=== PATIENT | female | born 1950 | race Caucasian/White ===

== ENCOUNTER 2019-10-31 12:18 | Emergency (ER) | payer MEDICARE ==
[~2019-10-31] VITALS: Ht 172.7 cm; Wt 82.1 kg
--- OUTSIDE RECORDS SUMMARY | ~2019-10-31 | XMS | Encounter Summary ---
Demographics + + + | Address | [address] | | | [place] [address] | + + + | Home Phone | | + + + | Preferred Language | Unknown | + + + | Marital Status | | + + + | Episcopalian Affiliation | 1001 | + + + | Race | Unknown | + + + | Ethnic Group | Unknown | + + + Author + + + | Author | [facility] | | | and [place] | + + + | Organization | [facility] | | | and [place] | + + + | Address | Unknown | + + + | Phone | Unavailable | + + + Support + + +---------+ + | Name | Relationship | Address | Phone | + + +---------+ + | Paris Schimke | ECON | Unknown | | + + +---------+ + Care Team Providers + +------+ + | Care Physician Vice President Name | Role | Phone | + +------+ + | Oscar Apodaca MD | PCP | | + +------+ + Reason for Visit + + + | Reason | Comments | + + + | Other | Appointment | + + + | Medication Refill | | + + + Encounter Details +--------+ + + + + | Date | Type | Department | Care Team | Description | +--------+ + + + + | 07/09/ | Telephone | [place] [facility] | Naga Enriquez MD | Other (Appointment | | 2020 | | [facility] [address] | [address] | ); Medication Refill | | | | [address] [place] | [place], [place] | | | | | [place], [place] | [address] | | | | | [address] | [phone] | | | | | [phone] | | | +--------+ + + + + Social History + +-------+ +--------+------+ | Tobacco Use | Types | Packs/Day | Years | Date | | | | | Used | | + +-------+ +--------+------+ | Never Smoker | | | | | + +-------+ +--------+------+ + +---+---+---+ | Smokeless Tobacco: | | | | | Never Used | | | | + +---+---+---+ + + + | Sex Assigned at | Date Recorded | | | | + + + | Not on file | | + + + + + + + | Job Start Date | Occupation | Industry | + + + + | Not on file | Not on file | Not on file | + + + + + + + + | Travel History | Travel Start | Travel End | + + + + + + | No recent travel history available. | + + documented as of this encounter Plan of Treatment Not on filedocumented as of this encounter Visit Diagnoses Not on filedocumented in this encounter"
--- OUTSIDE RECORDS SUMMARY | ~2019-10-31 | XMS | Encounter Summary ---
Demographics + + + | Address | [address] [place] [address] RD | | | [place] [address] | + + + | Home Phone | | + + + | Preferred Language | Unknown | + + + | Marital Status | | + + + | Holiness Affiliation | Unknown | + + + | Race | White | + + + | Ethnic Group | Not or | + + + Author + + + | Organization | Unknown | + + + | Address | Unknown | + + + | Phone | Unavailable | + + + Support + + +---------+ + | Name | Relationship | Address | Phone | + + +---------+ + | Paris Lee | ECON | Unknown | | + + +---------+ + Care Team Providers + +------+ + | Care Communications Marketing Intern Name | Role | Phone | + +------+ + PCP | Unavailable | + +------+ + Encounter Details +--------+ + + + + | Date | Type | Department | Care Team | Description | +--------+ + + + + | 06/27/ | Office | | Note, Outpatient | Progress Note | | 2001 | Visit-Trans | | Clinic | | | | cribed | | | | +--------+ + + + + Social History + +-------+ +--------+------+ | Tobacco Use | Types | Packs/Day | Years | Date | | | | | Used | | + +-------+ +--------+------+ | Never Assessed | | | | | + +-------+ +--------+------+ + + + | Sex Assigned at [...] + + documented as of this encounter Progress Notes Interface, Maintenance Director In - 01/30/2006 1:07 AM PDTCLINIC DATE: 06/27/2002 NEUROSURGERY CLINIC SUBJECTIVE: Jessica Lee is a patient who is referred to me from Dr. Karthik Arevalo. She is a 51-year-old female who presented with a fullness in her ear and some dizziness and loss of hearing. She ultimately had a biopsy taken through her ear and was proved to be that of a meningioma. At the first, it was thought it might be a paraganglioma. She presents today for evaluation regarding treatment. She indicates she has otherwise been a very healthy individual. She has no significant other medical problems and takes no specific medications at this time. PHYSICAL EXAMINATION NEUROLOGIC: Her examination is also unremarkable. She is alert and oriented x 3. Her speech is fluent. Extraocular movements are intact. The pupils are round and reactive to light. Facies are symmetrical. Tongue protrudes in the midline, and palate elevates in the midline. She has normal sensation to light touch in her face. Hearing is remarkably decreased in the left ear. 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 She has 5/5 strength in her iliopsoas, quadriceps, gastrocnemius, tibialis anterior, and EHL muscles bilaterally. She has no sensory deficits to light touch in her upper or lower extremities. Cerebellar exam on [id number]-ipaf shows no evidence of dysmetria, and she is also able to perform rapid alternating movements. I reviewed her films and she definitely has a petrous apex mass which is that of a meningioma. It appears to be involved in a number of cranial nerves including 5, 7, 8, 9, 10, and 11. I discussed with her that I think radiation alone is probably not in her best interest. She is a young lady and I think a significant debulking would be a better approach all by radiosurgery. She would like to hear from [facility] regarding proton beam, is going to discuss her situation with them. However, I have recommended that we at least repeat her MRI since the MRI was not of the highest quality that I would like. I would also recommend that if she proceeds with surgery that we perform an angiogram with embolization prior to surgery. She is going to wait and hear from [facility] and not have radiation. She is also going to plan to come back and see me on July 11, 2002, at which time we will have a repeat MRI. At that time, we hopefully can make a decision on whether to proceed with surgery or not. Clinic time was 20 minutes in length and dealt a great deal of time with counseling regarding her problem. Leonides Don M.D. VARGHESE / CLEMENT [id number] / [id number] / [id number] / Tdocumented in this encounter Plan of Treatment Not on filedocumented as of this encounter Visit Diagnoses Not on filedocumented in this encounter"
--- OUTSIDE RECORDS SUMMARY | ~2019-10-31 | XMS | Encounter Summary ---
Demographics + + + | Address | [address] | | | [place] [address] | + + + | Home Phone | | + + + | Preferred Language | Unknown | + + + | Marital Status | | + + + | Spiritism Affiliation | 1001 | + + + | Race | Unknown | + + + | Ethnic Group | Unknown | + + + Author + + + | Author | [facility] | | | and [place] | + + + | Organization | [facility] | | | and [...] Team Providers + +------+ + | Care Brewing Director Name | Role | Phone | + +------+ + | Oscar Apodaca MD | PCP | | + +------+ + Encounter Details +--------+ + + + + | Date | Type | Department | Care Team | Description | +--------+ + + + + | 07/20/ | Orders Only | [facility] | Naga Enriquez MD | Hx of partial | | 2018 | | [facility] [address] | [address] [place] | thyroidectomy | | | | [address] [place] [place] | [place], [place] | (Primary Dx) | | | | [place], [place] | [address] | | | | | [address] | [phone] | | | | | [phone] | | | +--------+ + + + [...] as of this encounter Plan of Treatment +------+------+--------+ + + | Name | Type | Priori | Associated Diagnoses | Order Schedule | | | | ty | | | +------+------+--------+ + + | TSH | Lab | Routin | Hx of partial | Expected: | | | | e | thyroidectomy | 09/17/2017, Expires: | | | | | | 07/20/2018 | +------+------+--------+ + + documented as of this encounter Visit Diagnoses + + | Diagnosis | + + | Hx of partial thyroidectomy - Primary Other postprocedural status | + + documented in this encounter"
--- OUTSIDE RECORDS SUMMARY | ~2019-10-31 | XMS | Encounter Summary ---
Demographics + + + | Address | [address] | | | [place] [address] | + + + | Home Phone | | + + + | Preferred Language | Unknown | + + + | Marital Status | | + + + | Baptist Affiliation | 1001 | + + + | Race | Unknown | + + + | Ethnic Group | Unknown | + + + Author + + + | Author | [facility] | | | and [place] | + + + | Organization | [facility] | | [...] Team Providers + +------+ + | Care Demolition Worker Name | Role | Phone | + +------+ + | Oscar Apodaca MD | PCP | | + +------+ + Reason for Visit +---------+ + | Reason | Comments | +---------+ + | Results | | +---------+ + Encounter Details +--------+ + + + + | Date | Type | Department | Care Team | Description | +--------+ + + + + | 07/20/ | Telephone | [place] [facility] | Naga Enriquez MD | Results | | 2018 | | [facility] [address] | [address] [place] | | | | | [address] [place] | [place], [place] | | | | | [place], [place] | [address] | | | | | [address] | [phone] | | | | | [phone] | | | +--------+ + + + [...]
--- OUTSIDE RECORDS SUMMARY | ~2019-10-31 | XMS | Encounter Summary ---
Demographics + + + | Address | [address] | | | [place] [address] | + + + | Home Phone | | + + + | Preferred Language | Unknown | + + + | Marital Status | | + + + | Scientologist Affiliation | 1001 | + + + | Race | Unknown | + + + | Ethnic Group | Unknown | + + + Author + + + | Author | [facility] | | | and [place] | + + + | Organization | [facility] | | | and [...] Team Providers + +------+ + | Care Functional Mental Disability Teacher Name | Role | Phone | + +------+ + | Oscar Apodaca MD | PCP | | + +------+ + Reason for Visit +--------+ + | Reason | Comments | +--------+ + | Other | TSH Lab Orders | +--------+ + Encounter Details +--------+ + + + + | Date | Type | Department | Care Team | Description | +--------+ + + + + | 09/18/ | Telephone | [facility] | Naga Enriquez MD | Other (TSH Lab | | 2018 | | [facility] [address] | [address] [place] | Orders ) | | | | [address] [place] | [place], [place] | | | | | [place], [place] | [address] | | | | | [address] | [phone] | | | | | [phone] | | | +--------+ + + + [...] Not on filedocumented as of this encounter Procedures + +--------+ + + + | Procedure Name | Priori | Date/Time | Associated Diagnosis | Comments | | | ty | | | | + +--------+ + + + | THYROID STIMULATING | Routin | 09/18/2017 | | Results for this | | HORMONE 3RD GEN | e | 10:56 AM | | procedure are in the | | | | PDT | | results section. | + +--------+ + + + documented in this encounter Results Thyroid Stimulating Hormone 3rd Gen (09/18/2017 10:56 AM PDT) + + + + + + | Component | Value | Ref Range | Performed | Pathologist | | | | | At | Signature | + + + + + + | TSH | 0.109 (L)Comment: | 0.270 - 4.20 | REFERENCE | | | | Biotin in specimens | | LAB | | | | taken from patients on | | [facility] | | | | high-dose biotin therapy | | | | | | or supplements may | | | | | | intefere with this test | | | | | | and cause inaccurate | | | | | | test results. It is | | | | | | recommended that for | | | | | | patients receiving | | | | | | therapy with high biotin | | | | | | doses (> 5 mg/day), no | | | | | | laboratory test specimen | | | | | | should be collected | | | | | | until at least 8 hours | | | | | | after the last biotin | | | | | | administration. | | | | + + + + + + + + | Specimen | + + | | + + + + + | Narrative | Performed At | + + + | Testing Performed at: [facility] CLIA: [id number] - [id number] | REFERENCE LAB | | [place] [address] | [facility] | + + + + + + + + | Performing | Address | City/State/Zipcode | Phone Number | | Organization | | | | + + + + + | REFERENCE LAB | [address] | [place] | [phone] | | [place] [facility] [place] | | [address] | | + + + + + | REFERENCE LAB | [address] | [place] | [phone] | | [facility] | | [address] | | + + + + + documented in this encounter Visit Diagnoses Not on filedocumented in this encounter"
--- OUTSIDE RECORDS SUMMARY | ~2019-10-31 | XMS | Encounter Summary ---
Demographics + + + | Address | [address] | | | [place] [address] | + + + | Home Phone | | + + + | Preferred Language | Unknown | + + + | Marital Status | | + + + | Cheondoism Affiliation | 1001 | + + + | Race | Unknown | + + + | Ethnic Group | Unknown | + + + Author + + + | Author | [facility] | | | and [place] | + + + | Organization | [facility] | | [...] Team Providers + +------+ + | Care Resolution Manager Name | Role | Phone | + +------+ + | Oscar Apodaca MD | PCP | | + +------+ + Encounter Details +--------+ + + + + | Date | Type | Department | Care Team | Description | +--------+ + + + + | 04/03/ | [facility] | [facility] | Conversion | Diplopia; Problems | | 2018 | Encounter | [facility] MRI | Transaction, | with swallowing and | | | | [address] | Provider Unknown | mastication | | | | [place], [place] | [phone] | | | | | [address] | | | | | | [phone] | Indra Maloney | | | | | | MD [address] | | | | | | [address] | | | | | | [place] [address] | | | | | | [phone] | | | | | | | | +--------+ + + [...] + + documented as of this encounter Last Filed Vital Signs + + + + + | Vital Sign | Reading | Time Taken | Comments | + + + + + | Blood Pressure | - | - | | + + + + + | Pulse | - | - | | + + + + + | Temperature | - | - | | + + + + + | Respiratory Rate | - | - | | + + + + + | Oxygen Saturation | - | - | | + + + + + | Inhaled Oxygen | - | - | | | Concentration | | | | + + + + + | Weight | 86.2 kg (190 lb) | 04/03/2018 4:00 PM | | | | | PDT | | + + + + + | Height | - | - | | + + + + + | Body Mass Index | 29.13 | 06/18/2017 9:22 AM | | | | | PST | | + + + + + documented in this encounter Medications at Time of Discharge + + + +---------+ + + | Medication | Sig | Dispensed | Refills | Start | End Date | | | | | | Date | | + + + +---------+ + + | alendronate | Take by mouth. | | 0 | 07/24/19 | | | (FOSAMAX) 70 mg | | | | 17 | | | tablet | | | | | | + + + +---------+ + + | aspirin 325 mg | Take by mouth. | | 0 | 07/24/19 | | | tablet | | | | 17 | | + + + +---------+ + + | atorvaSTATin | Take by mouth. | | 0 | 07/24/19 | | | (LIPITOR) 40 mg | | | | 17 | | | tablet | | | | | | + + + +---------+ + + | Calcium | daily | | 0 | 07/24/19 | | | Carb-Cholecalciferol | | | | 17 | | | (CALCIUM + D3 PO) | | | | | | + + + +---------+ + + | Cholecalciferol | Take by mouth | | 0 | | | | (VITAMIN D-3) 2000 | Daily. | | | | | | units CAPS | | | | | | + + + +---------+ + + | Coenzyme Q10 | Take 300 mg by | | 0 | 07/24/19 | | | (COQ10 PO) | mouth. | | | 17 | | + + + +---------+ + + | levothyroxine | Take 1 tablet by | 30 | 5 | 01/01/20 | | | (SYNTHROID) 100 mcg | mouth every morning | tablet | | 18 | | | tablet | (before breakfast). | | | | | + + + +---------+ + + | metoprolol | Take by mouth. | | 0 | 07/24/19 | | | succinate | | | | 17 | | | (TOPROL-XL) 25 mg 24 | | | | | | | hr tablet | | | | | | + + + +---------+ + + | Multiple | Take by mouth | | 0 | | | | Vitamins-Minerals | Daily. | | | | | | (MULTIVITAMIN PO) | | | | | | + + + +---------+ + + documented as of this encounter Plan of Treatment Not on filedocumented as of this encounter Procedures + +--------+ + + + | Procedure Name | Priori | Date/Time | Associated Diagnosis | Comments | | | ty | | | | + +--------+ + + + | MRI BRAIN W WO | Routin | 04/03/2018 | | Results for this | | CONTRAST | e | 4:01 PM | | procedure are in the | | | | PDT | | results section. | + +--------+ + + + documented in this encounter Results MRI Brain w wo Contrast (04/03/2018 4:01 PM PDT) + + | Specimen | + + | | + + + + + | Impressions | Performed At | + + + | 1. Stable small right temporal meningioma. 2. 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 | | | 3. Probable mild chronic white matter microvascular ischemic | | | gliosis. | | | 4:25 PM | | + + + + + + | Narrative | Performed At | + + + | [facility] C[facility] MRI BRAIN W WO CONTRAST 04/03/2018 4:01 PM | | | HISTORY: 67 years. Female. Diplopia and problems with swallowing | | | and mastication. TECHNIQUE: Imaging was performed on a 1.5 [facility] | | | MRI system. Multiplanar sequences according to a standard department | | | protocol were acquired with and without contrast. Contrast: | | | Gadavist. Dose: 8 mL. COMPARISON: 02/28/2017 FINDINGS: | | | Craniocervical junction, pineal, pituitary, corpus callosum are | | | unremarkable. Mild scattered focal areas of increased T2 and FLAIR | | | signal seen within the supratentorial white matter and centrally | | | within the alexandra that appears similar to the previous examination. | | | Mild diffuse cerebral atrophy. Cystic encephalomalacia and gliosis | | | within the anterior left temporal lobe, stable. Stable enhancement | | | centered at the left petrous apex involving the clivus and cavernous | | | sinus measuring 5.6 x 2.8 cm, stable. Normal flow voids within the | | | anterior and posterior circulation. Orbits and their contents are | | | normal. No restricted diffusion. A 9 x 8 mm area of enhancement on | | | the posterior right temporal lobe with dural attachment that is | | | stable to the previous examination. | | + + + + + | Procedure Note | + + | Rober, Rad Conversion - 02/12/2019 5:19 AM PDT [facility] BRAIN W WO | | [id number]/3/2018 4:01 PM HISTORY:67 years. Female. Diplopia and problems with | | swallowing and mastication. TECHNIQUE:Imaging was performed on a 1.5 [facility] MRI system. | | Multiplanar sequences according to a standard department protocol were acquired with and | | without contrast.Contrast: Gadavist. Dose: 8 mL. COMPARISON:02/28/2017 FINDINGS: | | Craniocervical junction, pineal, pituitary, corpus callosum are unremarkable. Mild | | scattered focal areas of increased T2 and FLAIR signal seen within the supratentorial | | white matter and centrally within the alexandra that appears similar to the previous | | examination. Mild diffuse cerebral atrophy. Cystic encephalomalacia and gliosis within | | the anterior left temporal lobe, stable. Stable enhancement centered at the left petrous | | apex involving the clivus and cavernous sinus measuring 5.6 x 2.8 cm, stable. Normal | | flow voids within the anterior and posterior circulation. Orbits and their contents are | | normal. No restricted diffusion. A 9 x 8 mm area of enhancement on the posterior right | | temporal lobe with dural attachment that is stable to the previous examination. | | IMPRESSION: 1. Stable small right temporal meningioma.2. Stable enhancement centered | | in the left petrous apex involving the clivus and cavernous sinus to likely represent | | residual transosseous meningioma.3. Probable mild chronic white matter microvascular | | ischemic gliosis. | | | |Cystic encephalomalacia and gliosis within the anterior left temporal lobe, stable. Stable enhancement centered at the left petrous apex involving the clivus and cavernous sinus measu ring 5.6 x 2.8 cm, stable. | | | |Normal flow voids within the anterior and posterior circulation. Orbits and their contents are normal. No restricted diffusion. | | | |A 9 x 8 mm area of enhancement on the posterior right temporal lobe with dural attachment t hat is stable to the previous examination. | | | |IMPRESSION: | |1. Stable small right temporal meningioma. | |2. 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 | |3. Probable mild chronic white matter microvascular ischemic gliosis. | | | | | + + documented in this encounter Visit Diagnoses + + | Diagnosis | + + | Diplopia | + + | Problems with swallowing and mastication | + + documented in this encounter"
--- OUTSIDE RECORDS SUMMARY | ~2019-10-31 | XMS | Encounter Summary ---
Demographics + + + | Address | [address] | | | [place] [address] | + + + | Home Phone | | + + + | Preferred Language | Unknown | + + + | Marital Status | | + + + | Restorationist Affiliation | 1001 | + + + | Race | Unknown | + + + | Ethnic Group | Unknown | + + + Author + + + | Author | [facility] | | | and [place] | + + + | Organization | [facility] | | [...] Team Providers + +------+ + | Care Senior Restaurant Manager Name | Role | Phone | + +------+ + PCP | Unavailable | + +------+ + Encounter Details +--------+ + + + + | Date | Type | Department | Care Team | Description | +--------+ + + + + | 02/28/ | Hospital | [facility] | Conversion | Personal history of | | 2017 | Encounter | [facility] | Transaction, | colonic polyps; | | | | [address] | Provider Unknown | Conductive hearing | | | | [facility] [place] | [phone] | loss, unspecified; | | | | [address] | | Chronic external ear | | | | [phone] | Indra Maloney | infection, left | | | | | MD Lalit [address] | | | | | | [address] | | | | | | [place] [address] | | | | | | [phone] | | | | | | | [...] + + + + | Weight | 84.4 kg (186 lb) | 02/28/2017 5:12 PM | | | | | PDT | | + + + + + | Height | - | - | | + + + + + | Body Mass Index | 28.52 | 12/07/2016 9:50 AM | | | | | PDT | [...] MRI BRAIN W WO | Routin | 02/28/2017 | | Results for this | | CONTRAST | e | 5:19 PM | | procedure are in the | | | | PDT | | results section. | + +--------+ + + + documented in this encounter Results MRI Brain w wo Contrast (02/28/2017 5:19 PM PDT) + + | Specimen | + + | | + + + + + | Impressions | Performed At | + + + | 1. 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 Involvement of the petrous apex appears minimally | | | progressed since 2013. Residual fluid within the left mastoid air | | | cells, similar to the prior exam. 2. Stable appearance of the right | | | temporal meningioma. 3. Minimal nonspecific white matter findings, | | | not significantly changed. | | + + + + + + | Narrative | Performed At | + + + | JESSICA LEE 1950 MRI BRAIN W WO CONTRAST 02/28/2017 | | | 5:19 PM HISTORY: Angioblastic meningioma, personal history of | | | colonic polyps, conductive hearing loss, chronic external ear | | | infection, left COMPARISON: 04/14/2015 TECHNIQUE: Imaging was | | | performed on a 1.5 [facility] MRI system. Multiplanar sequences | | | according to a standard department protocol were acquired with and | | | without contrast. Contrast: MultiHance. Dose: 16 mL. FINDINGS: | | | FINDINGS: The ventricles are enlarged compatible with mild | | | generalized brain volume loss. Prior left frontal, temporal, and | | | parietal craniotomy noted. Underlying encephalomalacia and gliosis | | | involving the anterior left temporal lobe, similar to the prior exam. | | | There are scattered foci of high T2/FLAIR signal intensity within | | | the subcortical and deep white matter bilaterally, which are | | | nonspecific, but similar to the prior exam. There is no evidence | | | of acute intracranial hemorrhage. No abnormal restricted diffusion to | | | suggest acute infarction. Extensive fluid is again seen within the | | | left mastoid air cells. Postcontrast images again demonstrated | | | enhancement along the left petrous apex and extending to left Meckel's | | | cave, measuring 5.2 x 2.2 cm slightly increased from 2014 (previously | | | 4.8 x 2.2 cm in 2014). Signal abnormality also again seen involving | | | the left jugular foramen with transosseous extension across the left | | | occipital condyle and involving the left hypoglossal canal, similar | | | to the prior exam. There appears to be slightly greater involvement of | | | the clivus than on the prior exam (series 10, image 145). | | | Enhancing extra-axial mass within the right temporal region is again | | | demonstrated measuring up to 8.5 mm in size of (series 10, image 119) | | | not significantly changed. Nonspecific osseous enhancement seen | | | within the left frontal bone laterally (series 10, image 33) minimally | | | increased from the prior exam. Recommend attention on follow-up | | | imaging. The flow-voids of the carotid and vertebrobasilar system | | | are preserved at the skull base. | | + + + + + | Procedure Note | + + | Rober, Rad Conversion - 02/13/2019 1:02 AM PDT JESSICA LEE1950MRI BRAIN W | | WO CONTRAST02/28/2017 5:19 PM HISTORY: Angioblastic meningioma, personal history of | | colonic polyps, conductive hearing loss, chronic external ear infection, left | | COMPARISON: 04/14/2015 TECHNIQUE:Imaging was performed on a 1.5 [facility] MRI system. | | Multiplanar sequences according to a standard department protocol were acquired with and | | without contrast.Contrast: MultiHance. Dose: 16 mL. FINDINGS: FINDINGS: The | | ventricles are enlarged compatible with mild generalized brain volume loss. Prior left | | frontal, temporal, and parietal craniotomy noted. Underlying encephalomalacia and | | gliosis involving the anterior left temporal lobe, similar to the prior exam. There are | | scattered foci of high T2/FLAIR signal intensity within the subcortical and deep white | | matter bilaterally, which are nonspecific, but similar to the prior exam. There is no | | evidence of acute intracranial hemorrhage. No abnormal restricted diffusion to suggest | | acute infarction. Extensive fluid is again seen within the left mastoid air cells. | | Postcontrast images again demonstrated enhancement along the left petrous apex and | | extending to left Meckel's cave, measuring 5.2 x 2.2 cm slightly increased from 2014 | | (previously 4.8 x 2.2 cm in 2014). Signal abnormality also again seen involving the left | | jugular foramen with transosseous extension across the left occipital condyle and | | involving the left hypoglossal canal, similar to the prior exam. There appears to be | | slightly greater involvement of the clivus than on the prior exam (series 10, image | | 145). Enhancing extra-axial mass within the right temporal region is again demonstrated | | measuring up to 8.5 mm in size of (series 10, image 119) not significantly changed. | | Nonspecific osseous enhancement seen within the left frontal bone laterally (series 10, | | image 33) minimally increased from the prior exam. Recommend attention on follow-up | | imaging. The flow-voids of the carotid and vertebrobasilar system are preserved at the | | skull base. IMPRESSION: 1. 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 Involvement of the | | petrous apex appears minimally progressed since 2014. Residual fluid within the left | | mastoid air cells, similar to the prior exam.2. Stable appearance of the right temporal | | meningioma. 3. Minimal nonspecific white matter findings, not significantly changed. | | | |The flow-voids of the carotid and vertebrobasilar system are preserved at the skull base. | | | |IMPRESSION: | | | |1. Residual enhancement centered within the left petrous apex and involvement of Meckel's c ave, left cavernous sinus, and left occipital condyle consistent with residual transosseous meningioma of the skull | |base. Involvement of the petrous apex appears | |minimally progressed since 2014. Residual fluid within the left mastoid air cells, similar to the prior exam. | |2. Stable appearance of the right temporal meningioma. | | | |3. Minimal nonspecific white matter findings, not significantly changed. | | | | | + + documented in this encounter Visit Diagnoses + + | Diagnosis | + + | Personal history of colonic polyps | + + | Conductive hearing loss, unspecified | + + | Chronic external ear infection, left | + + documented in this encounter"
--- OUTSIDE RECORDS SUMMARY | ~2019-10-31 | XMS | Encounter Summary ---
Demographics + + + | Address | [address] | | | [place] [address] | + + + | Home Phone | | + + + | Preferred Language | Unknown | + + + | Marital Status | | + + + | Holiness Affiliation | 1001 | + + + | Race | Unknown | + + + | Ethnic Group | Unknown | + + + Author + + + | Author | [facility] | | | and [place] | + + + | Organization | [facility] | | | and [place] | + + + | Address | Unknown | + + + | Phone | Unavailable | + + + Support + + +---------+ + | Name | Relationship | Address | Phone | + + +---------+ + | Paris Jesus | ECON | Unknown | | + + +---------+ + Care Team Providers + +------+ + | Care Counseling Services Director Name | Role | Phone | + +------+ + PCP | Unavailable | + +------+ + Encounter Details +--------+ + + + + | Date | Type | Department | Care Team | Description | +--------+ + + + + | 08/17/ | Hospital | [facility] | | | | 2011 | Encounter | MED CTR XRAY [address] | | | | | | [address] | | | | | | [place] [address] | | | | | | [phone] | | | +--------+ + + + [...]
--- OUTSIDE RECORDS SUMMARY | ~2019-10-31 | XMS | Encounter Summary ---
Demographics + + + | Address | [address] | | | [place] [address] | + + + | Home Phone | | + + + | Preferred Language | Unknown | + + + | Marital Status | | + + + | Jehovah'S Witness Affiliation | 1001 | + + + | Race | Unknown | + + + | Ethnic Group | Unknown | + + + Author + + + | Author | [facility] | | | and [place] | + + + | Organization | [facility] | | | and [...] Team Providers + +------+ + | Care Environmental Aid Name | Role | Phone | + +------+ + PCP | Unavailable | + +------+ + Encounter Details +--------+ + + + + | Date | Type | Department | Care Team | Description | +--------+ + + + + | 05/02/ | Hospital | [facility] | Conversion | Nontoxic single | | 2016 | Encounter | [facility] | Transaction, | thyroid nodule | | | | ULTRASOUND [address] | Provider Unknown | | | | | [address] | [phone] | | | | | [place] | | | | | | [address] | | | | | | [phone] | | | +--------+ + + + [...] | + +--------+ + + + | US THYROID | Routin | 05/02/2016 | | Results for this | | | e | 3:11 PM | | procedure are in the | | | | PDT | | results section. | + +--------+ + + + documented in this encounter Results US Thyroid (05/02/2016 3:11 PM PDT) + + | Specimen | + + | | + + + + + | Impressions | Performed At | + + + | 1. Solitary thyroid nodule in the thyroid isthmus, as above. | | | Recommend fine-needle aspiration under ultrasound guidance to exclude | | | malignancy. 2. Heterogeneous appearance of the thyroid gland, | | | without hyperemia, which could reflect previous thyroiditis. | | | | | + + + + + + | Narrative | Performed At | + + + | JESSICA LEE US THYROID 05/02/2016 3:11 PM HISTORY: | | | Thyroid nodule. Nontoxic single thyroid nodule. TECHNIQUE: | | | Sonographic evaluation of the thyroid gland. COMPARISON: None. | | | FINDINGS: The overall thyroid gland demonstrates a heterogeneous | | | echotexture. The right lobe measures 45 x 14 x 15 mm, without focal | | | nodule. The left lobe measures 39 x 14 x 14 mm, measuring no focal | | | nodule. The thyroid isthmus measures 5 mm greatest AP dimension. | | | Within the thyroid isthmus, a well-circumscribed hypoechoic thyroid | | | nodule is seen, demonstrating punctate microcalcifications, and | | | intermediate to low color Doppler flow. It measures 21 x 7 x 20 mm. | | + + + + + | Procedure Note | + + | Mook Richter - 02/13/2019 12:42 PM PDT JESSICA LEE TLWTTQU20/1/2016 | | 3:11 PM HISTORY:Thyroid nodule. Nontoxic single thyroid nodule. TECHNIQUE:Sonographic | | evaluation of the thyroid gland. COMPARISON:None. FINDINGS:The overall thyroid gland | | demonstrates a heterogeneous echotexture. The right lobe measures 45 x 14 x 15 mm, | | without focal nodule. The left lobe measures 39 x 14 x 14 mm, measuring no focal nodule. | | The thyroid isthmus measures 5 mm greatest AP dimension. Within the thyroid isthmus, a | | well-circumscribed hypoechoic thyroid nodule is seen, demonstrating punctate | | microcalcifications, and intermediate to low color Doppler flow. It measures 21 x 7 x 20 | | mm. IMPRESSION: 1. Solitary thyroid nodule in the thyroid isthmus, as above. Recommend | | fine-needle aspiration under ultrasound guidance to exclude malignancy. 2. | | Heterogeneous appearance of the thyroid gland, without hyperemia, which could reflect | | previous thyroiditis. | | | |FINDINGS: | |The overall thyroid gland demonstrates a heterogeneous echotexture. The right lobe measures 45 x 14 x 15 mm, without focal nodule. The left lobe measures 39 x 14 x 14 mm, measuring no focal nodule. The thyroid isthmus | |measures 5 mm greatest AP dimension. | | Within the thyroid isthmus, a well-circumscribed hypoechoic thyroid nodule is seen, demons trating punctate microcalcifications, and intermediate to low color Doppler flow. It measure s 21 x 7 x 20 mm. | | | |IMPRESSION: | |1. Solitary thyroid nodule in the thyroid isthmus, as above. Recommend fine-needle aspirat ion under ultrasound guidance to exclude malignancy. | | | |2. Heterogeneous appearance of the thyroid gland, without hyperemia, which could reflect p revious thyroiditis. | | | | | + + documented in this encounter Visit Diagnoses + + | Diagnosis | + + | Nontoxic single thyroid nodule Nontoxic uninodular goiter | + + documented in this encounter"
--- OUTSIDE RECORDS SUMMARY | ~2019-10-31 | XMS | Encounter Summary ---
Demographics + + + | Address | [address] | | | [place] [address] | + + + | Home Phone | | + + + | Preferred Language | Unknown | + + + | Marital Status | | + + + | Adventism Affiliation | 1001 | + + + | Race | Unknown | + + + | Ethnic Group | Unknown | + + + Author + + + | Author | [facility] | | | and [place] | + + + | Organization | [facility] | | [...] Team Providers + +------+ + | Care Welding Machine Operator Thermit Name | Role | Phone | + [...] | | | [place], [place] | [address] | | | | | [address] | [phone] | | | | | [phone] | | | +--------+ + + + [...]
--- OUTSIDE RECORDS SUMMARY | ~2019-10-31 | XMS | Encounter Summary ---
Demographics + + + | Address | [address] | | | [place] [address] | + + + | Home Phone | | + + + | Preferred Language | Unknown | + + + | Marital Status | | + + + | Confucianism Affiliation | 1001 | + + + | Race | Unknown | + + + | Ethnic Group | Unknown | + + + Author + + + | Author | [facility] | | | and [place] | + + + | Organization | [facility] | | | and [place] | + + + | Address | Unknown | + + + | Phone | Unavailable | + + + Support + + +---------+ + | Name | Relationship | Address | Phone | + + +---------+ + | Paris Schimdinorah | ECON | Unknown | | + + +---------+ + Care Team Providers + +------+ + | Care Bench Jeweler Name | Role | Phone | + +------+ + PCP | Unavailable | + +------+ + Encounter Details +--------+ + + + + | Date | Type | Department | Care Team | Description | +--------+ + + + + | 07/25/ | Hospital | [facility] | Conversion | Other screening | | 2011 | Encounter | IMAGING SERVICES | Transaction, | mammogram | | | | [address] | Provider Unknown | | | | | [address] [place], [place] | [phone] | | | | | [address] | | | | | | [phone] | | | +--------+ + + + [...] | + +--------+ + + + | JOE DIGITAL | Routin | 07/25/2011 | | Results for this | | SCREENING BILATERAL | e | 2:33 PM | | procedure are in the | | | | PST | | results section. | + +--------+ + + + documented in this encounter Results [facility] Digital Screening Bilateral (07/25/2011 2:33 PM PST) + + | Specimen | + + | | + + + + + | Narrative | Performed At | + + + | JESSICA A SCHIMKE MAMMO SCREENING BILATERAL 07/25/2011 2:18 PM | | | History: 60 years. Female. Asymptomatic for breast disease. | | | Technique: Digital Craniocaudad and medial lateral oblique views of | | | each breast were performed. Computerized aided detection software | | | was utilized to prescreen this exam. Comparison: 05/06/2010 and | | | previous dating back to 05/29/2006. Findings: The breast | | | parenchyma consists of scattered fibroglandular densities. No | | | nodule or mass visualized. No suspicious microcalcifications. No | | | architectural distortion visualized. No new findings as compared | | | with the prior exam. Impression: 1. Negative screening | | | mammography. 2. Recommend annual screening mammography. | | | BI-RADS: 1, negative. General breast imaging addendum: 10-15% | | | of palpable breast abnormalities may not be visualized on | | | mammography. Negative imaging of the breasts should not postpone | | | further evaluation of a clinically significant palpable abnormality. | | | | | + + + + + | Procedure Note | + + | Rober, Rad Conversion - 02/22/2019 6:24 AM PDT JESSICA LEE | | MAMMO SCREENING BILATERAL | | 07/25/2011 2:18 PM | | | | History: 60 years. Female. Asymptomatic for breast disease. | | | | Technique: Digital Craniocaudad and medial lateral oblique views of each | | breast were performed. Computerized aided detection software was utilized | | to prescreen this exam. | | | | Comparison: 05/06/2010 and previous dating back to 05/29/2006. | | | | Findings: The breast parenchyma consists of scattered fibroglandular | | densities. | | | | No nodule or mass visualized. No suspicious microcalcifications. No | | architectural distortion visualized. No new findings as compared with the | | prior exam. | | | | Impression: | | 1. Negative screening mammography. | | 2. Recommend annual screening mammography. | | | | BI-RADS: 1, negative. | | | | | | General breast imaging addendum: 10-15% of palpable breast abnormalities | | may not be visualized on mammography. Negative imaging of the breasts | | should not postpone further evaluation of a clinically significant palpable | | abnormality. | | | | | + + documented in this encounter Visit Diagnoses + + | Diagnosis | + + | Other screening mammogram | + + documented in this encounter"
--- OUTSIDE RECORDS SUMMARY | ~2019-10-31 | XMS | Encounter Summary ---
Demographics + + + | Address | [address] | | | [place] [address] | + + + | Home Phone | | + + + | Preferred Language | Unknown | + + + | Marital Status | | + + + | Rastafarian Affiliation | 1001 | + + + | Race | Unknown | + + + | Ethnic Group | Unknown | + + + Author + + + | Author | [facility] | | | and [place] | + + + | Organization | [facility] | | | [...] Team Providers + +------+ + | Care Electronic Lab Technician Name | Role | Phone | + +------+ + PCP | Unavailable | + +------+ + Encounter Details +--------+ + + + + | Date | Type | Department | Care Team | Description | +--------+ + + + + | 05/13/ | Hospital | [facility] | Indra Maloney | Headache | | 2006 | Encounter | CONVERSION [address] | [address] | | | | | [place] | [address] | | | | | [place] | [place] [address] | | | | | [address] | [phone] | | | | | [phone] | | | +--------+ + + + [...] filedocumented as of this encounter Visit Diagnoses + + | Diagnosis | + + | Headache(784.0) Headache | + + documented in this encounter"
--- OUTSIDE RECORDS SUMMARY | ~2019-10-31 | XMS | Encounter Summary ---
Demographics + + + | Address | [address] | | | [place] [address] | + + + | Home Phone | | + + + | Preferred Language | Unknown | + + + | Marital Status | | + + + | Anabaptism Affiliation | 1001 | + + + | Race | Unknown | + + + | Ethnic Group | Unknown | + + + Author + + + | Author | [facility] | | | and [place] | + + + | Organization | [facility] | | | [...] Team Providers + +------+ + | Care Content Engineer Name | Role | Phone | + +------+ + PCP | Unavailable | + +------+ + Encounter Details +--------+ + + + + | Date | Type | Department | Care Team | Description | +--------+ + + + + | 04/14/ | [facility] | [facility] | Conversion | Visit for screening | | 2014 | Encounter | IMAGING SERVICES | Transaction, | mammogram | | | | [address] | Provider Unknown | | | | | [address] [place], [place] | [phone] | | | | | [address] | | | | | | [phone] | | | +--------+ + + + [...] + +--------+ + + + | JOE TOMOSYN | Routin | 04/14/2015 | | Results for this | | SCREENING BILATERAL | e | 2:32 PM | | procedure are in the | | | | PDT | | results section. | + +--------+ + + + documented in this encounter Results JOE Tomosynthesis Screening Bilateral (04/14/2015 2:32 PM PDT) + + | Specimen | + + | | + + + + + | Impressions | Performed At | + + + | Negative. No evidence of malignancy. Normal interval followup | | | is recommended in 12 months. ASSESSMENT: BI-RADS Category 1 - | | | Negative. A letter of notification will be sent to the patient. | | | | | + + + + + + | Narrative | Performed At | + + + | [facility]ESSICA Cedeno [facility] MAMMO SCREEN COMBO HD BILATERAL 04/14/2015 2:32 | | | PM HISTORY: 64 years. Female. Asymptomatic for breast | | | disease. Family/Surgical History: Benign LEFT breast excisional | | | biopsy TECHNIQUE: Digital mammographic craniocaudad and medial | | | lateral oblique (2D) views of each breast were performed, with | | | additional digital tomosynthesis (3D) imaging of each breast in 2 | | | projections. Computerized aided detection software was utilized. | | | COMPARISON: 01/20/14 FINDINGS: Breast Tissue: There are | | | scattered areas of fibroglandular density. No significant masses, | | | calcifications, or areas of architectural distortion are seen. | | + + + + -+ | Procedure Note | + -+ | Rober, Rad Conversion - 02/14/2019 5:46 AM PDT Indie Vinos A [email or web address] SCREEN US BiologicO HD | | [id number]/14/2015 2:32 PM HISTORY: 64 years. Female. Asymptomatic for breast | | disease.Family/Surgical History: Benign LEFT breast excisional biopsy TECHNIQUE: | | Digital mammographic craniocaudad and medial lateral oblique (2D) views of each breast | | were performed, with additional digital tomosynthesis (3D) imaging of each breast in 2 | | projections. Computerized aided detection software was utilized. COMPARISON: 01/20/14 | | FINDINGS: Breast Tissue: There are scattered areas of fibroglandular density. No | | significant masses, calcifications, or areas of architectural distortion are seen. | | IMPRESSION: Negative. No evidence of malignancy. Normal interval followup is | | recommended in 12 months. ASSESSMENT: BI-RADS Category 1 - Negative. A letter of | | notification will be sent to the patient. | | | |Breast Tissue: There are scattered areas of fibroglandular density. | | | |No significant masses, calcifications, or areas of architectural distortion are seen. | | | |IMPRESSION: | | | |Negative. No evidence of malignancy. Normal interval followup is recommended in 12 months. | | | |ASSESSMENT: BI-RADS Category 1 - Negative. | | | |A letter of notification will be sent to the patient. | | | | | + -+ documented in this encounter Visit Diagnoses + + | Diagnosis | + + | Visit for screening mammogram Other screening mammogram | + + documented in this encounter"
--- OUTSIDE RECORDS SUMMARY | ~2019-10-31 | XMS | Encounter Summary ---
Demographics + + + | Address | [address] | | | [place] [address] | + + + | Home Phone | | + + + | Preferred Language | Unknown | + + + | Marital Status | | + + + | Jew Affiliation | 1001 | + + + | Race | Unknown | + + + | Ethnic Group | Unknown | + + + Author + + + | Author | [facility] | | | and [place] | + + + | Organization | [facility] | [...] Team Providers + +------+ + | Care Lead Performance Support Analyst Name | Role | Phone | + +------+ + PCP | Unavailable | + +------+ + Reason for Visit +---------+ + | Reason | Comments | +---------+ + | Results | | +---------+ + Encounter Details +--------+ + + + + | Date | Type | Department | Care Team | Description | +--------+ + + + + | 05/16/ | Telephone | [facility] | Naga Enriquez MD | Results | | 2017 | | [facility] | [address] [place] | | | | | [address] [place] | [place], [place] | | | | | [place], [place] | [address] | | | | | [address] | [phone] | | | | | [phone] | | | +--------+ + + + [...] Diagnosis | + + | Hx of papillary adenocarcinoma of thyroid Personal history of malignant neoplasm of | | thyroid | + + | Hx of thyroidectomy Other postprocedural status | + + documented in this encounter"
--- OUTSIDE RECORDS SUMMARY | ~2019-10-31 | XMS | Encounter Summary ---
Demographics + + + | Address | [address] | | | [place] [address] | + + + | Home Phone | | + + + | Preferred Language | Unknown | + + + | Marital Status | | + + + | Mormon Affiliation | 1001 | + + + | Race | Unknown | + + + | Ethnic Group | Unknown | + + + Author + + + | Author | [facility] | | | and [place] | + + + | Organization | [facility] | | | and [...] Team Providers + +------+ + | Care Substitute Nurse Name | Role | Phone | + +------+ + PCP | Unavailable | + +------+ + Encounter Details +--------+ + + + + | Date | Type | Department | Care Team | Description | +--------+ + + + + | 06/06/ | Hospital | [facility] | Conversion | Hx of thyroid cancer | | 2017 | Encounter | [facility] | Transaction, | | | | | [address] | Provider Unknown | | | | | [address] | [phone] | | | | | [place] | | | | | | [address] | | | | | | [phone] | | | +--------+ + + + [...] + + documented as of this encounter Medications at Time of Discharge [...] Take 1 tablet by | 30 | 3 | 05/16/20 | | | (SYNTHROID) 125 mcg | mouth every morning | tablet | | 17 | 8 | | tablet | (before breakfast). | [...] + +--------+ + + + | US HEAD NECK SOFT | Routin | 06/06/2017 | | Results for this | | TISSUE | e | 3:03 PM | | procedure are in the | | | | PST | | results section. | + +--------+ + + + documented in this encounter Results US Head Neck Soft Tissue (06/06/2017 3:03 PM PST) + + | Specimen | + + | | + + + + + | Impressions | Performed At | + + + | 1. Baseline examination post thyroidectomy Small and likely | | | benign lymph nodes only | | + + + + + + | Narrative | Performed At | + + + | HISTORY: 66-year-old female, history of thyroid malignancy, | | | surveillance post thyroidectomy TECHNIQUE: 1. Sonographic | | | evaluation of the neck and thyroid bed Prior study for review : | | | 02 May 2016 FINDINGS: No evidence of residual thyroid | | | tissue with normal-appearing thyroid bed both the left and right of | | | midline Lymph node in the left neck on image 22 is of normal | | | appearance and configuration. About 8 mm in major axis. A 3 mm lymph | | | node is seen just lateral to the left jugular carotid system on image | | | 20. No pathologic-appearing lymphadenopathy on the imaging offered | | | | | + + + + + | Procedure Note | + + | Rober, Rad Conversion - 02/13/2019 1:02 AM PDT HISTORY: 66-year-old female, history of | | thyroid malignancy, surveillance post thyroidectomy TECHNIQUE: 1. Sonographic | | evaluation of the neck and thyroid bed Prior study for review : 02 May 2016 | | FINDINGS: No evidence of residual thyroid tissue with normal-appearing thyroid bed both | | the left and right of midline Lymph node in the left neck on image 22 is of normal | | appearance and configuration. About 8 mm in major axis. A 3 mm lymph node is seen just | | lateral to the left jugular carotid system on image 20. No pathologic-appearing | | lymphadenopathy on the imaging offered IMPRESSION: 1. Baseline examination post | | thyroidectomy Small and likely benign lymph nodes only | | | |No evidence of residual thyroid tissue with normal-appearing thyroid bed both the left and right of midline | | | |Lymph node in the left neck on image 22 is of normal appearance and configuration. About 8 mm in major axis. A 3 mm lymph node is seen just lateral to the left jugular carotid system on image 20. | | | |No pathologic-appearing lymphadenopathy on the imaging offered | | | | | | | |IMPRESSION: | | | |1. Baseline examination post thyroidectomy | | | |Small and likely benign lymph nodes only | | | | | + + documented in this encounter Visit Diagnoses + + | Diagnosis | + + | Hx of thyroid cancer Personal history of malignant neoplasm of thyroid | + + documented in this encounter"
--- OUTSIDE RECORDS SUMMARY | ~2019-10-31 | XMS | Encounter Summary ---
Demographics + + + | Address | [address] | | | [place] [address] | + + + | Home Phone | | + + + | Preferred Language | Unknown | + + + | Marital Status | | + + + | Anabaptism Affiliation | 1001 | + + + | Race | Unknown | + + + | Ethnic Group | Unknown | + + + Author + + + | Author | [facility] | | | and [place] | + + + | Organization | [facility] | | | [...] Team Providers + +------+ + | Care Service Car Driver Name | Role | Phone | + +------+ + PCP | Unavailable | + +------+ + Encounter Details +--------+ + + + + | Date | Type | Department | Care Team | Description | +--------+ + + + + | 05/08/ | Hospital | [facility] | [place], | Other Follow-Up | | 2007 | Encounter | CONVERSION DEP [address] | Radhames Trevino MD | Examination | | | | [place] | [address] | | | | | [place] | [address] [place], [place] | | | | | [address] | [address] | | | | | [phone] | [phone] | | | | | | | [...] | Diagnosis | + + | Other follow-up examination(V67.59) Other follow-up examination | + + documented in this encounter"
--- OUTSIDE RECORDS SUMMARY | ~2019-10-31 | XMS | Encounter Summary ---
Demographics + + + | Address | [address] | | | [place] [address] | + + + | Home Phone | | + + + | Preferred Language | Unknown | + + + | Marital Status | | + + + | Spiritism Affiliation | 1001 | + + + | Race | Unknown | + + + | Ethnic Group | Unknown | + + + Author + + + | Author | [facility] | | | and [place] | + + + | Organization | [facility] | | | and [...] Team Providers + +------+ + | Care Casino Surveillance Officer Name | Role | Phone | + +------+ + PCP | Unavailable | + +------+ + Encounter Details +--------+ + + + + | Date | Type | Department | Care Team | Description | +--------+ + + + + | 05/06/ | Hospital | [facility] GENER[facility] OP | | Other Screening | | 2009 | Encounter | CONVERSION DEP [address] | | Mammogram | | | | [address] | | | | | | [place] | | | | | | [address] | | | | | | [phone] | | | +--------+ + + + [...] + | JOE DIGITAL | Routin | 05/06/2010 | | Results for this | | SCREENING BILATERAL | e | 11:28 AM | | procedure are in the | | | | PDT | | results section. | + +--------+ + + + documented in this encounter Results JOE Digital Screening Bilateral (05/06/2010 11:28 AM PDT) + + | Specimen | + + | | + + + + + | Narrative | Performed At | + + + | [facility] [id number] Ph: | | | Patient Name: JESSICA LEE Date of : | | | 1950 Medical Record: [id number] Account: [id number] | | | Exam Date/Time: 05/06/2010 11:30 Ordering | | | Physician: ELLIOTT GAMBINO Order Detail: [id number] Exam Description: | | | JOE DIGITAL BILAT SCREENING/CAD | | | | | | JESSICA LEE JOE DIGITAL BILAT SCREENING/CAD 05/06/2010 11:30 | | | AM History: 59 years. Female. Asymptomatic for breast | | | disease. Added Risk Factors: None. Technique: Craniocaudad, | | | and medial lateral oblique views of each breast were performed for | | | a total 4 views. Computerized aided detection software was utilized | | | to prescreen this exam. Comparison: January 2009 and back to | | | May 2006 Breast Procedures: Benign excisional biopsy left | | | breast Findings: The breast parenchymal pattern is moderately | | | dense with interspersed fatty tissue causing a bilateral multinodular | | | appearance to the breast, a small mass or significant finding could | | | be obscured. No new or spiculated mass evident. No one area more | | | worrisome than any other to suggest the need for biopsy at this point | | | in time. No worrisome calcification in either breast. No | | | architectural distortion visualized. No significant interval change | | | as compared with the prior exam. Impression: 1. No mammographic | | | evidence of malignancy. 2. Dense glandular tissue bilaterally, | | | correlate with physical examination. 3. Recommend annual screening | | | mammography. BI-RADS: 1, negative. General breast imaging | | | addendum: 10-15% of palpable breast abnormalities may not be | | | visualized on mammography. Negative imaging evaluation of the | | | breasts should not postpone further evaluation of a clinically | | | suspicious finding. | | + + + + + | Procedure Note | + + | Rober, Mook Conversion - 02/23/2019 6:11 PM PDT | | [facility] | | [facility] [address] | | | | | | Patient Name: JESSICA LEE | | Date of : 1950 | | Medical Record: [id number] | | Account: [id number] | | | | | | Exam Date/Time: 05/06/2010 11:30 | | Ordering Physician: ELLIOTT GAMBINO | | Order Detail: [id number] | | Exam Description: [facility] DIGITAL BILAT SCREENING/CAD | | | | JESSICA LEE | | [facility] DIGITAL BILAT SCREENING/CAD | | 05/06/2010 11:30 AM | | | | History: 59 years. Female. Asymptomatic for breast disease. | | | | Added Risk Factors: None. | | | | Technique: Craniocaudad, and medial lateral oblique views of each breast | | were performed for a total 4 views. Computerized aided detection software | | was utilized to prescreen this exam. | | | | Comparison: January 2009 and back to May 2006 | | | | Breast Procedures: Benign excisional biopsy left breast | | | | Findings: The breast parenchymal pattern is moderately dense with | | interspersed fatty tissue causing a bilateral multinodular appearance to | | the breast, a small mass or significant finding could be obscured. | | No new or spiculated mass evident. | | No one area more worrisome than any other to suggest the need for biopsy at | | this point in time. | | No worrisome calcification in either breast. | | No architectural distortion visualized. | | No significant interval change as compared with the prior exam. | | | | Impression: | | 1. No mammographic evidence of malignancy. | | 2. Dense glandular tissue bilaterally, correlate with physical | | examination. | | 3. Recommend annual screening mammography. | | | | BI-RADS: 1, negative. | | | | | | General breast imaging addendum: 10-15% of palpable breast abnormalities | | may not be visualized on mammography. Negative imaging evaluation of the | | breasts should not postpone further evaluation of a clinically suspicious | | finding. | | | | | + + documented in this encounter Visit Diagnoses + + | Diagnosis | + + | Other screening mammogram | + + documented in this encounter"
--- OUTSIDE RECORDS SUMMARY | ~2019-10-31 | XMS | Encounter Summary ---
Demographics + + + | Address | [address] | | | [place] [address] | + + + | Home Phone | | + + + | Preferred Language | Unknown | + + + | Marital Status | | + + + | Spiritism Affiliation | 1001 | + + + | Race | Unknown | + + + | Ethnic Group | Unknown | + + + Author + + + | Author | [facility] | | | and [place] | + + + | Organization | [facility] | | [...] Team Providers + +------+ + | Care Construction Or Leak Gang Laborer Name | Role | Phone | + +------+ + PCP | Unavailable | + +------+ + Encounter Details +--------+ + + + + | Date | Type | Department | Care Team | Description | +--------+ + + + + | 06/06/ | [facility] | [facility] | Conversion | Encounter for | | 2017 | Encounter | IMAGING SERVICES | Transaction, | screening mammogram | | | | [address] | Provider Unknown | for malignant | | | | [address] [place], [place] | [phone] | neoplasm of breast | | | | [address] | | | | | | [phone] | Oscar Apodaca | | | | | | MD [address] | | | | | | [address] | | | | | | [place] [address] | | | | | | [phone] | | | | | | | [...] + | JOE TOMOSYN | Routin | 06/06/2017 | | Results for this | | SCREENING BILATERAL | e | 2:18 PM | | procedure are in the | | | | PST | | results section. | + +--------+ + + + documented in this encounter Results JOE Tomosynthesis Screening Bilateral (06/06/2017 2:18 PM PST) + + | Specimen | + + | | + + + + + | Impressions | Performed At | + + + | Benign findings. No mammographic evidence of malignancy. As long | | | as the patient's physical examination remains normal, routine | | | screening mammogram is recommended annually. ASSESSMENT: BI-RADS | | | Category: 2 - Benign findings. Per National MQSA guidelines, a | | | letter of notification will be sent to the patient. Electronically | | | signed by Jacki Toledo MD on 06/07/2017 7:20 AM | | + + + + + + | Narrative | Performed At | + + + | [facility] MAMMO SCREEN COMBO HD BILATERAL 06/06/2017 2:18 | | | PM HISTORY: 66 years. Female. No current breast-related | | | complaints. Personal history of benign left breast excisional biopsy. | | | TECHNIQUE: Digital mammographic craniocaudad and medial lateral | | | oblique (2D) views of each breast were performed, with additional | | | digital tomosynthesis (3D) imaging of each breast in 2 projections. | | | Computerized aided detection software was utilized. COMPARISON: | | | 05/23/2016 and priors FINDINGS: The breast parenchyma is | | | heterogeneously dense, which may obscure the detection of small masses | | | (Bi-Rads Density Category C), unchanged in pattern and distribution.. | | | There is a stable benign asymmetry in the medial left breast, mid | | | depth. There are scattered benign morphology calcifications. No | | | suspicious masses, calcifications, or unexplained areas of | | | architectural distortion are seen. | | + + + + + | Procedure Note | + + | Rober, Rad Conversion - 02/13/2019 1:02 AM PDT JESSICA A TM SCREEN COMBO HD | | [id number]/6/2017 2:18 PM HISTORY: 66 years. Female. No current breast-related | | complaints. Personal history of benign left breast excisional biopsy. TECHNIQUE: Digital | | mammographic craniocaudad and medial lateral oblique (2D) views of each breast were | | performed, with additional digital tomosynthesis (3D) imaging of each breast in 2 | | projections. Computerized aided detection software was utilized. COMPARISON: 05/23/2016 | | and priors FINDINGS: The breast parenchyma is heterogeneously dense, which may obscure | | the detection of small masses (Bi-Rads Density Category C), unchanged in pattern and | | distribution.. There is a stable benign asymmetry in the medial left breast, mid depth. | | There are scattered benign morphology calcifications. No suspicious masses, | | calcifications, or unexplained areas of architectural distortion are seen. IMPRESSION: | | Benign findings. No mammographic evidence of malignancy. As long as the patient's | | physical examination remains normal, routine screening mammogram is recommended | | annually. ASSESSMENT: BI-RADS Category: 2 - Benign findings. Per National MQSA | | guidelines, a letter of notification will be sent to the patient. | |No suspicious masses, calcifications, or unexplained areas of architectural distortion are seen. | | | |IMPRESSION: | | | |Benign findings. No mammographic evidence of malignancy. As long as the patient's physical examination remains normal, routine screening mammogram is recommended annually. | | | |ASSESSMENT: BI-RADS Category: 2 - Benign findings. | | | |Per National [place] guidelines, a letter of notification will be sent to the patient. | | | | | + + documented in this encounter Visit Diagnoses + + | Diagnosis | + + | Encounter for screening mammogram for malignant neoplasm of breast Other screening | | mammogram | + + documented in this encounter"
--- OUTSIDE RECORDS SUMMARY | ~2019-10-31 | XMS | Encounter Summary ---
Demographics + + + | Address | [address] | | | [place] [address] | + + + | Home Phone | | + + + | Preferred Language | Unknown | + + + | Marital Status | | + + + | Hindu Affiliation | 1001 | + + + | Race | Unknown | + + + | Ethnic Group | Unknown | + + + Author + + + | Author | [facility] | | | and [place] | + + + | Organization | [facility] | | | and [...] Team Providers + +------+ + | Care Water Filterer Helper Name | Role | Phone | + +------+ + PCP | Unavailable | + +------+ + Encounter Details +--------+ + + + + | Date | Type | Department | Care Team | Description | +--------+ + + + + | 02/20/ | Hospital | [facility] | Conversion | Osteoporosis; | | 2013 | Encounter | [facility] | Transaction, | Lumbago | | | | [address] | Provider Unknown | | | | | [address] [place], [place] | [phone] | | | | | [address] | | | | | | [phone] | | | +--------+ + + + [...] | + +--------+ + + + | DEXA BONE DENSITY | Routin | 02/20/2014 | | Results for this | | STUDY MARTÍN FLORES | e | 3:29 PM | | procedure are in the | | ASSESSMENT | | PDT | | results section. | + +--------+ + + + documented in this encounter Results DEXA Bone Density martín Flores Assmt (02/20/2014 3:29 PM PDT) + + | Specimen | + + | | + + + + + | Impressions | Performed At | + + + | 1. Bone density measurements of the lumbar spine consistent with | | | osteoporosis. 2. Bone density measurements of the left hip | | | consistent with osteopenia. Osteoporosis indicates that there | | | is high risk of pathologic fracture. Weightbearing exercise and | | | adequate dietary calcium intake are recommended. Further medical | | | management to treat osteoporosis should also be considered. Followup | | | assessment in 24 months is recommended. NOTE: Assessment | | | involves low resolution imaging designed to assess for vertebral | | | compression fractures only. * * * World Health Organization | | | Diagnostic Clarification of Osteoporosis Normal Diagnosis: t-score | | | 0.0 to -1.0 Osteopenia Diagnosis: t-score -1.0 to -2.5 | | | Osteoporosis Diagnosis: t-score -2.5 to -5.0 Severe Osteoporosis | | | Diagnosis: -2.5 to -5.0 plus clinical fracture * The T score | | | represents how many standard deviations by which the patient's bone | | | mass differs from the young normal (age 30) sex-matched reference | | | standard. The Z score is the standard deviation difference as compared | | | with an age and sex-matched reference standard (average for age). | | | The Z score is not used in the diagnostic classification. Read by | | | Jad Siddiqi MD on 02/24/2014 2:17 PM | | + + + + + + | Narrative | Performed At | + + + | BONE DENSITOMETRY 02/20/2014 3:29 PM HISTORY The patient is a | | | 63 year old postmenopausal female with a history of osteoporosis. The | | | patient reports to have taken Calcium and Vitamin D. The patient does | | | not perform weightbearing exercise and does not consume dairy products | | | regularly. COMPARISON Comparison was made to the most recent and | | | earliest exams. TECHNIQUE A bone mineral analysis was performed | | | on the lumbar spine. The patient was scanned in the anterior | | | projection and wooolo-wc-jcjbimbe values were drawn about the | | | vertebral segments of L1 through L4 at the levels where accurate | | | assessment was possible. A bone mineral analysis was also performed | | | on the left hip with wdwsxl-kb-ljpvimnh areas including the femoral | | | neck measured. From this data, a T score and a Z score were | | | calculated. FINDINGS The AP lumbar and left hip scans are | | | technically adequate. L1-L4 Vertebral Bodies 02/20/2014 3:29 PM | | | BMD 0.739, t-score -2.8, z-score -1.3 07/25/2011 BMD 0.774, | | | t-score -2.5, BMD change vs previous -4.6% PROXIMAL LEFT FEMUR | | | 02/20/2014 3:29 PM BMD 0.725, t-score -1.8, z-score -0.8 | | | 07/25/2011 BMD 0.742, t-score -1.6, BMD change vs previous -2.4% | | | | | + + + + + | Procedure Note | + + | Mook Richter Conversion - 02/14/2019 11:14 PM PDT BONE DENSITOMETRY 02/20/2014 3:29 PM | | HISTORYThe patient is a 63 year old postmenopausal female with a history of | | osteoporosis. The patient reports to have taken Calcium and Vitamin D. The patient does | | not perform weightbearing exercise and does not consume dairy products regularly. | | COMPARISONComparison was made to the most recent and earliest exams. TECHNIQUEA bone | | mineral analysis was performed on the lumbar spine. The patient was scanned in the | | anterior projection and pehova-hk-zlbrgdlc values were drawn about the vertebral | | segments of L1 through L4 at the levels where accurate assessment was possible. A bone | | mineral analysis was also performed on the left hip with rdevgs-gh-jbyljvkr areas | | including the femoral neck measured. From this data, a T score and a Z score were | | calculated. FINDINGSThe AP lumbar and left hip scans are technically adequate. L1-L4 | | Vertebral Bodies02/20/2014 3:29 PM BMD 0.739, t-score -2.8, z-score -1.3 07/25/2011 BMD | | 0.774, t-score -2.5, BMD change vs previous -4.6% PROXIMAL LEFT FEMUR02/20/2014 3:29 PM | | BMD 0.725, t-score -1.8, z-score -0.8 07/25/2011 BMD 0.742, t-score -1.6, BMD change | | vs previous -2.4% IMPRESSION: 1. Bone density measurements of the lumbar spine | | consistent with osteoporosis.2. Bone density measurements of the left hip consistent | | with osteopenia. Osteoporosis indicates that there is high risk of pathologic fracture. | | Weightbearing exercise and adequate dietary calcium intake are recommended. Further | | medical management to treat osteoporosis should also be considered. Followup assessment | | in 24 months is recommended. NOTE: Assessment involves low resolution imaging designed | | to assess for vertebral compression fractures only. * * * World Health Organization | | Diagnostic Clarification of OsteoporosisNormal Diagnosis: t-score 0.0 to -1.0Osteopenia | | Diagnosis: t-score -1.0 to -2.5Osteoporosis Diagnosis: t-score -2.5 to -5.0Severe | | Osteoporosis Diagnosis: -2.5 to -5.0 plus clinical fracture * The T score represents | | how many standard deviations by which the patient's bone mass differs from the young | | normal (age 30) sex-matched reference standard. The Z score is the standard deviation | | difference as compared with an age and sex-matched reference standard (average for age). | | The Z score is not used in the diagnostic classification. Read by Jad Siddiqi MD | | on 02/24/2014 2:17 PM | | PM | |1. Bone density measurements of the lumbar spine consistent with osteoporosis. | |2. Bone density measurements of the left hip consistent with osteopenia. | | | | | |Osteoporosis indicates that there is high risk of pathologic fracture. Weightbearing exerci se and adequate dietary calcium intake are recommended. Further medical management to treat osteoporosis should also be considered. Followup assessment in 24 | |months is recommended. | | | | | |NOTE: Assessment involves low resolution imaging designed to assess for vertebral compress ion fractures only. | | | |* * * World Health Organization Diagnostic Clarification of Osteoporosis | |Normal Diagnosis: t-score 0.0 to -1.0 | |Osteopenia Diagnosis: t-score -1.0 to -2.5 | |Osteoporosis Diagnosis: t-score -2.5 to -5.0 | |Severe Osteoporosis Diagnosis: -2.5 to -5.0 plus clinical fracture | | | |* The T score represents how many standard deviations by which the patient's bone mass diff ers from the young normal (age 30) sex-matched reference standard. The Z score is the standa rd deviation difference as compared with an age and sex-matched | |reference standard (average for age). The Z score is not used in the diagnostic classificat ion. | | | |Read by Jad Siddiqi MD on 02/24/2014 2:17 PM | | | | | + + documented in this encounter Visit Diagnoses + + | Diagnosis | + + | Osteoporosis Osteoporosis, unspecified | + + | Lumbago | + + documented in this encounter"
--- OUTSIDE RECORDS SUMMARY | ~2019-10-31 | XMS | Encounter Summary ---
Demographics + + + | Address | [address] | | | [place] [address] | + + + | Home Phone | | + + + | Preferred Language | Unknown | + + + | Marital Status | | + + + | Jewish Affiliation | 1001 | + + + | Race | Unknown | + + + | Ethnic Group | Unknown | + + + Author + + + | Author | [facility] | | | and [place] | + + + | Organization | [facility] | | | and [...] Team Providers + +------+ + | Care Complex Care Nurse Name | Role | Phone | + +------+ + PCP | Unavailable | + +------+ + Encounter Details +--------+ + + + + | Date | Type | Department | Care Team | Description | +--------+ + + + + | 06/12/ | Abstract | [facility] | Kimmie, | | | 2016 | | [facility] [address] | Lissette Mendes RN | | | | | [address] | | | | | | [place] | | | | | | [address] | | | | | | [phone] | | | +--------+ + + + [...]
--- OUTSIDE RECORDS SUMMARY | ~2019-10-31 | XMS | Encounter Summary ---
Demographics + + + | Address | [address] | | | [place] [address] | + + + | Home Phone | | + + + | Preferred Language | Unknown | + + + | Marital Status | | + + + | Mosque Affiliation | 1001 | + + + | Race | Unknown | + + + | Ethnic Group | Unknown | + + + Author + + + | Author | [facility] | | | and [place] | + + + | Organization | [facility] | | | [...] Team Providers + +------+ + | Care Commercial Roofer Name | Role | Phone | + +------+ + PCP | Unavailable | + +------+ + Encounter Details +--------+ + + + + | Date | Type | Department | Care Team | Description | +--------+ + + + + | 08/17/ | Hospital | [facility] | | | | 2011 | Encounter | MED CTR XRAY [address] | | | | | | [address] | | | | | | [place] [address] | | | | | | [phone] | | | +--------+ + + + [...]
--- OUTSIDE RECORDS SUMMARY | ~2019-10-31 | XMS | Encounter Summary ---
Demographics + + + | Address | [address] [place] [address] RD | | | [place] [address] | + + + | Home Phone | | + + + | Preferred Language | Unknown | + + + | Marital Status | | + + + | Yazidi Affiliation | Unknown | + + + [...] Team Providers + +------+ + | Care Store Standards Associate Name | Role | Phone | + +------+ + PCP | Unavailable | + +------+ + Encounter Details +--------+ + + + + | Date | Type | Department | Care Team | Description | +--------+ + + + + | 05/20/ | Procedure - | | Record, Operation | Operative Report | | 2001 | | | | | | | Transcribed | | | | +--------+ + + [...] | + +--------+ + + + | OPERATION RECORD | | 05/20/2002 | | Results for this | | | | | | procedure are in the | | | | | | results section. | + +--------+ + + + documented in this encounter Results OPERATION RECORD (05/20/2002) + + | Transcriptions | + + | Interface, Standard Machine Stitcher In - 02/03/2006 3:06 AM PDT | | [place] [address] | | [place], [place] [address] | | [facility] RECORDMed Rec No.: | | [id number] Date: 05/20/2002Name: Jessica Lee SURGEON: | | Karthik Arevalo M.D.PSYCH RN: Neftali Trimble, | | JeffreyPREOPERATIVE DIAGNOSES:1) Left nasopharyngeal and Eustachian tube mass.2) Left | | eustachian tube dysfunction.POSTOPERATIVE DIAGNOSES:1) Left nasopharyngeal and | | eustachian tube mass.2) Left eustachian tube dysfunction.OPERATIONS PERFORMED:1) Left | | middle ear exploration.2) Biopsy of left eustachian tube mass.3) | | Microdissection.ANESTHESIA:General anesthesia.SPECIMENS REMOVED:See procedure | | below.COMPLICATIONS:There were no apparent complications.INDICATIONS:The patient is a | | 51-year-old woman referred to Karthik Arevalo M.D. for evaluation of left | | eustachian tube dysfunction and hearing loss.She was noted on imaging to have an | | erosive lesion involving the leftnasopharynx and eustachian tube. The decision was | | made to perform a biopsyof this lesion. It was felt that this could best be | | achieved through aleft middle ear exploration. The procedure was discussed in detail | | withthe patient and informed consent was obtained.OPERATIVE FINDINGS:1) Titanium | | tympanostomy tube removed.2) Lobulated firm mass encountered in hypotympanum and | | eustachian tubeorifice.3) Multiple biopsies obtained and sent for permanent pathology | | informalin and saline. Additional specimens sent for culture.PROCEDURE:After properly | | identifying the patient, she was brought to the operatingroom and placed supine on | | the operating table. General anesthesia wasinduced without difficulty and the table | | was rotated 90 degrees. Mastisoland thousand drapes were placed around the ear. | | Then using the highpowered binocular operating microscope, the left ear was | | visualized. Fourquadrant canal injections were performed using 1% lidocaine | | withepinephrine. Additional anesthetic was injected in the postauricularregion. | | The patient was then prepped and draped in the usual fashion.Attention was first | | turned to inspecting the ear. Again using theoperating microscope, the left ear | | was visualized. A titanium tympanostomytube was in place. This was removed and | | the middle ear space wasvisualized through the perforation. It was not possible | | to visualize theeustachian tube orifice through the perforation so the decision was made | | toraise a tympanomeatal flap.The sickle knife and round knife were used to make | | canal incisions. Kate raised a tympanomeatal flap and entered the middle ear space. | | Afterentering the middle ear, the non-disposable sickle knife was used to | | sweepinferiorly and superiorly to elevate the annulus.As we rotated the tympanomeatal | | flap, we first noted scattered adhesionsbetween the medial wall of the middle ear and | | the drum. These were dividedusing the microscissors. As we proceeded more anteriorly, | | we encountered afirm lobulated mass in the hypotympanum and eustachian tube orifice | | area.The lesion appeared to be relatively avascular. There was not | | asignificant degree of ulceration present. Using the cupped forceps,multiple | | biopsies were obtained. Biopsies were sent for frozen section aswell as permanent | | section in saline and formalin. There was no significantbleeding with the biopsies and | | the specimens actually came out fairlyeasily. There was an area anteriorly where | | the mass was adherent to thetympanic membrane. As we took biopsies in this area, | | we did create anadditional tympanic membrane perforation.After taking an adequate | | number of biopsies, we proceeded with closure. Weplaced Gelfoam in the middle ear | | space. We then laid a piece of Gelfilmover the lateral aspect of the drum, thus | | covering the perforations. Kate ensured that our tympanomeatal flap was back | | into position on theposterior canal wall. We laid Gelfoam over the canal | | incisions andinstilled bacitracin ointment in the ear canal. This completed | | theprocedure and the patient was recovered from anesthesia. She | | wastransferred to the Post Anesthesia Care Unit in stable condition. Thepatient | | tolerated the procedure well and there were no | | apparentcomplications.ATTENDING SURGEON'S ATTESTATION:Pursuant to Federal Medicare | | requirements, I certify that Karthik Gomes M.D. was present for the | | duration of the operating room.Jeffrey Webb | | Andres Arevalo.SS:[id number]: 05/20/2002T: 05/21/2002 [id number] | |induced without difficulty and the table was rotated 90 degrees. Mastisol | |and thousand drapes were placed around the ear. Then using the high | |powered binocular operating microscope, the left ear was visualized. Four | |quadrant canal injections were performed using 1% lidocaine with | |epinephrine. Additional anesthetic was injected in the postauricular | |region. The patient was then prepped and draped in the usual fashion. | | | |Attention was first turned to inspecting the ear. Again using the | |operating microscope, the left ear was visualized. A titanium tympanostomy | |tube was in place. This was removed and the middle ear space was | |visualized through the perforation. It was not possible to visualize the | |eustachian tube orifice through the perforation so the decision was made to | |raise a tympanomeatal flap. | | | |The sickle knife and round knife were used to make canal incisions. We | |then raised a tympanomeatal flap and entered the middle ear space. After | |entering the middle ear, the non-disposable sickle knife was used to sweep | |inferiorly and superiorly to elevate the annulus. | | | |As we rotated the tympanomeatal flap, we first noted scattered adhesions | |between the medial wall of the middle ear and the drum. These were divided | |using the microscissors. As we proceeded more anteriorly, we encountered a | |firm lobulated mass in the hypotympanum and eustachian tube orifice area. | | | |The lesion appeared to be relatively avascular. There was not a | |significant degree of ulceration present. Using the cupped forceps, | |multiple biopsies were obtained. Biopsies were sent for frozen section as | |well as permanent section in saline and formalin. There was no significant | |bleeding with the biopsies and the specimens actually came out fairly | |easily. There was an area anteriorly where the mass was adherent to the | |tympanic membrane. As we took biopsies in this area, we did create an | |additional tympanic membrane perforation. | | | |After taking an adequate number of biopsies, we proceeded with closure. We | |placed Gelfoam in the middle ear space. We then laid a piece of Gelfilm | |over the lateral aspect of the drum, thus covering the perforations. We | |then ensured that our tympanomeatal flap was back into position on the | |posterior canal wall. We laid Gelfoam over the canal incisions and | |instilled bacitracin ointment in the ear canal. This completed the | |procedure and the patient was recovered from anesthesia. She was | |transferred to the Post Anesthesia Care Unit in stable condition. The | |patient tolerated the procedure well and there were no apparent | |complications. | | | |ATTENDING SURGEON'S ATTESTATION: | |Pursuant to Federal Medicare requirements, I certify that Karthik Babcock | |Jeffrey Arevalo was present for the duration of the operating room. | | | | | | | |Neftali Trimble M.D. Karthik Arevalo M.D. | | | |[id number] | | | | | | [phone] | + + documented in this encounter Visit Diagnoses Not on filedocumented in this encounter"
--- OUTSIDE RECORDS SUMMARY | ~2019-10-31 | XMS | Encounter Summary ---
Demographics + + + | Address | [address] | | | [place] [address] | + + + | Home Phone | | + + + | Preferred Language | Unknown | + + + | Marital Status | | + + + | Quaker Affiliation | 1001 | + + + | Race | Unknown | + + + | Ethnic Group | Unknown | + + + Author + + + | Author | [facility] | | | and [place] | + + + | Organization | [facility] | | | [...] Team Providers + +------+ + | Care Voip Network Technician Name | Role | Phone | + +------+ + PCP | Unavailable | + +------+ + Encounter Details +--------+ + + + + | Date | Type | Department | Care Team | Description | +--------+ + + + + | 07/24/ | Hospital | [facility] | Naga nEriquez MD | | | 2017 | Encounter | [facility] [address] | [address] [place] | | | | | [address] [place] | [place] | | | | | [place] | [address] | | | | | [address] | [phone] | | | | | [phone] | | | +--------+ + + + [...]
--- OUTSIDE RECORDS SUMMARY | ~2019-10-31 | XMS | Encounter Summary ---
Demographics + + + | Address | [address] | | | [place] [address] | + + + | Home Phone | | + + + | Preferred Language | Unknown | + + + | Marital Status | | + + + | Sabianism Affiliation | 1001 | + + + | Race | Unknown | + + + | Ethnic Group | Unknown | + + + Author + + + | Author | [facility] | | | and [place] | + + + | Organization | [facility] | | | [...] Team Providers + +------+ + | Care Weight Loss Sales Consultant Name | Role | Phone | + +------+ + | Oscar Apodaca MD | PCP | | + +------+ + Reason for Visit +--------+ + | Reason | Comments | +--------+ + | Other | Rx refill | +--------+ + Encounter Details +--------+ + + + + | Date | Type | Department | Care Team | Description | +--------+ + + + + | 11/23/ | Telephone | [facility] | Naga Enriquez MD | Other (Rx refill) | | 2017 | | [facility] [address] | [address] [place] | | | | | [address] [place] | [place] | | | | | [place], [place] | [address] | | | | | [address] | [phone] | | | | | [phone] | | | +--------+ + + + [...]
--- OUTSIDE RECORDS SUMMARY | ~2019-10-31 | XMS | Encounter Summary ---
Demographics + + + | Address | [address] | | | [place] [address] | + + + | Home Phone | | + + + | Preferred Language | Unknown | + + + | Marital Status | | + + + | Jain Affiliation | 1001 | + + + | Race | Unknown | + + + | Ethnic Group | Unknown | + + + Author + + + | Author | [facility] | | | and [place] | + + + | Organization | [facility] | | | [...] Team Providers + +------+ + | Care Last Putter Away Name | Role | Phone | + +------+ + PCP | Unavailable | + +------+ + Encounter Details +--------+ + + + + | Date | Type | Department | Care Team | Description | +--------+ + + + + | 05/23/ | Hospital | [facility] | Conversion | Osteoporosis, | | 2016 | Encounter | [facility] | Transaction, | unspecified | | | | [address] | Provider Unknown | | | | | [address] [place], [place] | [phone] | | | | | [address] | | | | | | [phone] | | | +--------+ + + + [...] | DEXA BONE DENSITY | Routin | 05/23/2016 | | Results for this | | STUDY MARTÍN FLORES | e | 11:35 AM | | procedure are in the | | ASSESSMENT | | PST | | results section. | + +--------+ + + + documented in this encounter Results DEXA Bone Density martín Flores Assmt (05/23/2016 11:35 AM PST) + + | Specimen | + [...] diagnostic classification. Read by | | | Garfield Quiroga DO on 05/23/2016 4:29 PM | | + + + + + + | Narrative | Performed At | + + + | BONE DENSITOMETRY 05/23/2016 11:35 AM HISTORY The patient is | | | a 65 year old postmenopausal female. The patient reports to have taken | | | Vitamin D and Calcium. The patient does perform weightbearing | | | exercise and does consume dairy products regularly. COMPARISON | | | Comparison was made to the most recent and earliest exams. | | | TECHNIQUE A bone mineral analysis was performed on the lumbar spine. | | | The patient was scanned in the anterior projection and | | | kmryoy-aj-wvjcyfbx values were drawn about the vertebral segments of | | | L1 through L4 at the levels where accurate assessment was possible. A | | | bone mineral analysis was also performed on the left hip with | | | ghzcmb-tk-nxksmvjg areas including the femoral neck measured. From | | | this data, a T score and a Z score were calculated. FINDINGS The | | | AP lumbar and left hip scans are technically adequate. L1-L4 | | | Vertebral Bodies 05/23/2016 11:35 AM BMD 0.745, t-score -2.7, | | | z-score -1.1 02/20/2014 BMD 0.739, t-score -2.8, BMD change vs | | | previous 0.8% 07/25/2011 BMD 0.774, t-score -2.5, BMD change vs | | | previous -4.6% PROXIMAL LEFT FEMUR 05/23/2016 11:35 AM BMD | | | 0.796, t-score -1.2, z-score -0.1 02/20/2014 BMD 0.725, t-score | | | -1.8, BMD change vs previous 9.9% 07/25/2011 BMD 0.742, t-score | | | -1.6, BMD change vs previous -2.4% | | + + + + + | Procedure Note | + + | Rober, Rad Conversion - 02/13/2019 12:42 PM PDT BONE DENSITOMETRY 05/23/2016 11:35 AM | | HISTORYThe patient is a 65 year old postmenopausal female. The patient reports to have | | taken Vitamin D and Calcium. The patient does perform weightbearing exercise and does | | consume dairy products regularly. COMPARISONComparison was made to the most recent and | | earliest exams. TECHNIQUEA bone mineral analysis was performed on the lumbar spine. The | | patient was scanned in the anterior projection and bnexdw-fw-dpeulrij values were drawn | | about the vertebral segments of L1 through L4 at the levels where accurate assessment | | was possible. A bone mineral analysis was also performed on the left hip with | | owpiuc-qm-hmcbxkkd areas including the femoral neck measured. From this data, a T score | | and a Z score were calculated. FINDINGSThe AP lumbar and left hip scans are technically | | adequate. L1-L4 Vertebral Fsxmik9505/23/2016 11:35 AM BMD 0.745, t-score -2.7, z-score | | -1.1 02/20/2014 BMD 0.739, t-score -2.8, BMD change vs previous 0.8% 07/25/2011 BMD | | 0.774, t-score -2.5, BMD change vs previous -4.6% PROXIMAL LEFT FEMUR05/23/2016 11:35 | | AM BMD 0.796, t-score -1.2, z-score -0.1 02/20/2014 BMD 0.725, t-score -1.8, BMD change | | vs previous 9.9% 07/25/2011 BMD 0.742, t-score -1.6, BMD change vs previous -2.4% | | IMPRESSION: 1. Bone density measurements of the lumbar spine consistent with | | osteoporosis.2. Bone density measurements of the left hip consistent with osteopenia. | | Osteoporosis indicates that there is high risk of pathologic fracture. Weightbearing | | exercise and adequate dietary calcium intake are recommended. Further medical management | | to treat osteoporosis should also be considered. Followup assessment in 24 months is | | recommended. NOTE: Assessment involves low resolution imaging designed to assess for | | vertebral compression fractures only. * * * World Health Organization Diagnostic | | Clarification of OsteoporosisNormal Diagnosis: t-score 0.0 to -1.0Osteopenia Diagnosis: | | t-score -1.0 to -2.5Osteoporosis Diagnosis: t-score -2.5 to -5.0Severe Osteoporosis | | Diagnosis: -2.5 to -5.0 plus clinical fracture * The T score represents how many | | standard deviations by which the patient's bone mass differs from the young normal (age | | 30) sex-matched reference standard. The Z score is the standard deviation difference as | | compared with an age and sex-matched reference standard (average for age). The Z score | | is not used in the diagnostic classification. Read by Garfield Quiroga DO on 05/23/2016 | | 4:29 PM | | | | | |IMPRESSION: | |1. Bone density measurements of the [...] classificat ion. | | | |Read by Garfield Quiroga DO on 05/23/2016 4:29 PM | | | | | + + documented in this encounter Visit Diagnoses + + | Diagnosis | + + | Osteoporosis, unspecified | + + documented in this encounter"
--- OUTSIDE RECORDS SUMMARY | ~2019-10-31 | XMS | Encounter Summary ---
Demographics + + + | Address | [address] | | | [place] [address] | + + + | Home Phone | | + + + | Preferred Language | Unknown | + + + | Marital Status | | + + + | Hoahaoism Affiliation | 1001 | + + + | Race | Unknown | + + + | Ethnic Group | Unknown | + + + Author + + + | Author | [facility] | | | and [place] | + + + | Organization | [facility] | | | and [...] Team Providers + +------+ + | Care Cider Press Operator Name | Role | Phone | + [...] [place] | | | | | | [address] | | | | | | [phone] | | | +--------+ + + + [...]
--- OUTSIDE RECORDS SUMMARY | ~2019-10-31 | XMS | Encounter Summary ---
Demographics + + + | Address | [address] | | | [place] [address] | + + + | Home Phone | | + + + | Preferred Language | Unknown | + + + | Marital Status | | + + + | Anabaptist Affiliation | 1001 | + + + | Race | Unknown | + + + | Ethnic Group | Unknown | + + + Author + + + | Author | [facility] | | | and [place] | + + + | Organization | [facility] | | | [...] Team Providers + +------+ + | Care Pipe Crew Foreman Name | Role | Phone | + +------+ + PCP | Unavailable | + +------+ + Encounter Details +--------+ + + + + | Date | Type | Department | Care Team | Description | +--------+ + + + + | 05/23/ | Hospital | [facility] | Conversion | Osteoporosis, | | 2016 | Encounter | [facility] | Transaction, | unspecified | | | | [address] | Provider Unknown | | | | | [address] [place], [place] | [phone] | | | | | [address] | | | | | | [phone] | | | +--------+ + + + [...] the anterior projection and | | | fdcvvf-pm-msemuiqm values were drawn about the vertebral segments of | | | L1 through L4 at the levels where accurate assessment was possible. A | | | bone mineral analysis was also performed on the left hip with | | | qnozfx-gm-shwmjils areas including the femoral neck measured. From [...] was scanned in the anterior projection and vguoek-tp-adnbohds values were drawn | | about the vertebral segments of L1 through L4 at the levels where accurate assessment | | was possible. A bone mineral analysis was also performed on the left hip with | | bcqtvs-ov-ndgypvuc areas including the femoral neck measured. From this data, a T score | | and a Z score were calculated. FINDINGSThe AP lumbar and left hip scans are technically | | adequate. L1-L4 Vertebral Qvsyib3305/23/2016 11:35 AM BMD 0.745, t-score -2.7, z-score [...]
--- OUTSIDE RECORDS SUMMARY | ~2019-10-31 | XMS | Encounter Summary ---
Demographics + + + | Address | [address] | | | [place] [address] | + + + | Home Phone | | + + + | Preferred Language | Unknown | + + + | Marital Status | | + + + | Orthodox Affiliation | 1001 | + + + | Race | Unknown | + + + | Ethnic Group | Unknown | + + + Author + + + | Author | [facility] | | | and [place] | + + + | Organization | [facility] | | [...] Team Providers + +------+ + | Care Obstetrics Scrub Nurse Name | Role | Phone | + +------+ + PCP | Unavailable | + +------+ + Encounter Details +--------+ + + + + | Date | Type | Department | Care Team | Description | +--------+ + + + + | 01/20/ | Hospital | [facility] | Conversion | Other screening | | 2013 | Encounter | IMAGING SERVICES | Transaction, | mammogram | | | | [address] | Provider Unknown | | | | | [address] [place], [place] | [phone] | | | | | [address] | | | | | | [phone] | | | +--------+ + + + [...] + | JOE TOMOSYN | Routin | 01/20/2014 | | Results for this | | SCREENING BILATERAL | e | 3:41 PM | | procedure are in the | | | | PDT | | results section. | + +--------+ + + + documented in this encounter Results JOE Tomosynthesis Screening Bilateral (01/20/2014 3:41 PM PDT) + + | Specimen | + + | | + + + + + | Impressions | Performed At | + + + | 1. Negative screening mammography. 2. Recommend annual | | | screening mammography. BI-RADS Assessment: 1, negative. | | | General breast imaging addendum: 10-15% of palpable breast | | | abnormalities may not be visualized on mammography. Negative imaging | | | of the breasts should not postpone further evaluation of a clinically | | | significant palpable abnormality. | | + + + + + + | Narrative | Performed At | + + + | [email or web address] MAMMO SCREEN COMBO HD BILATERAL 01/20/2014 3:41 | | | PM History: 63 years. Female. Asymptomatic for breast | | | disease. Technique: Digital mammographic craniocaudad and medial | | | lateral oblique (2D) views of each breast were performed, with | | | additional digital tomosynthesis (3D) imaging of each breast in 2 | | | projections. Computerized aided detection software was utilized to | | | prescreen this exam. Comparison: 08/27/12 Added Risk Factors: | | | None. Prior Breast Procedures: Benign left breast excisional | | | biopsy Breast Tissue: Type 2, Normal. There is a mild to | | | moderate amount of glandular tissue throughout the breasts(25-50% of | | | breast volume), indicating a normal glandular pattern, and a normal | | | mammographic sensitivity for breast lesions. FINDINGS: No nodule | | | or mass visualized. No suspicious calcifications in either breast. | | | No architectural distortion visualized. No new findings as | | | compared with the prior exam. | | + + + + + | Procedure Note | + + | Rober, Rad Conversion - 02/14/2019 11:14 PM PDT [facility] SCREEN COMBO HD | | BILATERAL01/20/2014 3:41 PM History: 63 years. Female. Asymptomatic for breast | | disease. Technique: Digital mammographic craniocaudad and medial lateral oblique (2D) | | views of each breast were performed, with additional digital tomosynthesis (3D) imaging | | of each breast in 2 projections. Computerized aided detection software was utilized to | | prescreen this exam. Comparison: 08/27/12 Added Risk Factors: None. Prior Breast | | Procedures: Benign left breast excisional biopsy Breast Tissue: Type 2, Normal.There is | | a mild to moderate amount of glandular tissue throughout the breasts(25-50% of breast | | volume), indicating a normal glandular pattern, and a normal mammographic sensitivity | | for breast lesions. FINDINGS: No nodule or mass visualized. No suspicious | | calcifications in either breast. No architectural distortion visualized. No new | | findings as compared with the prior exam. IMPRESSION: 1. Negative screening | | mammography.2. Recommend annual screening mammography. BI-RADS Assessment: 1, negative. | | General breast imaging addendum: 10-15% of palpable breast abnormalities may not be | | visualized on mammography. Negative imaging of the breasts should not postpone further | | evaluation of a clinically significant palpable abnormality. | |There is a mild to moderate amount of glandular tissue throughout the breasts(25-50% of kassandra ast volume), indicating a normal glandular pattern, and a normal mammographic sensitivity fo r breast lesions. | | | |FINDINGS: No nodule or mass visualized. No suspicious calcifications in either breast. No architectural distortion visualized. No new findings as compared with the prior exam. | | | | | |IMPRESSION: | |1. Negative screening mammography. | |2. Recommend annual screening mammography. | | | |BI-RADS Assessment: 1, negative. | | | | | |General breast imaging addendum: 10-15% of palpable breast abnormalities may not be visuali zed on mammography. Negative imaging of the breasts should not postpone further evaluation of a clinically significant palpable abnormality. | | | | | + + documented in this encounter Visit Diagnoses + + | Diagnosis | + + | Other screening mammogram | + + documented in this encounter"
--- OUTSIDE RECORDS SUMMARY | ~2019-10-31 | XMS | Encounter Summary ---
Demographics + + + | Address | [address] | | | [place] [address] | + + + | Home Phone | | + + + | Preferred Language | Unknown | + + + | Marital Status | | + + + | Anabaptist Affiliation | Unknown | + + + | Race | White | + + + | Ethnic Group | Not or | + + + Author + + + | Author | [facility] | + + + | Organization | [facility] | + + + | Address | Unknown | + + + | Phone | Unavailable | + + + Support + + +---------+ + | Name | Relationship | Address | Phone | + + +---------+ + | Paris Lee | ECON | Unknown | | + + +---------+ + Care Team Providers + +------+ + | Care Manager English Name | Role | Phone | + +------+ + PCP | Unavailable | + +------+ + Reason for Visit + + + | Reason | Comments | + + + | Erroneous Encounter | | | - Disregard | | + + + Encounter Details +--------+ + + + + | Date | Type | Department | Care Team | Description | +--------+ + + + + | 08/22/ | Telephone | Family Medicine at | Munir, | Erroneous Encounter | | 2013 | | [facility] | CLOVER Sanchez | - Disregard | | | | [address] | | | | | | Mailcode: CH9F | | | | | | [facility] | | | | | | and Healing, | | | | | | Building | | | | | | Floor [place], [place] | | | | | | [address] | | | | | | [phone] | | | +--------+ + + + [...]
--- OUTSIDE RECORDS SUMMARY | ~2019-10-31 | XMS | Encounter Summary ---
Demographics + + + | Address | [address] | | | [place] [address] | + + + | Home Phone | | + + + | Preferred Language | Unknown | + + + | Marital Status | | + + + | Mandaeism Affiliation | 1001 | + + + | Race | Unknown | + + + | Ethnic Group | Unknown | + + + Author + + + | Author | [facility] | | | and [place] | + + + | Organization | [facility] | | | [...] Team Providers + +------+ + | Care Hat Forming Machine Operator Name | Role | Phone | + +------+ + | Oscar Apodaac MD | PCP | | + +------+ + Reason for Visit + + + | Reason | Comments | + + + | Follow-up, Office | thyroid us | | Visit | | + + + Encounter Details +--------+---------+ + + + | Date | Type | Department | Care Team | Description | +--------+---------+ + + + | 06/18/ | Office | [facility] | Naga Enriquez MD | Hx of thyroidectomy | | 2017 | Visit | [facility] | [address] [place] | (Primary Dx) | | | | [address] [place] | [place] | | | | | [place] | [address] | | | | | [address] | [phone] | | | | | [phone] | | | +--------+---------+ + + + Social History + +-------+ [...] + + + | Blood Pressure | 122/64 | 06/18/2017 9:22 AM | | | | | PST | | + + + + + | Pulse | 73 | 06/18/2017 9:22 AM | | | | | PST | | + + + + + | Temperature | - | - | | + + + + + | Respiratory Rate | 16 | 06/18/2017 9:22 AM | | | | | PST | | + + + + + | Oxygen Saturation | 97% | 06/18/2017 9:22 AM | | | | | PST | | + + + + + | Inhaled Oxygen | - | - | | | Concentration | | | | + + + + + | Weight | 88.5 kg (195 lb) | 06/18/2017 9:22 AM | | | | | PST | | + + + + + | Height | 172 cm (5' 7.72") | 06/18/2017 9:22 AM | | | | | PST | | + + + + + | Body Mass Index | 29.9 | 06/18/2017 9:22 AM | | | | | PST | | + + + + + documented in this encounter Patient Instructions Patient Instructions Naga Enriquez MD - 06/18/2017 9:30 AM PSTPlease have a repeat TSH do ne the first week of July,. Follow-up ultrasound of the thyroid bed with thyroglobu praful and thyroglobulin antibody to be done in June 2018. Return to see me after that ult rasound has been performed. documented in this encounter Progress Notes Naga Enriquez MD - 06/18/2017 9:30 AM PST Otolaryngology Follow Up Clinic Note For: Jessica Cedeno Jesus 66 y.o. [id number] On 06/18/2017, Jessica Lee was seen by Naga Enriquez MD Patient was previously seen for: Patient previously underwent total thyroidectomy on September 26, 2016. Patient's Primary Provider is Oscar Apodaca MD Prior Workup Includes: Laboratory: Thyroglobulin and thyroglobulin antibody both undetectable on December 04, 2016. Mo st recent TSH done on May 16, 2017 was 0.019. Radiology: Ultrasound done on June 06, 2017 demonstrated no residual nodules or lesions in the thyroid bed and no cervical adenopathy. Pathology: Pathology from thyroidectomy and level lymph node dissection from September 26 017 demonstrated multifocal micropapillary thyroid cancer. 3 foci of papillary thyroid canc er identified 8 mm at the isthmus, 1.5 mm at the left thyroid lobe, 1 mm in the right thyroi d lobe. Margins were free. No angiolymphatic or extrathyroidal extension. 8 level lymp h nodes negative for cancer. Updated History: I spoke with the patient on May 16, 2017 regarding her TSH on a dose of 137 g per day of levothyroxine and at that time we decreased her to 125 g per day of levothyroxine. She has had no significant problems with her voice or breathing or her swallowing. She has overall been feeling very well. Past Medical Hitory: Patient Active Problem List Diagnosis Hx of papillary adenocarcinoma of thyroid Hx of thyroidectomy Meds: Current Outpatient Prescriptions on File Prior to Visit Medication Sig Dispense Refill alendronate (FOSAMAX) 70 mg tablet Take by mouth. aspirin 325 mg tablet Take by mouth. atorvaSTATin (LIPITOR) 40 mg tablet Take by mouth. Calcium Carb-Cholecalciferol (CALCIUM + D3 PO) daily Cholecalciferol (VITAMIN D-3) 2000 units CAPS Take by mouth Daily. Coenzyme Q10 (COQ10 PO) Take 300 mg by mouth. levothyroxine (SYNTHROID) 125 mcg tablet Take 1 tablet by mouth every morning (before b reakfast). 30 tablet 3 metoprolol succinate (TOPROL-XL) 25 mg 24 hr tablet Take by mouth. Multiple Vitamins-Minerals (MULTIVITAMIN PO) Take by mouth Daily. No current facility-administered medications on file prior to visit. Allergies: Allergies Allergen Reactions Penicillins Current Physical Exam: Vitals: 06/18/17 0922 BP: 122/64 Pulse: 73 Resp: 16 PainSc: 0 - No pain Examination today reveals: Examination of her oral cavity and oropharynx shows no mucosal lesions. Examination of her hypopharynx and larynx demonstrates normal vocal cord mobility. No mucosal lesions. Examination of her neck reveals no palpable nodules in the thyroid bed. No palpable cervic al adenopathy or periparotid adenopathy. ASSESSMENT: Pathologic T1a(m) N0 papillary thyroid cancer. Currently no evidence of recurr ent disease. Based on her thyroglobulin once and her ultrasound and examination today I wokatina ld place her in a very low risk category for either recurrent or persistent disease. PLAN: She is going to have a follow-up TSH done this July. We will adjust her levothyro xine after we have that result. She is going to follow-up with me in 1 year's time with a r epeat ultrasound, thyroglobulin and thyroglobulin antibodies. CLINIC PROCEDURE PERFORMED: None This note was transcribed using voice recognition software; there may be speech recognition errors which escaped detection during review. Naga Enriquez MD 06/18/2017 documented in this enco unter Plan of Treatment + +------+--------+ + + | Name | Type | Priori | Associated Diagnoses | Order Schedule | | | | ty | | | + +------+--------+ + + | TSH | Lab | Routin | Hx of | Expected: | | | | e | thyroidectomy | 07/05/2017, Expires: | | | | | | 06/18/2018 | + +------+--------+ + + | Thyroglobulin / | Lab | Routin | Hx of | Expected: | | Thyroglobulin | | e | thyroidectomy | 06/11/2018, Expires: | | Antibody | | | | 06/18/2018 | + +------+--------+ + + documented as of this encounter Procedures + +--------+ + + + | Procedure Name | Priori | Date/Time | Associated Diagnosis | Comments | | | ty | | | | + +--------+ + + + | THYROID STIMULATING | Routin | 07/17/2017 | | Results for this | | HORMONE 3RD GEN | e | 3:30 PM | | procedure are in the | | | | PST | | results section. | + +--------+ + + + | THYROGLOBULIN / | Routin | 07/17/2017 | | Results for this | | THYROGLOBULIN | e | 3:30 PM | | procedure are in the | | ANTIBODY | | PST | | results section. | + +--------+ + + + | THYROGLOBULIN AB | Routin | 07/17/2017 | | Results for this | | | e | 3:30 PM | | procedure are in the | | | | PST | | results section. | + +--------+ + + + documented in this encounter Results Thyroglobulin / Thyroglobulin Antibody (07/17/2017 3:30 PM PST) + + + + + + | Component | Value | Ref Range | Performed | Pathologist | | | | | At | Signature | + + + + + + | THYROGLOBUL | <0.9 | | REFERENCE | | | IN AB | | | LAB | | | | | | [facility] | | + + + + + + | Thyroglobul | <0.1 (L) | | REFERENCE | | | in | | | LAB | | | | | | [facility] | | + + + + + + | Thyroglobul | Not ApplicableComment: | | REFERENCE | | | in by | Reference Range for | | LAB | | | LC-MS/MS | THYROGLOBULIN AB 0.0-4.0 | | [facility] | | | | IU/mLNotes below apply | | | | | | to: THYROGLOBULIN | | | | | | ABINTERPRETIVE | | | | | | INFORMATION: | | | | | | Thyroglobulin Antibody | | | | | | | | | | | | A | | | | | | value of 4.0 IU/mL or | | | | | | less indicates a | | | | | | negative result for | | | | | | thyroglobulin | | | | | | antibodies. The | | | | | | Thyroglobulin Antibody | | | | | | assay is being performed | | | | | | using the Nancy | | | | | | Rudi Access DxI | | | | | | method.Reference Range | | | | | | for THYROGLOBULIN | | | | | | 1.3-31.8 ng/mLNotes | | | | | | below apply to: | | | | | | THYROGLOBULININTERPRETIV | | | | | | E INFORMATION: | | | | | | Thyroglobulin, Serum or | | | | | | Plasma Specimens | | | | | | negative for | | | | | | thyroglobulin antibodies | | | | | | (TgAb) are tested for | | | | | | thyroglobulin (Tg) by | | | | | | chemiluminescent | | | | | | immunoassay (RUPERT) using | | | | | | the Nancy Gwinn | | | | | | Access DxI method. | | | | | | Specimens with TgAb | | | | | | results above the upper | | | | | | reference limit are | | | | | | tested for Tg by | | | | | | high-performance liquid | | | | | | chromatography-tandem | | | | | | mass spectrometry | | | | | | (LC-MS/MS). Results | | | | | | obtained with different | | | | | | test methods or kits | | | | | | cannot be used | | | | | | interchangeably. Tg | | | | | | results, regardless of | | | | | | concentration, should | | | | | | not be interpreted as | | | | | | absolute evidence for | | | | | | the presence or absence | | | | | | of papillary or | | | | | | follicular thyroid | | | | | | cancer. Tg testing is | | | | | | not recommended for use | | | | | | as a screening procedure | | | | | | to detect the presence | | | | | | of thyroid cancer in the | | | | | | general | | | | | | population.Reference | | | | | | Range for THYROGLOBULIN | | | | | | LCMS 1.3-31.8 ng/mLNotes | | | | | | below apply to: | | | | | | THYROGLOBULIN | | | | | | LCMSINTERPRETIVE | | | | | | INFORMATION: | | | | | | Thyroglobulin by | | | | | | LC-MS/MS, Serum/Plasma | | | | | | Lower limit of detection | | | | | | for Thyroglobulin by | | | | | | LC-MS/MS is 0.5 ng/mL. | | | | | | Test developed and | | | | | | characteristics | | | | | | determined by [facility] | | | | | | Laboratories. See | | | | | | Compliance Statement B: | | | | | | [email or web address] | | | | | | by [facility],[address] | | | | | | [place] | | | | | | [address] | | | | | | [phone].[employer]. | | | | | | comHolland MD, | | | | | | Lab. Director | | | | + + + + + + + + | Specimen | + + | | + + + + + | Narrative | Performed At | + + + | Testing Performed at: [employer] [facility]: [id number] - [address] | REFERENCE LAB | | [place] [address] | [facility] | + + + + + + + + | Performing | Address | City/State/Zipcode | Phone Number | | Organization | | | | + + + + + | REFERENCE LAB | [address] | [place] | [phone] | | [facility] | | [phone] | | + + + + + | REFERENCE LAB | [address] | [place] | [phone] | | [facility] | | [address] | | + + + + + Thyroid Stimulating Hormone 3rd Gen (07/17/2017 3:30 PM PST) + + + + + + | Component | Value | Ref Range | Performed | Pathologist | | | | | At | Signature | + + + + + + | TSH | 0.026 (L) | 0.270 - 4.20 | REFERENCE | | | | | | LAB | | | | | | [facility] | | + + + + + + + + | Specimen | + + | | + + + + + | Narrative | Performed At | + + + | Testing Performed at: [facility] [place] CLIA: [id number] - [address] | REFERENCE LAB | | [place] [address] | [facility] | + + + + + + + + | Performing | Address | City/State/Zipcode | Phone Number | | Organization | | | | + + + + + | REFERENCE LAB | [address] | [place] | [phone] | | [facility] | | [phone] | | + + + + + | REFERENCE LAB | [address] | [place] | [phone] | | [facility] | | [address] | | + + + + + Thyroglobulin Ab (07/17/2017 3:30 PM PST) + + + + --+ + | Component | Value | Ref Range | Performed | Pathologist | | | | | At | Signature | + + + + --+ + | Thyroglobul | <3Comment: Please note | <4.11 | REFERENCE | | | in Ab | Reference Range updated | | LAB | | | | as of 09/05/2016. | | [facility] | | | |Please note Reference Range updated as of 09/05/2016. | | | | | | | | | | + + + + --+ + + + | Specimen | + + | | + + + + + | Narrative | Performed At | + + + | Testing Performed at: [facility] CLIA: [id number] - [address] | REFERENCE LAB | | [place] [address] | [facility] | + + + + + + + + | Performing | Address | City/State/Zipcode | Phone Number | | Organization | | | | + + + + + | REFERENCE LAB | [address] | [place] | [phone] | | [facility] | | [address] | | + + + + + | REFERENCE LAB | [address] | [place] | [phone] | | [facility] | | [address] | | + + + + + documented in this encounter Visit Diagnoses + + | Diagnosis | + + | Hx of thyroidectomy - Primary Other postprocedural status | + + documented in this encounter
--- OUTSIDE RECORDS SUMMARY | ~2019-10-31 | XMS | Encounter Summary ---
Demographics + + + | Address | [address] | | | [place] [address] | + + + | Home Phone | | + + + | Preferred Language | Unknown | + + + | Marital Status | | + + + | Gnosticism Affiliation | 1001 | + + + | Race | Unknown | + + + | Ethnic Group | Unknown | + + + Author + + + | Author | [facility] | | | and [place] | + + + | Organization | [facility] | | | [...] Team Providers + +------+ + | Care X Ray Service Engineer Name | Role | Phone | + +------+ + | Oscar Apodaca MD | PCP | | + +------+ + Encounter Details +--------+ + + + + | Date | Type | Department | Care Team | Description | +--------+ + + + + | 12/10/ | Orders Only | [facility] | Naga Enriquez MD | H/O thyroidectomy | | 2019 | | [facility] | [address] [place] | | | | | [address] [place] | [place], [place] | | | | | [place] | [address] | | | | | [address] | [phone] | | | | | [phone] | | | +--------+ + + + [...] + | US THYROID | Routin | 06/03/2018 | H/O thyroidectomy | Results for this | | | e | 3:08 PM | | procedure are in the | | | | PST | | results section. | + +--------+ + + + documented in this encounter Results US Thyroid (06/03/2018 3:08 PM PST) + + + | Narrative | Performed At | + + + | | | + + + + +---------+ + + | Performing | Address | City/State/Zipcode | Phone Number | | Organization | | | | + +---------+ + + | [facility] | | | | + +---------+ + + documented in this encounter Visit Diagnoses + + | Diagnosis | + + | H/O thyroidectomy Other postprocedural status | + + documented in this encounter"
--- OUTSIDE RECORDS SUMMARY | ~2019-10-31 | XMS | Encounter Summary ---
Demographics + + + | Address | [address] | | | [place] [address] | + + + | Home Phone | | + + + | Preferred Language | Unknown | + + + | Marital Status | | + + + | Holiness Affiliation | 1001 | + + + | Race | Unknown | + + + | Ethnic Group | Unknown | + + + Author + + + | Author | [facility] | | | and [place] | + + + | Organization | [facility] | | | [...] Team Providers + +------+ + | Care Conservation Educator Name | Role | Phone | + +------+ + PCP | Unavailable | + +------+ + Encounter Details +--------+ + + + + | Date | Type | Department | Care Team | Description | +--------+ + + + + | 05/08/ | Orders Only | [facility] | Kimmie, | Hx of thyroid cancer | | 2017 | | [facility] | Lissette Mendes RN | (Primary Dx) | | | | [place] | | | | | | [place], [place] | | | | | | [address] | | | | | | [phone] | | | +--------+ + + + [...] as of this encounter Plan of Treatment + +---------+--------+ + + | Name | Type | Priori | Associated Diagnoses | Order Schedule | | | | ty | | | + +---------+--------+ + + | US Thyroid | Imaging | Routin | Hx of thyroid | Expected: | | | | e | cancer | 06/07/2017, Expires: | | | | | | 05/08/2018 | + +---------+--------+ + + documented as of this encounter Procedures + +--------+ + + + | Procedure Name | Priori | Date/Time | Associated Diagnosis | Comments | | | ty | | | | + +--------+ + + + | THYROID STIMULATING | Routin | 05/16/2017 | | Results for this | | HORMONE 3RD GEN | e | 9:55 AM | | procedure are in the | | | | PST | | results section. | + +--------+ + + + | THYROGLOBULIN AB | Routin | 05/16/2017 | | Results for this | | | e | 9:55 AM | | procedure are in the | | | | PST | | results section. | + +--------+ + + + documented in this encounter Results Thyroglobulin Ab (05/16/2017 9:55 AM PST) + + + + --+ + [...] Testing Performed at: [facility] CLIA: [id number] - [address] | REFERENCE LAB | | [place] [address] | [facility] | + + + + + + + + | Performing | Address | City/State/Zipcode | Phone Number | | Organization | | | | + + + + + | REFERENCE LAB | [address] | [place] | [phone] | | [facility] | | [address] | | + + + + + | REFERENCE LAB | [address] | [place] | [phone] | | [facility] | | [address] | | + + + + + Thyroid Stimulating Hormone 3rd Gen (05/16/2017 9:55 AM PST) + + + + + + | Component | Value | Ref Range | Performed | Pathologist | | | | | At | Signature | + + + + + + | TSH | 0.019 (L) | 0.270 - 4.20 | REFERENCE | | | | | | LAB | | | | | | [facility] | | + + + + + + + + | Specimen | + + | | + + + + + | Narrative | Performed At | + + + | Testing Performed at: [facility] CLIA: [id number] - [address] | REFERENCE LAB | | [place] [address] | [facility] | + + + + + + + + | Performing | Address | City/State/Zipcode | Phone Number | | Organization | | | | + + + + + | REFERENCE LAB | [address] | [place] | [phone] | | [facility] | | [address] | | + + + + + | REFERENCE LAB | [address] | [place] | [phone] | | [facility] | | [address] | | + + + + + documented in this encounter Visit Diagnoses + + | Diagnosis | + + | Hx of thyroid cancer - Primary Personal history of malignant neoplasm of thyroid | + + documented in this encounter"
--- OUTSIDE RECORDS SUMMARY | ~2019-10-31 | XMS | Clinical Summary ---
Demographics + + + | Address | [address] | | | [place] [address] | + + + | Home Phone | | + + + | Preferred Language | Unknown | + + + | Marital Status | | + + + | Pentecostal Affiliation | 1001 | + + + | Race | Unknown | + + + | Ethnic Group | Unknown | + + + Author + + + | Author | [facility] | | | and [place] | + + + | Organization | [facility] | | | and [place] | + [...] Team Providers + +------+ + | Care Compliance Engineer Products Name | Role | Phone | + +------+ + | Oscar Apodaca MD | PCP | | + +------+ + Allergies + + + + + + | Active Allergy | Reactions | Severity | Noted | Comments | | | | | Date | | + + + + + + | Penicillins | | | 06/12/20 | | | | | | 17 | | + + + + + + Medications + + + +---------+------+------+-------+ | Medication | Sig | Dispensed | Refills | Star | End | Statu | | | | | | t | Date | s | | | | | | Date | | | + + + +---------+------+------+-------+ | alendronate | Take by mouth. | | 0 | 01/2 | | Activ | | (FOSAMAX) 70 mg | | | | 3/20 | | e | | tablet | | | | 17 | | | + + + +---------+------+------+-------+ | aspirin 325 mg | Take by mouth. | | 0 | 01/2 | | Activ | | tablet | | | | 3/20 | | e | | | | | | 17 | | | + + + +---------+------+------+-------+ | Calcium | daily | | 0 | 01/2 | | Activ | | Carb-Cholecalciferol | | | | 3/20 | | e | | (CALCIUM + D3 PO) | | | | 17 | | | + + + +---------+------+------+-------+ | Coenzyme Q10 | Take 300 mg by | | 0 | 01/2 | | Activ | | (COQ10 PO) | mouth. | | | 3/20 | | e | | | | | | 17 | | | + + + +---------+------+------+-------+ | atorvaSTATin | Take by mouth. | | 0 | 01/2 | | Activ | | (LIPITOR) 40 mg | | | | 3/20 | | e | | tablet | | | | 17 | | | + + + +---------+------+------+-------+ | metoprolol | Take by mouth. | | 0 | 01/2 | | Activ | | succinate | | | | 3/20 | | e | | (TOPROL-XL) 25 mg 24 | | | | 17 | | | | hr tablet | | | | | | | + + + +---------+------+------+-------+ | Cholecalciferol | Take by mouth | | 0 | | | Activ | | (VITAMIN D-3) 2000 | Daily. | | | | | e | | units CAPS | | | | | | | + + + +---------+------+------+-------+ | Multiple | Take by mouth | | 0 | | | Activ | | Vitamins-Minerals | Daily. | | | | | e | | (MULTIVITAMIN PO) | | | | | | | + + + +---------+------+------+-------+ | levothyroxine | Take 1 tablet by | 30 | 5 | 07/0 | | Activ | | (SYNTHROID) 100 mcg | mouth every morning | tablet | | 2/20 | | e | | tablet | (before breakfast). | | | 18 | | | + + + +---------+------+------+-------+ Active Problems + + + | Problem | Noted Date | + + + | Hx of papillary adenocarcinoma of thyroid | 05/16/2017 | + + + | Hx of thyroidectomy | 05/16/2017 | + + + Encounters +--------+---------+ + + + | Date | Type | Specialty | Care Team | Description | +--------+---------+ + + + | 08/12/ | Office | Otolaryngology | Naga Enriquez MD | Hx of papillary | | 2020 | Visit | | | adenocarcinoma of | | | | | | thyroid (Primary | | | | | | Dx); Hx of | | | | | | thyroidectomy | +--------+---------+ + + + from Last 3 Months Family History + + +------+ + | Medical History | Relation | Name | Comments | + + +------+ + | BRCA 1/2 | Neg Hx | | | + + +------+ + | Breast cancer | Neg Hx | | | + + +------+ + | Endometrial cancer | Neg Hx | | | + + +------+ + | Ovarian cancer | Neg Hx | | | + + +------+ + | Uterine cancer | Neg Hx | | | + + +------+ + Social History + +-------+ +--------+------+ | [...] recent travel history available. | + + Last Filed Vital Signs + + + + + | Vital Sign | Reading | Time Taken | Comments | + + + + + | Blood Pressure | 120/64 | 08/12/2019 10:31 AM | | | | | PST | | + + + + + | Pulse | 67 | 08/12/2019 10:31 AM | | | | | PST | | + + + + + | Temperature | - | - | | + + + + + | Respiratory Rate | 16 | 08/12/2019 10:31 AM | | | | | PST | | + + + + + | Oxygen Saturation | 98% | 08/12/2019 10:31 AM | | | | | PST | | + + + + + | Inhaled Oxygen | - | - | | | Concentration | | | | + + + + + | Weight | 86 kg (189 lb 9.6 | 10/06/2018 2:05 PM | | | | oz) | PDT | | + + + + + | Height | 172 cm (5' 7.72") | 06/18/2017 9:22 AM | | | | | PST | | + + + + + | Body Mass Index | 29.07 | 06/18/2017 9:22 AM | | | | | PST | | + + + + + Plan of Treatment + + + + + | Health Maintenance | Due Date | Last Done | Comments | + + + + + | Hepatitis C | | | | | Screening | 3 | | | + + + + + | Vaccine: | | | | | Dtap/Tdap/Td (1 - | 4 | | | | Tdap) | | | | + + + + + | Colorectal Cancer | | | | | Screening | 3 | | | | (Colonoscopy) | | | | + + + + + | Vaccine: Zoster (2 | | 04/20/2014 | | | of 3) | 4 | | | + + + + + | Adult Annual | | | | | Wellness Visit | 5 | | | + + + + + | Vaccine: | | | | | Pneumococcal 65+ (1 | 8 | | | | of 2 - PCV13) | | | | + + + + + | Breast Cancer | | 08/23/2018, 06/06/2017, | | | Screening | 1 | 05/23/2016, Additional history | | | | | exists | | + + + + + | Vaccine: Influenza | Completed | 04/30/2019, 07/02/2016, | | | | | 05/05/2016, Additional history | | | | | exists | | + + + + + Procedures + +--------+ + + + | Procedure Name | Priori | Date/Time | Associated Diagnosis | Comments | | | ty | | | | + +--------+ + + + | HC THYROGLOBULIN | Routin | 08/12/2019 | Hx of papillary | Results for this | | ANTIBODY SCREEN | e | 10:17 AM | adenocarcinoma of | procedure are in the | | | | PST | thyroid | results section. | + +--------+ + + + | TSH | Routin | 08/12/2019 | Hx of papillary | Results for this | | | e | 10:17 AM | adenocarcinoma of | procedure are in the | | | | PST | thyroid | results section. | + +--------+ + + + from Last 3 Months Results Thyroglobulin / Thyroglobulin Antibody (08/12/2019 10:17 AM PST) + + + + + + | Component | Value | Ref Range | Performed | Pathologist | | | | | At | Signature | + + + + + + | Thyroglobul | < 1 | <2 IU/mL | REFERENCE | | | in Ab | | | [facility] | | | | | | [facility] | | | | | | - [facility] | | | | | | [facility] | | + + + + + + | Thyroglobul | < 0.1 (L)Comment: | 2.8 - 40.9 | REFERENCE | | | in | Intact Thyroid: | ng/mL | [facility] | | | | 2.8-40.9 ng/mL | | DI[facility] | | | | Athyrotic: <0.1 | | - [facility] | | | | ng/mL Note: | | [facility] | | | | Abnormal flagging is | | | | | | based upon the reference | | | | | | interval for | | | | | | patients with intact | | | | | | thyroid. This test was | | | | | | performed using the | | | | | | Nancy Rudi | | | | | | chemiluminescent method. | | | | | | Values obtained from | | | | | | different assay methods | | | | | | cannot be used | | | | | | interchangeably. | | | | | | Thyroglobulin levels, | | | | | | regardless of value, | | | | | | should not be | | | | | | interpreted as absolute | | | | | | evidence of the presence | | | | | | or absence of disease. | | | | | | If the sample contains | | | | | | anti-thyroglobulin | | | | | | antibodies of 2 IU/mL or | | | | | | greater, the presence | | | | | | of these autoantibodies | | | | | | may cause falsely low | | | | | | thyroglobulin values. | | | | | | For additional | | | | | | information, please | | | | | | refer to | | | | | | http://education.questdi | | | | | | [employer]/faq/IZO411 | | | | | | (This link is being | | | | | | provided for | | | | | | informational/educationa | | | | | | l purposes only.) @ | | | | | | Test Performed By: | | | | | | [facility] | | | | | | [facility] | | | | | | Solange Gurrola M.D., | | | | | | Ph.D., Laboratory | | | | | | Director [id number] | | | | | | [facility] | | | | | | [place] [address] | | | | | | CLIA #[id number] | | | | + + + + + + + + | Specimen | + + | Blood | + + + + + + + | Performing | Address | City/State/Zipcode | Phone Number | | Organization | | | | + + + + + | REFERENCE LAB | [address] | [place], [place] | | | [facility] - | | [address] | | | [place] [facility] | | | | + + + + + TSH (08/12/2019 10:17 AM PST) + + + + + + | Component | Value | Ref Range | Performed | Pathologist | | | | | At | Signature | + + + + + + | TSH | 0.07 (L) | 0.36 - 3.74 | [facility] | | | | | uIU/mL | [facility] | [facility] | | | | | | [facility] | | + + + + + + + + | Specimen | + + | Blood | + + + + + + + | Performing | Address | City/State/Zipcode | Phone Number | | Organization | | | | + + + + + | [facility] | [address] | [place] | [phone] | | [facility] | | [address] | | + + + + + from Last 3 Months Insurance + +--------+ +--------+ +---------+--------+ | Payer | Benefi | Subscriber | Effect | Phone | Address | Type | | | t Plan | ID | humera | | | | | | / | | Dates | | | | | | Group | | | | | | + +--------+ +--------+ +---------+--------+ | MEDICARE | MEDICA | [id number] | 12/01/19 | [phone] | | Medica | | | RE | | 18-Pre | 5 | | re | | | PART A | | sent | | | | | | AND B | | | | | | + +--------+ +--------+ +---------+--------+ | MEDICARE | MEDICA | [id number] | 12/01/19 | [phone] | | Medica | | | RE | | 18-Pre | 5 | | re | | | PART A | | sent | | | | | | AND B | | | | | | + +--------+ +--------+ +---------+--------+ | AARP | AARP | [id number] | 07/02/19 | [phone] | | Indemn | | | MDCR | | 19-Pre | 0 | | ity | | | SUPPL | | sent | | | | + +--------+ +--------+ +---------+--------+ | AARP | AARP | [id number] | 07/02/19 | [phone] | | Indemn | | | MDCR | | 20-Pre | 0 | | ity | | | SUPPL | | sent | | | | + +--------+ +--------+ +---------+--------+ + +--------+ +--------+ + + | Guarantor Name | Accoun | Relation to | Date | Phone | Billing Address | | | t Type | Patient | of | | | | | | | | | | + +--------+ +--------+ + + | Jessica Lee | Person | Self [birth year] | [address] | | | al/Fam | | 1950 | [phone] | [place] | | | [place] | | | 3 (Home) | [address] | | | | | | [phone] | | | | | | | 9 (Work) | | + +--------+ +--------+ + + | Jessica Lee | Person | Self [birth year] | [address] | | | al/Fam | | 1951 | [phone] | [place], [place] | | | [place] | | | 3 (Home) | [address] | + +--------+ +--------+ + + Advance Directives + + + + + | Type | Date Recorded | Patient | Explanation | | | | Customer Service Dispatcher | | + + + + + | Power of | | | | | Supervisor Of Way | | | | + + + + + | Advance | 08/12/2019 10:21 | | | | Directive | AM | | | + + + + +
--- OUTSIDE RECORDS SUMMARY | ~2019-10-31 | XMS | Encounter Summary ---
Demographics + + + | Address | [address] | | | [place] [address] | + + + | Home Phone | | + + + | Preferred Language | Unknown | + + + | Marital Status | | + + + | Caodaism Affiliation | 1001 | + + + | Race | Unknown | + + + | Ethnic Group | Unknown | + + + Author + + + | Author | [facility] | | | and [place] | + + + | Organization | [facility] | | [...] Team Providers + +------+ + | Care Package Line Relief Operator Name | Role | Phone | [...] [place] | | | | | | [address] | | | | | | [phone] | | | +--------+ + + + [...] Testing Performed at: [facility] CLIA: [id number] - [id number] | REFERENCE LAB | | [place] [address] | [facility] | + + + + + + + + | Performing | Address | City/State/Zipcode | Phone Number | | Organization | | | | + + + + + | REFERENCE LAB | [address] | [place] | [phone] | | [facility] | | [address] | | + + + + + | REFERENCE LAB | [address] | [place] | [phone] | | [facility] | | [address] | | + + + + + [...] Testing Performed at: [facility] CLIA: [id number] - [id number] | REFERENCE LAB | | [place] [address] | [facility] | + + + + + + + + | Performing | Address | City/State/Zipcode | Phone Number | | Organization | | | | + + + + + | REFERENCE LAB | [address] | [place] | [phone] | | [facility] | | [address] | | + + + + + | REFERENCE LAB | [address] | [place] | [phone] | | [facility] | | [address] | | + + + + + documented in this encounter Visit Diagnoses + + | Diagnosis | + + | Hx of thyroid cancer - Primary Personal history of malignant neoplasm of thyroid | + + documented in this encounter"
--- OUTSIDE RECORDS SUMMARY | ~2019-10-31 | XMS | Encounter Summary ---
Demographics + + + | Address | [address] | | | [place] [address] | + + + | Home Phone | | + + + | Preferred Language | Unknown | + + + | Marital Status | | + + + | Congregational Affiliation | Unknown | + + + | Race | White | + + + | Ethnic Group | Not or | + + + Author + + + | Author | [facility] | + + + | Organization | [facility] | + + + | Address | Unknown | + + + | Phone | Unavailable | + + + Support + + +---------+ + | Name | Relationship | Address | Phone | + + +---------+ + | [place] Lee | ECON | Unknown | | + + +---------+ + Care Team Providers + +------+ + | Care Disc Pad Knockout Worker Name | Role | Phone | + +------+ + PCP | Unavailable | + +------+ + Encounter Details +--------+ + + + + | Date | Type | Department | Care Team | Description | +--------+ + + + + | 06/18/ | Office | [facility] | Consultation, | Progress Note | | 2001 | Visit-Trans | ONCOLOGY | Radiation Oncology | | | | cribed | | [...] as of this encounter Progress Notes Interface, School Resource Officer In - 01/30/2006 1:07 AM PDTCLINIC DATE: 06/18/2002 RADIATION ONCOLOGY CONSULTATION REQUESTED BY: Dr. Leonides Don, Neurosurgery, [facility] CHIEF COMPLAINT: Diminished hearing and posterior skull discomfort. 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 HISTORY OF PRESENT ILLNESS: The patient is a 51-year-old female who noted cold symptoms and ear plugging beginning in August of 2000. She noticed diminished hearing in early December of 2000. She had a myringotomy and fluid drainage, which improved her hearing slightly. She then had a CT scan, which showed some cloudiness in the left maxillary sinus, and on 01/29/01, she had a tube placed. This initially drained some fluid. Cultures were done of this fluid, indicating fungal infection, so she was treated with multiple antibiotics and antifungal medications. She began having ringing in her left ear, and slightly worsening dizziness and equilibrium difficulties. The symptoms continued to worsen and she ultimately sought care through another provider who obtained a CT scan of the temporal bones on 05/05/02. This was read as a focus of stippled calcifications at the junction of the left posterior, temporal and anterior occipital lobes that was felt to represent a small, calcified meningioma. 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 There was thought to be a soft tissue swelling in the left Meckel's cave. She then went on to have a nasal endoscopy performed on 05/15/02. This showed no mucosal lesion in the nasopharynx. There was a swelling fullness behind the eustachian tube and torus tubarius on the left. She then underwent a CT scan of the sinuses without contrast on 05/15/02. There was a persistent left cerebral pontine angle mass with associated erosion of the left skull base. On 05/15/02, she underwent an MRI scan. This showed a left cerebral angle mass with associated extension or abnormal enhancement in the left skull base including Meckel's care internal auditory canal. This mass extended along the dura of the left posterior fossa, as well as into the prepontine and premedullary cistern, where it surrounded the basal artery. The mass extends into the left internal auditory canal and surround the left seventh and eighth nerve, however, there is no widening of the left porus acousticus, and there is enhancement in the labyrinthian and tympanic portions of the left facial nerve. There appears to be additional extension of the mass into the left hypoglossal canal, as well as the left jugular foramen. There is an abnormal enhancement of the left petrous apex occipital condyle and clivus. The abnormal enhancement surrounds the cavernous and pre-cavernous portions of the left internal carotid artery. It was a slight compression of the left alexandra and mid-cerebellar peduncle secondary to this mass. There were no brain parenchymal abnormalities. The patient then underwent biopsy on 05/20/02 through a left middle ear exploration and biopsy of a left eustachian tube mass and microdissection. She tolerated this well and biopsy demonstrated middle ear meningioma. Staining was not consistent with a paraganglioma. Given the location of this meningioma and the aggressive bone destroying nature of this tumor, additional therapy is required. The patient reports some mild discomfort somewhat pressure sensation feeling over the last one to two months in the posterior skull. She also has equilibrium difficulties with rising and becoming off-balance. She has also noted some jaw popping in the last few months. She has no difficulty with her vision, does not complain of diplopia and has no facial numbness. She has a long-standing history of right lower facial motor weakness that has not changed. Given the location of this meningioma with extensive skull base involvement, surgical resection was not possible. She was referred to us for consideration of radiation therapy. REVIEW OF SYSTEMS: The [facility] Radiation Oncology Questionnaire was completed by the patient. Pertinent findings include some weight fluctuation. She has had a change in her visual acuity, for which she now requires bifocals. She has diminished hearing on the left, some pain and has had discharge from her left ear when the tube was place. She does experience significant dizziness. The remainder of her review of systems was negative. PAIN ASSESSMENT: She describes some mild left-sided head and posterior skull pain, which does not appear to be aggravated by anything and is intermittent in nature. She is not taking any medications for this. PAST MEDICAL HISTORY: 1) Patient reports a mild head injury at age [age] with concussion PAST SURGICAL HISTORY: 1) Recent biopsy FAMILY HISTORY: An uncle with metastatic bowel carcinoma. No history of meningioma or brain tumors. 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 She has two children who are grown. HABITS: No tobacco or alcohol history. ALLERGIES: 1) Penicillin causes hives MEDICATIONS: 1) Multivitamin 2) Vitamin-E 3) Calcium PHYSICAL EXAMINATION: Vital signs: Weight 133 pounds Blood pressure 98/58 Pulse 62 Respiratory of 16 Temp of 97.6 General: Pleasant female in no apparent distress. HEENT: PERRLA, EOMI. Oropharynx: Without erythema or exudate. Neck is supple, no cervical lymphadenopathy, no supraclavicular adenopathy. Chest: Regular rate and rhythm, no murmurs, rubs or gallops. Lungs: Clear to auscultation bilaterally. Abdomen: Positive bowel sounds, non-tender, non-distended, no hepatosplenomegaly. Extremities: No clubbing, cyanosis or edema. Neurologic exam: Cranial nerves II through XII are intact with the exception of right lower facial weakness with asymmetric smile and diminished hearing on the left. She is intact to light touch throughout. Deep tendon reflexes are 1+ and symmetric. Muscle strength is 5/5 and symmetric. ASSESSMENT: Locally aggressive meningioma with erosion into the sphenoid middle ear and clivus. KARNOFSKY STATUS: Approximate Karnofsky scale of 80. RECOMMENDATIONS: We discussed with the patient and her the role of radiation therapy in the management of her meningioma. It is in a location that cannot be resected. However, radiation therapy is likely to offer good control of this lesion. We would anticipate treating the tumor volume to a dose of 5400 cGy. The lesion is too large for stereotatic radiosurgery. The lesion is complex in nature with fairly extensive bone involvement. We stated to the patient that she could receive at several different locations. Our major concern would be for the radiation oncologist to appreciate the true extent of her tumor in the targeting. Currently, the patient is considering treatment at [facility], [place], or [place]. We briefly discussed proton therapy with her and stated that it would definitely be an option to treat her tumor, although likely not a necessity given its location and dose required. In order to consider treating the patient in a timely fashion, we have tentatively reserved a simulation CT time for her on 06/27/02. If she chooses to receive her radiation elsewhere, we will make the appropriate referrals. We discussed the side effects of radiation therapy with the patient and include potential worsening and hearing on the left, and likely temporary hair loss, fatigue and skin irritation. Anna Funes M.D. Resident Radiation Oncology I was present with Dr. Funes (resident) during the history and examination of Jessica Lee. I discussed the case with the resident and agree with the findings and plan as documented in the resident's note. I explained to the patient and her that this tumor extends into soft tissue beyond the dural-based mass. The difficulty in treating her will be in accurately defining the tumor volume. She will need both MRI and CT for treatment planning. I believe [facility] [place]. Merissa Ac M.D. Grain I Farmworker Radiation Oncology /[facility] A [phone] cc: Dr. Leonides Don, [id number] signed by Interface, School Resource Officer In at 07/2005 1:07 AM PDTdocumented in this encounter Plan of Treatment Not on filedocumented as of this encounter Visit Diagnoses Not on filedocumented in this encounter"
--- OUTSIDE RECORDS SUMMARY | ~2019-10-31 | XMS | Encounter Summary ---
Demographics + + + | Address | [address] | | | [place] [address] | + + + | Home Phone | | + + + | Preferred Language | Unknown | + + + | Marital Status | | + + + | Anabaptist Affiliation | 1001 | + + + | Race | Unknown | + + + | Ethnic Group | Unknown | + + + Author + + + | Author | [facility] | | | and [place] | + + + | Organization | [facility] | | [...] Team Providers + +------+ + | Care Clock And Watch Hands Painter Name | Role | Phone | + +------+ + PCP | Unavailable | + +------+ + Encounter Details +--------+ + + + + | Date | Type | Department | Care Team | Description | +--------+ + + + + | 01/24/ | Hospital | [facility] | | | | 2000 | Encounter | MED CTR XRAY [address] | | | | | | [address] | | | | | | [place] [address] | | | | | | [phone] | | | +--------+ + + + [...]
--- OUTSIDE RECORDS SUMMARY | ~2019-10-31 | XMS | Encounter Summary ---
Demographics + + + | Address | [address] | | | [place] [address] | + + + | Home Phone | | + + + | Preferred Language | Unknown | + + + | Marital Status | | + + + | Sikh Affiliation | 1001 | + + + | Race | Unknown | + + + | Ethnic Group | Unknown | + + + Author + + + | Author | [facility] | | | and [place] | + + + | Organization | [facility] | | [...] Team Providers + +------+ + | Care New Car Get Ready Mechanic Name | Role | Phone | + +------+ + PCP | Unavailable | + +------+ + Encounter Details +--------+ + + + + | Date | Type | Department | Care Team | Description | +--------+ + + + + | 10/11/ | [facility] | [facility] | Conversion | Abnormal mammogram, | | 2012 | Encounter | IMAGING SERVICES | Transaction, | unspecified | | | | [address] | Provider Unknown | | | | | [address] [place], [place] | [phone] | | | | | [address] | | | | | | [phone] | | | +--------+ + + + [...] + | JOE DIGITAL | Routin | 10/11/2012 | | Results for this | | DIAGNOSTIC BILATERAL | e | 3:57 PM | | procedure are in the | | | | PDT | | results section. | + +--------+ + + + documented in this encounter Results [facility] Digital Diagnostic Bilateral (10/11/2012 3:57 PM PDT) + + | Specimen | + + | | + + + + + | Narrative | Performed At | + + + | [facility] MAMMO DIAGNOSTIC BILATERAL 10/11/2012 3:20 PM | | | HISTORY: 61 years. Female. Bilateral focal densities noted on | | | the recent screening mammogram of August 27, 2012 TECHNIQUE: | | | MAMMO DIAGNOSTIC BILATERAL. Bilateral digital mammogram with computer | | | postprocessing viewed with Haily Laughlin utilizing true lateral views of | | | both breasts and ML O. spot compression. Additional rolled views of | | | the right breast. Total of 6 images obtained. COMPARISON: | | | August 27, 2012, July 2011, May 2010, January 2009. | | | FINDINGS: Heterogeneously dense glandular tissue in the anterior and | | | lateral portions of the breast with interspersed fatty tissue causing | | | a multinodular appearance of those areas. Small mass could be | | | obscured. The focal densities of interest on the most recent | | | screening study shows disbursement with additional projections and | | | show no residual underlying focal density, mass, architectural | | | distortion or worrisome calcification. IMPRESSION: 1. No | | | mammographic evidence of malignancy in either left or right breast. | | | 2. Heterogeneously dense glandular tissue correlate with physical | | | examination. 3. BI-RADS 2, routine follow-up. | | | | | + + + + + | Procedure Note | + + | Rober, Rad Conversion - 02/21/2019 9:41 PM PDT JESSICA AMAYA DIAGNOSTIC | | BILATERAL10/11/2012 3:20 PM HISTORY:61 years. Female. Bilateral focal densities noted | | on the recent screening mammogram of August 27, 2012 TECHNIQUE:MAMMO DIAGNOSTIC | | BILATERAL. Bilateral digital mammogram with computer postprocessing viewed with Hialy | | Truman utilizing true lateral views of both breasts and ML O. spot compression. | | Additional rolled views of the right breast. Total of 6 images obtained. | | COMPARISON:August 27, 2012, July 2011, May 2010, January 2009. | | FINDINGS:Heterogeneously dense glandular tissue in the anterior and lateral portions of | | the breast with interspersed fatty tissue causing a multinodular appearance of those | | areas. Small mass could be obscured. The focal densities of interest on the most | | recent screening study shows disbursement with additional projections and show no | | residual underlying focal density, mass, architectural distortion or worrisome | | calcification. IMPRESSION:1. No mammographic evidence of malignancy in either left or | | right breast.2. Heterogeneously dense glandular tissue correlate with physical | | examination.3. BI-RADS 2, routine follow-up. | |The focal densities of interest on the most recent | |screening study shows disbursement with additional projections and show no residual underly ing focal density, mass, architectural distortion or worrisome calcification. | | | |IMPRESSION: | |1. No mammographic evidence of malignancy in either left or right breast. | |2. Heterogeneously dense glandular tissue correlate with physical examination. | |3. BI-RADS 2, routine follow-up. | | | | | | | | | + + documented in this encounter Visit Diagnoses + + | Diagnosis | + + | Abnormal mammogram, unspecified | + + documented in this encounter"
--- OUTSIDE RECORDS SUMMARY | ~2019-10-31 | XMS | Encounter Summary ---
Demographics + + + | Address | [address] [facility] [address] | | | [place] [address] | + + + | Home Phone | | + + + | Preferred Language | Unknown | + + + | Marital Status | | + + + | Buddhist Affiliation | Unknown | + + + [...] Team Providers + +------+ + | Care Mine Wirer Name | Role | Phone | + [...] Erroneous Encounter | | 2013 | | [facility] | CLOVER Sanchez | - Disregard | | | | [address] | | | | | | Mailcode: CH9F | | | | | | [facility] | | | | | | and Healing, | | | | | | Building | | | | | | Floor [place], [place] | | | | | | [address] | | | | | | [phone] | | | +--------+ + + + [...]
--- OUTSIDE RECORDS SUMMARY | ~2019-10-31 | XMS | Encounter Summary ---
Demographics + + + | Address | [address] | | | [place] [address] | + + + | Home Phone [...] Team Providers + +------+ + | Care Air Control/Anti Air Warfare Officer Name | Role | Phone | [...] | +--------+ + + + + | 07/23/ | Telephone | [place] [facility] | Kimmie, | Results | | 2020 | | [facility] [address] | Lissette Mendes RN | | | | | [address] | | | | | | [place], [place] | | | | | | [address] | | | | | | [phone] | | | +--------+ + + + [...]
--- OUTSIDE RECORDS SUMMARY | ~2019-10-31 | XMS | Clinical Summary ---
Demographics + + + | Address | [address] | | | [place] [address] | + + + | Home Phone | | + + + | Preferred Language | Unknown | + + + | Marital Status | | + + + | Jehovah'S Witness Affiliation | 1001 | + + + | Race | Unknown | + + + | Ethnic Group | Unknown | + + + Author + + + | Author | [facility] [employer] (Historical as of | | | 02-15-19) | + + + | Organization | [facility] [employer] (Historical as of | | | 02-15-19) | + + + | Address | Unknown | + + + | Phone | Unavailable | + + + Support + + +---------+ + | Name | Relationship | Address | Phone | + + +---------+ + | Paris Lee | ECON | Unknown | | + + +---------+ + Care Team Providers + +------+ + | Care Program Evaluator Name | Role | Phone | + +------+ + | Oscar Apodaca MD | PP | | + +------+ + Allergies Not on File Current Medications Not on file Active Problems Not on file Family History + + +------+ + | [...] on file | | + + + Last Filed Vital Signs + + + + | Vital Sign | Reading | Time Taken | + + + + | Blood Pressure | - | - | + + + + | Pulse | - | - | + + + + | Temperature | - | - | + + + + | Respiratory Rate | - | - | + + + + | Oxygen Saturation | - | - | + + + + | Inhaled Oxygen | - | - | | Concentration | | | + + + + | Weight | 86 kg (189 lb 9.5 | 10/06/2018 2:04 PM PDT | | | oz) | | + + + + | Height | 172.7 cm (5' 8") | 08/05/2013 2:52 PM PST | + + + + | Body Mass Index | 28.83 | 10/06/2018 2:04 PM PDT | + + + + Plan of Treatment Not on file Results Not on filefrom Last 3 Months Insurance + +--------+ +------+-------+ + | Payer | Benefi | Subscriber | Type | Phone | Address | | | t Plan | ID | | | | | | / | | | | | | | Group | | | | | + +--------+ +------+-------+ + | [facility] | [place] | [id number] | | | | | | | | | | | | | HEALTH | | | | | | | CARE - | | | | | | | AARP | | | | | + +--------+ +------+-------+ + | MEDICARE | MEDICA | [id number] | | | [address] | | | RE | | | | [place] [id number] | | | IP-OP | | | | | + +--------+ +------+-------+ + + +--------+ +--------+ + + | Guarantor Name | Accoun | Relation to | Date | Phone | Billing Address | | | t Type | Patient | of | | | | | | | | | | + +--------+ +--------+ + + | JESSICA LEE | Person | Self [birth year] | Work: | [address] | | | jessica/Raymundo | | 1951 | [phone] | [place] | | | dena | | | [address]: | [address] | | | | | | | | | | | | | [phone] | | | | | | | [address]703 | | + +--------+ +--------+ + +
--- OUTSIDE RECORDS SUMMARY | ~2019-10-31 | XMS | Encounter Summary ---
Demographics + + + | Address | [address] | | | [place] [address] | + + + | Home Phone [...] Team Providers + +------+ + | Care Bilingual Loan Processor Name | Role | Phone | + +------+ + PCP | Unavailable | + +------+ + Encounter Details +--------+ + + + + | Date | Type | Department | Care Team | Description | +--------+ + + + + | 05/08/ | Hospital | [facility] | Navid, | Other Follow-Up | | 2007 | Encounter | CONVERSION DEP [address] | Radhames Trevino MD | Examination | | | | [place] | [address] | | | | | [place] | [address] [place], [place] | | | | | [address] | [address] | | | | | [phone] | [phone] | | | | | | | [...]
--- OUTSIDE RECORDS SUMMARY | ~2019-10-31 | XMS | Encounter Summary ---
Demographics + + + | Address | [address] | | | [place] [address] | + + + | Home Phone | | + + + | Preferred Language | Unknown | + + + | Marital Status | | + + + | Evangelical Affiliation | 1001 | + + + [...] Team Providers + +------+ + | Care Transportation Maintenance Operator Name | Role | Phone | [...] | | | [place], [place] | [address] | | | | | [address] | [phone] | | | | | [phone] | | | +--------+ + + + [...]
--- OUTSIDE RECORDS SUMMARY | ~2019-10-31 | XMS | Clinical Summary ---
Demographics + + + | Address | [address] [place] [address] RD | | | [place] [address] | + + + | Home Phone | | + + + | Preferred Language | Unknown | + + + | Marital Status | | + + + | Jew Affiliation | Unknown | + + + [...] Providers + +------+ + | Care Manager Inventory Management Name | Role | Phone | + +------+ + PCP | Unavailable | + +------+ + Source Comments ROBERTO CARLOS is fully live on both [facility] Ambulatory and [facility] InPatient.[facility] Allergies Not on File Medications Not on file Active Problems Not on file Social History + +-------+ +--------+------+ | Tobacco [...] | + + Last Filed Vital Signs Not on file Plan of Treatment + + + + + | Health Maintenance | Due Date | Last Done | Comments | + + + + + | Pneumococcal | | | | | vaccination (1 of 2 | 8 | | | | - PCV13) | | | | + + + + + | Influenza (Flu) | | | | | vaccination (#1) | 9 | | | + + + + + Results Not on filefrom Last 3 Months"
--- OUTSIDE RECORDS SUMMARY | ~2019-10-31 | XMS | Encounter Summary ---
Demographics + + + | Address | [address] | | | [place] [address] | + + + | Home Phone | | + + + | Preferred Language | Unknown | + + + | Marital Status | | + + + | Yarsanism Affiliation | 1001 | + + + | Race | Unknown | + + + | Ethnic Group | Unknown | + + + Author + + + | Author | [facility] | | | and [place] | + + + | Organization | [facility] | | | and [...] Team Providers + +------+ + | Care Wire Bound Box Machine Helper Name | Role | Phone | + +------+ + PCP | Unavailable | + +------+ + Encounter Details +--------+ + + + + | Date | Type | Department | Care Team | Description | +--------+ + + + + | 01/30/ | Hospital | [facility] | | Other Screening | | 2007 | Encounter | CONVERSION DEP [address] | | Mammogram | | | | [address] | | | | | | [place] | | | | | | [address] | | | | | | [phone] | | | +--------+ + + + [...]
--- OUTSIDE RECORDS SUMMARY | ~2019-10-31 | XMS | Encounter Summary ---
Demographics + + + | Address | [address] | | | [place] [address] | + + + | Home Phone | | + + + | Preferred Language | Unknown | + + + | Marital Status | | + + + | Zoroastrianism Affiliation | 1001 | + + + [...] Team Providers + +------+ + | Care Back Shoe Worker Name | Role | Phone | + +------+ + | Oscar Apodaca MD | PCP | | + +------+ + Encounter Details +--------+ + + + + | Date | Type | Department | Care Team | Description | +--------+ + + + + | 06/03/ | Hospital | [facility] | Conversion | H/O thyroidectomy | | 2018 | Encounter | CENTER OPI | Transaction, | | | | | ULTRASOUND [address] | Provider Unknown | | | | | [address] | [phone] | | | | | [place], [place] | | | | | | [address] | [place] | | | | | [phone] | [address] | | | | | | [place] | | | | | | [address] | | | | | | [phone] | | | | | | | [...] US HEAD NECK SOFT | Routin | 06/03/2018 | | Results for this | | TISSUE | e | 12:20 PM | | procedure are in the | | | | PST | | results section. | + +--------+ + + + documented in this encounter Results US Head Neck Soft Tissue (06/03/2018 12:20 PM PST) + + | Specimen | + + | | + + + + + | Impressions | Performed At | + + + | 1. No evidence of recurrent tumor or metastatic disease. | | | | | + + + + + + | Narrative | Performed At | + + + | [facility] L[facility] 1950 US SOFT TISSUE NECK AND HEAD | | | 06/03/2018 12:20 PM HISTORY: Follow-up of total thyroid resection | | | for thyroid cancer COMPARISON: Ultrasound, 06/06/2017 | | | TECHNIQUE: Grayscale and color Doppler techniques were utilized with a | | | linear transducer. FINDINGS: No recurrent thyroid tissue is noted | | | in the thyroid bed there are no pathologic by size criteria cervical | | | lymph nodes along the right neck. Visualized portions of the parotid | | | and submandibular glands are normal. No pathologic by size criteria | | | cervical lymph nodes are seen along the left neck. No focal fluid | | | collection is present. | | + + + + + | Procedure Note | + + | Mook Richter Conversion - 02/12/2019 5:19 AM PDT [facility] LEE1952US SOFT | | TISSUE NECK AND HEAD06/03/2018 12:20 PM HISTORY: Follow-up of total thyroid resection for | | thyroid cancer COMPARISON: Ultrasound, 06/06/2017 TECHNIQUE: Grayscale and color Doppler | | techniques were utilized with a linear transducer. FINDINGS: No recurrent thyroid | | tissue is noted in the thyroid bed there are no pathologic by size criteria cervical | | lymph nodes along the right neck. Visualized portions of the parotid and submandibular | | glands are normal. No pathologic by size criteria cervical lymph nodes are seen along | | the left neck. No focal fluid collection is present. IMPRESSION: 1. No evidence of | | recurrent tumor or metastatic disease. Electronically signed by Tj Terrazas MD on | | 06/03/2018 12:30 PM | | | |FINDINGS: No recurrent thyroid tissue is noted in the thyroid bed there are no pathologic b y size criteria cervical lymph nodes along the right neck. Visualized portions of the paroti d and submandibular glands are | |normal. No pathologic by size criteria | |cervical lymph nodes are seen along the left neck. No focal fluid collection is present. | | | |IMPRESSION: | |1. No evidence of recurrent tumor or metastatic disease. | | | | | + + documented in this encounter Visit Diagnoses + + | Diagnosis | + + | H/O thyroidectomy Other postprocedural status | + + documented in this encounter"
--- OUTSIDE RECORDS SUMMARY | ~2019-10-31 | XMS | Clinical Summary ---
Demographics + + + | Address | [address] [place] [address] RD | | | [place] [address] | + + + | Home Phone | | + + + | Preferred Language | Unknown | + + + | Marital Status | | + + + | Adventist Affiliation | Unknown | + + + [...] Team Providers + +------+ + | Care Director Of Security Name | Role | Phone | + +------+ + PCP | Unavailable | + +------+ + Source Comments ROBERTO CARLOS is fully live on both [facility] and [facility] InPatient.[facility] Allergies Not on File Medications Not on [...]
--- OUTSIDE RECORDS SUMMARY | ~2019-10-31 | XMS | Encounter Summary ---
Demographics + + + | Address | [address] | | | [place] [address] | + + + | Home Phone | | + + + | Preferred Language | Unknown | + + + | Marital Status | | + + + | Methodist Affiliation | 1001 | + + + [...] Team Providers + +------+ + | Care Alcohol Still Operator Name | Role | Phone | + +------+ + PCP | Unavailable | + +------+ + Encounter Details +--------+ + + + + | Date | Type | Department | Care Team | Description | +--------+ + + + + | 04/28/ | Hospital | C GENERIC IP | Conversion | Pain | | 2016 | Encounter | CONVERSION DEP [address] | Transaction, | | | | | [address] | Provider Unknown | | | | | [place], [place] | | | | | | [address] | (Fax) | | | | | [phone] | | | +--------+ + + + [...] | + +--------+ + + + | CT ANGIOGRAM HEAD W | Routin | 10/14/2015 | | Results for this | | CONTRAST | e | 11:02 AM | | procedure are in the | | | | PDT | | results section. | + +--------+ + + + documented in this encounter Results CT Angiogram Head w Contrast (10/14/2015 11:02 AM PDT) + + | Specimen | + + | | + + + + + | Narrative | Performed At | + + + | This is a non-reportable procedure without a radiologist report and | | | is used for image storage only | | + + + + + | Procedure Note | + + | Mook Richter Tenzin - 02/13/2019 12:42 PM PDT This is a non-reportable procedure | | without a radiologist report and isused for image storage only | + + documented in this encounter Visit Diagnoses + + | Diagnosis | + + | Pain Generalized pain | + + documented in this encounter"
--- OUTSIDE RECORDS SUMMARY | ~2019-10-31 | XMS | Encounter Summary ---
Demographics + + + | Address | [address] | | | [place] [address] | + + + | Home Phone | | + + + | Preferred Language | Unknown | + + + | Marital Status | | + + + | Pentecostal Affiliation | 1001 | + + + | Race | Unknown | + + + | Ethnic Group | Unknown | + + + Author + + + | Author | [facility] | | | and [place] | + + + | Organization | [facility] | | | [...] Team Providers + +------+ + | Care Mill Labor Supervisor Name | Role | Phone | + +------+ + PCP | Unavailable | + +------+ + Encounter Details +--------+ + + + + | Date | Type | Department | Care Team | Description | +--------+ + + + + | 03/03/ | Hospital | [facility] | | | | 2003 | Encounter | [facility] | | | | | | [address] | | | | | | [place] | | | | | | [address] | | | | | | [phone] | | | +--------+ + + + [...]
--- OUTSIDE RECORDS SUMMARY | ~2019-10-31 | XMS | Encounter Summary ---
Demographics + + + | Address | [address] | | | [place] [address] | + + + | Home Phone | | + + + | Preferred Language | Unknown | + + + | Marital Status | | + + + | Roman Catholic Affiliation | 1001 | + + + | Race | Unknown | + + + | Ethnic Group | Unknown | + + + Author + + + | Author | [facility] | | | and [place] | + + + | Organization | [facility] | | [...] Team Providers + +------+ + | Care Cigarette Maker Name | Role | Phone | + +------+ + PCP | Unavailable | + +------+ + Encounter Details +--------+ + + + + | Date | Type | Department | Care Team | Description | +--------+ + + + + | 04/14/ | Hospital | [facility] | Conversion | Angioblastic | | 2015 | Encounter | [facility] MRI [address] | Transaction, | meningioma (HCC) | | | | [address] | Provider Unknown | | | | | [place] | | | | | | [id number] | | | | | | [phone] | | | +--------+ + + + [...] MRI BRAIN W WO | Routin | 04/14/2015 | | Results for this | | CONTRAST | e | 3:20 PM | | procedure are in the | | | | PDT | | results section. | + +--------+ + + + documented in this encounter Results MRI Brain w wo Contrast (04/14/2015 3:20 PM PDT) + + | Specimen | + + | | + + + + + | Impressions | Performed At | + + + | 1. Unchanged postsurgical findings with prior left craniotomy | | | and with persistent encephalomalacia and gliosis of the left anterior | | | temporal lobe. There is similar enhancement of the region of the left | | | petrous apex and cavernous sinus, imaging findings are consistent | | | with residual transosseous meningioma the skull base. Degree of | | | enhancement is similar to the prior exam. 2. Unchanged | | | appearance of right temporal meningioma. 3. Unchanged residual | | | fluid of the left mastoid air cells. | | + + + + + + | Narrative | Performed At | + + + | [facility] 04/14/2015 3:20 PM | | | HISTORY: 64 years. Female. Meningioma. TECHNIQUE: Imaging | | | was performed on a 1.5 [facility] MRI system. Multiplanar sequences were | | | acquired according to a standard department protocol with and without | | | contrast. Contrast: MultiHance. Dose: 16 mL. COMPARISON: | | | August 05, 2013 FINDINGS: No diffusion restriction. No acute | | | infarct. No abnormal deposition of hemosiderin or calcium within the | | | brain parenchyma. Small subcortical hyperintense foci on the FLAIR | | | sequence of the bilateral frontal lobes which is nonspecific. | | | Prior left craniotomy. Cystic encephalomalacia and gliosis of the left | | | anterior temporal lobe, unchanged from the prior exam. Unchanged | | | fluid filling the left mastoid air cells. Unchanged meningioma of | | | the right temporal region (/132) measuring 0.8 x 0.8 cm. There is | | | persistent enhancing tissue surrounding the left internal carotid | | | artery and enhancement around the left cavernous sinus. There is | | | enhancement involving area of the left petrous apex which is similar | | | to the prior examination. The area of enhancement measures 4.5 x 2.3 | | | cm, similar to the prior examination. (). No midline shift. | | | T2 flow voids are intact. Orbits are normal. Frontal sinus and | | | maxillary sinuses are clear. Sphenoid sinus is clear. | | + + + + + | Procedure Note | + + | Rober, Rad Conversion - 02/14/2019 5:46 AM PDT [facility] BRAIN W WO | | [id number]/14/2015 3:20 PM HISTORY:64 years. Female. Meningioma. TECHNIQUE:Imaging was | | performed on a 1.5 [facility] MRI system. Multiplanar sequences were acquired according to | | a standard department protocol with and without contrast.Contrast: MultiHance. Dose: 16 | | mL. COMPARISON:August 05, 2013 FINDINGS: No diffusion restriction. No acute infarct. | | No abnormal deposition of hemosiderin or calcium within the brain parenchyma. Small | | subcortical hyperintense foci on the FLAIR sequence of the bilateral frontal lobes which | | is nonspecific. Prior left craniotomy. Cystic encephalomalacia and gliosis of the left | | anterior temporal lobe, unchanged from the prior exam. Unchanged fluid filling the left | | mastoid air cells. Unchanged meningioma of the right temporal region (/132) measuring | | 0.8 x 0.8 cm. There is persistent enhancing tissue surrounding the left internal carotid | | artery and enhancement around the left cavernous sinus. There is enhancement involving | | area of the left petrous apex which is similar to the prior examination. The area of | | enhancement measures 4.5 x 2.3 cm, similar to the prior examination. (9/169). No midline | | shift. T2 flow voids are intact. Orbits are normal. Frontal sinus and maxillary sinuses | | are clear. Sphenoid sinus is clear. IMPRESSION: 1. Unchanged postsurgical findings | | with prior left craniotomy and with persistent encephalomalacia and gliosis of the left | | anterior temporal lobe. There is similar enhancement of the region of the left petrous | | apex and cavernous sinus, imaging findings are consistent with residual transosseous | | meningioma the skull base. Degree of enhancement is similar to the prior exam. 2. | | Unchanged appearance of right temporal meningioma. 3. Unchanged residual fluid of the | | left mastoid air cells. | |Unchanged meningioma of the right temporal region () measuring 0.8 x 0.8 cm. | | | |There is persistent enhancing tissue surrounding the left internal carotid artery and enhan cement around the left cavernous sinus. There is enhancement involving area of the left julia ous apex which is similar to the prior examination. The area of | |enhancement measures 4.5 x 2.3 cm, similar to the prior examination. (). | | | |No midline shift. T2 flow voids are intact. Orbits are normal. Frontal sinus and maxillary sinuses are clear. Sphenoid sinus is clear. | | | |IMPRESSION: | | | |1. Unchanged postsurgical findings with prior left craniotomy and with persistent encephal omalacia and gliosis of the left anterior temporal lobe. There is similar enhancement of the region of the left petrous apex | |and cavernous sinus, imaging findings | |are consistent with residual transosseous meningioma the skull base. Degree of enhancement is similar to the prior exam. | | | |2. Unchanged appearance of right temporal meningioma. | | | |3. Unchanged residual fluid of the left mastoid air cells. 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
--- OUTSIDE RECORDS SUMMARY | ~2019-10-31 | XMS | Encounter Summary ---
Demographics + + + | Address | [facility] | | | [place] [address] | + + + | Home Phone | | + + + | Preferred Language | Unknown | + + + | Marital Status | | + + + | Confucianism Affiliation | Unknown | + + + | Race | White | + + + | Ethnic Group | Not or | + + + Author + + + | Author | [facility] | + + + | Organization | [facility] | + + + | Address | Unknown | + + + | Phone | Unavailable | + + + Support + + +---------+ + | Name | Relationship | Address | Phone | + + +---------+ + | Paris Lee | ECON | Unknown | | + + +---------+ + Care Team Providers + +------+ + | Care Flight Test Shop Mechanic Name | Role | Phone | + +------+ + PCP | Unavailable | + +------+ + Encounter Details +--------+ + + + + | Date | Type | Department | Care Team | Description | +--------+ + + + + | 05/05/ | Results | Otolaryngology | Irina, | | | 2001 | Only | Otology Services at | [facility] [address] | | | | | [address] | | | | | [address] | [place] [address] | | | | | Physician's | | | | | | Pavilion, 2nd floor | | | | | | [place], [place] | | | | | | [address] | | | | | | [phone] | | | +--------+ + + + [...] | + +--------+ + + + | FUNGUS PRELIMINARY 1 | Routin | 05/20/2002 | | Results for this | | | e | 8:50 AM | | procedure are in the | | | | PST | | results section. | + +--------+ + + + | CULTURE, TISSUE | Routin | 05/20/2002 | | Results for this | | | e | 8:50 AM | | procedure are in the | | | | PST | | results section. | + +--------+ + + + | FUNGAL SMEAR ONLY | Routin | 05/20/2002 | | Results for this | | | e | 8:50 AM | | procedure are in the | | | | PST | | results section. | + +--------+ + + + | CULTURE, FUNGAL & | Routin | 05/20/2002 | | Results for this | | SMEAR | e | 8:50 AM | | procedure are in the | | | | PST | | results section. | + +--------+ + + + | SURGICAL PATHOLOGY | Routin | 05/20/2002 | | Results for this | | | e | | | procedure are in the | | | | | | results section. | + +--------+ + + + | MRI IAC WWO CONTRAST | Routin | 05/15/2002 | | Results for this | | | e | 9:45 AM | | procedure are in the | | | | PST | | results section. | + +--------+ + + + | CT IAC WO CONTRAST | Routin | 05/05/2002 | | Results for this | | | e | 8:05 PM | | procedure are in the | | | | PST | | results section. | + +--------+ + + + documented in this encounter Results CULT, FUNGAL (& SMEAR) (05/20/2002 8:50 AM PST) + + + + + + | Component | Value | Ref Range | Performed | Pathologist | | | | | At | Signature | + + + + + + | SOURCE BODY | (A) Middle ear tumor | | | | | SITE | | | | | + + + + + + | CULTURE | Fungus Culture | | | | | RESULT | Culture Source | | | | | | ....: (A) Middle ear | | | | | | tumor | | | | | | Smear..............: | | | | | | No fungus or yeast seen | | | | | | Preliminary | | | | | | 1......: Fungus NOT | | | | | | detected at 2 weeks RLB | | | | | | Final Report: Fungus | | | | | | NOT isolated after 4 | | | | | | weeks. | | | | + + + + + + + + | Specimen | + + | | + + + + + + + | Performing | Address | City/State/Zipcode | Phone Number | | Organization | | | | + + + + + | [facility] | [address] | [place] [address] | | | LAB-MICRO | | | | + + + + + FUNGUS PRELIMINARY 1 (05/20/2002 8:50 AM PST) + + + + + + | Component | Value | Ref Range | Performed | Pathologist | | | | | At | Signature | + + + + + + | PRELIM | Fungus NOT detected at 2 | | | | | FUNGAL ISOL | weeks | | | | + + + + + + + + | Specimen | + + | | + + + + + + + | Performing | Address | City/State/Zipcode | Phone Number | | Organization | | | | + + + + + | [facility] | [address] | [place] [address] | | | LAB-MICRO | | | | + + + + + FUNGAL SMEAR ONLY (05/20/2002 8:50 AM PST) + + + + + + | Component | Value | Ref Range | Performed | Pathologist | | | | | At | Signature | + + + + + + | CALCOFLUOR | No fungus or yeast seen | | | | | WHITE STAIN | | | | | | ONLY | | | | | + + + + + + | SOURCE BODY | (A) Middle ear tumor | | | | | SITE | | | | | + + + + + + + + | Specimen | + + | | + + + + + + + | Performing | Address | City/State/Zipcode | Phone Number | | Organization | | | | + + + + + | [facility] | [address] | [place] [address] | | | LAB-MICRO | | | | + + + + + CULT, TISSUE (05/20/2002 8:50 AM PST) + + + + + + | Component | Value | Ref Range | Performed | Pathologist | | | | | At | Signature | + + + + + + | SOURCE BODY | (A) Middle ear tumor | | | | | SITE | | | | | + + + + + + | CULTURE | Tissue Culture | | | | | RESULT | | | | | | | Source...............: | | | | | | (A) Middle ear tumor | | | | | | RLB Gram | | | | | | Stain...........: Rare | | | | | | Red blood cells | | | | | | | | | | | | No organisms | | | | | | seen. Culture: | | | | | | Preliminary Report: | | | | | | Culture Received, No | | | | | | growth to date. | | | | | | Final Report: No | | | | | | growth after 72 hours | | | | | | Final Report | | | | + + + + + + + + | Specimen | + + | | + + + + + + + | Performing | Address | City/State/Zipcode | Phone Number | | Organization | | | | + + + + + | [facility] | [address] | [place] [address] | | | LAB-MICRO | | | | + + + + + SURGICAL PATHOLOGY (05/20/2002) + + + + + + | Component | Value | Ref Range | Performed | Pathologist | | | | | At | Signature | + + + + + + | SURGICAL | THIS IS AN AMENDED | | [facility] | | | PATHOLOGY | REPORT SOURCE OF | | DEPARTMENT | | | | SPECIMEN:A Middle ear | | OF | | | | tumor-FSSOURCE OF | | PATHOLOGY | | | | SPECIMEN:B Middle ear | | | | | | tumor #2 in salineSOURCE | | | | | | OF SPECIMEN:C Middle | | | | | | ear tumor #3 in formalin | | | | | | Final Pathologic | | | | | | Diagnosis:The diagnosis | | | | | | of paraganglioma has | | | | | | been questioned by the | | | | | | submittingsurgeon | | | | | | because the biopsied | | | | | | lesion was associated | | | | | | with a | | | | | | 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 The | | | | | | staining results do NOT | | | | | | support the diagnosis | | | | | | ofparaganglioma and | | | | | | instead favor meningioma | | | | | | (which morphologically | | | | | | canclosely resemble | | | | | | paraganglioma). For this | | | | | | reason, the diagnosis | | | | | | is revisedas follows: A: | | | | | | Middle ear tumor: | | | | | | - Meningioma B: | | | | | | Middle ear tumor: | | | | | | - Meningioma C: | | | | | | Middle ear tumor: | | | | | | - Meningioma Comment: | | | | | | Immunohistochemical | | | | | | stains reveal moderate | | | | | | positivity of thetumor | | | | | | cells for ISHA, but no | | | | | | significant staining for | | | | | | NSE, chromogranin | | | | | | orS-100. These findings | | | | | | are not compatible with | | | | | | paraganglioma and | | | | | | insteadsupport the | | | | | | diagnosis of meningioma. | | | | | | (Analyte specific | | | | | | reagents are used in | | | | | | many laboratory tests | | | | | | necessary forstandard | | | | | | medical care and | | | | | | generally do not require | | | | | | FDA approval. This | | | | | | testwas developed and | | | | | | its performance | | | | | | characteristics | | | | | | determined by | | | | | | [facility]. It has | | | | | | not been cleared or | | | | | | approved by the U.[place]. | | | | | | Food and | | | | | | DrugAdministration.) | | | | | | Amendment reviewed | | | | | | by:Radhames Quiroz, | | | | | | M.Rosalind., Ph.D. | | | | | | /PathologistAlso seen | | | | | | by: Tyson Aparicio M.D. | | | | | | | | | | | | /NeuropathologistT:06/05 | | | | | | / Case reviewed | | | | | | by:Nelida Moran, | | | | | | M.D./FellowChristopher | | | | | | Kristin Quiroz M.D., Ph.D. | | | | | | /PathologistT:05/21/02/c | | | | | | t I have reviewed all | | | | | | diagnostic slides and | | | | | | have edited the gross | | | | | | and/ormicroscopic | | | | | | portion of this report | | | | | | as part of my pathologic | | | | | | assessment andfinal | | | | | | diagnosis. Frozen | | | | | | Section Diagnosis:Middle | | | | | | ear tumor (specimen A): | | | | | | - Scant specimen, | | | | | | diagnosis deferred | | | | | | Note: Surgeon said ok. | | | | | | Case finished. | | | | | | Confirmed by: Maksim | | | | | | Ricki Woods, Ph. D., | | | | | | M.D./Pathologist | | | | | | Clinical History:The | | | | | | patient is a 51 year old | | | | | | female with a nasal | | | | | | mass/nasopharyngeal | | | | | | mass. Gross | | | | | | Description:Three | | | | | | specimens are received: | | | | | | A: Middle ear tumor, FS: | | | | | | Received fresh on | | | | | | Telfa are two | | | | | | irregularfragments of | | | | | | soft, proctor to red tissue | | | | | | measuring 0.1 x 0.1 x | | | | | | 0.1 cm each.The specimen | | | | | | used for frozen section | | | | | | diagnosis is | | | | | | resubmitted in toto. B: | | | | | | Middle ear tumor #2: | | | | | | Received fresh in | | | | | | saline is one irregular | | | | | | fragmentof soft, proctor to | | | | | | red tissue measuring 0.3 | | | | | | x 0.2 x 0.1 cm. C: | | | | | | Middle ear tumor #3: | | | | | | Received in formalin | | | | | | on Telfa are two | | | | | | irregularfragments of | | | | | | soft, proctor to red tissue | | | | | | measuring 0.1 x 0.1 x | | | | | | 0.1 cm each. Cassette | | | | | | Index:A: Middle ear | | | | | | tumor, FS:A1, frozen | | | | | | section residue, | | | | | | wrapped, ASB: Middle ear | | | | | | tumor #2:B1, ASC: | | | | | | Middle ear tumor #3:C1, | | | | | | wrapped, ASSP:ROBE:CC:re | | | | | | Pre-Amendment Final | | | | | | Pathologic Diagnosis:A: | | | | | | Middle ear tumor: | | | | | | - ParagangliomaB: | | | | | | Middle ear tumor: | | | | | | - ParagangliomaC: | | | | | | Middle ear tumor: | | | | | | - Paraganglioma Case | | | | | | reviewed by:Nelida Moran, | | | | | | M.D./FellowChristopher | | | | | | Kristin Quiroz M.D., Ph.D. | | | | | | /PathologistT:05/21/02/c | | | | | | tOriginal date signed | | | | | | out on 05/22/02 by | | | | | | Radhames Quiroz, | | | | | | Jeffrey,Ph.D./PathologistRe | | | | | | ndering Diagnostician: | | | | | | Radhames Quiroz | | | | | | | | | | | | Jeffrey,Ph.D.PathologistEle | | | | | | ctronically Signed | | | | | | 06/05/2002Comment: | | | | | | SOURCE OF SPECIMEN: | | | | | | Middle ear | | | | | | oqjnz-JG-Yvnxmg ear | | | | | | tumor #2 in | | | | | | saline-Middle ear tumor | | | | | | #3 in formalin | | | | + + + + + + + + | Specimen | + + | | + + + + + + + | Performing | Address | City/State/Zipcode | Phone Number | | Organization | | | | + + + + + | [facility] | [address] | [place] [address] | | | PATHOLOGY | [address] | | | + + + + + | [facility] | [address] | [place] [address] | | | PATHOLOGY | [address] | | | + + + + + MRI IAC WWO CONTRAST (05/15/2002 9:45 AM PST) + + + + + + | Component | Value | Ref Range | Performed | Pathologist | | | | | At | Signature | + + + + + + | MR IAC WWO | Radiologist 1: BARRIE, | | | | | CONTRAST | MARY ANN Foster | | | | | | M.D.-Radiologist 2: | | | | | | JON GASTELUM, | | | | | | M.D.BRAIN MRI WITH AND | | | | | | WITHOUT CONTRAST: | | | | | | 05/15/2002 Dictated | | | | | | 05/15/2002 HISTORY: | | | | | | Conductive hearing | | | | | | 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 | | | | | | TECHNIQUE: Sagittal | | | | | | T1, axial fat-saturated | | | | | | FSE T2, and axial | | | | | | FSEproton density | | | | | | weighted sequences of | | | | | | the whole brain are | | | | | | performed.Additional | | | | | | thin slice axial T2 and | | | | | | axial T1 weighted | | | | | | sequences wereobtained | | | | | | through the skull base | | | | | | and internal auditory | | | | | | canals. Afterthe | | | | | | uneventful | | | | | | administration of | | | | | | gadolinium IV, | | | | | | fat-saturated axialand | | | | | | coronal thin slice T1 | | | | | | weighted sequences were | | | | | | obtained the skullbase | | | | | | and internal auditory | | | | | | canals. COMPARISON: | | | | | | Comparison is made to | | | | | | prior temporal bone CT | | | | | | dated107/05/2001. | | | | | | FINDINGS: There is a | | | | | | left cerebellopontine | | | | | | angle | | | | | | lenticular-shapedmass | | | | | | which is isointense to | | | | | | lerner matter on the T1 | | | | | | and T2 weightedsequences | | | | | | which measures | | | | | | approximately 2.0 x 0.7 | | | | | | cm. The | | | | | | masshomogeneously | | | | | | enhances and extends | | | | | | along the dura of the | | | | | | anterior leftposterior | | | | | | fossa as well as into | | | | | | the prepontine and | | | | | | premedullarycistern | | | | | | where it surrounds the | | | | | | basal artery. The flow | | | | | | void of thebasilar | | | | | | artery persists. The | | | | | | mass extends into the | | | | | | left internalauditory | | | | | | canal and surrounds the | | | | | | left seventh and eighth | | | | | | nerves.However, there is | | | | | | no widening of the left | | | | | | porus acousticus. | | | | | | There isenhancement of | | | | | | the labyrinthine and | | | | | | tympanic portions of the | | | | | | leftfacial nerve. There | | | | | | is additional extension | | | | | | of the mass into the | | | | | | left hypoglossalcanal as | | | | | | well as the left | | | | | | jugular foramen. There | | | | | | is abnormalenhancement | | | | | | of the left petrous | | | | | | apex, occipital condyle, | | | | | | and clivus.There is | | | | | | additional abnormal | | | | | | enhancement in the left | | | | | | trigeminalcistern and | | | | | | the left cavernous | | | | | | sinus. The abnormal | | | | | | enhancementsurrounds the | | | | | | cavernous and | | | | | | precavernous portions of | | | | | | the left | | | | | | internalcarotid artery, | | | | | | the flow void of which | | | | | | persists. There is | | | | | | additionalabnormal | | | | | | enhancement of the left | | | | | | longus capitis muscle | | | | | | but no definitemass in | | | | | | the region of the left | | | | | | fossa of Rosenmuller. As | | | | | | before, there is | | | | | | abnormal increased | | | | | | signal on the T2 | | | | | | weightedsequences in the | | | | | | left mastoid air cells | | | | | | and middle ear cavity. | | | | | | There is an | | | | | | approximately 9 mm | | | | | | diameter right | | | | | | temporal-parietalenhanci | | | | | | ng mass with associated | | | | | | foci of decreased signal | | | | | | on the [id number] | | | | | | sequences, consistent | | | | | | with partial | | | | | | mineralization. | | | | | | Theremainder of the | | | | | | ventricles, sulci, and | | | | | | cisterns are normal in | | | | | | sizeand appearance. | | | | | | There is no midline | | | | | | shift. There is slight | | | | | | compression of the left | | | | | | alexandra and middle | | | | | | cerebellarpeduncle | | | | | | secondary to the left | | | | | | cerebellopontine angle | | | | | | mass, but noabnormal | | | | | | intraaxial signal. | | | | | | There are no brain | | | | | | parenchymalabnormalities | | | | | | . The orbits and | | | | | | paranasal sinuses are | | | | | | unremarkable. | | | | | | IMPRESSION: 1. 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 | | | | | | Given the paucity of | | | | | | symptoms andthe | | | | | | extensive disease, the | | | | | | most likely differential | | | | | | diagnosticpossibilities | | | | | | include indolent | | | | | | infection or lymphoma. | | | | | | Plasmocytoma | | | | | | ormeningioma are | | | | | | additional, although | | | | | | less likely, | | | | | | differentialdiagnostic | | | | | | possibilities. 2. | | | | | | Small right temporal | | | | | | meningioma. END OF | | | | | | IMPRESSION: | | | | + + + + + + + + | Specimen | + + | | + + + +---------+ + + | Performing | Address | City/State/Zipcode | Phone Number | | Organization | | | | + +---------+ + + | [facility] DEPARTMENT OF | | | | | RADIOLOGY | | | | + +---------+ + + CT IAC WO CONTRAST (05/05/2002 8:05 PM PST) + + + + + + | Component | Value | Ref Range | Performed | Pathologist | | | | | At | Signature | + + + + + + | CT IAC WO | Radiologist 1: BARRIE, | | | | | CONTRAST | MARY ANN Foster M.D.CT OF THE | | | | | | TEMPORAL BONES: | | | | | | 05/05/2002 | | | | | | Dictated: 05/06/2002 | | | | | | CLINICAL INFORMATION: | | | | | | Conductive hearing | | | | | | 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 | | | | | | TECHNIQUE: Axial and | | | | | | coronal images were | | | | | | obtained through | | | | | | thetemporal bones | | | | | | without intravenous | | | | | | contrast. COMPARISON: | | | | | | No prior studies are | | | | | | available for | | | | | | comparison. FINDINGS: | | | | | | In the expected | | | | | | location of the jugular | | | | | | fossa there is | | | | | | ademineralized | | | | | | collection of opacified | | | | | | air cells with soft | | | | | | tissueextending into the | | | | | | hypotympanum and | | | | | | pro-tympanum and | | | | | | appearing tocontinue | | | | | | down along the | | | | | | eustachian tube. A | | | | | | metallic | | | | | | structureprobably a | | | | | | tympanostomy tube is | | | | | | present on the left | | | | | | side. There is asmall | | | | | | amount of fluid in | | | | | | peripheral mastoid air | | | | | | cells. The | | | | | | ossicularchain is | | | | | | intact. There may be a | | | | | | few opacified expanded | | | | | | petrous apexair cells as | | | | | | well. The petrous | | | | | | apex cortex is eroded | | | | | | and the textureof the | | | | | | bone is abnormal. The | | | | | | abnormality extends into | | | | | | theposterolateral wall | | | | | | of the sphenoid sinus | | | | | | and surrounds the | | | | | | petrouscarotid and | | | | | | continues across the | | | | | | medial floor of the | | | | | | middle cranialfossa and | | | | | | probably the left side | | | | | | of the clivus. There | | | | | | is abnormalsoft tissue | | | | | | lining the left fossa of | | | | | | Rosenmuller and | | | | | | extending throughwhat | | | | | | appears to be an eroded | | | | | | foramen lacerum. There | | | | | | is a small amountof | | | | | | abnormal soft tissue in | | | | | | the left sphenoid sinus | | | | | | which is likelyextending | | | | | | into the sinus from the | | | | | | surrounding abnormal | | | | | | bone. 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 The | | | | | | intracranial extent is | | | | | | not evaluated well | | | | | | onthis study but there | | | | | | is a suggestion of soft | | | | | | tissue filling in | | | | | | theleft Meckel's cave. | | | | | | END OF IMPRESSION: | | | | | | Addendum # 1 DATE: | | | | | | 05/12/2002DICTATED BY: | | | | | | Dr. Mary Ann Freeman | | | | | | There is a focus of | | | | | | stippled calcifications | | | | | | at the junction of | | | | | | theleft posterior | | | | | | temporal and anterior | | | | | | occipital lobes seen | | | | | | best on theaxial images. | | | | | | It may represent a | | | | | | small calcified | | | | | | meningioma but | | | | | | isincompletely evaluated | | | | | | on this study. There | | | | | | is no gross | | | | | | abnormalityin the | | | | | | surrounding parenchyma. | | | | | | END OF IMPRESSION: | | | | + + + + + + + + | Specimen | + + | | + + + +---------+ + + | Performing | Address | City/State/Zipcode | Phone Number | | Organization | | | | + +---------+ + + | [facility] DEPARTMENT OF | | | | | RADIOLOGY | | | | + +---------+ + + documented in this encounter Visit Diagnoses Not on filedocumented in this encounter"
--- OUTSIDE RECORDS SUMMARY | ~2019-10-31 | XMS | Encounter Summary ---
Demographics + + + | Address | [address] | | | [place] [address] | + + + | Home Phone | | + + + | Preferred Language | Unknown | + + + | Marital Status | | + + + | Voodoo Affiliation | 1001 | + + + | Race | Unknown | + + + | Ethnic Group | Unknown | + + + Author + + + | Author | [facility] | | | and [place] | + + + | Organization | [facility] | | | [...] Team Providers + +------+ + | Care Assessment Nurse Practitioner Name | Role | Phone | + +------+ + | Oscar Apodaca MD | PCP | | + +------+ + Encounter Details +--------+ + + + + | Date | Type | Department | Care Team | Description | +--------+ + + + + | 08/23/ | Hospital | [facility] | Conversion | Breast cancer | | 2019 | Encounter | IMAGING SERVICES | Transaction, | screening | | | | [address] | Provider Unknown | | | | | [address] [place] | [phone] | | | | | [address] | | | | | | [phone] | | | +--------+ + + + [...] + | JOE TOMOSYN | Routin | 08/23/2018 | | Results for this | | SCREENING BILATERAL | e | 12:02 PM | | procedure are in the | | | | PST | | results section. | + +--------+ + + + documented in this encounter Results JOE Tomosynthesis Screening Bilateral (08/23/2018 12:02 PM PST) + + | Specimen | + + | | + + + + + | Impressions | Performed At | + + + | BIRADS ASSESSMENT: Negative / CATEGORY 1. RECOMMENDATION: Screening | | | mammogram in one year per ACR ([employer]) and SBI | | | (Society of Breast Imaging) guidelines. Per National MQSA | | | guidelines, a letter of notification will be sent to the patient. | | | Signed by: Salomón Sterling Date/Time: 08/23/2018 3:55 PM | | + + + + + + | Narrative | Performed At | + + + | [facility] SCREENING MAMMOGRAM BILATERAL CLINICAL | | | INFORMATION: Screening mammogram. Currently asymptomatic for breast | | | disease. COMPARISON: MAMMO SCREEN COMBO HD BILATERAL (06/06/2017); | | | MAMMO SCREEN COMBO HD BILATERAL (05/23/2016); MAMMO SCREEN COMBO HD | | | BILATERAL (04/14/2015); MAMMO SCREEN COMBO HD BILATERAL (01/20/2014); | | | MAMMO DIAGNOSTIC BILATERAL (10/11/2012); MAMMO SCREENING BILATERAL | | | (08/27/2012); PROCEDURE: Tomosynthesis and conventional digital | | | imaging in CC and MLO views were obtained. Computerized aided | | | detection software was utilized. MAMMOGRAPHIC FINDINGS: Breast | | | Composition: Scattered fibroglandular densities. Mass: No significant | | | or suspicious mass. Asymmetry/Architectural Distortion: None of | | | significance. Calcifications: None of significance. | | + + + + + | Procedure Note | + + | Rober, Rad Conversion - 02/11/2019 4:55 PM PDT [facility] SCREENING | | MAMMOGRAM BILATERALCLINICAL INFORMATION:Screening mammogram. Currently asymptomatic for | | breast disease.COMPARISON:MAMMO SCREEN COMBO HD BILATERAL (06/06/2017); MAMMO SCREEN | | COMBO HDBILATERAL (05/23/2016); MAMMO SCREEN COMBO HD BILATERAL (04/14/2015);MAMMO | | SCREEN COMBO HD BILATERAL (01/20/2014); MAMMO DIAGNOSTIC BILATERAL(10/11/2012); MAMMO | | SCREENING BILATERAL (08/27/2012);PROCEDURE:Tomosynthesis and conventional digital imaging | | in CC and MLO views wereobtained. Computerized aided detection software was | | utilized.MAMMOGRAPHIC FINDINGS:Breast Composition: Scattered fibroglandular | | densities.Mass: No significant or suspicious mass.Asymmetry/Architectural Distortion: | | None of significance.Calcifications: None of significance.IMPRESSION: BIRADS ASSESSMENT: | | Negative / CATEGORY 1. RECOMMENDATION: Screeningmammogram in one year per ACR ([employer] | | [employer] of [employer]) and SBI(Society of Breast Imaging) guidelines.Per National MQSA | | guidelines, a letter of notification will be sent tothe patient.Signed by: Miley Sterlign Date/Time: 08/23/2018 3:55 PM | |Asymmetry/Architectural Distortion: None of significance. | |Calcifications: None of significance. | |IMPRESSION: | |BIRADS ASSESSMENT: Negative / CATEGORY 1. RECOMMENDATION: Screening | |mammogram in one year per ACR ([employer]) and SBI | |(Society of Breast Imaging) guidelines. | |Per National MQSA guidelines, a letter of notification will be sent to | |the patient. | |Signed by: Salomón Sterling | |Sign Date/Time: 08/23/2018 3:55 PM | + + documented in this encounter Visit Diagnoses + + | Diagnosis | + + | Breast cancer screening Breast screening, unspecified | + + documented in this encounter"
--- OUTSIDE RECORDS SUMMARY | ~2019-10-31 | XMS | Encounter Summary ---
Demographics + + + | Address | [address] | | | [place] [address] | + + + | Home Phone | | + + + | Preferred Language | Unknown | + + + | Marital Status | | + + + | Tenriism Affiliation | 1001 | + + + [...] Providers + +------+ + | Care Physician Non Invasive Cardiologist Name | Role | Phone | + +------+ + PCP | Unavailable | + +------+ + Encounter Details +--------+ + + + + | Date | Type | Department | Care Team | Description | +--------+ + + + + | 08/31/ | Hospital | [facility] | Naga Enriquez MD | | | 2017 | Encounter | [facility] | [address] [place] | | | | | [address] [place] | [place] | | | | | [place] | [address] | | | | | [address] | [phone] | | | | | [phone] | | | +--------+ + + + [...] + + | TSH | Routin | 08/31/2016 | | Results for this | | | e | 11:51 AM | | procedure are in the | | | | PST | | results section. | + +--------+ + + + documented in this encounter Results TSH (08/31/2016 11:51 AM PST) + +-------+ + + + | Component | Value | Ref Range | Performed | Pathologist | | | | | At | Signature | + +-------+ + + + | TSH | 3.48 | 0.36 - 3.74 | EXTERNAL | | | | | mIU/L | LAB | | + +-------+ + + + + + | Specimen | + + | | + + + +---------+ + + | Performing | Address | City/State/Zipcode | Phone Number | | Organization | | | | + +---------+ + + | EXTERNAL LAB | | | | + +---------+ + + documented in this encounter Visit Diagnoses Not on filedocumented in this encounter"
--- OUTSIDE RECORDS SUMMARY | ~2019-10-31 | XMS | Encounter Summary ---
Demographics + + + | Address | [address] | | | [place] [address] | + + + | Home Phone | | + + + | Preferred Language | Unknown | + + + | Marital Status | | + + + | Congregational Affiliation | 1001 | + + + | Race | Unknown | + + + | Ethnic Group | Unknown | + + + Author + + + | Author | [facility] | | | and [place] | + + + | Organization | [facility] | | | [...] Providers + +------+ + | Care Pipe Organ Tuner And Repairer Name | Role | Phone | + +------+ + PCP | Unavailable | + +------+ + Encounter Details +--------+ + + + + | Date | Type | Department | Care Team | Description | +--------+ + + + + | 01/24/ | Hospital | [facility] | | | | 2000 | Encounter | MED CTR XRAY [address] | | | | | | [place] | | | | | | [place] [address] | | | | | | [phone] | | | +--------+ + + + [...]
--- OUTSIDE RECORDS SUMMARY | ~2019-10-31 | XMS | Encounter Summary ---
Demographics + + + | Address | [address] | | | [place] [address] | + + + | Home Phone | | + + + | Preferred Language | Unknown | + + + | Marital Status | | + + + | Sabianist Affiliation | 1001 | + + + | Race | Unknown | + + + | Ethnic Group | Unknown | + + + Author + + + | Author | [facility] | | | and [place] | + + + | Organization | [facility] | | [...] Team Providers + +------+ + | Care Lather Apprentice Name | Role | Phone | + +------+ + | Oscar Apodaca MD | PCP | | + +------+ + Reason for Visit +--------+ + | Reason | Comments | +--------+ + | Other | RX Refill Request | +--------+ + Encounter Details +--------+ + + + + | Date | Type | Department | Care Team | Description | +--------+ + + + + | 12/31/ | Telephone | [facility] | Naga Enriquez MD | Other (RX Refill | | 2018 | | [facility] | [address] [place] | Request ) | | | | [address] [place] | [place], [place] | | | | | [place], [place] | [address] | | | | | [address] | [phone] | | | | | [phone] | | | +--------+ + + + [...] Not on filedocumented as of this encounter Results TSH (07/09/2018 2:06 PM PST) + + + + + + | Component | Value | Ref Range | Performed | Pathologist | | | | | At | Signature | + + + + + + | TSH | 0.10 (L) | 0.36 - 3.74 | [facility] [...] + + + + | [facility] | [address] | [place] | [phone] | | HOSPITAL LAB[facility]ORY | | [address] | | + + + + + documented in this encounter Visit Diagnoses + + | Diagnosis | + + | S/P partial thyroidectomy - Primary Other postprocedural status | + + documented in this encounter"
--- OUTSIDE RECORDS SUMMARY | ~2019-10-31 | XMS | Encounter Summary ---
Demographics + + + | Address | [address] | | | [place] [address] | + + + | Home Phone | | + + + | Preferred Language | Unknown | + + + | Marital Status | | + + + | Worship Affiliation | 1001 | + + + | Race | Unknown | + + + | Ethnic Group | Unknown | + + + Author + + + | Author | [facility] | | | and [place] | + + + | Organization | [facility] | | | [...] Team Providers + +------+ + | Care International Sourcing Manager Name | Role | Phone | + +------+ + PCP | Unavailable | + +------+ + Encounter Details +--------+ + + + + | Date | Type | Department | Care Team | Description | +--------+ + + + + | 07/25/ | Hospital | [facility] | Conversion | Other screening | | 2011 | Encounter | IMAGING SERVICES | Transaction, | mammogram | | | | [address] | Provider Unknown | | | | | [address] [place], [place] | [phone] | | | | | [address] | | | | | | [phone] | | | +--------+ + + + [...] + + documented in this encounter Results [facility] Digital Screening Bilateral (07/25/2011 2:33 PM [...]
--- OUTSIDE RECORDS SUMMARY | ~2019-10-31 | XMS | Encounter Summary ---
Demographics + + + | Address | [address] | | | [place] [address] | + + + | Home Phone | | + + + | Preferred Language | Unknown | + + + | Marital Status | | + + + | Caodaism Affiliation | 1001 | + + + | Race | Unknown | + + + | Ethnic Group | Unknown | + + + Author + + + | Author | [facility] | | | and [place] | + + + | Organization | [facility] | | | [...] Team Providers + +------+ + | Care Camouflage Assembler Name | Role | Phone | + +------+ + PCP | Unavailable | + +------+ + Encounter Details +--------+ + + + + | Date | Type | Department | Care Team | Description | +--------+ + + + + | 10/25/ | Hospital | [facility] | Indra Maloney | Headache | | 2005 | Encounter | CONVERSION [address] | [address] | | | | | [place] | [address] | | | | | [place], [place] | [place] [address] | | | | | [address] | [phone] | | | | | [phone] | | | +--------+ + + + [...]
--- OUTSIDE RECORDS SUMMARY | ~2019-10-31 | XMS | Encounter Summary ---
Demographics + + + | Address | [address] | | | [place] [address] | + + + | Home Phone | | + + + | Preferred Language | Unknown | + + + | Marital Status | | + + + | Denominational Affiliation | 1001 | + + + [...] Team Providers + +------+ + | Care Dot Compliance Coordinator Name | Role | Phone | + +------+ + PCP | Unavailable | + +------+ + Encounter Details +--------+ + + + + | Date | Type | Department | Care Team | Description | +--------+ + + + + | 11/29/ | Hospital | [facility] | Donald Pederson MD | Lump or Mass in | | 2006 - | Encounter | CONVERSION [address] | [address] | Breast | | | | [address] | [address] [place], | | | 12/09/ | | [place], [place] | [place] [address] | | | 2006 | | [address] | [phone] | | | | | [phone] | | | +--------+ + + + [...] + | Diagnosis | + + | Lump or mass in breast | + + documented in this encounter"
--- OUTSIDE RECORDS SUMMARY | ~2019-10-31 | XMS | Encounter Summary ---
Demographics + + + | Address | [address] | | | [place] [address] | + + + | Home Phone | | + + + | Preferred Language | Unknown | + + + | Marital Status | | + + + | Orthodoxy Affiliation | Unknown | + + + | Race | White | + + + | Ethnic Group | Not or | + + + Author + + + | Author | [facility] | + + + | Organization | [facility] | + + + | Address | Unknown | + + + | Phone | Unavailable | + + + Support + + +---------+ + | Name | Relationship | Address | Phone | + + +---------+ + | Paris Lee | ECON | Unknown | | + + +---------+ + Care Team Providers + +------+ + | Care Surveyor Geodetic Name | Role | Phone | + +------+ + PCP | Unavailable | + +------+ + Encounter Details +--------+ + + + + | Date | Type | Department | Care Team | Description | +--------+ + + + + | 05/15/ | Results | Otolaryngology | [address] | | | 2001 | Only | Laryngology Services | Faisal Kemp | | | | | at [facility] [address] | | | | | [address] | [place] [address] | | | | | Physician's | | | | | | Pavilion, 2nd floor | | | | | | [place], [place] | | | | | | [address] | | | | | | [phone] | | | +--------+ + + + [...] + +--------+ + + + | CT SINUS -VTI | Routin | 05/15/2002 | | Results for this | | PROTOCOL WO CONTRAST | e | 3:40 PM | | procedure are in the | | | | PST | | results section. | + +--------+ + + + documented in this encounter Results CT SINUS -VTI PROTOCOL WO (05/15/2002 3:40 PM PST) + + + + + + | Component | Value | Ref Range | Performed | Pathologist | | | | | At | Signature | + + + + + + | CT | Radiologist 1: BARRIE, | | | | | SINUS-VTI | JOSÉ Foster, | | | | | PROTOCOL WO | M.D.-Radiologist 2: | | | | | | JOSÉ SOOD, | | | | | | M.D.CT OF THE SINUSES | | | | | | WITHOUT CONTRAST: | | | | | | Dated 05/15/2002. | | | | | | Dictated: 05/16/2002 | | | | | | CLINICAL HISTORY: | | | | | | Left petrous apex and | | | | | | skull base mass. | | | | | | TECHNIQUE: Non | | | | | | contrast axial and | | | | | | coronal CT images are | | | | | | obtainedthrough the | | | | | | paranasal sinuses. | | | | | | COMPARISON: Prior | | | | | | brain skull base MRI | | | | | | dated 05/15/2002 and | | | | | | priortemporal bone CT | | | | | | dated 05/05/2002. | | | | | | FINDINGS: As before, | | | | | | there is a left | | | | | | cerebellopontine angle | | | | | | mass.There is abnormal | | | | | | bone erosion involving | | | | | | the left petrous apex, | | | | | | theregion of the left | | | | | | jugular fossa, left | | | | | | sphenoid body, left | | | | | | clivus,left occipital | | | | | | condyle, and the left | | | | | | greater wing of the | | | | | | sphenoid.There is a | | | | | | small left middle ear | | | | | | mass and a tympanostomy | | | | | | tube. 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 | | | | | | END OF IMPRESSION: | | | | + + + + + + + + | Specimen | + + | | + + + +---------+ + + | Performing | Address | City/State/Zipcode | Phone Number | | Organization | | | | + +---------+ + + | [facility] | | | | | RADIOLOGY | | | | + +---------+ + + documented in this encounter Visit Diagnoses Not on filedocumented in this encounter"
--- OUTSIDE RECORDS SUMMARY | ~2019-10-31 | XMS | Encounter Summary ---
Demographics + + + | Address | [address] | | | [place] [address] | + + + | Home Phone | | + + + | Preferred Language | Unknown | + + + | Marital Status | | + + + | Jain Affiliation | 1001 | + + + | Race | Unknown | + + + | Ethnic Group | Unknown | + + + Author + + + | Author | [facility] | | | and [place] | + + + | Organization | [facility] | | [...] Team Providers + +------+ + | Care Digital Photo Printer Name | Role | Phone | + +------+ + | Oscar Apodaca MD | PCP | | + +------+ + Encounter Details +--------+ + + + + | Date | Type | Department | Care Team | Description | +--------+ + + + + | 05/20/ | Orders Only | [facility] | Kimmie | H/O thyroidectomy | | 2018 | | [facility] [address] | Lissette Mendes RN | (Primary Dx) | | | | [address] | | | | | | [place] | | | | | | [address] | | | | | | [phone] | | | +--------+ + + + [...] on filedocumented as of this encounter Results US Thyroid (06/03/2018 3:08 [...] Diagnosis | + + | H/O thyroidectomy - Primary Other postprocedural status | + + documented in this encounter"
--- OUTSIDE RECORDS SUMMARY | ~2019-10-31 | XMS | Encounter Summary ---
Demographics + + + | Address | [address] | | | [place] [address] | + + + | Home Phone | | + + + | Preferred Language | Unknown | + + + | Marital Status | | + + + | Christianity Affiliation | 1001 | + + + | Race | Unknown | + + + | Ethnic Group | Unknown | + + + Author + + + | Author | [facility] | | | and [place] | + + + | Organization | [facility] | | [...] Team Providers + +------+ + | Care Dialysis Technician Name | Role | Phone | [...] | | | | [place] | [address] | | | | | [address] | [phone] | | | | | [phone] | | | +--------+ + + + [...]
--- OUTSIDE RECORDS SUMMARY | ~2019-10-31 | XMS | Encounter Summary ---
Demographics + + + | Address | [address] | | | [place] [address] | + + + | Home Phone | | + + + | Preferred Language | Unknown | + + + | Marital Status | | + + + | Jewish Affiliation | 1001 | + + + | Race | Unknown | + + + | Ethnic Group | Unknown | + + + Author + + + | Author | [facility] | | | and [place] | + + + | Organization | [facility] | | [...] Team Providers + +------+ + | Care Account Support Specialist Name | Role | Phone | + +------+ + | Oscar Apodaca MD | PCP | | + +------+ + Encounter Details +--------+ + + + + | Date | Type | Department | Care Team | Description | +--------+ + + + + | 11/27/ | Orders Only | [facility] | Naga Enriquez MD | Hx of thyroidectomy | | 2018 | | [facility] | [address] [place] | (Primary Dx) | | | | [address] [place] | [place], [place] | | | | | [place], [place] | [address] | | | | | [address] | [phone] | | | | | [phone] | | | +--------+ + + + [...]
--- OUTSIDE RECORDS SUMMARY | ~2019-10-31 | XMS | Encounter Summary ---
Demographics + + + | Address | [address] | | | [place] [address] | + + + | Home Phone [...] Team Providers + +------+ + | Care Smoke Control Supervisor Name | Role | Phone | [...] Provider Unknown | | | | | [place], [place] | | | | | | [address] | (Fax) | | | | | [phone] | | | +--------+ + + + [...]
--- OUTSIDE RECORDS SUMMARY | ~2019-10-31 | XMS | Encounter Summary ---
Demographics + + + | Address | [address] | | | [place] [address] | + + + | Home Phone | | + + + | Preferred Language | Unknown | + + + | Marital Status | | + + + | Buddhist Affiliation | 1001 | + + + | Race | Unknown | + + + | Ethnic Group | Unknown | + + + Author + + + | Author | [facility] | | | and [place] | + + + | Organization | [facility] | | [...] Team Providers + +------+ + | Care Web Operations Manager Name | Role | Phone | + +------+ + PCP | Unavailable | + +------+ + Encounter Details +--------+ + + + + | Date | Type | Department | Care Team | Description | +--------+ + + + + | 08/27/ | Hospital | [facility] | Conversion | Other screening | | 2012 | Encounter | IMAGING SERVICES | Transaction, | mammogram | | | | [address] | Provider Unknown | | | | | [address] [place], [place] | [phone] | | | | | [address] | | | | | | [phone] | | | +--------+ + + + [...] + | JOE DIGITAL | Routin | 08/27/2012 | | Results for this | | SCREENING BILATERAL | e | 3:02 PM | | procedure are in the | | | | PST | | results section. | + +--------+ + + + documented in this encounter Results [facility] Digital Screening Bilateral (08/27/2012 3:02 PM PST) + + | Specimen | + + | | + + + + + | Narrative | Performed At | + + + | HISTORY: 61 year-old asymptomatic female without elevated risk of | | | breast cancer. TECHNIQUE: Screening bilateral Digital CC and MLO | | | mammogram. Exam read with the benefit of computer assisted detection | | | (iCAD). Prior study: 25 July 2011 through 21 May 2006 | | | FINDINGS: The breast parenchyma is heterogeneously dense, with | | | occasionally irregular foci of tissue that could lower sensitivity and | | | specificity somewhat. In the right breast tissue, seen on the MLO | | | view only is a small area of increasing dense nodular tissue in the | | | mid third of the breast above the nipple line -- measuring about 6 mm. | | | No calcifications concerning for disease appreciated. In the left | | | breast tissue, a small 6-mm nodular density conspicuous on the left | | | MLO view, anterior third -- about 1. 5 cm deep to the nipple noted. | | | No skin thickening or lymphadenopathy. Some scarring in the left is | | | noted IMPRESSION: 1. Bilateral diagnostic mammogram for one | | | density seen in each of the two breast on the MLO views of each. | | | 2. Some may be necessary if localizable and persistent | | | Patient informed of the above via a standardized letter. If there is | | | a palpable mass, would proceed based upon those findings. Malignancy | | | can be occult by this modality. | | | BIRADS - 0. Incomplete exam. | | | Further imaging or prior exams will be needed as above. Note: | | | Patient informed of the above by standard letter. General breast | | | imaging addendum: 10-15% of palpable breast abnormalities may not be | | | visualized on mammography. Negative imaging of the breasts should | | | not postpone further evaluation of a clinically significant palpable | | | abnormality. Electronically signed by Jad Siddiqi MD on | | | 08/27/2012 3:54 PM * * * * * * * * ADDENDUM #1 * * * * * * * * | | | Addendum: Impression 2. should read -- ultrasound may be necessary if | | | the finding is localizable and persistent | | + + + + + | Procedure Note | + + | Rober, Rad Conversion - 02/21/2019 9:41 PM PDT HISTORY: 61 year-old asymptomatic | | female without elevated risk of breast cancer. TECHNIQUE: Screening bilateral Digital CC | | and MLO mammogram.Exam read with the benefit of computer assisted detection (iCAD). | | Prior study: 25 July 2011 through 21 May 2006 FINDINGS: The breast parenchyma is | | heterogeneously dense, with occasionally irregular foci of tissue that could lower | | sensitivity and specificity somewhat. In the right breast tissue, seen on the MLO view | | only is a small area of increasing dense nodular tissue in the mid third of the breast | | above the nipple line -- measuring about 6 mm. No calcifications concerning for disease | | appreciated. In the left breast tissue, a small 6-mm nodular density conspicuous on the | | left MLO view, anterior third -- about 1. 5 cm deep to the nipple noted. No skin | | thickening or lymphadenopathy. Some scarring in the left is noted IMPRESSION: 1. | | Bilateral diagnostic mammogram for one density seen in each of the two breast on the MLO | | views of each. 2. Some may be necessary if localizable and persistent Patient | | informed of the above via a standardized letter. If there is a palpable mass, would | | proceed based upon those findings. Malignancy can be occult by this modality. | | BIRADS - 0. Incomplete exam. Further imaging or | | prior exams will be needed as above. Note:Patient informed of the above by standard | | letter.General breast imaging addendum: 10-15% of palpable breast abnormalities may not | | be visualized on mammography. Negative imaging of the breasts should not postpone | | further evaluation of a clinically significant palpable abnormality. Electronically | | signed by Jad Siddiqi MD on 08/27/2012 3:54 PM* * * * * * * * ADDENDUM #1 * * * * | | * * * *Addendum: Impression 2. should read -- ultrasound may be necessary if the | | finding is localizable and persistent Electronically signed by Jad Siddiqi MD on | | 08/28/2012 11:17 AM | | | |Patient informed of the above via a standardized letter. If there is a palpable mass, woul d proceed based upon those findings. Malignancy can be occult by this modality. | | | | | |BIRADS - 0. Incomplete exam. Further imaging or prior exams will be needed as above. | | | |Note: | |Patient informed of the above by standard letter. | |General breast imaging addendum: 10-15% of palpable breast abnormalities may not be visuali zed on mammography. Negative imaging of the breasts should not postpone further evaluation of a clinically significant palpable abnormality. | | | | | |* * * * * * * * ADDENDUM #1 * * * * * * * * | |Addendum: Impression 2. should read -- ultrasound may be necessary if the finding is locali zable and persistent | | | | | + + documented in this encounter Visit Diagnoses + + | Diagnosis | + + | Other screening mammogram | + + documented in this encounter"
--- OUTSIDE RECORDS SUMMARY | ~2019-10-31 | XMS | Encounter Summary ---
Demographics + + + | Address | [address] | | | [place] [address] | + + + | Home Phone | | + + + | Preferred Language | Unknown | + + + | Marital Status | | + + + | Mu-Ism Affiliation | 1001 | + + + | Race | Unknown | + + + | Ethnic Group | Unknown | + + + Author + + + | Author | [facility] | | | and [place] | + + + | Organization | [facility] | | [...] Team Providers + +------+ + | Care Typewriter Operator Automatic Name | Role | Phone | + +------+ + PCP | Unavailable | + +------+ + Encounter Details +--------+ + + + + | Date | Type | Department | Care Team | Description | +--------+ + + + + | 11/16/ | Hospital | [facility] | Donald Pederson MD | Other Specified | | 2006 | Encounter | CONVERSION [address] | [address] | Pre-Operative | | | | [address] | [address] [place], | Examination | | | | [place], [place] | [place] [address] | | | | | [address] | [phone] | | | | | [phone] | | | +--------+ + + + [...] | Diagnosis | + + | Other specified pre-operative examination | + + documented in this encounter"
--- OUTSIDE RECORDS SUMMARY | ~2019-10-31 | XMS | Encounter Summary ---
Demographics + + + | Address | [address] | | | [place] [address] | + + + | Home Phone [...] + | Author | [facility] | | | and [place] | + + + | Organization | [facility] | | | and [...] Team Providers + +------+ + | Care Income Tax Manager Name | Role | Phone | + +------+ + PCP | Unavailable | + +------+ + Encounter Details +--------+ + + + + | Date | Type | Department | Care Team | Description | +--------+ + + + + | 10/09/ | Hospital | [place] [facility] | Naga Enriquez MD | | | 2017 | Encounter | [facility] [address] | [address] [place] | | | | | [address] [place] | [place] | | | | | [place] | [address] | | | | | [address] | [phone] | | | | | [phone] | | | +--------+ + + + [...]
--- OUTSIDE RECORDS SUMMARY | ~2019-10-31 | XMS | Encounter Summary ---
Demographics + + + | Address | [address] | | | [place] [address] | + + + | Home Phone [...] Team Providers + +------+ + | Care Library Technical Assistant Name | Role | Phone | + [...] | | | [place], [place] | [address] | | | | | [address] | [phone] | | | | | [phone] | | | +--------+ + + + [...]
--- OUTSIDE RECORDS SUMMARY | ~2019-10-31 | XMS | Encounter Summary ---
Demographics + + + | Address | [address] | | | [place] [address] | + + + | Home Phone | | + + + | Preferred Language | Unknown | + + + | Marital Status | | + + + | Muslim Affiliation | 1001 | + + + | Race | Unknown | + + + | Ethnic Group | Unknown | + + + Author + + + | Author | [facility] | | | and [place] | + + + | Organization | [facility] | | | [...] Team Providers + +------+ + | Care Comb Setter Name | Role | Phone | + +------+ + | Oscar Apodaca MD | PCP | | + +------+ + Encounter Details +--------+ + + + + | Date | Type | Department | Care Team | Description | +--------+ + + + + | 10/06/ | Hospital | [facility] | Conversion | Dizziness and | | 2019 | Encounter | [facility] | Transaction, | giddiness | | | | [address] | Provider Unknown | | | | | [place], [place] | [phone] | | | | | [address] | | | | | | [phone] | Oscar Apodaca | | | | | | MD [address] | | | | | | [address] | | | | | | [place] [address] | | | | | | [phone] | | | | | | | [...] + +--------+ + + + | MRI ANGIOGRAM HEAD | Routin | 10/06/2018 | | Results for this | | WO CONTRAST | e | 2:33 PM | | procedure are in the | | | | PDT | | results section. | + +--------+ + + + documented in this encounter Results MRI Angiogram Head wo Contrast (10/06/2018 2:33 PM PDT) + + | Specimen | + + | | + + + + + | Impressions | Performed At | + + + | 1. No high-grade stenosis or aneurysm of the cervical arterial | | | vasculature. 2. There appears to be artifact involving the bilateral | | | posterior inferior cerebellar artery on ihaw-vq-nfwfqb imaging. | | | Both vessels appear to be widely patent following gadolinium | | | administration. 3. No high-grade narrowing of the petrous and | | | cavernous segment of the left internal carotid artery. Signed by: | | | Jeffrey Terrazas, Tj Sign Date/Time: 10/07/2018 8:17 AM | | + + + + + + | Narrative | Performed At | + + + | MRA BRAIN WITHOUT CONTRAST; MRA NECK WITHOUT AND WITH CONTRAST | | | CLINICAL INFORMATION: Patient having lightheadedness and loses | | | balance when turning head. COMPARISON: MRI BRAIN W WO CONTRAST | | | (04/03/2018); CTA HEAD (10/14/2015); PROCEDURE: MRA Brain: Axial 3D | | | knky-ya-kktabd MRA with MIP reformations. MRA Neck: Axial 2D | | | ixlv-ck-chonvv MRA and coronal bolus MRA with multiplanar | | | reformations. 8.5 ml Gadavist was administered intravenously. NASCET | | | criteria applied for internal carotid stenosis determination. | | | FINDINGS: MRA Brain: Intracranial segments of the internal carotid | | | arteries: Normal. Middle cerebral arteries and major MCA branch | | | vessels: Normal. Anterior cerebral arteries and anterior | | | communicating artery: Normal. Intracranial segments of the vertebral | | | arteries and basilar artery: Normal. Posterior cerebral arteries: | | | Normal. Reduced signal intensity of right posterior inferior | | | cerebellar artery is seen image 35 series 2. Questionable critical | | | high-grade stenosis or occlusion of the left posterior inferior | | | cerebellar artery is noted image 54 series 2. On | | | gadolinium-enhanced MRA of the neck, there appears to be | | | opacification of the bilateral posterior inferior cerebellar artery. | | | MRA Neck: Right carotid artery: Carotid origin and common carotid | | | artery, carotid bifurcation, cervical segments of the internal | | | carotid artery, and external carotid artery demonstrate normal | | | arterial flow signal. The internal carotid artery measures 6.0 mm | | | image 39 series 5 and smoothly tapers distally measuring 4.7 mm | | | consistent with 0% stenosis by NASCET criteria. Left carotid artery: | | | Carotid origin and common carotid artery, carotid bifurcation, | | | cervical segments of the internal carotid artery, and external | | | carotid artery demonstrate normal arterial flow signal. The left | | | internal carotid artery measures 5.4 mm on image 40 series 5 and | | | smoothly tapers distally measuring 4.2 mm consistent with 0% stenosis | | | by NASCET criteria. Right vertebral artery: Vertebral artery origin | | | and cervical segments of the right vertebral artery demonstrate | | | normal arterial flow signal. Left vertebral artery: Vertebral artery | | | origin and cervical segments of the left vertebral artery demonstrate | | | normal arterial flow signal. | | + + + + + | Procedure Note | + + | Rober, Rad Conversion - 02/11/2019 4:55 PM PDT MRA BRAIN WITHOUT CONTRAST; MRA NECK | | WITHOUT AND WITH CONTRASTCLINICAL INFORMATION:Patient having lightheadedness and loses | | balance when turning head.COMPARISON:MRI BRAIN W WO CONTRAST (04/03/2018); CTA HEAD | | (10/14/2015);PROCEDURE:MRA Brain: Axial 3D whkz-lr-ompuif MRA with MIP reformations.MRA | | Neck: Axial 2D pnko-ro-jtuywd MRA and coronal bolus MRA withmultiplanar reformations.8.5 | | ml Gadavist was administered intravenously.NASCET criteria applied for internal carotid | | stenosis determination.FINDINGS:MRA Brain:Intracranial segments of the internal carotid | | arteries: Normal.Middle cerebral arteries and major MCA branch vessels: Normal.Anterior | | cerebral arteries and anterior communicating artery: Normal.Intracranial segments of | | the vertebral arteries and basilar artery:Normal.Posterior cerebral arteries: | | Normal.Reduced signal intensity of right posterior inferior cerebellar arteryis seen | | image 35 series 2. Questionable critical high-grade stenosisor occlusion of the left | | posterior inferior cerebellar artery is notedimage 54 series 2. On gadolinium-enhanced | | MRA of the neck, thereappears to be opacification of the bilateral posterior | | inferiorcerebellar artery.MRA Neck:Right carotid artery: Carotid origin and common | | carotid artery, carotidbifurcation, cervical segments of the internal carotid artery, | | andexternal carotid artery demonstrate normal arterial flow signal. Theinternal carotid | | artery measures 6.0 mm image 39 series 5 and smoothlytapers distally measuring 4.7 mm | | consistent with 0% stenosis by NASCETcriteria.Left carotid artery: Carotid origin and | | common carotid artery, carotidbifurcation, cervical segments of the internal carotid | | artery, andexternal carotid artery demonstrate normal arterial flow signal. Theleft | | internal carotid artery measures 5.4 mm on image 40 series 5 andsmoothly tapers distally | | measuring 4.2 mm consistent with 0% stenosisby NASCET criteria.Right vertebral artery: | | Vertebral artery origin and cervical segmentsof the right vertebral artery demonstrate | | normal arterial flow signal.Left vertebral artery: Vertebral artery origin and cervical | | segments ofthe left vertebral artery demonstrate normal arterial flow signal.IMPRESSION: | | 1. No high-grade stenosis or aneurysm of the cervical arterialvasculature.2. There | | appears to be artifact involving the bilateral posteriorinferior cerebellar artery on | | khwg-pu-rlcnsa imaging. Both vesselsappear to be widely patent following gadolinium | | administration.3. No high-grade narrowing of the petrous and cavernous segment of | | theleft internal carotid artery.Signed by: Jeffrey Terrazas, Richardgn Date/Time: | | 10/07/2018 8:17 AM | |Left carotid artery: Carotid origin and common carotid artery, carotid | |bifurcation, cervical segments of the internal carotid artery, and | |external carotid artery demonstrate normal arterial flow signal. The | |left internal carotid artery measures 5.4 mm on image 40 series 5 and | |smoothly tapers distally measuring 4.2 mm consistent with 0% stenosis | |by NASCET criteria. | |Right vertebral artery: Vertebral artery origin and cervical segments | |of the right vertebral artery demonstrate normal arterial flow signal. | |Left vertebral artery: Vertebral artery origin and cervical segments of | |the left vertebral artery demonstrate normal arterial flow signal. | |IMPRESSION: | |1. No high-grade stenosis or aneurysm of the cervical arterial | |vasculature. | |2. There appears to be artifact involving the bilateral posterior | |inferior cerebellar artery on mnrs-tn-vztdap imaging. Both vessels | |appear to be widely patent following gadolinium administration. | |3. No high-grade narrowing of the petrous and cavernous segment of the | |left internal carotid artery. | |Signed by: Jeffrey Terrazas Richard | |Sign Date/Time: 10/07/2018 8:17 AM | + + documented in this encounter Visit Diagnoses + + | Diagnosis | + + | Dizziness and giddiness | + + documented in this encounter"
--- OUTSIDE RECORDS SUMMARY | ~2019-10-31 | XMS | Encounter Summary ---
Demographics + + + | Address | [address] [place] [address] RD | | | [place] [address] | + + + | Home Phone | | + + + | Preferred Language | Unknown | + + + | Marital Status | | + + + | Uatsdin Affiliation | Unknown | + + + [...] Team Providers + +------+ + | Care Photoengraving Retoucher Name | Role | Phone | + +------+ + PCP | Unavailable | + +------+ + Encounter Details +--------+ + + + + | Date | Type | Department | Care Team | Description | +--------+ + + + + | 06/18/ | Office | | Note, Outpatient | [...] as of this encounter Progress Notes Interface, Medical Claims Specialist In - 01/30/2006 1:07 AM PDTCLINIC DATE: 06/18/2002 This is a followup examination. SUBJECTIVE: Mrs. 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 She had exploration about a month ago for this in order to get a pathologic assessment. OBJECTIVE: Her ear is examined under the microscope. There is still some packing present. This was removed. The drum is still a little thick. Her audiogram suggest a significant air-bone gap of about 20 decibels to 30 decibels in that ear. Right ear is entirely normal. There is no tissue growing out of the ear, at least for the present time. IMPRESSION AND PLAN: I have investigated by talking to a variety of my colleagues with regards to her management and it does feel with this diagnosis that we should go ahead and treat her with radiation therapy. I talked to Dr. Merissa Ac in Radiation Oncology. She saw the patient today and agrees that the standard radiation should be done by proton therapy. It is probably not necessary in this regard. Several places were offered so that she could have this including [place] and here. She is, at least at the present time, scheduled to have the radiation commence here, however, she has not made a final decision with regard to that and will be contacting us as to her final decision. Her problem is where she lives while she gets these radiation therapy treatments and the problems with work. We will await her final decision but the plan at least presently is to start on June 30, 2002, here. It was a decision that she should be treated prior to development of any other abnormal symptoms which she does not have at the present time. Her ENT examination was reviewed and was entirely normal except for the left ear. Karthik Arevalo M.D. DOR[place] / CLEMENT [id number] / [id number] / [id number] / Tdocumented in this encounter Plan of Treatment Not on filedocumented as of this encounter Visit Diagnoses Not on filedocumented in this encounter"
--- OUTSIDE RECORDS SUMMARY | ~2019-10-31 | XMS | Encounter Summary ---
Demographics + + + | Address | [address] | | | [place] [address] | + + + | Home Phone | | + + + | Preferred Language | Unknown | + + + | Marital Status | | + + + | Zoroastrian Affiliation | 1001 | + + + [...] Team Providers + +------+ + | Care Net Application Support Specialist Name | Role | Phone | + +------+ + PCP | Unavailable | + +------+ + Encounter Details +--------+ + + + + | Date | Type | Department | Care Team | Description | +--------+ + + + + | 06/06/ | Hospital | [facility] | Conversion | Chronic bilateral | | 2017 | Encounter | [facility] XRAY | Transaction, | low back pain, with | | | | [address] | Provider Unknown | sciatica presence | | | | [address] [place], [place] | [phone] | unspecified | | | | [address] | (Fax) | | | | | [phone] | | | +--------+ + + + [...] | + +--------+ + + + | XR LUMBAR SPINE 4 + | Routin | 06/06/2017 | | Results for this | | VW | e | 2:34 PM | | procedure are in the | | | | PST | | results section. | + +--------+ + + + documented in this encounter Results XR Lumbar Spine 4 + Vw (06/06/2017 2:34 PM PST) + + | Specimen | + + | | + + + + + | Impressions | Performed At | + + + | 1. Disc height loss at the L5/S1 level unchanged compared to the | | | prior study 2. No evidence of fracture or subluxation. 3. | | | Uterine fibroid | | + + + + + + | Narrative | Performed At | + + + | [facility] XR LUMBAR SPINE 4 OR MORE VIEWS 06/06/2017 2:34 | | | PM HISTORY: 66 years. Female. Chronic low back pain | | | TECHNIQUE: XR LUMBAR SPINE 4 OR MORE VIEWS. Frontal, lateral, left | | | and right oblique. Total of 4 images presented for interpretation. | | | COMPARISON: Similar study 05/11/2017 FINDINGS: 5 | | | nonrib-bearing lumbar type vertebral bodies. No lytic or blastic | | | lesions. The pedicles are present. Vertebral body heights and | | | alignment is preserved. Mild disc height loss at the L5/S1 level. | | | Foramen appear patent. Sacroiliac joints are symmetric. | | | Calcification within the central portion of the pelvis suggesting a | | | degenerating uterine fibroid. | | + + + + + | Procedure Note | + + | Rober, Rad Conversion - 02/13/2019 1:02 AM PDT JESSICA LEEXR LUMBAR SPINE 4 OR | | MORE VIEWS06/06/2017 2:34 PM HISTORY:66 years. Female. Chronic low back pain | | TECHNIQUE:XR LUMBAR SPINE 4 OR MORE VIEWS. Frontal, lateral, left and right oblique. | | Total of 4 images presented for interpretation. COMPARISON:Similar study 05/11/2017 | | FINDINGS:5 nonrib-bearing lumbar type vertebral bodies. No lytic or blastic lesions. The | | pedicles are present. Vertebral body heights and alignment is preserved. Mild disc | | height loss at the L5/S1 level. Foramen appear patent. Sacroiliac joints are symmetric. | | Calcification within the central portion of the pelvis suggesting a degenerating uterine | | fibroid.IMPRESSION: 1. Disc height loss at the L5/S1 level unchanged compared to the | | prior study2. No evidence of fracture or subluxation.3. Uterine fibroid | | | |Similar study 05/11/2017 | | | |FINDINGS: | |5 nonrib-bearing lumbar type vertebral bodies. No lytic or blastic lesions. The pedicles ar e present. Vertebral body heights and alignment is preserved. Mild disc height loss at the L 5/S1 level. Foramen appear patent. Sacroiliac joints are symmetric. | |Calcification within the central portion of the pelvis suggesting a degenerating uterine fi broid. | |IMPRESSION: | |1. Disc height loss at the L5/S1 level unchanged compared to the prior study | |2. No evidence of fracture or subluxation. | |3. Uterine fibroid | | | | | | | | | + + documented in this encounter Visit Diagnoses + + | Diagnosis | + + | Chronic bilateral low back pain, with sciatica presence unspecified | + + documented in this encounter"
--- OUTSIDE RECORDS SUMMARY | ~2019-10-31 | XMS | Encounter Summary ---
Demographics + + + | Address | [address] | | | [place] [address] | + + + | Home Phone | | + + + | Preferred Language | Unknown | + + + | Marital Status | | + + + | Yarsanism Affiliation | 1001 | + + + | Race | Unknown | + + + | Ethnic Group | Unknown | + + + Author + + + | Author | [facility] | | | and [place] | + + + | Organization | [facility] | | [...] Team Providers + +------+ + | Care Circular Ripsaw Operator Name | Role | Phone | [...] | | | | [place] | [address] | | | | | [address] | [phone] | | | | | [phone] | | | +--------+ + + + [...] | + +--------+ + + + | CBC W/AUTO | Routin | 07/24/2016 | | Results for this | | DIFFERENTIAL | e | 1:38 PM | | procedure are in the | | | | PST | | results section. | + +--------+ + + + | PTT | Routin | 07/24/2016 | | Results for this | | | e | 1:38 PM | | procedure are in the | | | | PST | | results section. | + +--------+ + + + | PROTIME INR | Routin | 07/24/2016 | | Results for this | | | e | 1:38 PM | | procedure are in the | | | | PST | | results section. | + +--------+ + + + | BASIC METABOLIC | Routin | 07/24/2016 | | Results for this | | PANEL | e | 1:38 PM | | procedure are in the | | | | PST | | results section. | + +--------+ + + + documented in this encounter Results Basic Metabolic Panel (07/24/2016 1:38 PM PST) + +-------+ + + + | Component | Value | Ref Range | Performed | Pathologist | | | | | At | Signature | + +-------+ + + + | Sodium | 140 | 132 - 143 | EXTERNAL | | | | | mmol/L | LAB | | + +-------+ + + + | Potassium | 4.7 | 3.3 - 4.9 | EXTERNAL | | | | | mmol/L | LAB | | + +-------+ + + + | Cl | 105 | 95 - 108 mmol/L | EXTERNAL | | | | | | LAB | | + +-------+ + + + | CO2 | 31 | 23 - 34 mmol/L | EXTERNAL | | | | | | LAB | | + +-------+ + + + | Anion Gap | 4 | 7 - 16 | EXTERNAL | | | | | | LAB | | + +-------+ + + + | Calcium | 8.6 | 8.3 - 10.0 | EXTERNAL | | | | | mg/dL | LAB | | + +-------+ + + + | Glucose | 156 | 70 - 110 mg/dL | EXTERNAL | | | | | | LAB | | + +-------+ + + + | BUN, Bld | 11 | 5 - 26 mg/dL | EXTERNAL | | | | | | LAB | | + +-------+ + + + | Creatinine | 0.92 | 0.60 - 1.30 | EXTERNAL | | | | | mg/dL | LAB | | + +-------+ + + + | BUN/Creatin | 12 | 7.0 - 24.0 | EXTERNAL | | | ine Ratio | | RATIO | LAB | | + +-------+ + + + | GFR | 60 | >=60 | EXTERNAL | | | ESTIMATE | | mL/min/1.73m2 | LAB | | | (REF) | | | | | + +-------+ + + + + + | Specimen | + + | | + + + +---------+ + + | Performing | Address | City/State/Zipcode | Phone Number | | Organization | | | | + +---------+ + + | EXTERNAL LAB | | | | + +---------+ + + PTT (07/24/2016 1:38 PM PST) + +-------+ + + + | Component | Value | Ref Range | Performed | Pathologist | | | | | At | Signature | + +-------+ + + + | PTT | 30 | 25 - 35 SEC | EXTERNAL | | | | | | LAB | | + +-------+ + + + + + | Specimen | + + | | + + + +---------+ + + | Performing | Address | City/State/Zipcode | Phone Number | | Organization | | | | + +---------+ + + | EXTERNAL LAB | | | | + +---------+ + + [facility] INR (07/24/2016 1:38 PM PST) + +-------+ + + + | Component | Value | Ref Range | Performed | Pathologist | | | | | At | Signature | + +-------+ + + + | Prothrombin | 12.6 | 12.3 - 14.1 SEC | EXTERNAL | | | Time | | | LAB | | + +-------+ + + + | INR | 0.99 | | EXTERNAL | | | | | | LAB | | + +-------+ + + + + + | Specimen | + + | | + + + +---------+ + + | Performing | Address | City/State/Zipcode | Phone Number | | Organization | | | | + +---------+ + + | EXTERNAL LAB | | | | + +---------+ + + CBC w/ Auto Differential (07/24/2016 1:38 PM PST) + +-------+ + + + | Component | Value | Ref Range | Performed | Pathologist | | | | | At | Signature | + +-------+ + + + | WBC | 6.5 | 4.3 - 10.4 | EXTERNAL | | | | | 1000/mm3 | LAB | | + +-------+ + + + | RBC | 4.83 | 4.12 - 5.30 | EXTERNAL | | | | | mil/mm3 | LAB | | + +-------+ + + + | HGB, | 14.5 | 12.4 - 15.7 | EXTERNAL | | | External | | g/dL | LAB | | + +-------+ + + + | HCT, | 44.1 | 37.7 - 47.0 % | EXTERNAL | | | External | | | LAB | | + +-------+ + + + | MCV | 91 | 82 - 97 fl | EXTERNAL | | | | | | LAB | | + +-------+ + + + | MCH | 30 | 27.1 - 32.3 pg | EXTERNAL | | | | | | LAB | | + +-------+ + + + | MCHC | 32.9 | 32.0 - 36.9 | EXTERNAL | | | | | g/dL | LAB | | + +-------+ + + + | RDW-CV | 13.1 | <=17.0 % | EXTERNAL | | | | | | LAB | | + +-------+ + + + | RDW-SD | 44.2 | 34.0 - 57.0 fL | EXTERNAL | | | | | | LAB | | + +-------+ + + + | Platelet | 252 | 150 - 450 | EXTERNAL | | | Count | | 1000/mm3 | LAB | | | Plasma | | | | | + +-------+ + + + | MPV | 10.7 | 9.4 - 12.3 FL | EXTERNAL | | | | | | LAB | | + +-------+ + + + | % Segmented | 72.7 | 42.0 - 76.0 % | EXTERNAL | | | | | | LAB | | | Neutrophils | | | | | + +-------+ + + + | % | 18.8 | 20.0 - 40.0 % | EXTERNAL | | | Lymphocytes | | | LAB | | + +-------+ + + + | % Monocytes | 4.5 | 3.0 - 13.0 % | EXTERNAL | | | | | | LAB | | + +-------+ + + + | % | 3.2 | 0.0 - 7.0 % | EXTERNAL | | | Eosinophils | | | LAB | | + +-------+ + + + | % Basophils | 0.5 | 0.0 - 2.0 % | EXTERNAL | | | | | | LAB | | + +-------+ + + + | % Immature | 0.3 | 0.0 - 0.5 % | EXTERNAL | | | Granulocyte | | | LAB | | | s | | | | | + +-------+ + + + | % nRBC | 0 | 0.0 - 0.2 /100 | EXTERNAL | | | | | WBC | LAB | | + +-------+ + + + | Absolute | 4.72 | 2.50 - 8.50 | EXTERNAL | | | Neutrophils | | 1000/mm3 | LAB | | + +-------+ + + + | Absolute | 1.22 | 1.00 - 3.80 | EXTERNAL | | | Lymphocytes | | 1000/mm3 | LAB | | + +-------+ + + + | Absolute | 0.29 | 0.00 - 0.80 | EXTERNAL | | | Monocytes | | 1000/mm3 | LAB | | + +-------+ + + + | Absolute | 0.21 | 0.00 - 0.70 | EXTERNAL | | | Eosinophils | | 1000/mm3 | LAB | | + +-------+ + + + | Absolute | 0.03 | 0.00 - 0.20 | EXTERNAL | | | Basophils | | 1000/mm3 | LAB | | + +-------+ + + + | Absolute | 0.03 | 0.00 - 0.15 | EXTERNAL | | | Immature | | 1000/mm3 | LAB | | | Granulocyte | | | | | | s | | | | | + +-------+ + + + | Absolute | 0.01 | 0.00 - 0.01 | EXTERNAL | | | nRBC | | 1000/mm3 | LAB | | + +-------+ + + + | SLIDE | NO | | EXTERNAL | | | REVIEW | | | LAB | | + +-------+ + [...]
--- OUTSIDE RECORDS SUMMARY | ~2019-10-31 | XMS | Encounter Summary ---
Demographics + + + | Address | [address] | | | [place] [address] | + + + | Home Phone | | + + + | Preferred Language | Unknown | + + + | Marital Status | | + + + | Buddhist Affiliation | 1001 | + + + | Race | Unknown | + + + | Ethnic Group | Unknown | + + + Author + + + | Author | [facility] | | | and [place] | + + + | Organization | [facility] | | [...] Team Providers + +------+ + | Care Coal Mill Operator Name | Role | Phone | [...] [place] | | | | | | [address] | | | | | | [phone] | | | +--------+ + + + [...]
--- OUTSIDE RECORDS SUMMARY | ~2019-10-31 | XMS | Encounter Summary ---
Demographics + + + | Address | [address] | | | [place] [address] | + + + | Home Phone | | + + + | Preferred Language | Unknown | + + + | Marital Status | | + + + | Scientology Affiliation | 1001 | + + + | Race | Unknown | + + + | Ethnic Group | Unknown | + + + Author + + + | Author | [facility] | | | and [place] | + + + | Organization | [facility] | | | and [...] Team Providers + +------+ + | Care Lumber Buyer Name | Role | Phone | + +------+ + PCP | Unavailable | + +------+ + Encounter Details +--------+ + + + + | Date | Type | Department | Care Team | Description | +--------+ + + + + | 08/27/ | Hospital | [facility] | Conversion | Other screening | | 2012 | Encounter | IMAGING SERVICES | Transaction, | mammogram | | | | [address] | Provider Unknown | | | | | [address] [place], [place] | [phone] | | | | | [address] | | | | | | [phone] | | | +--------+ + + + [...] + + documented in this encounter Results [facility] Digital Screening Bilateral (08/27/2012 3:02 PM [...] is localizable and persistent Electronically signed by aJd Siddiqi MD on | | 08/28/2012 11:17 [...]
--- OUTSIDE RECORDS SUMMARY | ~2019-10-31 | XMS | Encounter Summary ---
Demographics + + + | Address | [address] | | | [place] [address] | + + + | Home Phone | | + + + | Preferred Language | Unknown | + + + | Marital Status | | + + + | Yarsanism Affiliation | 1001 | + + + | Race | Unknown | + + + | Ethnic Group | Unknown | + + + Author + + + | Author | [facility] | | | and [place] | + + + | Organization | [facility] | | | and [...] Team Providers + +------+ + | Care Leasing Associate Name | Role | Phone | + +------+ + | Oscar Apodaca MD | PCP | | + +------+ + Reason for Visit +--------+ + | Reason | Comments | +--------+ + | Other | | +--------+ + Encounter Details +--------+ + + + + | Date | Type | Department | Care Team | Description | +--------+ + + + + | 05/20/ | Telephone | [facility] | Naga Enriquez MD | Other | | 2018 | | [facility] [address] | [address] [place] | | | | | [address] [place] | [place], [place] | | | | | [place], [place] | [address] | | | | | [address] | [phone] | | | | | [phone] | | | +--------+ + + + [...]
--- OUTSIDE RECORDS SUMMARY | ~2019-10-31 | XMS | Encounter Summary ---
Demographics + + + | Address | [address] | | | [place] [address] | + + + | Home Phone [...] Team Providers + +------+ + | Care Centrifugal Operator Name | Role | Phone | + +------+ + | Oscar Apodaca MD | PCP | | + +------+ + Reason for Visit + + + | Reason | Comments | + + + | Follow-up, Office | thyroidectomy | | Visit | | + + + Encounter Details +--------+---------+ + + + | Date | Type | Department | Care Team | Description | +--------+---------+ + + + | 07/09/ | Office | [facility] | Naga Enriquez MD | Hx of thyroidectomy | | 2019 | Visit | [facility] [address] | [address] [place] | (Primary Dx); Hx of | | | | [address] | [place], [place] | papillary | | | | [place], [place] | [address] | adenocarcinoma of | | | | [address] | [phone] | thyroid | | | | [phone] | | | +--------+---------+ + + + [...] this encounter Last Filed Vital Signs + +---------+ + + | Vital Sign | Reading | Time Taken | Comments | + +---------+ + + | Blood Pressure | 120/64 | 07/09/2018 1:15 PM | | | | | PST | | + +---------+ + + | Pulse | 67 | 07/09/2018 1:15 PM | | | | | PST | | + +---------+ + + | Temperature | - | - | | + +---------+ + + | Respiratory Rate | 16 | 07/09/2018 1:15 PM | | | | | PST | | + +---------+ + + | Oxygen Saturation | 96% | 07/09/2018 1:15 PM | | | | | PST | | + +---------+ + + | Inhaled Oxygen | - | - | | | Concentration | | | | + +---------+ + + | Weight | - | - | | + +---------+ + + | Height | - | - | | + +---------+ + + | Body Mass Index | - | - | | + +---------+ + + documented in this encounter Patient Instructions Patient Instructions Naga Enriquez MD - 07/09/2018 1:30 PM PSTHave thyroglobulin and thyr oglobulin antibody done today. I will order a TSH, thyroglobulin, thyroglobulin antibody an ultrasound to be done in 1 year and I will see you back after those have been completed. U se your nasal irrigations as we discussed. You may also benefit from saline nasal spray. T his is cswr-bak-miywbrw and is called Kenedy Rosharon. You can spray that in your nose for 5 ti mes a day to keep the mucosal surfaces moistElectronically signed by Naga Enriquez MD at 01/2019 2:00 PM PST documented in this encounter Progress Notes Naga Enriquez MD - 07/09/2018 1:30 PM PST Otolaryngology Follow Up Clinic Note For: Jessica Lee 67 y.o. [id number] On 07/09/2018, Jessica Lee was seen by Naga Enriquez MD Past Medical History: Patient previously underwent total thyroidectomy on September 26, 2016. She has done very well since her surgery approximately 2 years ago. She has had negative t hyroglobulin and thyroglobulin antibodies. She has had negative ultrasound examinations. 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 She has had no evidence of recurrence of that. Patient's Primary Provider is Oscar Apodaca MD Prior Workup Includes: Laboratory: Patient had an undetectable thyroglobulin antibody, thyroglobulin less than 0.1 on July 17, 2017. Her most recent TSH was 0.118. Radiology: Patient had an ultrasound done on June 03, 2018 which showed no evidence of r esidual thyroid tissue or metastatic disease. 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 However, she does note that occasionally pills seem to get st uck in her throat. She does feel as though she has thick secretions in her nasal pharynx. She has had no hyper or hypothyroid symptoms. She was recently seen by Dr. Maloney second, there was no evidence of recurrent disease of her skull base meningioma. Medical Problem List: Patient Active Problem List Diagnosis Hx of [...] Take 300 mg by mouth. levothyroxine (SYNTHROID) 100 mcg tablet Take 1 tablet by mouth every morning (before b reakfast). 30 tablet 5 metoprolol succinate (TOPROL-XL) 25 mg 24 hr tablet Take by mouth. Multiple Vitamins-Minerals (MULTIVITAMIN PO) Take by mouth Daily. No current facility-administered medications on file prior to visit. Allergies: Allergies Allergen Reactions Penicillins Current Physical Exam: Vitals: 07/09/18 1315 BP: 120/64 Pulse: 67 Resp: 16 PainSc: 0 - No pain Examination today reveals: Examination of her ears reveal on the right side and normal-appearing TM with an air contai june middle ear space. On the left side she has a mobile tympanic membrane despite prior obliteration of her eusta chian tube. Examination of her eyes reveal that her left pupil is slightly smaller than her right. Bot h pupils are reactive. Examination of her nasal passages and nasal pharynx shows moderately dry mucosa consistent with prior radiation. There are no discrete lesions or submucosal fu llness. Examination of her oral cavity and oral pharynx shows no mucosal lesions. Examination of her hypopharynx and larynx demonstrates normal vocal cord mobility. No muco ariana lesions. She does have some stranding of moderately thick mucous. Examination of her neck reveals no periparotid or cervical adenopathy. I do not palpate an y masses in her thyroid bed. ASSESSMENT: Based on my examination today she would be placed in the [employer] iation low risk for recurrent or persistent disease group. She has some dry nasal pharyngea l secretions. This is likely related to her prior radiation therapy. I do not see any lesi ons. PLAN: She will begin using nasal irrigations. She will have a thyroglobulin and thyroglobu praful antibody done today. She will see me back in one year with a follow-up ultrasound, TSH, thyroglobulin and thyroglobulin antibody. CLINIC PROCEDURE PERFORMED: FLEXIBLE FIBEROPTIC LARYNGOSCOPY Indications: Nasal secretions, mild intermittent dysphagia. I spoke with the patient about the benefits and downsides of flexible fiberoptic laryngosco py. I answered all of the patients questions and the patient would like to proceed. Anesthesia (3% lidocaine) and vasoconstriction (0.25% phenylephrine) were sprayed in the na ariana passages. The nasal passages, nasopharynx, oropharynx, hypopharynx and larynx were exam ined with the flexible fiberoptic scope. The examination was photo documented. Findings from the examination are detailed in the physical examination above. Patient tolerated the procedure well. This note was transcribed using voice recognition software; there may be speech recognition errors which escaped detection during review. Naga Enriquez MD 07/09/2018 documented in this enco unter Plan of Treatment + +---------+--------+ + + | Name | Type | Priori | Associated Diagnoses | Order Schedule | | | | ty | | | + +---------+--------+ + + | US Thyroid | Imaging | Routin | Hx of papillary | Expected: | | | | e | adenocarcinoma of | 07/09/2019, Expires: | | | | | thyroid | 01/07/2020 | + +---------+--------+ + + documented as of this encounter Results Thyroglobulin / Thyroglobulin Antibody (08/12/2019 10:17 [...] | | | | | | [place] | | | | | | chemiluminescent [...] to | | | | | | [email or web address] | | | | | | [email or web address]/faq/[email or web address] | | | | | | (This link is being | | | | | | provided for | | | | | | informational/educationa | | | | | | l purposes only.) @ | | | | | | Test Performed By: | | | | | | [facility] | | | | | | [facility] | | | | | | Solange Gurrola M.D., | | | | | | Ph.D., Laboratory | | | | | | Director [id number] | | | | | | [facility] | | | | | | [place] [address] | | | | | | CLIA #[id number] | | | | + + + + + + + + | Specimen | + + | Blood | + + + + + + + | Performing | Address | City/State/Zipcode | Phone Number | | Organization | | | | + + + + + | REFERENCE LAB | [id number] [facility] | [place], [place] | | | [facility] - | | [address] | | | [facility] | | [...] + | [facility] | [address] | [place], [place] | [phone] | | HOSPITAL LAB[facility]ORY | | [address] | | + + + + + Thyroglobulin / Thyroglobulin Antibody (07/09/2018 2:06 PM PST) + + + [...] | | | | | | [place] | | | | | | chemiluminescent [...] | | | | | thyroglobulin values. @ | | | | | | Test Performed By: | | | | | | [facility] | | | | | | [facility] | | | | | | Solange Gurrola M.D., | | | | | | Ph.D., Laboratory | | | | | | Director [id number] | | | | | | [facility] | | | | | | [place] [address] | | | | | | [place] #[id number] | | | | + + + + + + + + | Specimen | + + | Blood | + + + + + | Narrative | Performed At | + + + | Performing Organization Information: Site ID: [id number] | REFERENCE LAB | | PANEL Name: Address: , Director: | [facility] | | | [facility] - | | | [facility] | | | [place] | + + + + + + + + | Performing | Address | City/State/Zipcode | Phone Number | | Organization | | | | + + + + + | REFERENCE LAB | [id number] [facility] | [place], [place] | | | [facility] - | | [address] | | | [facility] | | | | + + + + + documented in this encounter Visit Diagnoses + + | Diagnosis | + + | Hx of thyroidectomy - Primary Other postprocedural status | + + | Hx of papillary adenocarcinoma of thyroid Personal history of malignant neoplasm of | | thyroid | + + documented in this encounter"
--- OUTSIDE RECORDS SUMMARY | ~2019-10-31 | XMS | Encounter Summary ---
Demographics + + + | Address | [address] | | | [place] [address] | + + + | Home Phone | | + + + | Preferred Language | Unknown | + + + | Marital Status | | + + + | Moravian Affiliation | 1001 | + + + | Race | Unknown | + + + | Ethnic Group | Unknown | + + + Author + + + | Author | [facility] | | | and [place] | + + + | Organization | [facility] | | | and [...] Team Providers + +------+ + | Care Crematory Operator Name | Role | Phone | [...] | | | [place], [place] | [address] | | | | | [address] | [phone] | | | | | [phone] | | | +--------+ + + + [...]
--- OUTSIDE RECORDS SUMMARY | ~2019-10-31 | XMS | Encounter Summary ---
Demographics + + + | Address | [address] | | | [place] [address] | + + + | Home Phone | | + + + | Preferred Language | Unknown | + + + | Marital Status | | + + + | Voodoo Affiliation | 1001 | + + + | Race | Unknown | + + + | Ethnic Group | Unknown | + + + Author + + + | Author | [facility] | | | and [place] | + + + | Organization | [facility] | | | [...] Team Providers + +------+ + | Care Cloth Opener Hand Name | Role | Phone | + [...] | | | [place], [place] | [address] | | | | | [address] | [phone] | | | | | [phone] | | | +--------+ + + + [...]
--- OUTSIDE RECORDS SUMMARY | ~2019-10-31 | XMS | Encounter Summary ---
Demographics + + + | Address | [address] | | | [place] [address] | + + + | Home Phone | | + + + | Preferred Language | Unknown | + + + | Marital Status | | + + + | Nondenominational Affiliation | 1001 | + + + [...] Providers + +------+ + | Care Director Communications Name | Role | Phone | + +------+ + | Oscar Apodaca MD | PCP | | + +------+ + Encounter Details +--------+ + + + + | Date | Type | Department | Care Team | Description | +--------+ + + + + | 08/23/ | Hospital | [facility] | Conversion | Breast cancer | | 2019 | Encounter | IMAGING SERVICES | Transaction, | screening | | | | [address] | Provider Unknown | | | | | [address] [place] | [phone] | | | | | [address] | | | | | | [phone] | | | +--------+ + + + [...] | mammogram in one year per ACR ([employer] [employer]) and SBI | | [...] RECOMMENDATION: Screeningmammogram in one year per ACR ([place] | | [employer] of [employer]) and SBI(Society of Breast Imaging) guidelines.Per National MQSA | | guidelines, a letter of notification will be sent tothe patient.Signed by: Miley Sterling Date/Time: 08/23/2018 3:55 PM | |Asymmetry/Architectural Distortion: None of significance. | |Calcifications: None of significance. | |IMPRESSION: | |BIRADS ASSESSMENT: Negative / CATEGORY 1. RECOMMENDATION: Screening | |mammogram in one year per ACR ([employer] [employer]) and SBI | |(Society [...]
--- OUTSIDE RECORDS SUMMARY | ~2019-10-31 | XMS | Encounter Summary ---
Demographics + + + | Address | [address] | | | [place] [address] | + + + | Home Phone | | + + + | Preferred Language | Unknown | + + + | Marital Status | | + + + | Jainism Affiliation | 1001 | + + + [...] Team Providers + +------+ + | Care Cellular Equipment Repairer Name | Role | Phone | + +------+ + PCP | Unavailable | + +------+ + Encounter Details +--------+ + + + + | Date | Type | Department | Care Team | Description | +--------+ + + + + | 02/20/ | Hospital | [facility] | Conversion | Osteoporosis; | | 2013 | Encounter | [facility] | Transaction, | Lumbago | | | | [address] | Provider Unknown | | | | | [address] [place], [place] | [phone] | | | | | [address] | | | | | | [phone] | | | +--------+ + + + [...] + + + | XR LUMBAR SPINE 2 OR | Routin | 02/20/2014 | | Results for this | | 3 VW | e | 2:54 PM | | procedure are in the | | | | PDT | | results section. | + +--------+ + + + documented in this encounter Results XR Lumbar Spine 2 or 3 Vw (02/20/2014 2:54 PM PDT) + + | Specimen | + + | | + + + + + | Impressions | Performed At | + + + | FINDINGS/ IMPRESSION: Normal alignment of the lumbar spine. | | | Minimal anterolisthesis of L3 on L4. Moderate degeneration of the | | | L5-S1 disc space. No acute fracture. Nonspecific overlying | | | bowel gas pattern. Sacroiliac joints are normal. | | | | | + + + + + + | Narrative | Performed At | + + + | JESSICA L[facility] 1950 XR LUMBAR SPINE LIMITED 2-3 VIEW | | | 02/20/2014 2:54 PM INDICATION: Osteoporosis, lumbar pain. | | | COMPARISON: None TECHNIQUE: Lumbar spine series, 3 views | | + + + + + | Procedure Note | + + | Rober, Rad Conversion - 02/14/2019 11:14 PM PDT JESSICA Cedeno JOSE1950XR LUMBAR | | SPINE LIMITED 2-3 VIEW02/20/2014 2:54 PM INDICATION: Osteoporosis, lumbar pain. | | COMPARISON: None TECHNIQUE: Lumbar spine series, 3 views IMPRESSION: FINDINGS/ | | IMPRESSION: Normal alignment of the lumbar spine. Minimal anterolisthesis of L3 on L4. | | Moderate degeneration of the L5-S1 disc space. No acute fracture. Nonspecific overlying | | bowel gas pattern. Sacroiliac joints are normal. | |COMPARISON: None | | | |TECHNIQUE: Lumbar spine series, 3 views | | | |IMPRESSION: | |FINDINGS/ IMPRESSION: | | | |Normal alignment of the lumbar spine. Minimal anterolisthesis of L3 on L4. Moderate degener ation of the L5-S1 disc space. | | | |No acute fracture. | | | |Nonspecific overlying bowel gas pattern. | | | |Sacroiliac joints are normal. | | | | | | | + + documented in this encounter Visit Diagnoses + + | Diagnosis | + + | Osteoporosis Osteoporosis, unspecified | + + | Lumbago | + + documented in this encounter"
--- OUTSIDE RECORDS SUMMARY | ~2019-10-31 | XMS | Encounter Summary ---
Demographics + + + | Address | [address] | | | [place] [address] | + + + | Home Phone | | + + + | Preferred Language | Unknown | + + + | Marital Status | | + + + | Adventism Affiliation | 1001 | + + + | Race | Unknown | + + + | Ethnic Group | Unknown | + + + Author + + + | Author | [facility] | | | and [place] | + + + | Organization | [facility] | | | [...] Team Providers + +------+ + | Care Eye Physician Name | Role | Phone | + +------+ + PCP | Unavailable | + +------+ + Encounter Details +--------+ + + + + | Date | Type | Department | Care Team | Description | +--------+ + + + + | 04/14/ | Hospital | [facility] | Conversion | Angioblastic | | 2015 | Encounter | [facility] MRI 9[address] | Transaction, | meningioma (HCC) | | | | [address] | Provider Unknown | | | | | [place] | | | | | | [address] | | | | | | [phone] | | | +--------+ + + + [...] At | + + + | [facility]AST [...] - 02/14/2019 5:46 AM PDT [facility] BRAIN W WO | | QPCVCVYQ39/14/2015 3:20 PM HISTORY:64 years. Female. Meningioma. TECHNIQUE:Imaging [...]
--- OUTSIDE RECORDS SUMMARY | ~2019-10-31 | XMS | Encounter Summary ---
Demographics + + + | Address | [address] | | | [place] [address] | + + + | Home Phone | | + + + | Preferred Language | Unknown | + + + | Marital Status | | + + + | Catholic Affiliation | 1001 | + + [...] Team Providers + +------+ + | Care Research And Insights Executive Name | Role | Phone | + +------+ + PCP | Unavailable | + +------+ + Encounter Details +--------+ + + + + | Date | Type | Department | Care Team | Description | +--------+ + + + + | 06/06/ | Hospital | [facility] | Conversion | Chronic bilateral | | 2017 | Encounter | [facility] XRAY | Transaction, | low back pain, with | | | | [address] | Provider Unknown | sciatica presence | | | | [address] [place], [place] | [phone] | unspecified | | | | [address] | (Fax) | | | | | [phone] | | | +--------+ + + + [...]
--- OUTSIDE RECORDS SUMMARY | ~2019-10-31 | XMS | Encounter Summary ---
Demographics + + + | Address | [address] | | | [place] [address] | + + + | Home Phone | | + + + | Preferred Language | Unknown | + + + | Marital Status | | + + + | Mu-Ism Affiliation | 1001 | + + + | Race | Unknown | + + + | Ethnic Group | Unknown | + + + Author + + + | Author | [facility] | | | and [place] | + + + | Organization | [facility] | | | [...] Team Providers + +------+ + | Care City Collector Name | Role | Phone | + +------+ + PCP | Unavailable | + +------+ + Encounter Details +--------+ + + + + | Date | Type | Department | Care Team | Description | +--------+ + + + + | 03/03/ | Hospital | [facility] | | | | 2003 | Encounter | [facility] | | | | | | [address] | | | | | | [place] | | | | | | [address] | | | | | | [phone] | | | +--------+ + + + [...]
--- OUTSIDE RECORDS SUMMARY | ~2019-10-31 | XMS | Encounter Summary ---
Demographics + + + | Address | [address] | | | [place] [address] | + + + | Home Phone | | + + + | Preferred Language | Unknown | + + + | Marital Status | | + + + | Latter Day Affiliation | 1001 | + + + | Race | Unknown | + + + | Ethnic Group | Unknown | + + + Author + + + | Author | [facility] | | | and [place] | + + + | Organization | [facility] | | | [...] Team Providers + +------+ + | Care Cutting Machine Operator Helper Name | Role | Phone | + +------+ + PCP | Unavailable | + +------+ + Encounter Details +--------+ + + + + | Date | Type | Department | Care Team | Description | +--------+ + + + + | 06/06/ | Hospital | [facility] | Conversion | Hx of thyroid cancer | | 2017 | Encounter | [facility] | Transaction, | | | | | ULTRASOUND [address] | Provider Unknown | | | | | [address] | [phone] | | | | | [place] | | | | | | [address] | | | | | | [phone] | | | +--------+ + + + [...]
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
--- OUTSIDE RECORDS SUMMARY | ~2019-10-31 | XMS | Encounter Summary ---
Demographics + + + | Address | [address] | | | [place] [address] | + + + | Home Phone | | + + + | Preferred Language | Unknown | + + + | Marital Status | | + + + | Hindu Affiliation | 1001 | + + + | Race | Unknown | + + + | Ethnic Group | Unknown | + + + Author + + + | Author | [facility] | | | and [place] | + + + | Organization | [facility] | | | and [place] | + + + | Address | Unknown | + + + | Phone | Unavailable | + + + Support + + +---------+ + | Name | Relationship | Address | Phone | + + +---------+ + | [place] | ECON | Unknown | | + + +---------+ + Care Team Providers + +------+ + | Care Knowledge Manager Name | Role | Phone | + +------+ + PCP | Unavailable | + +------+ + Encounter Details +--------+ + + + + | Date | Type | Department | Care Team | Description | +--------+ + + + + | 04/16/ | Hospital | [facility] | [place], | Benign Neoplasm of | | 2008 | Encounter | CONVERSION DEP [address] | Radhames Trevino MD | Cerebral Meninges | | | | [address] | [address] | ([facility]) | | | | [place], [place] | [address] [place], [place] | | | | | [address] | [address] | | | | | [phone] | [phone] | | | | | | | [...] MRI BRAIN W WO | Routin | 04/16/2009 | | Results for this | | CONTRAST | e | 5:00 PM | | procedure are in the | | | | PDT | | results section. | + +--------+ + + + documented in this encounter Results MRI Brain w wo Contrast (04/16/2009 5:00 PM PDT) + + | Specimen | + + | | + + + + + | Narrative | Performed At | + + + | [id number] | | | Page 1 RADIOLOGY | | | / | | | O/P [facility] | | | NAME: [place] [address] | | | | | | | | | DATE OF : 1950 ORDER NUMBER: [id number] | | | EXAM DATE/TIME: 04/16/2009 04:45 P ORDERING PHYSICIAN: MAKI | | | ELLIOTT ORDER DETAIL: 1040 / / HMR EXAM DESCRIPTION: MRI BRAIN | | | UN/EN | | | | | | MRI BRAIN WITH AND WITHOUT CONTRAST 04/16/2009 HISTORY A | | | 58-year-old female who underwent resection of a left-sided meningioma | | | in 2002. This is a followup exam. She has a known small meningioma in | | | the right posterior temporal lobe region. TECHNIQUE Imaging was | | | performed on a [employer] 3.0 [facility] MRI system. The patient received 14 mL | | | of intravenous MultiHance contrast during the study. The following | | | sequences were obtained: Axial T2 FLAIR, axial DWI and ADC maps, axial | | | T2, sagittal T2 FLAIR, sagittal T1, axial T1 3D spoiled gradient | | | postcontrast with multiplanar reconstructions, axial T1 postcontrast. | | | COMPARISON 05/08/2008 and outside study performed at [facility] | | | Open MRI 02/14/2005. FINDINGS Chronic gliosis is seen in the | | | anterior left temporal lobe likely at the site of a previous | | | meningioma resection. A large amount of fluid is seen in the left | | | mastoid unchanged from the previous exam. No left-sided recurrent | | | meningioma is identified. A small right-sided meningioma is present | | | measuring 7.6 x 8.0 x 6.7 mm, which is unchanged from 05/2008. This | | | is located in the posterior right temporal lobe region about 7 mm | | | above the transverse sinus. No other areas of abnormal enhancement are | | | seen within the brain parenchyma or extraaxially. The ventricles are | | | normal in size and configuration with the exception of mild | | | compensatory expansion of the temporal horn of the left lateral | | | ventricle into the region of encephalomalacia in the anterior left | | | temporal lobe region. 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 The midline structures including the corpus callosum, alexandra, | | | cerebellar vermis, and pituitary are normal. No masses are seen in | | | the cerebellopontine angles or internal auditory canals. The | | | orbits and their contents are normal. The paranasal sinuses and right | | | mastoid are well aerated. The osseous structures of the calvaria | | | demonstrate a large left-sided craniotomy but are otherwise normal in | | | signal intensity. The soft tissues of the oropharynx and upper neck | | | are normal on the sagittal sequence. The vascular structures of | | | the skull base demonstrate normal flow voids on the T2 sequence and | | | enhance normally following contrast administration. No large aneurysm | | | is seen. The dural venous sinuses are widely patent. IMPRESSION | | | 1. An 8-mm meningioma in the posterior right temporal lobe region | | | unchanged from 05/2008. 2. No other meningiomas are identified. | | | 3. Chronic gliosis with volume loss and a 6-mm porencephalic cyst | | | noted in the anterior left temporal lobe at the site of a | | | previous meningioma resection. This area is unchanged in | | | appearance in comparison to the previous exams dating back to | | | 01/2005. 4. Fluid-filled left mastoid also unchanged from the | | | previous exams. Read by TERESE GREGORY DO 04/19/2009 08:57 A | | | Electronically Signed by TERESE GREGORY DO 04/19/2009 02:55 P | | | A P [id number] | | | cc: DO ELLIOTT GUO MD | | + + + + + | Procedure Note | + + | Mook Richter - 02/24/2019 2:47 AM PDT | | [id number] Page 1 | | RADIOLOGY / | | O/P | | [facility] NAME: GONSALO LEE | | [place] [address] | | | | DATE OF : 1950 | | | | ORDER NUMBER: [id number] | | EXAM DATE/TIME: 04/16/2009 04:45 P | | ORDERING PHYSICIAN: ELLIOTT GAMBINO | | ORDER DETAIL: 1040 / / HMR | | EXAM DESCRIPTION: MRI BRAIN UN/EN | | | | MRI BRAIN WITH AND WITHOUT CONTRAST 04/16/2009 | | | | HISTORY | | A 58-year-old female who underwent resection of a left-sided meningioma | | in 2002. This is a followup exam. She has a known small meningioma in | | the right posterior temporal lobe region. | | | | TECHNIQUE | | Imaging was performed on a [employer] 3.0 [facility] MRI system. The patient received | | 14 mL of intravenous MultiHance contrast during the study. The following | | sequences were obtained: Axial T2 FLAIR, axial DWI and ADC maps, axial | | T2, sagittal T2 FLAIR, sagittal T1, axial T1 3D spoiled gradient | | postcontrast with multiplanar reconstructions, axial T1 postcontrast. | | | | COMPARISON | | 05/08/2008 and outside study performed at [facility] 02/14/2005. | | | | | | FINDINGS | | Chronic gliosis is seen in the anterior left temporal lobe likely at the | | site of a previous meningioma resection. A large amount of fluid is seen | | in the left mastoid unchanged from the previous exam. No left-sided | | recurrent meningioma is identified. A small right-sided meningioma is | | present measuring 7.6 x 8.0 x 6.7 mm, which is unchanged from 05/2008. | | This is located in the posterior right temporal lobe region about 7 mm | | above the transverse sinus. No other areas of abnormal enhancement are | | seen within the brain parenchyma or extraaxially. The ventricles are | | normal in size and configuration with the exception of mild compensatory | | expansion of the temporal horn of the left lateral ventricle into the | | region of encephalomalacia in the anterior left temporal lobe region. 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 | | | | The midline structures including the corpus callosum, alexandra, cerebellar | | vermis, and pituitary are normal. No masses are seen in the | | cerebellopontine angles or internal auditory canals. | | | | The orbits and their contents are normal. The paranasal sinuses and | | right mastoid are well aerated. | | | | The osseous structures of the calvaria demonstrate a large left-sided | | craniotomy but are otherwise normal in signal intensity. The soft | | tissues of the oropharynx and upper neck are normal on the sagittal | | sequence. | | | | The vascular structures of the skull base demonstrate normal flow voids | | on the T2 sequence and enhance normally following contrast | | administration. No large aneurysm is seen. The dural venous sinuses are | | widely patent. | | | | IMPRESSION | | 1. An 8-mm meningioma in the posterior right temporal lobe region | | unchanged from 05/2008. | | 2. No other meningiomas are identified. | | 3. Chronic gliosis with volume loss and a 6-mm porencephalic cyst noted | | in the anterior left temporal lobe at the site of a previous | | meningioma resection. This area is unchanged in appearance in | | comparison to the previous exams dating back to 01/2005. | | 4. Fluid-filled left mastoid also unchanged from the previous exams. | | | | | | Read by | | TERESE GREGORY DO 04/19/2009 08:57 A | | Electronically Signed by | | TERESE GREGORY DO 04/19/2009 02:55 P | | | | A | | P | | EI/[id number] | | cc: TERESE GREGORY DO | | ELLIOTT GAMBINO MD | + + documented in this encounter Visit Diagnoses + + | Diagnosis | + + | Benign neoplasm of cerebral meninges (HCC) Benign neoplasm of cerebral meninges | + + documented in this encounter"
--- OUTSIDE RECORDS SUMMARY | ~2019-10-31 | XMS | Encounter Summary ---
Demographics + + + | Address | [address] | | | [place] [address] | + + + | Home Phone | | + + + | Preferred Language | Unknown | + + + | Marital Status | | + + + | Orthodoxy Affiliation | 1001 | + + + | Race | Unknown | + + + | Ethnic Group | Unknown | + + + Author + + + | Author | [facility] | | | and [place] | + + + | Organization | [facility] | | [...] Team Providers + +------+ + | Care Installation Manager Name | Role | Phone | + +------+ + | Oscar Apodaca MD | PCP | | + +------+ + Encounter Details +--------+ + + + + | Date | Type | Department | Care Team | Description | +--------+ + + + + | 06/03/ | Hospital | [facility] | Conversion | H/O thyroidectomy | | 2018 | Encounter | CENTER [facility] | Transaction, | | | | | ULTRASOUND [address] | Provider Unknown | | | | | [address] | [phone] | | | | | [place], [place] | | | | | | [address] | [place] | | | | | [phone] | [address] | | | | | | [place] | | | | | | [address] | | | | | | [phone] | | | | | | | [...]
--- OUTSIDE RECORDS SUMMARY | ~2019-10-31 | XMS | Encounter Summary ---
Demographics + + + | Address | [address] | | | [place] [address] | + + + | Home Phone [...] Team Providers + +------+ + | Care Tennis Professional Name | Role | Phone | + +------+ + | Oscar Apodaca MD | PCP | | + +------+ + Encounter Details +--------+ + + + + | Date | Type | Department | Care Team | Description | +--------+ + + + + | 07/17/ | Hospital | [facility] | Naga Enriquez MD | | | 2019 | Encounter | [facility] | [address] [place] | | | | | [address] [place] | [place], [place] | | | | | [place], [place] | [address] | | | | | [address] | [phone] | | | | | [phone] | | | +--------+ + + + [...]
--- OUTSIDE RECORDS SUMMARY | ~2019-10-31 | XMS | Encounter Summary ---
Demographics + + + | Address | [address] [place] [address] RD | | | [place] [address] | + + + | Home Phone | | + + + | Preferred Language | Unknown | + + + | Marital Status | | + + + | Confucianist Affiliation | Unknown | + + + [...] Team Providers + +------+ + | Care Joiners Supervisor Name | Role | Phone | + +------+ + PCP | Unavailable | + +------+ + Encounter Details +--------+ + + + + | Date | Type | Department | Care Team | Description | +--------+ + + + + | 05/15/ | Office | | Note, Outpatient | [...] as of this encounter Progress Notes Interface, Delivery Assistant In - 02/03/2006 3:05 AM PDTCLINIC DATE: 05/15/2002 OTOLARYNGOLOGY CLINIC REFERRING PHYSICIAN: Karthik Arevalo M.D. HISTORY OF PRESENT ILLNESS: Mrs. Lee is a 51-year-old woman who is referred by Dr. 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 The patient presented to Dr. Hickman with otitis, and a workup by Dr. 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 Dr. Arevalo asked me to see the patient. I evaluated the patient for possible in-office biopsy of the nasopharyngeal mass. The patient has not had any cranial nerve symptoms. PROCEDURE: Diagnostic nasal endoscopy. ANESTHESIA: Lidocaine 4%. DESCRIPTION OF THE PROCEDURE: A 4-mm 0-degree endoscope was used to examine the nasal cavity. Endoscopic examination of the anterior nasal cavity shows no masses or lesions. In the area of the nasopharynx on the left side, there is mild fullness behind the eustachian tube and torus tubarius; however, there is no obvious mucosal abnormality. ASSESSMENT AND PLAN: Based on the examination, I feel that the most productive approach to biopsying this tumor is operative biopsies and computer-guided navigation. I would plan to have frozen sections taken in the operating room until we have a positive diagnosis. If we cannot approach the nasopharyngeal mass transnasally, Dr. Arevalo is prepared to approach the mass through the ear canal. The patient is scheduled for an endoscopic biopsy next week. Vahe Esquivel M.D. PH / HS [id number] / [id number] / [id number] / cc: Radhames Shoemaker M.D. [address] [place] [id number] signed by Interface, Delivery Assistant In at 02/03/2006 3:0 5 AM PDTInterface, Delivery Assistant In - 01/03/2006 1:10 AM PDTCLINIC DATE: 05/15/2002 OTOLARYNGOLOGY CLINIC Mrs. Lee's x-ray studies have demonstrated destruction in the skull base and obvious what looks like enlargement of the nasopharynx. We had a long talk about various approaches to get biopsy specimens either through the ear or through the nasopharynx. We are pending an MRI so that I am not exactly certain which we will prefer; however, I have asked that Dr. Vahe Esquivel do a nasopharyngoscopy on her today and see if it is possible for him to get a nasopharyngeal biopsy today. The patient otherwise has had no change and no additional symptoms. Her ENT examination is the same except for dullness of the left ear. Karthik Arevalo M.D. DORON / [id number] / [id number] / [id number] / [id number] Tdocumented in this encounter Plan of Treatment Not on filedocumented as of this encounter Visit Diagnoses Not on filedocumented in this encounter"
--- OUTSIDE RECORDS SUMMARY | ~2019-10-31 | XMS | Encounter Summary ---
Demographics + + + | Address | [address] | | | [place] [address] | + + + | Home Phone [...] Team Providers + +------+ + | Care Wetland Scientist Name | Role | Phone | + +------+ + PCP | Unavailable | + +------+ + Encounter Details +--------+ + + + + | Date | Type | Department | Care Team | Description | +--------+ + + + + | 11/16/ | Hospital | [facility] | Donald Pederson MD | Other Specified | | 2006 | Encounter | CONVERSION [address]P [address] | [address] | Pre-Operative | | | | [address] | [address] [place], | Examination | | | | [place], [place] | [place] [address] | | | | | [address] | [phone] | | | | | [phone] | | | +--------+ + + + [...]
--- OUTSIDE RECORDS SUMMARY | ~2019-10-31 | XMS | Encounter Summary ---
Demographics + + + | Address | [address] | | | [place] [address] | + + + | Home Phone | | + + + | Preferred Language | Unknown | + + + | Marital Status | | + + + | Catholic Affiliation | 1001 | + + + | Race | Unknown | + + + | Ethnic Group | Unknown | + + + Author + + + | Author | [facility] | | | and [place] | + + + | Organization | [facility] | | | [...] Team Providers + +------+ + | Care Supervisor Rice Milling Name | Role | Phone | + +------+ + PCP | Unavailable | + +------+ + Encounter Details +--------+ + + + + | Date | Type | Department | Care Team | Description | +--------+ + + + + | 12/07/ | Hospital | [facility] | Naga Enriquez MD | | | 2017 | Encounter | [facility] [address] | [address] | | | | | [address] [place] | [place] | | | | | [place] | [address] | | | | | [address] | [phone] | | | | | [phone] | | | +--------+ + + + [...]
--- OUTSIDE RECORDS SUMMARY | ~2019-10-31 | XMS | Encounter Summary ---
Demographics + + + | Address | [address] | | | [place] [address] | + + + | Home Phone | | + + + | Preferred Language | Unknown | + + + | Marital Status | | + + + | Yarsani Affiliation | 1001 | + + + | Race | Unknown | + + + | Ethnic Group | Unknown | + + + Author + + + | Author | [facility] | | | and [place] | + + + | Organization | [facility] | | | [...] Team Providers + +------+ + | Care Sharepoint Analyst Name | Role | Phone | + +------+ + PCP | Unavailable | + +------+ + Encounter Details +--------+ + + + + | Date | Type | Department | Care Team | Description | +--------+ + + + + | 07/25/ | Hospital | [facility] | Conversion | Cerebral meningioma | | 2011 | Encounter | [facility] MRI [address] | Transaction, | ([facility]) | | | | [address] | Provider Unknown | | | | | [place] | [phone] | | | | | [address] | | | | | | [phone] | | | +--------+ + + + [...] MRI BRAIN W WO | Routin | 07/25/2011 | | Results for this | | CONTRAST | e | 1:25 PM | | procedure are in the | | | | PST | | results section. | + +--------+ + + + documented in this encounter Results MRI Brain w wo Contrast (07/25/2011 1:25 PM PST) + + | Specimen | + + | | + + + + + | Narrative | Performed At | + + + | [facility] BRAIN W WO CONTRAST 07/25/2011 12:32 PM | | | History: 60 years. Female. Follow-up for prior surgical removal | | | of left middle cranial fossa meningioma several years ago. Persistent | | | small right temporal meningioma. Technique: Utilizing a 1.5 | | | Mercy magnet, diffusion, axial FLAIR, axial T1, axial T2, axial GRE, | | | and sagittal FLAIR imaging was performed. Pre-and post contrast | | | axial and 3-D T1 imaging was performed utilizing 16 cc of gadolinium | | | contrast injected intravenously. Findings: The 8-mm rounded right | | | temporal meningiomas again noted, unchanged over several years, | | | attached to the dura, overlying the mid right temporal lobe. The | | | left middle cranial fossa is unchanged, showing chronic | | | encephalomalacia of the temporal lobe, and residual dural enhancement | | | extending into the left cerebellar pontine angle, permeating the | | | greater sphenoid wing ossicle. The degree of abnormal enhancement | | | throughout the meninges and ossicle at this site is unchanged as | | | compared with 04/22/10 and 04/16/09. Some dural enhancement encases | | | the left internal carotid artery through the carotid canal, chronic | | | finding. No progression of disease in this region. The abnormal | | | enhancement in the cerebellar pontine angle begins just below the | | | left internal auditory canal and extends downward across the | | | hypoglossal canal. Minimal changes of chronic white matter | | | ischemic gliosis are noted in the central white matter of the frontal | | | lobes. This finding is stable and unchanged. No new mass-effect or | | | cerebral edema. The sagittal images show a normal pituitary gland, | | | aqueduct of Sylvius, and foramen magnum. The corpus callosum is | | | normal. The cerebellar tonsils show normal position. The | | | nasopharyngeal airway is widely open. Gradient echo axial images fail | | | to show any hemosiderin or calcification in the brain tissues. No new | | | contrast enhancement visualized. Mild cerebral atrophy is unchanged. | | | Mild mucosal swelling of the left sphenoid sinus is noted, | | | unchanged. Other sinuses are clear. 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 The right mastoid air | | | cell is normal. The orbits are unremarkable. Conclusions: 1. | | | Stable brain MRI as compared with 04/22/10 and 04/16/09. 2. Left | | | temporal lobe postoperative encephalomalacia is stable. 3. Chronic | | | enhancement of the dura of the left middle cranial fossa extending | | | into the left cerebellar pontine angle is stable and unchanged. 4. | | | A chronic 8mm right temporal meningioma is stable and unchanged over | | | several years. 5. Mild, stable chronic white matter ischemic | | | gliosis. 6. No new findings. | | + + + + + | Procedure Note | + + | Mook Richter Conversion - 02/22/2019 6:24 AM PDT [facility] | | MRI BRAIN W WO CONTRAST | | 07/25/2011 12:32 PM | | | | History: 60 years. Female. Follow-up for prior surgical removal of left | | middle cranial fossa meningioma several years ago. Persistent small right | | temporal meningioma. | | | | Technique: Utilizing a 1.5 Mercy magnet, diffusion, axial FLAIR, axial T1, | | axial T2, axial GRE, and sagittal FLAIR imaging was performed. Pre-and | | post contrast axial and 3-D T1 imaging was performed utilizing 16 cc of | | gadolinium contrast injected intravenously. | | | | Findings: The 8-mm rounded right temporal meningiomas again noted, | | unchanged over several years, attached to the dura, overlying the mid right | | temporal lobe. | | | | The left middle cranial fossa is unchanged, showing chronic | | encephalomalacia of the temporal lobe, and residual dural enhancement | | extending into the left cerebellar pontine angle, permeating the greater | | sphenoid wing ossicle. The degree of abnormal enhancement throughout the | | meninges and ossicle at this site is unchanged as compared with 04/22/10 | | and 04/16/09. Some dural enhancement encases the left internal carotid | | artery through the carotid canal, chronic finding. No progression of | | disease in this region. The abnormal enhancement in the cerebellar pontine | | angle begins just below the left internal auditory canal and extends | | downward across the hypoglossal canal. | | | | Minimal changes of chronic white matter ischemic gliosis are noted in the | | central white matter of the frontal lobes. This finding is stable and | | unchanged. No new mass-effect or cerebral edema. The sagittal images show a | | normal pituitary gland, aqueduct of Sylvius, and foramen magnum. The | | corpus callosum is normal. The cerebellar tonsils show normal position. | | The nasopharyngeal airway is widely open. Gradient echo axial images fail | | to show any hemosiderin or calcification in the brain tissues. No new | | contrast enhancement visualized. Mild cerebral atrophy is unchanged. | | | | Mild mucosal swelling of the left sphenoid sinus is noted, unchanged. Other | | sinuses are clear. 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 The right mastoid air cell is normal. The orbits are | | unremarkable. | | | | Conclusions: | | 1. Stable brain MRI as compared with 04/22/10 and 04/16/09. | | 2. Left temporal lobe postoperative encephalomalacia is stable. | | 3. Chronic enhancement of the dura of the left middle cranial fossa | | extending into the left cerebellar pontine angle is stable and unchanged. | | 4. A chronic 8mm right temporal meningioma is stable and unchanged over | | several years. | | 5. Mild, stable chronic white matter ischemic gliosis. | | 6. No new findings. | | | | | + + documented in this encounter Visit Diagnoses + + | Diagnosis | + + | Cerebral meningioma (HCC) Benign neoplasm of cerebral meninges | + + documented in this encounter"
--- OUTSIDE RECORDS SUMMARY | ~2019-10-31 | XMS | Encounter Summary ---
Demographics + + + | Address | [facility] | | | [place] [address] | + + + | Home Phone | | + + + | Preferred Language | Unknown | + + + | Marital Status | | + + + | Adventist Affiliation | Unknown | + + + | Race | White | + + + | Ethnic Group | Not or | + + + Author + + + | Author | [facility] | + + + | Organization | [facility] | + + + | Address | Unknown | + + + | Phone | Unavailable | + + + Support + + +---------+ + | Name | Relationship | Address | Phone | + + +---------+ + | Paris Lee | ECON | Unknown | | + + +---------+ + Care Team Providers + +------+ + | Care Estimator Name | Role | Phone | + [...] | | | [facility] [address] | | | | | [address] | [place] [address] | | | | | Physician's | | | | | | Pavilion, 2nd floor | | | | | | [place], [place] | | | | | | [address] | | | | | | [phone] | | | +--------+ + + + [...] | + + + + + | [facility] | [address] | [place] [address] | | | LAB-MICRO | | | [...] + + + | [facility] | [address] | [place] [address] | | | LAB-MICRO | | | [...] | + + + + + | [facility] | [address] | [place] [address] | | | LAB-MICRO | | | [...] | + + + + + | [facility] | [address] | [place] [address] | | | LAB-MICRO | | | [...] reviewed | | | | | | by:Nleida Moran, | | | | | | M.D./FellowChristopher | | | | | | Kristin uQiroz M.D., Ph.D. | | | | | [...] ear | | | | | | [id number] ear | | | | | | [...] | + + + + + | [facility] DEPARTMENT | [address] | [place] [address] | | | PATHOLOGY | [address] | | | + + + + + | [facility] | [address] | [place] [address] | | | PATHOLOGY | [address] [...] | | | | | on the [id number] | | | | | | sequences, [...] | | + +---------+ + + | [facility] DEPARTMENT OF | | | [...] | | + +---------+ + + | [facility] DEPARTMENT OF | | | | | RADIOLOGY | | | | + +---------+ + + documented in this encounter Visit Diagnoses Not on filedocumented in this encounter"
--- OUTSIDE RECORDS SUMMARY | ~2019-10-31 | XMS | Encounter Summary ---
Demographics + + + | Address | [address] | | | [place] [address] | + + + | Home Phone | | + + + | Preferred Language | Unknown | + + + | Marital Status | | + + + | Sikhism Affiliation | 1001 | + + + | Race | Unknown | + + + | Ethnic Group | Unknown | + + + Author + + + | Author | [facility] | | | and [place] | + + + | Organization | [facility] | | [...] + +------+ + | Care Director Of Purchasing Name | Role | Phone | + +------+ + PCP | Unavailable | + +------+ + Encounter Details +--------+ + + + + | Date | Type | Department | Care Team | Description | +--------+ + + + + | 10/11/ | [facility] | [facility] | Conversion | Abnormal mammogram, | | 2012 | Encounter | IMAGING SERVICES | Transaction, | unspecified | | | | [address] | Provider Unknown | | | | | [address] [place], [place] | [phone] | | | | | [address] | | | | | | [phone] | | | +--------+ + + + [...] + + documented in this encounter Results [facility] Digital Diagnostic Bilateral (10/11/2012 3:57 PM [...] digital mammogram with computer postprocessing viewed with Haily | | Turman utilizing true lateral views of both breasts [...]
--- OUTSIDE RECORDS SUMMARY | ~2019-10-31 | XMS | Encounter Summary ---
Demographics + + + | Address | [address] [place] [address] RD | | | [place] [address] | + + + | Home Phone | | + + + | Preferred Language | Unknown | + + + | Marital Status | | + + + | Yarsanism Affiliation | Unknown | + + + [...] Team Providers + +------+ + | Care Telephone Order Supervisor Name | Role | Phone | + +------+ + PCP | Unavailable | + +------+ + Encounter Details +--------+ + + + + | Date | Type | Department | Care Team | Description | +--------+ + + + + | 05/05/ | Office | | Note, Outpatient | [...] as of this encounter Progress Notes Interface, Relay Tester In - 02/03/2006 3:05 AM PDTCLINIC DATE: 05/05/2002 OTOLARYNGOLOGY CLINIC SUBJECTIVE: Ms. Lee was well until about August 2000 when she had a bad cold with a lot of drainage, and she noted that her ear was plugged at that particular time. Through August 2000 and September 2000, she was noted that she had pressure in the ear, decreased hearing, and occasionally relief with tilting her head for side to side. She took a dose of prednisone for 7 days which did not help. She then was seen by Dr. Hickman in November 2000, and in early December 2000 had a myringotomy with recovery of large amount of fluid. Tube was not placed at that time because her ear went back to again plug up. She had a CT which showed clouding of the left maxillary sinus and left ear. On January 28, 2001, she had a myringotomy with Ann tube. Following this, she had almost continual drainage, sometimes it would drip out when she is bending over, mainly at night. She again saw Dr. Hickman in March 2001. The Cortisporin and Levaquin drops were discontinued at that time, and she had been on them almost continually since the onset of her tube. She was treated with a variety of antibiotics. At that time, her ear seemed to clear through the fall of the year. In June 2001, she again started having trouble with the ear itching, and by August 2001 was draining again. She had debris in her ear and was seen eventually in September 2001 when she was cultured and was found to have fungal infection in her ear, and she was then treated with Lotrimin and dibucaine early in the summer. She had a repeat myringotomy with larger titanium tube placed in December 2001, and she was noted to have improved hearing by January 2002, and subsequent to that time, the ear has been clean. She was treated with gentian felicia around the tube. She went on a special diet and had laboratories ordered which include autoimmune testing which was all negative. She was actually treated with prednisone in April 2002 for 2 weeks with starting at 20 mg and slowly reducing it. She states that her hearing has fluctuated slightly, although it has still remained diminished. She has had some tinnitus in the left ear, static with tones, and she noticed it is at night, but it does not keep her awake. She has had no problems with her right ear. Once her hearing is down, she says it seems muffled, and today it seems to be somewhat depressed. She has had some dizziness which is lightheaded. This occurred first several years ago and was negative, but she has occasional light dizziness when she looks up, although it is not spinning, also with lying down. She mainly describes this more as unsteadiness and poor equilibrium. Her ENG which was done this past year was negative. She has no history of previous sensitive balance. PAST HISTORY: Negative for ear disease until this past year and half. She denies any previous ear infections. She has had no unusual noise exposure. Head injury: She had a mild concussion when she was 10 years old. FAMILY HISTORY: Negative for ear disease. She denies any nasal complaints, nasal discharge, obstruction, or bleeding. She has had allergy workup in the past which also was basically negative. PAST MEDICAL HISTORY: She denies any significant cardiac, pulmonary, gastrointestinal, genitourinary, or neurologic symptoms. She has no cancer, diabetes, or hepatitis. REVIEW OF SYSTEMS: Essentially totally negative except for some mild swelling of her legs and ankles. MEDICATIONS: Vitamin E, calcium, multivitamins, and Zyrtec. PREVIOUS SURGERIES: Tonsillectomy in 1971 and myringotomy in 2000. Myringotomy with tube on January 28, 2001; this was removed on October 24, 2001, and then large titanium tube on January 01, 2002. ALLERGIES: PENICILLIN WHICH GIVES HIVES. FOOD ALLERGIES: None. POLLEN ALLERGIES: None. HABITS: She takes no aspirin. She does not smoke. No alcohol. No significant caffeine. Occasional chocolate. PHYSICAL EXAMINATION GENERAL: This was an alert, somewhat stressed-appearing, but very pleasant woman in no acute distress. HEENT: Ears: Tympanic membrane on the right was intact and normal with good motion. On the left, she had a tube which was stained with the gentian felicia. It appeared to be patent, although I could not see down it very clearly. She had a very small amount of crusting about it, and the drum otherwise appeared to be intact and normal and nonpulsatile. Nose: San did lateralize to that side with the 256 and 512 fork. The nose was clear. She had no obstruction. I could not see any lesions. Mouth: There were no oral lesions. Teeth were in good repair. Mucosa was normal. There was good moisture. Palatal and tongue movement was normal. NECK: Thyroid was not enlarged. There were no unusual nodes. NEUROLOGIC: Cranial nerves 2 through 4 appeared intact and normal. Her audiogram today demonstrated an SRT of 40 and an approximate 24 dB air bone gap at 250, 500, and 1000 and narrowing at 2000. Discrimination was 80% as compared to 100% on the right. IMPRESSION: It is my feeling that she had initially eustachian tube obstruction from upper respiratory infection followed by acute serous otitis which was relieved by tube. She then must have gotten water in the ear or something which created a draining ear with fungal infection. This was treated by antifungals and has now cleared. She is left with a conductive hearing loss which is either due secondary to scarring, tube placement of the PE tube, or some middle ear lesion that we cannot see. For this reason, I thought that she should have a specific CT of the middle ear mastoid, and this was done. I have reviewed it. There appears to be some abnormal tissue anterior to the ossicular chain and in the area of the eustachian tube. The mastoid is not well aerated; however, it is contrasted with the previous CT of the head. RECOMMENDATIONS: I will review the films with Mary Ann Tucker before suggesting any further treatment. If the films are read as entirely normal, then I think that removal of her PE tube would be the step. If she developed a conductive loss again, I think exploration of the ear is indicated. ADDENDUM: Mrs. Lee had a nasopharyngoscopy while she was here under local. There was no abnormality noted of the eustachian tube, although there was little narrowing of the torus on that side but no masses were seen on her scan; however, it does appear she has some fullness in that area of the ear, and I will have to review this with the neuroradiologist. Karthik Arevalo M.D. DORON / CLEMENT [id number] / [id number] / [id number] / [id number] / [id number] / [id number] / [id number] A: 05/08/2002 bibi cc: Radhames Shoemaker M.D. [address] [place] [id number] signed by Interface, Relay Tester In at 02/03/2006 3:0 5 AM PDTdocumented in this encounter Plan of Treatment Not on filedocumented as of this encounter Visit Diagnoses Not on filedocumented in this encounter"
--- OUTSIDE RECORDS SUMMARY | ~2019-10-31 | XMS | Encounter Summary ---
Demographics + + + | Address | [address] | | | [place] [address] | + + + | Home Phone | | + + + | Preferred Language | Unknown | + + + | Marital Status | | + + + | Spiritism Affiliation | 1001 | + + + | Race | Unknown | + + + | Ethnic Group | Unknown | + + + Author + + + | Author | [facility] | | | and [place] | + + + | Organization | [facility] | | | [...] Team Providers + +------+ + | Care Canvas Goods Fabricator Name | Role | Phone | + +------+ + | Juan Francisco Bustamante MD | PCP | | + +------+ + Encounter Details +--------+ + + + + | Date | Type | Department | Care Team | Description | +--------+ + + + + | 12/31/ | Orders Only | [place] [facility] | Naga Enriquez MD | | | 2018 | | [facility] [address] | [address] | | | | | [address] | [place], [place] | | | | | [place], [place] | [address] | | | | | [address] | [phone] | | | | | [phone] | | | +--------+ + + + [...] + | THYROID STIMULATING | Routin | 02/28/2018 | | Results for this | | HORMONE 3RD GEN | e | 11:30 AM | | procedure are in the | | | | PDT | | results section. | + +--------+ + + + documented in this encounter Results Thyroid Stimulating Hormone 3rd Gen (02/28/2018 11:30 AM PDT) + + + + + + | Component | Value | Ref Range | Performed | Pathologist | | | | | At | Signature | + + + + + + | TSH | 0.118 (L)Comment: | 0.270 - 4.20 | REFERENCE [...] biotin | | | | | | administration.Instructi | | | | | | ons Received: Copy To: | | | | | | JUAN FRANCISCO BUSTAMANTE M.D. | | | | | | B. | | | | + + + + + + + + | Specimen | + + | | + + + + + | Narrative | Performed At | + + + | Testing Performed at: [place] [facility] CLIA: [id number] - [address] | REFERENCE LAB | | [place] [address] | [facility] | + + + + + + + + | Performing | Address | City/State/Zipcode | Phone Number | | Organization | | | | + + + + + | REFERENCE LAB | [address] | [place] | [phone] | | [facility] | | [address] | | + + + + + | REFERENCE LAB | [address] | [place] | [phone] | | [facility] | | [address] | | + + + + + documented in this encounter Visit Diagnoses Not on filedocumented in this encounter"
--- OUTSIDE RECORDS SUMMARY | ~2019-10-31 | XMS | Encounter Summary ---
Demographics + + + | Address | [address] | | | [place] [address] | + + + | Home Phone | | + + + | Preferred Language | Unknown | + + + | Marital Status | | + + + | Restorationism Affiliation | 1001 | + + + | Race | Unknown | + + + | Ethnic Group | Unknown | + + + Author + + + | Author | [facility] | | | and [place] | + + + | Organization | [facility] | | [...] Team Providers + +------+ + | Care Journeyman Mechanic Name | Role | Phone | + +------+ + PCP | Unavailable | + +------+ + Encounter Details +--------+ + + + + | Date | Type | Department | Care Team | Description | +--------+ + + + + | 04/22/ | Hospital | [facility] | [place], | Benign neoplasm of | | 2009 | Encounter | CONVERSION DEP [address] | Radhames Trevino MD | cerebral meninges | | | | [address] | [address] | ([facility]) | | | | [place], [place] | [address] [place], [place] | | | | | [address] | [address] | | | | | [phone] | [phone] | | | | | | | [...] MRI BRAIN W WO | Routin | 04/22/2010 | | Results for this | | CONTRAST | e | 11:06 AM | | procedure are in the | | | | PDT | | results section. | + +--------+ + + + documented in this encounter Results MRI Brain w wo Contrast (04/22/2010 11:06 AM PDT) + + | Specimen | + + | | + + + + + | Narrative | Performed At | + + + | [facility] [address] Ph: | | | Patient Name: GONSALO LEE Date of : | | | 1950 Medical Record: [id number] Account: [id number] | | | Exam Date/Time: 04/22/2010 10:30 Ordering | | | Physician: ELLIOTT GAMBINO Order Detail: [id number] Exam Description: | | | MRI BRAIN UN/EN | | | | | | 04/22/2010 10:30 AM HISTORY: Memory loss, loss of balance, | | | dizziness, hearing loss, numbness, and ringing in her ears. 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 TECHNIQUE: Using a 3 | | | [facility] unit, standard multiplanar pre-and post intravenous | | | contrast sequences through the brain were done. 15 mL of MultiHance | | | were utilized. COMPARISON: MRI of the brain brain dated | | | April 09. FINDINGS: An unchanged extra axial enhancing mass is | | | present lateral to the right temporal lobe, measuring approximately 8 | | | to 9 mm greatest dimension, representing a probable meningioma. | | | There is unchanged evidence of encephalomalacia involving the left | | | anterior temporal lobe, with associated ex vacuo phenomenon involving | | | the temporal horn of left lateral ventricle. A small unchanged | | | benign cyst involves the left temporal lobe measuring 7 mm. Again | | | noted is enhancing soft tissue in the region of the left | | | cerebellopontine angle, with extension into the left internal auditory | | | canal and hypoglossal canal, consistent with residual meningioma. | | | Enhancement extends into the petrous portion of the left temporal | | | bone, and into the region along the left carotid artery as it exits | | | the skull, relatively unchanged as well. No acute infarct is | | | found. No hydrocephalus is identified. No new masses are noted. | | | Unchanged fluid is noted in the left mastoid air cells. No | | | intracranial hemorrhages are found. There is unchanged evidence of | | | left sided craniotomy. The orbital structures are normal. No | | | significant paranasal sinus disease is detected. IMPRESSION: 1. | | | Unchanged 8 to 9-mm meningioma adjacent to the right temporal lobe. | | | 2. Unchanged encephalomalacia involving the left anterior | | | temporal lobe, at the site of a previous meningioma resection. | | | Unchanged probable residual meningioma in the left cerebellopontine | | | angle extending into the left internal auditory canal and hypoglossal | | | canal with possible extension into the adjacent petrous portion of | | | the temporal bone, tracking along the left internal carotid artery. | | | 3. Unchanged left-sided mastoid fluid. | | + + + + + | Procedure Note | + + | Rober, Mook Conversion - 02/23/2019 6:11 PM PDT | | [facility] | | [facility] [address] | | | | | | Patient Name: GONSALO LEE | | Date of : 1950 | | Medical Record: [id number] | | Account: [id number] | | | | | | Exam Date/Time: 04/22/2010 10:30 | | Ordering Physician: ELLIOTT GAMBINO | | Order Detail: [id number] | | Exam Description: MRI BRAIN UN/EN | | | | 04/22/2010 10:30 AM | | | | HISTORY: | | Memory loss, loss of balance, dizziness, hearing loss, numbness, and | | ringing in her ears. History of clival petroclival meningioma resection. | | | | TECHNIQUE: | | Using a 3 [facility] unit, standard multiplanar pre-and post intravenous | | contrast sequences through the brain were done. 15 mL of MultiHance were | | utilized. | | | | COMPARISON: | | MRI of the brain brain dated April 09. | | | | FINDINGS: | | An unchanged extra axial enhancing mass is present lateral to the right | | temporal lobe, measuring approximately 8 to 9 mm greatest dimension, | | representing a probable meningioma. There is unchanged evidence of | | encephalomalacia involving the left anterior temporal lobe, with associated | | ex vacuo phenomenon involving the temporal horn of left lateral ventricle. | | A small unchanged benign cyst involves the left temporal lobe measuring 7 | | mm. | | | | Again noted is enhancing soft tissue in the region of the left | | cerebellopontine angle, with extension into the left internal auditory | | canal and hypoglossal canal, consistent with residual meningioma. | | Enhancement extends into the petrous portion of the left temporal bone, and | | into the region along the left carotid artery as it exits the skull, | | relatively unchanged as well. | | | | No acute infarct is found. No hydrocephalus is identified. No new masses | | are noted. Unchanged fluid is noted in the left mastoid air cells. No | | intracranial hemorrhages are found. There is unchanged evidence of left | | sided craniotomy. The orbital structures are normal. No significant | | paranasal sinus disease is detected. | | | | IMPRESSION: | | 1. Unchanged 8 to 9-mm meningioma adjacent to the right temporal lobe. | | | | 2. Unchanged encephalomalacia involving the left anterior temporal | | lobe, at the site of a previous meningioma resection. Unchanged probable | | residual meningioma in the left cerebellopontine angle extending into the | | left internal auditory canal and hypoglossal canal with possible extension | | into the adjacent petrous portion of the temporal bone, tracking along the | | left internal carotid artery. | | 3. Unchanged left-sided mastoid fluid. | | | | | + + documented in this encounter Visit Diagnoses + + | Diagnosis | + + | Benign neoplasm of cerebral meninges (HCC) Benign neoplasm of cerebral meninges | + + documented in this encounter"
--- OUTSIDE RECORDS SUMMARY | ~2019-10-31 | XMS | Encounter Summary ---
Demographics + + + | Address | [address] | | | [place] [address] | + + + | Home Phone | | + + + | Preferred Language | Unknown | + + + | Marital Status | | + + + | Mosque Affiliation | 1001 | + + + | Race | Unknown | + + + | Ethnic Group | Unknown | + + + Author + + + | Author | [facility] | | | and [place] | + + + | Organization | [facility] | | | and [...] Team Providers + +------+ + | Care Rippler Name | Role | Phone | + [...] | | | [place], [place] | [address] | adenocarcinoma of | | | | [address] | [phone] | thyroid | | | | [phone] | | | +--------+---------+ + + + [...] from saline nasal spray. T his is hvti-tai-nbkjbkf and is called Simla Robinson. You can spray that in your nose for 5 ti mes a day to keep the mucosal surfaces moistElectronically signed by Naga Enriquez MD at 01/2019 2:00 PM PST documented in this encounter Progress Notes Naga Enriquez MD - 07/09/2018 1:30 PM PST Otolaryngology Follow Up Clinic Note For: Jessica Lee 67 y.o. [id number] On 07/09/2018, Jessica Lee was seen by [...] today she would be placed in the [facility] low risk for recurrent [...] | | | | | | [place] | | | | | | chemiluminescent [...] to | | | | | | http://education.TRUE linksweardi | | | | | | [employer]/faq/LNB996 | | | | | | (This link is being | | | | | | provided for | | | | | | informational/educationa | | | | | | l purposes only.) @ | | | | | | Test Performed By: | | | | | | [facility] | | | | | | [facility] | | | | | | Soalnge Gurrola M.D., | | | | | | Ph.D., Laboratory | | | | | | Director [id number] | | | | | | [facility] | | | | | | [place] [address] | | | | | | CLIA #[id number] | | | | + + + + + + + + | Specimen | + + | Blood | + + + + + + + | Performing | Address | City/State/Zipcode | Phone Number | | Organization | | | | + + + + + | REFERENCE LAB | [address] [facility] [address] | [place], [place] | | | [facility] - | | [address] | | | [address] [place] | | [...] + | [place] [facility] | [address] | [place], [place] | [phone] | | HOSPITAL LAB[facility]ORY | | [address] | | + + + + + [...] | | | | | | [place] | | | | | | chemiluminescent [...] Diagnostics | | | | | | [facility] | | | | | | Solange Gurrola M.D., | | | | | | Ph.D., Laboratory | | | | | | Director [id number] | | | | | | [facility] | | | | | | [place] [address] | | | | | | [place] #[id number] | | | | + + + [...] + + + | REFERENCE LAB | [address] [facility] | [place], [place] | | | [facility] - | | [address] | | | [place] | | [...]
--- OUTSIDE RECORDS SUMMARY | ~2019-10-31 | XMS | Encounter Summary ---
Demographics + + + | Address | [address] | | | [place] [address] | + + + | Home Phone | | + + + | Preferred Language | Unknown | + + + | Marital Status | | + + + | Sikh Affiliation | 1001 | + + + | Race | Unknown | + + + | Ethnic Group | Unknown | + + + Author + + + | Author | [facility] | | | and [place] | + + + | Organization | [facility] [...] Team Providers + +------+ + | Care Speech Pathologist Assistant Name | Role | Phone | [...] | | | [place] | [address] | | | | | [address] | [phone] | | | | | [phone] | | | +--------+ + + + [...]
--- OUTSIDE RECORDS SUMMARY | ~2019-10-31 | XMS | Encounter Summary ---
Demographics + + + | Address | [address] | | | [place] [address] | + + + | Home Phone | | + + + | Preferred Language | Unknown | + + + | Marital Status | | + + + | Hinduism Affiliation | 1001 | + + + | Race | Unknown | + + + | Ethnic Group | Unknown | + + + Author + + + | Author | [facility] | | | and [place] | + + + | Organization | [facility] | | | and [...] Team Providers + +------+ + | Care Salesperson Yard Goods Name | Role | Phone | + [...] [address] | | | | | | [place] | | | | | | [address] | | | | | | [phone] | | | +--------+ + + + [...] Performed At | + + + | [facility] [address] Ph: | | | Patient Name: JESSICA LEE Date of : | | | 1950 Medical Record: [id number] Account: [id number] | | | Exam Date/Time: 05/06/2010 11:30 [...] - 02/23/2019 6:11 PM PDT | | [facility] | | [facility] [address] | | | | | | Patient Name: JESSICA LEE | | Date of : 1950 | | Medical Record: [id number] | | Account: [id number] | | | | | | Exam Date/Time: 05/06/2010 11:30 | | Ordering Physician: ELLIOTT GAMBINO | | Order Detail: [id number] | | Exam Description: [facility] DIGITAL BILAT SCREENING/CAD | | | | JESSICA LEE | | [facility] DIGITAL BILAT SCREENING/CAD | | 05/06/2010 11:30 [...]
--- OUTSIDE RECORDS SUMMARY | ~2019-10-31 | XMS | Encounter Summary ---
Demographics + + + | Address | [address] | | | [place] [address] | + + + | Home Phone | | + + + | Preferred Language | Unknown | + + + | Marital Status | | + + + | Holiness Affiliation | 1001 | + + + | Race | Unknown | + + + | Ethnic Group | Unknown | + + + Author + + + | Author | [facility] | | | and [place] | + + + | Organization | [facility] | | | [...] Team Providers + +------+ + | Care Paper Final Inspector Name | Role | Phone | + +------+ + PCP | Unavailable | + +------+ + Encounter Details +--------+ + + + + | Date | Type | Department | Care Team | Description | +--------+ + + + + | 06/06/ | [facility] | [facility] | Conversion | Encounter for | | 2017 | Encounter | IMAGING SERVICES | Transaction, | screening mammogram | | | | [address] | Provider Unknown | for malignant | | | | [address] [place], [place] | [phone] | neoplasm of breast | | | | [address] | | | | | | [phone] | Oscar Apodaca | | | | | | MD [address] | | | | | | [address] | | | | | | [place] [address] | | | | | | [phone] | | | | | | | [...] - 02/13/2019 1:02 AM PDT JESSICA A [employer] SCREEN COMBO HD | | [id number]/6/2017 2:18 PM HISTORY: 66 years. Female. No [...]
--- OUTSIDE RECORDS SUMMARY | ~2019-10-31 | XMS | Encounter Summary ---
Demographics + + + | Address | [address] | | | [place] [address] | + + + | Home Phone [...] Team Providers + +------+ + | Care Personal Lines Sales Executive Name | Role | Phone | + +------+ + PCP | Unavailable | + +------+ + Encounter Details +--------+ + + + + | Date | Type | Department | Care Team | Description | +--------+ + + + + | 07/25/ | Hospital | [facility] | Conversion | Screening for | | 2011 | Encounter | [facility] D[facility]A | Transaction, | unspecified | | | | [address] | Provider Unknown | condition | | | | [address] [place], [place] | [phone] | | | | | [address] | | | | | | [phone] | | | +--------+ + + + [...] | DEXA BONE DENSITY | Routin | 07/25/2011 | | Results for this | | STUDY WO NOELLE FX | e | 2:48 PM | | procedure are in the | | ASSESSMENT | | PST | | results section. | + +--------+ + + + documented in this encounter Results DEXA Bone Density wo Vert Fx Assmt (07/25/2011 2:48 PM PST) + + | Specimen | + + | | + + + + + | Narrative | Performed At | + + + | BONE DENSITOMETRY 07/25/2011 2:38 PM HISTORY The patient is a | | | 60 year old postmenopausal female. The patient reports to have taken | | | Calcium and Vitamin D. The patient does not perform weightbearing | | | exercise and does not consume dairy products regularly. COMPARISON | | | No priors are available for comparison. TECHNIQUE A bone | | | mineral analysis was performed on the lumbar spine. The patient was | | | scanned in the anterior projection and hvvntw-aw-nvxqektl values were | | | drawn about the vertebral segments of L1 through L4 at the levels | | | where accurate assessment was possible. A bone mineral analysis was | | | also performed on the left hip with quffts-td-fbspyghi areas | | | including the femoral neck measured. From this data, a T score and a | | | Z score were calculated. FINDINGS The AP lumbar and left hip | | | scans are technically adequate. Date of Study: 07/25/2011 2:38 PM | | | L1-L4 Vertebral Bodies BMD 0.774, t-score -2.5, z-score -1.2 | | | PROXIMAL LEFT FEMUR BMD 0.742, t-score -1.6, z-score -0.8 | | | IMPRESSION 1. Bone density measurements of the lumbar spine | | | consistent with osteoporosis. 2. Bone density measurements of the | | | left hip consistent with osteopenia. Osteoporosis indicates | | | that there is high risk of pathologic fracture. Weightbearing | | | exercise and adequate dietary calcium intake are recommended. Further | | | medical management to treat osteoporosis should also be considered. | | | Followup assessment in 24 months is recommended. NOTE: | | | Assessment involves low resolution imaging designed to assess for | | | vertebral compression fractures only. * *World Health Organization | | | Diagnostic Clarification of Osteoporosis Normal Diagnosis: t-score | | | 0.0 to -1.0 Osteopenia Diagnosis: t-score -1.0 to -2.5 | | | Osteoporosis Diagnosis: t-score -2.5 to -5.0 Severe Osteoporosis | | | Diagnosis: -2.5 to -5.0 plus clinical fracture *The T score | | | represents how [...] | | | Garfield Quiroga DO on 07/25/2011 8:08 PM | | + + + + + | Procedure Note | + + | Rober, Rad Conversion - 02/22/2019 6:24 AM PDT BONE DENSITOMETRY 07/25/2011 2:38 PM | | | | HISTORY | | The patient is a 60 year old postmenopausal female. The patient reports to | | have taken Calcium and Vitamin D. The patient does not perform | | weightbearing exercise and does not consume dairy products regularly. | | | | COMPARISON | | No priors are available for comparison. | | | | TECHNIQUE | | A bone mineral analysis was performed on the lumbar spine. The patient was | | scanned in the anterior projection and sfakeq-gw-deaswrlm values were drawn | | about the vertebral segments of L1 through L4 at the levels where accurate | | assessment was possible. A bone mineral analysis was also performed on the | | left hip with aatdjt-mc-zwrrcfhw areas including the femoral neck measured. | | From this data, a T score and a Z score were calculated. | | | | | | FINDINGS | | The AP lumbar and left hip scans are technically adequate. | | | | Date of Study: 07/25/2011 2:38 PM | | L1-L4 Vertebral Bodies | | BMD 0.774, t-score -2.5, z-score -1.2 | | | | | | | | PROXIMAL LEFT FEMUR | | BMD 0.742, t-score -1.6, z-score -0.8 | | | | | | | | IMPRESSION | | 1. Bone density measurements of the lumbar spine consistent with | | osteoporosis. | | 2. Bone density measurements of the left hip consistent with | | osteopenia. | | | | | | Osteoporosis indicates that there is high risk of pathologic fracture. | | Weightbearing exercise and adequate dietary calcium intake are recommended. | | Further medical management to treat osteoporosis should also be considered. | | Followup assessment in 24 months is recommended. | | | | | | NOTE: Assessment involves low resolution imaging designed to assess for | | vertebral compression fractures only. | | | | * *World Health Organization Diagnostic Clarification of Osteoporosis | | Normal Diagnosis: t-score 0.0 to -1.0 | | Osteopenia Diagnosis: t-score -1.0 to -2.5 | | Osteoporosis Diagnosis: t-score -2.5 to -5.0 | | Severe Osteoporosis Diagnosis: -2.5 to -5.0 plus clinical fracture | | | | *The T score represents how many standard deviations by which the patient's | | bone mass differs from the young normal (age 30) sex-matched reference | | standard. The Z score is the standard deviation difference as compared with | | an age and sex-matched reference standard (average for age). The Z score is | | not used in the diagnostic classification. | | | | Read by Garfield Quiroga DO on 07/25/2011 8:08 PM | | | | | | | + + documented in this encounter Visit Diagnoses + + | Diagnosis | + + | Screening for unspecified condition | + + documented in this encounter"
--- OUTSIDE RECORDS SUMMARY | ~2019-10-31 | XMS | Encounter Summary ---
Demographics + + + | Address | [address] | | | [place] [address] | + + + | Home Phone [...] Team Providers + +------+ + | Care Cena Name | Role | Phone | + [...] | | | [place], [place] | [address] | | | | | [address] | [phone] | | | | | [phone] | | | +--------+ + + + [...]
--- OUTSIDE RECORDS SUMMARY | ~2019-10-31 | XMS | Encounter Summary ---
Demographics + + + | Address | [address] | | | [place] [address] | + + + | Home Phone [...] Team Providers + +------+ + | Care Value Analyst Name | Role | Phone | [...] [address] | | | | | [place], [place] | [place] [address] | | | | | [address] | [phone] | | | | | [phone] | | | +--------+ + + + [...]
--- OUTSIDE RECORDS SUMMARY | ~2019-10-31 | XMS | Encounter Summary ---
Demographics + + + | Address | [address] | | | [place] [address] | + + + | Home Phone [...] Team Providers + +------+ + | Care Automatic Glove Former Name | Role | Phone | + [...] | | | [place], [place] | [address] | | | | | [address] | [phone] | | | | | [phone] | | | +--------+ + + + [...] Testing Performed at: [facility] [place] [facility] CLIA: [id number] - [address] | REFERENCE LAB | | [place] [address] | [facility] | + + + + + + + + | Performing | Address | City/State/Zipcode | Phone Number | | Organization | | | | + + + + + | REFERENCE LAB | [address] | [place] | [phone] | | [facility] | | [address] | | + + + + + | REFERENCE LAB | [address] | [place] | [phone] | | [facility] | | [address] | | + + + + + documented in this encounter Visit Diagnoses Not on filedocumented in this encounter"
--- OUTSIDE RECORDS SUMMARY | ~2019-10-31 | XMS | Encounter Summary ---
Demographics + + + | Address | [address] | | | [place] [address] | + + + | Home Phone | | + + + | Preferred Language | Unknown | + + + | Marital Status | | + + + | Anglican Affiliation | 1001 | + + + [...] Team Providers + +------+ + | Care Technical Services Coordinator Name | Role | Phone | + +------+ + PCP | Unavailable | + +------+ + Encounter Details +--------+ + + + + | Date | Type | Department | Care Team | Description | +--------+ + + + + | 04/16/ | Hospital | [facility] | Maki, | Benign Neoplasm of | | 2008 | Encounter | CONVERSION DEP [address] | Radhames Trevino MD | Cerebral Meninges | | | | [address] | [address] | ([facility]) | | | | [place], [place] | [address] [place], [place] | | | | | [address] | [address] | | | | | [phone] | [phone] | | | | | | | [...] Performed At | + + + | [id number] | | | Page 1 RADIOLOGY | | | / | | | O/P [facility] | | | [place] [address] | | | | | | | | | DATE OF : 1950 ORDER NUMBER: [id number] | | | EXAM DATE/TIME: 04/16/2009 04:45 [...] was | | | performed on a Sontra 3.0 [facility] MRI system. The patient received [...] COMPARISON 05/08/2008 and outside study performed at [place] | | | Open MRI 02/14/2005. FINDINGS [...] 02:55 P | | | A P [id number] | | | cc: DO ELLIOTT GUO MD | | + + + + + | Procedure Note | + + | Mook Richter - 02/24/2019 2:47 AM PDT | | [id number] Page 1 | | RADIOLOGY / | | O/P | | [facility] NAME: GONSALO LEE | | [place] [address] | | | | DATE OF : 1950 | | | | ORDER NUMBER: [id number] | | EXAM DATE/TIME: 04/16/2009 04:45 P [...] | | Imaging was performed on a Sontra 3.0 [facility] MRI system. The patient received [...] | 05/08/2008 and outside study performed at [facility] 02/14/2005. | | | | | | [...] | A | | P | | EI/[id number]/ | | cc: TERESE GREGORY DO | | ELLIOTT GAMBINO MD | + + documented in this encounter Visit Diagnoses + + | Diagnosis | + + | Benign neoplasm of cerebral meninges (HCC) Benign neoplasm of cerebral meninges | + + documented in this encounter"
--- OUTSIDE RECORDS SUMMARY | ~2019-10-31 | XMS | Encounter Summary ---
Demographics + + + | Address | [address] [place] [address] RD | | | [place] [address] | + + + | Home Phone | | + + + | Preferred Language | Unknown | + + + | Marital Status | | + + + | Jainism Affiliation | Unknown | + + + [...] Team Providers + +------+ + | Care Retail Service Technician Name | Role | Phone | [...] as of this encounter Progress Notes Interface, Od Grinder Operator In - 02/03/2006 3:05 AM PDTCLINIC DATE: [...] neuroradiologist. Karthik Arevalo M.D. DORON / CLEMENT [id number] / [id number] / [id number] / [id number] / [id number] / [id number] / [id number] A: 05/08/2002 bibi cc: Radhames Shoemaker M.D. [address] [place] [id number] signed by Interface, Od Grinder Operator In at 02/03/2006 3:0 5 AM PDTdocumented in this encounter Plan of Treatment Not on filedocumented as of this encounter Visit Diagnoses Not on filedocumented in this encounter"
--- OUTSIDE RECORDS SUMMARY | ~2019-10-31 | XMS | Encounter Summary ---
Demographics + + + | Address | [address] | | | [place] [address] | + + + | Home Phone | | + + + | Preferred Language | Unknown | + + + | Marital Status | | + + + | Religion Affiliation | 1001 | + + + [...] Providers + +------+ + | Care Director Women Name | Role | Phone | + +------+ + | Oscar Apodaca MD | PCP | | + +------+ + Encounter Details +--------+ + + + + | Date | Type | Department | Care Team | Description | +--------+ + + + + | 04/03/ | [facility] | [facility] | Conversion | Diplopia; Problems | | 2018 | Encounter | MEDICAL CENTER MRI | Transaction, | with swallowing and | | | | [address] | Provider Unknown | mastication | | | | [place], [place] | [phone] | | | | | [address] | | | | | | [phone] | Indra Maloney | | | | | | MD [address] | | | | | | [address] | | | | | | [place] [address] | | | | | | [phone] | | | | | | | [...] | + + + | JESSICA Cedeno [facility] MRI BRAIN W WO CONTRAST 04/03/2018 4:01 [...] - 02/12/2019 5:19 AM PDT JESSICA Cedeno [facility] BRAIN W WO | | DVONFMEH65/3/2018 4:01 PM HISTORY:67 years. Female. Diplopia and [...]
--- OUTSIDE RECORDS SUMMARY | ~2019-10-31 | XMS | Encounter Summary ---
Demographics + + + | Address | [address] | | | [place] [address] | + + + | Home Phone [...] Providers + +------+ + | Care Transportation Equipment Painter Name | Role | Phone | + +------+ + PCP | Unavailable | + +------+ + Encounter Details +--------+ + + + + | Date | Type | Department | Care Team | Description | +--------+ + + + + | 08/05/ | Hospital | [facility] | Conversion | Meningioma (HCC) | | 2013 | Encounter | [facility] MRI | Transaction, | | | | | [address] | Provider Unknown | | | | | [place], [place] | [phone] | | | | | [address] | | | | | | [phone] | | | +--------+ + + + [...] MRI BRAIN W WO | Routin | 08/05/2013 | | Results for this | | CONTRAST | e | 3:29 PM | | procedure are in the | | | | PST | | results section. | + +--------+ + + + documented in this encounter Results MRI Brain w wo Contrast (08/05/2013 3:29 PM PST) + + | Specimen | + + | | + + + + + | Impressions | Performed At | + + + | 1. Postsurgical changes involving the left temporal lobe with | | | residual enhancing soft tissue involving the left petrous apex, | | | Meckel's cave and cavernous sinus. 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 Degree of | | | enhancement is unchanged from prior study. 2. Stable appearance of | | | right temporal meningioma. 3. Residual fluid demonstrated along the | | | left mastoid. Electronically signed by Tj Terrazas MD on | | | 08/05/2013 4:11 PM | | + + + + + + | Narrative | Performed At | + + + | JESSICA LEE 1950 MRI BRAIN W WO CONTRAST 08/05/2013 | | | 3:29 PM HISTORY: Followup meningioma COMPARISON: 07/25/11 | | | TECHNIQUE: Imaging was performed on a 1.5 [facility] MRI system. | | | Multiplanar sequences according to a standard department protocol | | | were acquired with and without contrast. Contrast: MultiHance. | | | Dose: 16 mL. FINDINGS: There is no evidence of acute ischemia on | | | diffusion-weighted imaging. There is no uncal or tonsillar | | | herniation. Susceptibility artifact is seen along the left cerebral | | | hemisphere from prior postoperative changes and craniotomy. | | | Scattered punctate foci of white matter signal change along the | | | subcortical and deep white matter are stable from previous study. | | | There continues to be gliosis and cystic encephalomalacia along the | | | left temporal region. The area of interest measures 4.0 x 2.3 cm | | | which is unchanged from the prior examination. Compensatory | | | enlargement of the left temporal horn is noted. The major | | | intracranial vessels demonstrate normal T2 flow voids. Following | | | gadolinium administration, there is demonstration of a small enhancing | | | lesion noted along the right temporal lobe that measures 6.0 x 5.9 x | | | 8.4 mm consistent with a small meningioma which is stable in size | | | from prior study. There appears to be narrowing of left Meckel's | | | cave and some enhancement around the left cavernous sinus. Prominent | | | enhancement is demonstrated along the left petrous apex. This area | | | measures approximately 4.8 x 2.2 cm. Enhancing soft tissue is noted | | | around the left internal carotid artery and extending upward into the | | | left internal auditory canal. The caudal extent of signal abnormality | | | is seen progressing into a portion of the left jugular foramen with | | | transosseous extension across the left occipital condyle and | | | hypoglossal canal. The orbits and globes are normal. Extensive fluid | | | is seen along the left mastoid. | | + + + + + | Procedure Note | + + | Rober, Rad Conversion - 02/14/2019 11:14 PM PDT JESSICA LEE1950MRI BRAIN W | | WO CONTRAST08/05/2013 3:29 PM HISTORY: Followup meningioma COMPARISON: 07/25/11 | | TECHNIQUE:Imaging was performed on a 1.5 [facility] MRI system. Multiplanar sequences | | according to a standard department protocol were acquired with and without | | contrast.Contrast: MultiHance. Dose: 16 mL. FINDINGS: There is no evidence of acute | | ischemia on diffusion-weighted imaging. There is no uncal or tonsillar herniation. | | Susceptibility artifact is seen along the left cerebral hemisphere from prior | | postoperative changes and craniotomy. Scattered punctate foci of white matter signal | | change along the subcortical and deep white matter are stable from previous study. There | | continues to be gliosis and cystic encephalomalacia along the left temporal region. The | | area of interest measures 4.0 x 2.3 cm which is unchanged from the prior examination. | | Compensatory enlargement of the left temporal horn is noted. The major intracranial | | vessels demonstrate normal T2 flow voids. Following gadolinium administration, there is | | demonstration of a small enhancing lesion noted along the right temporal lobe that | | measures 6.0 x 5.9 x 8.4 mm consistent with a small meningioma which is stable in size | | from prior study. There appears to be narrowing of left Meckel's cave and some | | enhancement around the left cavernous sinus. Prominent enhancement is demonstrated along | | the left petrous apex. This area measures approximately 4.8 x 2.2 cm. Enhancing soft | | tissue is noted around the left internal carotid artery and extending upward into the | | left internal auditory canal. The caudal extent of signal abnormality is seen | | progressing into a portion of the left jugular foramen with transosseous extension | | across the left occipital condyle and hypoglossal canal. The orbits and globes are | | normal. Extensive fluid is seen along the left mastoid. IMPRESSION: 1. Postsurgical | | changes involving the left temporal lobe with residual enhancing soft tissue involving | | the left petrous apex, Meckel's cave and cavernous sinus. 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 Degree of enhancement is | | unchanged from prior study.2. Stable appearance of right temporal meningioma.3. | | Residual fluid demonstrated along the left mastoid. | |of enhancement is unchanged from prior study. | |2. Stable appearance of right temporal meningioma. | |3. Residual fluid demonstrated along the left mastoid. | | | | | + + documented in this encounter Visit Diagnoses + + | Diagnosis | + + | Meningioma (HCC) Benign neoplasm of cerebral meninges | + + documented in this encounter"
--- OUTSIDE RECORDS SUMMARY | ~2019-10-31 | XMS | Encounter Summary ---
Demographics + + + | Address | [facility] | | | [place] [address] | + + + | Home Phone | | + + + | Preferred Language | Unknown | + + + | Marital Status | | + + + | Congregation Affiliation | Unknown | + + + | Race | White | + + + | Ethnic Group | Not or | + + + Author + + + | Author | [facility] | + + + | Organization | [facility] | + + + | Address | Unknown | + + + | Phone | Unavailable | + + + Support + + +---------+ + | Name | Relationship | Address | Phone | + + +---------+ + | Paris Lee | ECON | Unknown | | + + +---------+ + Care Team Providers + +------+ + | Care Dry Mop Maker Name | Role | Phone | [...] | | at [facility] [address] | [address] [facility] | | | | | [address] | [place] [address] | | | | | Physician's | | | | | | Pavilion, 2nd floor | | | | | | [place], [place] | | | | | | [address] | | | | | | [phone] | | | +--------+ + + + [...] | | + +---------+ + + | [facility] DEPARTMENT OF | | | | | RADIOLOGY | | | | + +---------+ + + documented in this encounter Visit Diagnoses Not on filedocumented in this encounter"
--- OUTSIDE RECORDS SUMMARY | ~2019-10-31 | XMS | Encounter Summary ---
Demographics + + + | Address | [address] | | | [place] [address] | + + + | Home Phone | | + + + | Preferred Language | Unknown | + + + | Marital Status | | + + + | Orthodoxy Affiliation | 1001 | + + + | Race | Unknown | + + + | Ethnic Group | Unknown | + + + Author + + + | Author | [facility] | | | and [place] | + + + | Organization | [facility] | | | [...] Team Providers + +------+ + | Care Bonus Clerk Name | Role | Phone | + +------+ + PCP | Unavailable | + +------+ + Encounter Details +--------+ + + + + | Date | Type | Department | Care Team | Description | +--------+ + + + + | 06/06/ | Hospital | [facility] | Viral Andrew | | | 2001 | Encounter | MED CTR EMERGENCY | MD [address] | | | | | CENTER [address] | [address] | | | | | [place] | [place] [address] | | | | | [address] | [phone] | | | | | [phone] | | | +--------+ + + + [...]
--- OUTSIDE RECORDS SUMMARY | ~2019-10-31 | XMS | Encounter Summary ---
Demographics + + + | Address | [address] | | | [place] [address] | + + + | Home Phone | | + + + | Preferred Language | Unknown | + + + | Marital Status | | + + + | Latter-Day Affiliation | 1001 | + + + | Race | Unknown | + + + | Ethnic Group | Unknown | + + + Author + + + | Author | [facility] | | | and [place] | + + + | Organization | [facility] | | | [...] Team Providers + +------+ + | Care Smt Operator Name | Role | Phone | + +------+ + | Oscar Apodaca MD | PCP | | + +------+ + Encounter Details +--------+ + + + + | Date | Type | Department | Care Team | Description | +--------+ + + + + | 10/06/ | Hospital | [facility] | Conversion | Dizziness and | | 2019 | Encounter | [facility] | Transaction, | giddiness | | | | [address] | Provider Unknown | | | | | [place], [place] | [phone] | | | | | [address] | | | | | | [phone] | Oscar Apodaca | | | | | | MD [address] | | | | | | [address] | | | | | | [place] [address] | | | | | | [phone] | | | | | | | [...] | | posterior inferior cerebellar artery on bkhr-mf-dzxmby imaging. | | | Both vessels appear [...] MRA Brain: Axial 3D | | | vuly-pz-bxtefg MRA with MIP reformations. MRA Neck: Axial 2D | | | ryrr-og-ezzrfv MRA and coronal bolus MRA with multiplanar [...] HEAD | | (10/14/2015);PROCEDURE:MRA Brain: Axial 3D pekl-mh-eigklc MRA with MIP reformations.MRA | | Neck: Axial 2D ewwv-nr-vzvypl MRA and coronal bolus MRA withmultiplanar reformations.8.5 [...] bilateral posteriorinferior cerebellar artery on | | ricd-ai-katcpr imaging. Both vesselsappear to be widely patent [...] bilateral posterior | |inferior cerebellar artery on tfsh-am-pnievs imaging. Both vessels | |appear to be [...]
--- OUTSIDE RECORDS SUMMARY | ~2019-10-31 | XMS | Encounter Summary ---
Demographics + + + | Address | [address] | | | [place] [address] | + + + | Home Phone | | + + + | Preferred Language | Unknown | + + + | Marital Status | | + + + | Episcopal Affiliation | 1001 | + + + | Race | Unknown | + + + | Ethnic Group | Unknown | + + + Author + + + | Author | [facility] | | | and [place] | + + + | Organization | [facility] | | [...] Team Providers + +------+ + | Care Mathematical Technician Name | Role | Phone | + +------+ + PCP | Unavailable | + +------+ + Encounter Details +--------+ + + + + | Date | Type | Department | Care Team | Description | +--------+ + + + + | 05/02/ | Hospital | [facility] | Conversion | Nontoxic single | | 2016 | Encounter | [facility] | Transaction, | thyroid nodule | | | | ULTRASOUND [address] | Provider Unknown | | | | | [address] | [phone] | | | | | [place] | | | | | | [address] | | | | | | [phone] | | | +--------+ + + + [...] At | + + + | JESSICA ELE US THYROID 05/02/2016 3:11 PM HISTORY: | [...] - 02/13/2019 12:42 PM PDT JESSICA LEE BSOTZPR43/1/2016 | | 3:11 PM HISTORY:Thyroid nodule. Nontoxic [...]
--- OUTSIDE RECORDS SUMMARY | ~2019-10-31 | XMS | Encounter Summary ---
Demographics + + + | Address | [address] | | | [place] [address] | + + + | Home Phone | | + + + | Preferred Language | Unknown | + + + | Marital Status | | + + + | Caodaism Affiliation | 1001 | + + + | Race | Unknown | + + + | Ethnic Group | Unknown | + + + Author + + + | Author | [facility] | | | and [place] | + + + | Organization | [facility] | | | [...] Team Providers + +------+ + | Care Pocket Builder Name | Role | Phone | + [...] [address] | | | | | [address] | [place] [address] | | | | | [address] | [phone] | | | | | [phone] | | | +--------+ + + + [...]
--- OUTSIDE RECORDS SUMMARY | ~2019-10-31 | XMS | Clinical Summary ---
Demographics + + + | Address | [address] | | | [place] [address] | + + + | Home Phone | | + + + | Preferred Language | Unknown | + + + | Marital Status | | + + + | Sikh Affiliation | 1001 | + + + | Race | Unknown | + + + | Ethnic Group | Unknown | + + + Author + + + | Author | [facility] (Historical as of | | | 02-15-19) | + + + | Organization | [facility] (Historical as of | | | 02-15-19) [...] Team Providers + +------+ + | Care Professional Programmer Analyst Name | Role | Phone | [...] | | + +--------+ +------+-------+ + | [facility] | [place] | [id number] | | | | | | | | | | | | | HEALTH | | | | | | | CARE - | | | | | | | AARP | | | | | + +--------+ +------+-------+ + | MEDICARE | MEDICA | [id number] | | | [address] | | | RE | | | | [place] [address] | | | IP-OP | | | [...] | | jessica/Raymundo | | 1951 | [phone] | [place] | | | [address] | | | [address]: | [address] | | | | | | | | | | | | | [phone] | | | | | | | [phone] | | + +--------+ +--------+ + +
--- OUTSIDE RECORDS SUMMARY | ~2019-10-31 | XMS | Encounter Summary ---
Demographics + + + | Address | [address] | | | [place] [address] | + + + | Home Phone [...] Team Providers + +------+ + | Care Game Show Host Name | Role | Phone | + [...] [address] | | | | | | [place] | | | | | | [address] | | | | | | [phone] | | | +--------+ + + + [...]
--- OUTSIDE RECORDS SUMMARY | ~2019-10-31 | XMS | Encounter Summary ---
Demographics + + + | Address | [address] | | | [place] [address] | + + + | Home Phone | | + + + | Preferred Language | Unknown | + + + | Marital Status | | + + + | Adventist Affiliation | 1001 | + + + [...] Team Providers + +------+ + | Care Casting Machine Service Operator Name | Role | Phone | + +------+ + PCP | Unavailable | + +------+ + Encounter Details +--------+ + + + + | Date | Type | Department | Care Team | Description | +--------+ + + + + | 09/26/ | Hospital [facility] | Alba Enriquez MD | | | 2017 | Encounter | HOSPITAL MED SURG | [address] [place] | | | | | [address] [place] | [place] | | | | | [place] | [address] | | | | | [address] | [phone] | | | | | [phone] | | | +--------+ + + + [...] documented as of this encounter Progress Notes Alba Enriquez MD - 09/26/2016 10:00 AM PDT PROGRESS NOTE DATE OF SERVICE: 09/26/2016. HISTORY Jessica Lee underwent total thyroidectomy and level 6 node dissection today. She is a wake alert, feeling well. She has a crisp voice. PHYSICAL EXAMINATION Examination of her neck shows no evidence of fluid accumulation or hematoma. She has scant drain output and her drains are functioning. I spoke with she and her at length regarding her pathologic findings and our proced ure. ASSESSMENT Doing very well following total thyroidectomy and level 6 node dissection. This evening she will have a calcium drawn and another one tomorrow morning at 7 a.m. We will continue to monitor her drains. If her calcium stable and her drain output is acce ptable, she will likely be discharged home midday tomorrow. [facility] Signed and Approved by: ALBA ENRIQUEZ MD 09/27/2016 12:58:00 documented in this enco unter Plan of Treatment Not on filedocumented as of this encounter Procedures + +--------+ + + + | Procedure Name | Priori | Date/Time | Associated Diagnosis | Comments | | | ty | | | | + +--------+ + + + | CALCIUM | Routin | 09/26/2016 | | Results for this | | | e | 8:00 PM | | procedure are in the | | | | PDT | | results section. | + +--------+ + + + | CALCIUM | Routin | 09/26/2016 | | Results for this | | | e | 7:00 AM | | procedure are in the | | | | PDT | | results section. | + +--------+ + + + documented in this encounter Results Calcium (09/26/2016 8:00 PM PDT) + +-------+ + + + | Component | Value | Ref Range | Performed | Pathologist | | | | | At | Signature | + +-------+ + + + | Calcium | 8.7 | 8.3 - 10.0 | EXTERNAL | [...] | | | + +---------+ + + Calcium (09/26/2016 7:00 AM PDT) + +-------+ + + + | Component | Value | Ref Range | Performed | Pathologist | | | | | At | Signature | + +-------+ + + + | Calcium | 9.3 | 8.3 - 10.0 | EXTERNAL | [...]
--- OUTSIDE RECORDS SUMMARY | ~2019-10-31 | XMS | Encounter Summary ---
Demographics + + + | Address | [address] [place] [address] RD | | | [place] [address] | + + + | Home Phone | | + + + | Preferred Language | Unknown | + + + | Marital Status | | + + + | Rastafari Affiliation | Unknown | + + + [...] Team Providers + +------+ + | Care Music Critic Name | Role | Phone | + [...] as of this encounter Progress Notes Interface, Educational Speech Language Clinician In - 01/30/2006 1:07 AM PDTCLINIC DATE: [...] strength in her deltoids, biceps, triceps, hand hearing screener, and interossei muscles bilaterally. She has 5/5 strength in her iliopsoas, quadriceps, gastrocnemius, tibialis anterior, and EHL muscles bilaterally. She has no sensory deficits to light touch in her upper or lower extremities. Cerebellar exam on tgutjz-gt-ahpq shows no evidence of dysmetria, and she [...] radiosurgery. She would like to hear from [facility] regarding proton beam, is going to discuss her situation with them. However, I have recommended that we at least repeat her MRI since the MRI was not of the highest quality that I would like. I would also recommend that if she proceeds with surgery that we perform an angiogram with embolization prior to surgery. She is going to wait and hear from [facility] and not have radiation. She is also [...] problem. Leonides Don M.D. VARGHESE / CLEMENT [id number] / [id number] / [id number] / Tdocumented in this encounter Plan of Treatment Not on filedocumented as of this encounter Visit Diagnoses Not on filedocumented in this encounter"
--- OUTSIDE RECORDS SUMMARY | ~2019-10-31 | XMS | Encounter Summary ---
Demographics + + + | Address | [address] [place] [address] RD | | | [place] [address] | + + + | Home Phone | | + + + | Preferred Language | Unknown | + + + | Marital Status | | + + + | Hindu Affiliation | Unknown | + + + [...] Providers + +------+ + | Care Web Press Operator Assistant Name | Role | Phone | [...] as of this encounter Progress Notes Interface, Delicatessen Clerk In - 02/03/2006 3:05 AM PDTCLINIC DATE: [...] week. Vahe Esquivel M.D. PH / HS [id number] / [id number] / [id number] / cc: Radhames Shoemaker M.D. [address] [place] [id number] signed by Interface, Delicatessen Clerk In at 02/03/2006 3:0 5 AM PDTInterface, Delicatessen Clerk In - 01/03/2006 1:10 AM PDTCLINIC DATE: [...] left ear. Karthik Arevalo M.D. DORON / [id number] / [id number] / [id number] / [id number] Tdocumented in this encounter Plan of Treatment Not on filedocumented as of this encounter Visit Diagnoses Not on filedocumented in this encounter"
--- OUTSIDE RECORDS SUMMARY | ~2019-10-31 | XMS | Encounter Summary ---
Demographics + + + | Address | [address] | | | [place] [address] | + + + | Home Phone [...] Team Providers + +------+ + | Care Bottle Gauger Name | Role | Phone | + [...] | | | [place], [place] | [address] | | | | | [address] | [phone] | | | | | [phone] | | | +--------+ + + + [...] + | [place] [facility] | [address] | [place] | [phone] | | [facility] | | [address] | | + + + + + documented in this encounter Visit Diagnoses + + | Diagnosis | + + | S/P partial thyroidectomy - Primary Other postprocedural status | + + documented in this encounter"
--- OUTSIDE RECORDS SUMMARY | ~2019-10-31 | XMS | Encounter Summary ---
Demographics + + + | Address | [address] | | | [place] [address] | + + + | Home Phone | | + + + | Preferred Language | Unknown | + + + | Marital Status | | + + + | Samaritan Affiliation | 1001 | + + + | Race | Unknown | + + + | Ethnic Group | Unknown | + + + Author + + + | Author | [facility] | | | and [place] | + + + | Organization | [facility] | | | [...] Team Providers + +------+ + | Care Drill Rig Operator Name | Role | Phone | [...] | | | [place] | [address] | | | | | [address] | [phone] | | | | | [phone] | | | +--------+ + + + [...]
--- OUTSIDE RECORDS SUMMARY | ~2019-10-31 | XMS | Encounter Summary ---
Demographics + + + | Address | [address] | | | [place] [address] | + + + | Home Phone | | + + + | Preferred Language | Unknown | + + + | Marital Status | | + + + | Druze Affiliation | 1001 | + + + [...] Team Providers + +------+ + | Care Administrative Office Manager Name | Role | Phone | [...] | | | | [place] | [address] | | | | | [address] | [phone] | | | | | [phone] | | | +--------+ + + + [...]
--- OUTSIDE RECORDS SUMMARY | ~2019-10-31 | XMS | Encounter Summary ---
Demographics + + + | Address | [address] | | | [place] [address] | + + + | Home Phone | | + + + | Preferred Language | Unknown | + + + | Marital Status | | + + + | Rastafari Affiliation | 1001 | + + + [...] Team Providers + +------+ + | Care Election Judge Name | Role | Phone | + [...] | | | [place], [place] | [address] | | | | | [address] | [phone] | | | | | [phone] | | | +--------+ + + + [...]
--- OUTSIDE RECORDS SUMMARY | ~2019-10-31 | XMS | Encounter Summary ---
Demographics + + + | Address | [address] | | | [place] [address] | + + + | Home Phone | | + + + | Preferred Language | Unknown | + + + | Marital Status | | + + + | Congregation Affiliation | 1001 | + + + | Race | Unknown | + + + | Ethnic Group | Unknown | + + + Author + + + | Author | [facility] | | | and [place] | + + + | Organization | [facility] | | [...] Team Providers + +------+ + | Care Press Assistant Name | Role | Phone | + +------+ + | Oscar Apodaca MD | PCP | | + +------+ + Reason for Visit + + + | Reason | Comments | + + + | Follow-up, Office | thyroidectomy/thyroid CA | | Visit | | + + + Encounter Details +--------+---------+ + + + | Date | Type | Department | Care Team | Description | +--------+---------+ + + + | 08/12/ | Office | [place] [facility] | Naga Enriquez MD | Hx of papillary | | 2020 | Visit | [facility] [address] | [address] | adenocarcinoma of | | | | [address] [place] [place] | [place], [place] | thyroid (Primary | | | | [place], [place] | [address] | Dx); Hx of | | | | [address] | [phone] | thyroidectomy | | | | [phone] | | | +--------+---------+ + + + [...] +---------+ + + | Oxygen Saturation | 98% [...] Instructions Patient Instructions Naga Enriquez MD - 08/12/2019 11:00 AM PSTHave a follow-up ultrasound done in 1 year. Follow-up with Dr. Enriquez after that. documented in this encounter Progress Notes Naga Enriquez MD - 08/12/2019 11:00 AM PST Otolaryngology Follow Up Clinic Note For: Jessica Lee 68 y.o. [id number] On 08/12/2019, Jessica Lee was seen by Naga Enriquez [...] MD Prior Workup Includes: Laboratory: Patient had a TSH of 0.1, undetectable thyroglobulin and undetectable thyroglob ulin antibody on July 09, 2018. Radiology: Patient had an ultrasound on July 21, 2019. This demonstrates no residual th yroid tissue. No discrete masses or lesions in the neck. No cervical lymph nodes. Pathology: Pathologic T1a(m)N0 papillary thyroid cancer Current History of the present Illness: Patient has had no change in her voice her breathing or her swallowing. She is feeling regis te well. She has no hyper or hypothyroid symptoms. She has noticed no lumps and bumps. Sh e has not had any significant change in her vision or her breathing. She has noticed no new sensations or abnormalities around her left ear or left face. Medical Problem List: Patient Active Problem List Diagnosis Hx of papillary adenocarcinoma of thyroid Hx of thyroidectomy Meds: Current Outpatient Medications on File Prior to Visit Medication Sig [...] Allergen Reactions Penicillins Current Physical Exam: Vitals: 08/12/19 1031 BP: 120/64 Pulse: 67 Resp: 16 PainSc: 0 - No pain Examination today reveals: Examination of her ears reveal a clear external auditory canal on the right. Normal-appear ing tympanic membrane. Letter air-containing. Examination of the left ear reveals a blind pouch consistent with her prior skull base surgery and eustachian tube ablation. No masses no lesions in the external canal or periauricular area. Pupils equal round reactive to light extraocular movements intact. No enophthalmos or prop tosis. Nasal passages clear. No mucosal lesions. No submucosal fullness. Oral cavity and oropharynx show no mucosal lesions or submucosal fullness. Tongue mobility is normal. Examination of the hypopharynx and larynx reveals normal vocal cord mobility. No mucosal l esions. No submucosal fullness. Examination of the neck reveals no periparotid or cervical adenopathy or masses. She has n o palpable masses in level 6. ASSESSMENT: 3 years status post total thyroidectomy and level 6 node dissection for T1a(m) papillary thyroid cancer. No evidence of recurrent disease. I would place her in a low/int ermediate LORA risk group for persistent or recurrent disease. PLAN: Patient will have a follow-up ultrasound and labs in 1 year and will see me after ambrosio t. She has TSH, thyroglobulin and thyroglobulin antibodies pending from today. We will con tact her with the results of those. CLINIC PROCEDURE PERFORMED: None This note was transcribed using voice recognition software; there may be speech recognition errors which escaped detection during review. Naga Enriquez MD 08/12/2019 documented in this enco unter Plan of Treatment + +---------+--------+ + + | Name | Type | Priori | Associated Diagnoses | Order Schedule | | | | ty | | | + +---------+--------+ + + | US Thyroid | Imaging | Routin | Hx of papillary | Expected: | | | | e | adenocarcinoma of | 08/12/2020, Expires: | | | | | thyroid | 02/09/2021 | + +---------+--------+ + + | Thyroglobulin / | Lab | Routin | Hx of papillary | Expected: | | Thyroglobulin | | e | adenocarcinoma of | 08/12/2020, Expires: | | Antibody | | | thyroid | 02/09/2021 | + +---------+--------+ + + | TSH | Lab | Routin | Hx of papillary | Expected: | | | | e | adenocarcinoma of | 08/12/2020, Expires: | | | | | thyroid | 02/09/2021 | + +---------+--------+ + + documented as of this encounter Visit Diagnoses + + | Diagnosis | + + | Hx of papillary adenocarcinoma of thyroid - Primary Personal history of malignant | | neoplasm of thyroid | + + | Hx of thyroidectomy Other postprocedural status | + + documented in this encounter"
--- OUTSIDE RECORDS SUMMARY | ~2019-10-31 | XMS | Encounter Summary ---
Demographics + + + | Address | [address] | | | [place] [address] | + + + | Home Phone | | + + + | Preferred Language | Unknown | + + + | Marital Status | | + + + | Uatsdin Affiliation | 1001 | + + + | Race | Unknown | + + + | Ethnic Group | Unknown | + + + Author + + + | Author | [facility] | | | and [place] | + + + | Organization | [facility] | | | [...] Providers + +------+ + | Care Environmental Attorney Name | Role | Phone | + +------+ + PCP | Unavailable | + +------+ + Encounter Details +--------+ + + + + | Date | Type | Department | Care Team | Description | +--------+ + + + + | 07/25/ | Hospital | [facility] | Conversion | Cerebral meningioma | | 2011 | Encounter | [facility] MRI [address] | Transaction, | ([facility]) | | | | [address] | Provider Unknown | | | | | [place] | [phone] | | | | | [address] | | | | | | [phone] | | | +--------+ + + + [...]
--- OUTSIDE RECORDS SUMMARY | ~2019-10-31 | XMS | Encounter Summary ---
Demographics + + + | Address | [address] | | | [place] [address] | + + + | Home Phone [...] Team Providers + +------+ + | Care Plate Cutter Name | Role | Phone | + +------+ + | Oscar Apodaca MD | PCP | | + +------+ + Encounter Details +--------+ + + + + | Date | Type | Department | Care Team | Description | +--------+ + + + + | 10/20/ | Orders Only | [facility] | Oscar Apodaca | | | 2016 | | CARDIOLOGY [place] | MD [address] | | | | | [address] [address] | | | | | [address] | [place] [address] | | | | | [place], [place] | [phone] | | | | | [address] | | | | | | [phone] | | | +--------+ + + + [...] | + +--------+ + + + | STRESS ECG | Routin | 10/21/2015 | | Results for this | | | e | 10:41 AM | | procedure are in the | | | | PDT | | results section. | + +--------+ + + + documented in this encounter Results Stress ECG (10/21/2015 10:41 AM PDT) + + | Specimen | + + | | + + + + + | Narrative | Performed At | + + + | [facility] Treadmill Stress Test TEST DATE: | | | 10/21/2015 INDICATION FOR TEST: 64 year old female being | | | evaluated for chest pressure RISK FACTORS: hyperlipidemia, post | | | menopause PROCEDURE: Donald protocol. The predicted exercise time | | | was 6 minutes. Patient's Predicted Maximum HR: 158 bpm. Patient's | | | Predicted 85% Max HR: 134 bpm REST DATA: HR: 62 bpm BP: 144 / 98 | | | Rest EKG shows normal sinus rhythm, left atrial enlargement, and | | | minor nonspecific ST-T abnormalities in the right precordial leads | | | STRESS DATA: Exercise Time: 8:28 minutes, HR achieved: 157 bpm, Max | | | BP: 207 / 94 . RPP: 56297. METS: 10.10. Symptoms: none The test was | | | terminated due to patient bilateral leg fatigue, walked to 99 % MPHR. | | | Stress EKG shows only mild upsloping ST segment depressions, with no | | | evidence of myocardial ischemia IMPRESSIONS: This is a normal, | | | low risk exercise stress test, with no electrocardiographic evidence | | | of ischemia. A marked hypertensive response to exercise was noted. | | | Wade Monet MD Electronically signed by Wade Monet MD on | | | 10/22/2015 12:37 PM | | + + + + + | Procedure Note | + + | Rober, Rad Conversion - 02/21/2019 9:57 AM [facility] | | Stress Test TEST DATE: 10/21/2015 INDICATION FOR TEST: 64 year old female being | | evaluated for chest pressure RISK FACTORS: hyperlipidemia, post menopause PROCEDURE: | | Donald protocol. The predicted exercise time was 6 minutes. Patient's Predicted Maximum | | HR: 158 bpm. Patient's Predicted 85% Max HR: 134 bpm REST DATA: HR: 62 bpm BP: 144 / 98 | | Rest EKG shows normal sinus rhythm, left atrial enlargement, and minor nonspecific ST-T | | abnormalities in the right precordial leads STRESS DATA: Exercise Time: 8:28 minutes, | | HR achieved: 157 bpm, Max BP: 207 / 94 . RPP: 16163. METS: 10.10. Symptoms: none The | | test was terminated due to patient bilateral leg fatigue, walked to 99 % MPHR. Stress | | EKG shows only mild upsloping ST segment depressions, with no evidence of myocardial | | ischemia IMPRESSIONS:This is a normal, low risk exercise stress test, with no | | electrocardiographic evidence of ischemia. A marked hypertensive response to exercise | | was noted. Wade Monet MD | | PM | |STRESS DATA: Exercise Time: 8:28 minutes, HR achieved: 157 bpm, Max BP: 207 / 94 . RPP: 320 85. METS: 10.10. Symptoms: none The test was terminated due to patient bilateral leg fatigue , walked to 99 % MPHR. Stress EKG | |shows only mild upsloping ST segment | |depressions, with no evidence of myocardial ischemia | | | |IMPRESSIONS: | |This is a normal, low risk exercise stress test, with no electrocardiographic evidence of i schemia. A marked hypertensive response to exercise was noted. | | | |Wade Monet MD | | | | | + + documented in this encounter Visit Diagnoses Not on filedocumented in this encounter"
--- OUTSIDE RECORDS SUMMARY | ~2019-10-31 | XMS | Encounter Summary ---
Demographics + + + | Address | [address] | | | [place] [address] | + + + | Home Phone [...] Team Providers + +------+ + | Care Pigment Furnace Tender Name | Role | Phone | + [...] | | | [place], [place] | [address] | | | | | [address] | [phone] | | | | | [phone] | | | +--------+ + + + [...] | Testing Performed at: [facility] CLIA: [id number] - [address] | REFERENCE LAB | | [place] [address] | [facility] | + + + + + + + + | Performing | Address | City/State/Zipcode | Phone Number | | Organization | | | | + + + + + | REFERENCE LAB | [address] | [place] | [phone] | | [place] [facility] [place] | | [address] | | + + + + + | REFERENCE LAB | [address] | [place] | [phone] | | [facility] | | [address] | | + + + + + documented in this encounter Visit Diagnoses Not on filedocumented in this encounter"
--- OUTSIDE RECORDS SUMMARY | ~2019-10-31 | XMS | Encounter Summary ---
Demographics + + + | Address | [address] | | | [place] [address] | + + + | Home Phone [...] Team Providers + +------+ + | Care Meter Reader Inspector Name | Role | Phone | + +------+ + PCP | Unavailable | + +------+ + Encounter Details +--------+ + + + + | Date | Type | Department | Care Team | Description | +--------+ + + + + | 01/20/ | Hospital | [facility] | Conversion | Other screening | | 2013 | Encounter | IMAGING SERVICES | Transaction, | mammogram | | | | [address] | Provider Unknown | | | | | [address] [place], [place] | [phone] | | | | | [address] | | | | | | [phone] | | | +--------+ + + + [...] | + + + | JESSICA Cedeno [employer] MAMMO SCREEN COMBO HD BILATERAL 01/20/2014 3:41 [...] Conversion - 02/14/2019 11:14 PM PDT JESSICA AYALAIMKEDeedO SCREEN COMBO HD | | BILATERAL01/20/2014 3:41 [...]
--- OUTSIDE RECORDS SUMMARY | ~2019-10-31 | XMS | Encounter Summary ---
Demographics + + + | Address | [address] | | | [place] [address] | + + + | Home Phone [...] Team Providers + +------+ + | Care Wool Hanker Name | Role | Phone | + +------+ + PCP | Unavailable | + +------+ + Encounter Details +--------+ + + + + | Date | Type | Department | Care Team | Description | +--------+ + + + + | 06/06/ | Hospital | [facility] | Viral Andrew | | | 2001 | Encounter | [facility] | MD [place] [address] | | | | | CENTER [address] | [address] | | | | | [place] | [place] [address] | | | | | [address] | [phone] | | | | | [phone] | | | +--------+ + + + [...]
--- OUTSIDE RECORDS SUMMARY | ~2019-10-31 | XMS | Encounter Summary ---
Demographics + + + | Address | [address] | | | [place] [address] | + + + | Home Phone | | + + + | Preferred Language | Unknown | + + + | Marital Status | | + + + | Temple Affiliation | 1001 | + + + | Race | Unknown | + + + | Ethnic Group | Unknown | + + + Author + + + | Author | [facility] | | | and [place] | + + + | Organization | [facility] | | [...] Team Providers + +------+ + | Care Client Integration Manager Name | Role | Phone | + +------+ + PCP | Unavailable | + +------+ + Encounter Details +--------+ + + + + | Date | Type | Department | Care Team | Description | +--------+ + + + + | 05/23/ | Hospital | [facility] | Conversion | Encounter for | | 2015 | Encounter | IMAGING SERVICES | Transaction, | screening mammogram | | | | [address] | Provider Unknown | for high-risk | | | | [address] [place], [place] | [phone] | patient | | | | [address] | | | | | | [phone] | | | +--------+ + + + [...] + | JOE TOMOSYN | Routin | 05/23/2016 | | Results for this | | SCREENING BILATERAL | e | 12:35 PM | | procedure are in the | | | | PST | | results section. | + +--------+ + + + documented in this encounter Results JOE Tomosynthesis Screening Bilateral (05/23/2016 12:35 PM PST) + + | Specimen | + + | | + + + + + | Impressions | Performed At | + + + | 1. Benign findings. Normal interval follow-up is recommended in | | | 12 months. ASSESSMENT: BI-RADS Category 2 - Benign. Per | | | National MQSA guidelines, a letter of notification will be sent to the | | | patient. Electronically signed by Jarad Mireles MD on | | | 05/24/2016 8:20 AM | | + + + + + + | Narrative | Performed At | + + + | [facility]ESSICA Cedeno [employer] MAMMO SCREEN COMBO HD BILATERAL 05/23/2016 | | | 12:35 PM HISTORY: 65 years. Female. Asymptomatic for breast | | | disease. Added Risk Factors: None. Breast Procedures: Benign | | | excisional biopsy left breast COMPARISON: 04/2015 and prior studies | | | back to 2005 TECHNIQUE: Digital mammographic craniocaudad and | | | medial lateral oblique (2D) views of each breast were performed, with | | | additional digital tomosynthesis (3D) imaging of each breast in 2 | | | projections. Computerized aided detection software was utilized. | | | FINDINGS: Breast Tissue: The breasts are heterogeneously dense, | | | which may obscure the detection of small masses. Interspersed | | | fatty tissue causes a micronodular appearance to the breast. No new | | | masses evident within either breast. No spiculated masses, worrisome | | | calcifications or architectural distortion. | | + + + + + | Procedure Note | + + | Orber, Rad Conversion - 02/13/2019 12:42 PM PDT JESSICA A [employer] SCREEN COMBO HD | | [id number]/22/2016 12:35 PM HISTORY: 65 years. Female. Asymptomatic for breast | | disease. Added Risk Factors: None.Breast Procedures: Benign excisional biopsy left | | breastCOMPARISON: 04/2015 and prior studies back to 2006 TECHNIQUE: Digital mammographic | | craniocaudad and medial lateral oblique (2D) views of each breast were performed, with | | additional digital tomosynthesis (3D) imaging of each breast in 2 projections. | | Computerized aided detection software was utilized. FINDINGS: Breast Tissue: The | | breasts are heterogeneously dense, which may obscure the detection of small masses. | | Interspersed fatty tissue causes a micronodular appearance to the breast. No new masses | | evident within either breast.No spiculated masses, worrisome calcifications or | | architectural distortion. IMPRESSION: 1. Benign findings. Normal interval follow-up is | | recommended in 12 months. ASSESSMENT: BI-RADS Category 2 - Benign. Per National MQSA | | guidelines, a letter of notification will be sent to the patient. | |Breast Tissue: The breasts are heterogeneously dense, which may obscure the detection of s mall masses. | | | |Interspersed fatty tissue causes a micronodular appearance to the breast. No new masses denilson dent within either breast. | |No spiculated masses, worrisome calcifications or architectural distortion. | | | |IMPRESSION: | | | |1. Benign findings. Normal interval follow-up is recommended in 12 months. | | | |ASSESSMENT: BI-RADS Category 2 - Benign. | | | |Per National MQSA guidelines, a letter of notification will be sent to the patient. | | | | | + + documented in this encounter Visit Diagnoses + + | Diagnosis | + + | Encounter for screening mammogram for high-risk patient | + + documented in this encounter"
--- OUTSIDE RECORDS SUMMARY | ~2019-10-31 | XMS | Encounter Summary ---
Demographics + + + | Address | [address] | | | [place] [address] | + + + | Home Phone | | + + + | Preferred Language | Unknown | + + + | Marital Status | | + + + | Mu-Ism Affiliation | 1001 | + + + | Race | Unknown | + + + | Ethnic Group | Unknown | + + + Author + + + | Author | [facility] | | | and [place] | + + + | Organization | [facility] | | | [...] Team Providers + +------+ + | Care Flitch Hanger Name | Role | Phone | + +------+ + | Oscar Apodaca MD | PCP | | + +------+ + Encounter Details +--------+ + + + + | Date | Type | Department | Care Team | Description | +--------+ + + + + | 10/06/ | Hospital | [facility] | Conversion | Dizziness and | | 2019 | Encounter | [facility] | Transaction, | giddiness | | | | [address] | Provider Unknown | | | | | [place] | [phone] | | | | | [address] | | | | | | [phone] | | | +--------+ + + + [...] +--------+ + + + | MRI ANGIOGRAM NECK W | Routin | 10/06/2018 | | Results for this | | WO CONTRAST | e | 2:34 PM | | procedure are in the | | | | PDT | | results section. | + +--------+ + + + documented in this encounter Results MRI Angiogram Neck w wo Contrast (10/06/2018 2:34 PM PDT) + + | Specimen | + + | | + + + + + | Impressions | Performed At | + + + | 1. No high-grade stenosis or aneurysm of the cervical arterial | | | vasculature. 2. There appears to be artifact involving the bilateral | | | posterior inferior cerebellar artery on rics-bn-gdxhhj imaging. | | | Both vessels appear [...] MRA Brain: Axial 3D | | | nrwo-dl-vcxywt MRA with MIP reformations. MRA Neck: Axial 2D | | | yoff-zn-qkdjye MRA and coronal bolus MRA with multiplanar [...] HEAD | | (10/14/2015);PROCEDURE:MRA Brain: Axial 3D wysm-sj-fvtakq MRA with MIP reformations.MRA | | Neck: Axial 2D wqif-sv-mauohe MRA and coronal bolus MRA withmultiplanar reformations.8.5 [...] bilateral posteriorinferior cerebellar artery on | | qlfy-mw-jpcxbg imaging. Both vesselsappear to be widely patent following gadolinium | | administration.3. No high-grade narrowing of the petrous and cavernous segment of | | theleft internal carotid artery.Signed by: Jeffrey Terrazas RichardSign Date/Time: | | 10/07/2018 8:17 AM | [...] bilateral posterior | |inferior cerebellar artery on ucjx-zk-dtxpgw imaging. Both vessels | |appear to be [...]
--- OUTSIDE RECORDS SUMMARY | ~2019-10-31 | XMS | Encounter Summary ---
Demographics + + + | Address | [address] | | | [place] [address] | + + + | Home Phone | | + + + | Preferred Language | Unknown | + + + | Marital Status | | + + + | Gnosticist Affiliation | 1001 | + + + | Race | Unknown | + + + | Ethnic Group | Unknown | + + + Author + + + | Author | [facility] | | | and [place] | + + + | Organization | [facility] | | [...] Team Providers + +------+ + | Care Liner Inserter Name | Role | Phone | + +------+ + PCP | Unavailable | + +------+ + Encounter Details +--------+ + + + + | Date | Type | Department | Care Team | Description | +--------+ + + + + | 02/20/ | Hospital | [facility] | Conversion | Osteoporosis; | | 2013 | Encounter | [facility] | Transaction, | Lumbago | | | | [address] | Provider Unknown | | | | | [address] [place], [place] | [phone] | | | | | [address] | | | | | | [phone] | | | +--------+ + + + [...] the anterior | | | projection and puugvc-aw-xpqcqikw values were drawn about the | | | vertebral segments of L1 through L4 at the levels where accurate | | | assessment was possible. A bone mineral analysis was also performed | | | on the left hip with wkgpsr-su-ehywtaqw areas including the femoral | | | [...] in the | | anterior projection and sxjjhm-qa-xbjrsxly values were drawn about the vertebral | | segments of L1 through L4 at the levels where accurate assessment was possible. A bone | | mineral analysis was also performed on the left hip with neaqsh-uu-qtostaxq areas | | including the femoral neck [...]
--- OUTSIDE RECORDS SUMMARY | ~2019-10-31 | XMS | Encounter Summary ---
Demographics + + + | Address | [address] | | | [place] [address] | + + + | Home Phone [...] Team Providers + +------+ + | Care Grievance And Appeals Specialist Name | Role | Phone | + +------+ + PCP | Unavailable | + +------+ + Encounter Details +--------+ + + + + | Date | Type | Department | Care Team | Description | +--------+ + + + + | 02/28/ | Hospital | [facility] | Conversion | Personal history of | | 2017 | Encounter | [facility] | Transaction, | colonic polyps; | | | | [address] | Provider Unknown | Conductive hearing | | | | 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
--- OUTSIDE RECORDS SUMMARY | ~2019-10-31 | XMS | Encounter Summary ---
Demographics + + + | Address | [address] | | | [place] [address] | + + + | Home Phone | | + + + | Preferred Language | Unknown | + + + | Marital Status | | + + + | Church Affiliation | 1001 | + + + [...] Team Providers + +------+ + | Care Psychologist Private Practice Name | Role | Phone | + [...] [place] | | | | | | [address] | | | | | | [phone] | | | +--------+ + + + [...]
--- OUTSIDE RECORDS SUMMARY | ~2019-10-31 | XMS | Encounter Summary ---
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 | | | | [address] | [address] | ([facility]) | | | | [place], [place] | [address] [place], [place] | | | | | [address] | [address] | | | | | [phone] | [phone] | | | | | | | [...] Performed At | + + + | [facility] [address] Ph: | | | Patient Name: GONSALO LEE Date of : | | | 1950 Medical Record: [id number] Account: [id number] | | | Exam Date/Time: 04/22/2010 10:30 [...] - 02/23/2019 6:11 PM PDT | | [facility] | | [facility] [address] | | | | | | Patient Name: GONSALO LEE | | Date of : 1950 | | Medical Record: [id number] | | Account: [id number] | | | | | | Exam [...]
--- OUTSIDE RECORDS SUMMARY | ~2019-10-31 | XMS | Encounter Summary ---
Demographics + + + | Address | [address] | | | [place] [address] | + + + | Home Phone | | + + + | Preferred Language | Unknown | + + + | Marital Status | | + + + | Congregational Affiliation | 1001 | + + + | Race | Unknown | + + + | Ethnic Group | Unknown | + + + Author + + + | Author | [facility] | | | and [place] | + + + | Organization | [facility] | | [...] Team Providers + +------+ + | Care Hot Plate Press Operator Name | Role | Phone [...] | | | | [place] | [address] | | | | | [address] | [phone] | | | | | [phone] | | | +--------+ + + + [...] will likely be discharged home midday tomorrow. [facility] Signed and Approved by: ALBA ENRIQUEZ MD [...]
--- OUTSIDE RECORDS SUMMARY | ~2019-10-31 | XMS | Encounter Summary ---
Demographics + + + | Address | [address] | | | [place] [address] | + + + | Home Phone | | + + + | Preferred Language | Unknown | + + + | Marital Status | | + + + | Mandaeism Affiliation | 1001 | + + + | Race | Unknown | + + + | Ethnic Group | Unknown | + + + Author + + + | Author | [facility] | | | and [place] | + + + | Organization | [facility] | | [...] Team Providers + +------+ + | Care Joiner Apprentice Name | Role | Phone | + +------+ + PCP | Unavailable | + +------+ + Encounter Details +--------+ + + + + | Date | Type | Department | Care Team | Description | +--------+ + + + + | 02/16/ | Hospital | [facility] | | Other Screening | | 2008 | Encounter | CONVERSION DEP [address] | | Mammogram | | | | [address] | | | | | | [place] | | | | | | [address] | | | | | | [phone] | | | +--------+ + + + [...] + | JOE DIGITAL | Routin | 02/16/2009 | | Results for this | | SCREENING BILATERAL | e | 4:27 PM | | procedure are in the | | | | PDT | | results section. | + +--------+ + + + documented in this encounter Results JOE Digital Screening Bilateral (02/16/2009 4:27 PM PDT) + + | Specimen | + + | | + + + + + | Narrative | Performed At | + + + | [id number] | | | Page 1 RADIOLOGY | | | / | | | O/P [facility] | | | NAME: [place] [address] | | | | | | | | | DATE OF : 1950 ORDER NUMBER: [id number] | | | EXAM DATE/TIME: 02/16/2009 04:10 P ORDERING PHYSICIAN: MAKI | | | ELLIOTT ALVAREZ DETAIL: 580 / / MAHNAZ EXAM DESCRIPTION: JOE DIGITAL | | | BILAT SCREENING/CAD FDA# [id number] | | | | | | BILATERAL SCREENING MAMMOGRAPHY WITH CAD 02/16/2009 HISTORY | | | Screening mammogram. COMPARISON Comparison was made to the prior | | | study dated 01/31/2008. TECHNIQUE Digital mammographic images | | | were obtained in both craniocaudal and mediolateral oblique | | | projections bilaterally. All images were interpreted with the benefit | | | of a computer-aided detection system. FINDINGS The breasts | | | contain scattered fibroglandular tissue bilaterally. No suspicious | | | masses, calcifications, or secondary signs of malignancy are | | | identified. IMPRESSION Negative screening mammography. | | | BIRADS - 1, negative. A. A negative x-ray report should not | | | delay biopsy if a dominant or clinically suspicious mass is | | | present. 10% to 15% of cancers are not identified by x-ray. B. | | | Adenosis and dense breasts may obscure an underlying lesion. C. False | | | positive reports average 6% to 10%. D. Breast ultrasound or breast | | | MRI may be useful for unresolved findings. Read by | | | MARCE [place] MD 02/16/2009 06:15 P Electronically Signed by | | | MARCE [place]UL MD 02/16/2009 09:35 P P | | | P TSG/bw// cc: MARCE PAUL MD | | | ELLIOTT GAMBINO MD REFERRED SELF | | + + + + + | Procedure Note | + + | Rober, Rad Conversion - 02/24/2019 2:47 AM PDT | | [id number] Page 1 | | RADIOLOGY / | | O/P | | [facility] NAME: JESSICA LEE | | [place] [address] | | | | DATE OF : 1950 | | | | ORDER NUMBER: [id number] | | EXAM DATE/TIME: 02/16/2009 04:10 P | | ORDERING PHYSICIAN: ELLIOTT GAMBINO | | ORDER DETAIL: 580 / / MAHNAZ | | EXAM DESCRIPTION: JOE DIGITAL BILAT SCREENING/CAD FDA# [id number] | | | | BILATERAL SCREENING MAMMOGRAPHY WITH CAD 02/16/2009 | | | | HISTORY | | Screening mammogram. | | | | COMPARISON | | Comparison was made to the prior study dated 01/31/2008. | | | | | | TECHNIQUE | | Digital mammographic images were obtained in both craniocaudal and | | mediolateral oblique projections bilaterally. All images were | | interpreted with the benefit of a computer-aided detection system. | | | | | | FINDINGS | | The breasts contain scattered fibroglandular tissue bilaterally. | | No suspicious masses, calcifications, or secondary signs of malignancy | | are identified. | | | | | | IMPRESSION | | Negative screening mammography. | | | | BIRADS - 1, negative. | | | | | | A. A negative x-ray report should not delay biopsy if a dominant or | | clinically suspicious mass is present. 10% to 15% of cancers are not | | identified by x-ray. | | B. Adenosis and dense breasts may obscure an underlying lesion. | | C. False positive reports average 6% to 10%. | | D. Breast ultrasound or breast MRI may be useful for unresolved | | findings. | | | | | | Read by | | MARCE [place]UL MD 02/16/2009 06:15 P | | Electronically Signed by | | MARCE PAUL MD 02/16/2009 09:35 P | | | | P | | P | | TSG/bw// | | cc: MARCE PAUL MD | | ELLIOTT GAMBINO MD | | REFERRED SELF | + + documented in this encounter Visit Diagnoses + + | Diagnosis | + + | Other screening mammogram | + + documented in this encounter"
--- OUTSIDE RECORDS SUMMARY | ~2019-10-31 | XMS | Encounter Summary ---
Demographics + + + | Address | [address] | | | [place] [address] | + + + | Home Phone [...] Team Providers + +------+ + | Care Resource Technician Name | Role | Phone | [...] | | | | [place] | [address] | | | | | [address] | [phone] | | | | | [phone] | | | +--------+---------+ + + + [...] Note For: Jessica Cedeno Jesus 66 y.o. [id number] On 06/18/2017, Jessica Lee was seen by [...] | | | | | the [facility] | | | | | | Access [...] | | | | | determined by [facility] | | | | | | Laboratories. See | | | | | | Compliance Statement B: | | | | | | [email or web address] | | | | | | by [facility],[address] | | | | | | [place] | | | | | | [address] | | | | | | [phone]. | | | | | | comHolland MD, | | | | | | Lab. Director | | | | + + + + + + + + | Specimen | + + | | + + + + + | Narrative | Performed At | + + + | Testing Performed at: Papriika STEFANI: [id number] - [address] | REFERENCE LAB | | [place] [address] | [facility] | + + + + + + + + | Performing | Address | City/State/Zipcode | Phone Number | | Organization | | | | + + + + + | REFERENCE LAB | [address] | [place] | [phone] | | [facility] | | [address] | | + + + + + | REFERENCE LAB | [address] | [place] | [phone] | | [facility] | | [address] | | + + + + + [...] Testing Performed at: [place] [address] CLIA: [id number] - [address] | REFERENCE LAB | | [place] [address] | [facility] | + + + + + + + + | Performing | Address | City/State/Zipcode | Phone Number | | Organization | | | | + + + + + | REFERENCE LAB | [address] | [place] | [phone] | | [facility] | | [address] | | + + + + + | REFERENCE LAB | [address] [facility] | [place] | [phone] | | [facility] | | [address] | | + + + + + [...] Testing Performed at: [address] [place] [address] CLIA: [id number] - [address] | REFERENCE LAB | | [place] [address] | [facility] | + + + + + + + + | Performing | Address | City/State/Zipcode | Phone Number | | Organization | | | | + + + + + | REFERENCE LAB | [address] | [place] | [phone] | | [facility] | | [address] | | + + + + + | REFERENCE LAB | [address] | [place] | [phone] | | [facility] | | [address] | | + + + + + documented in this encounter Visit Diagnoses + + | Diagnosis | + + | Hx of thyroidectomy - Primary Other postprocedural status | + + documented in this encounter
--- OUTSIDE RECORDS SUMMARY | ~2019-10-31 | XMS | Encounter Summary ---
Demographics + + + | Address | [address] | | | [place] [address] | + + + | Home Phone | | + + + | Preferred Language | Unknown | + + + | Marital Status | | + + + | Bahai Affiliation | 1001 | + + + [...] Providers + +------+ + | Care Psychologist Name | Role | Phone | + +------+ + PCP | Unavailable | + +------+ + Encounter Details +--------+ + + + + | Date | Type | Department | Care Team | Description | +--------+ + + + + | 07/25/ | Hospital | [facility] | Conversion | Screening for | | 2011 | Encounter | [facility] | Transaction, | unspecified | | | | [address] | Provider Unknown | condition | | | | [address] [place], [place] | [phone] | | | | | [address] | | | | | | [phone] | | | +--------+ + + + [...] | scanned in the anterior projection and mmwtzm-tx-nxeuajut values were | | | drawn about the vertebral segments of L1 through L4 at the levels | | | where accurate assessment was possible. A bone mineral analysis was | | | also performed on the left hip with jcvndh-ci-evttopzf areas | | | including the femoral [...] | scanned in the anterior projection and llejnp-jn-mgleyxhi values were drawn | | about the vertebral segments of L1 through L4 at the levels where accurate | | assessment was possible. A bone mineral analysis was also performed on the | | left hip with afevtj-xq-qzbaauwe areas including the femoral neck measured. | [...]
--- OUTSIDE RECORDS SUMMARY | ~2019-10-31 | XMS | Encounter Summary ---
Demographics + + + | Address | [address] | | | [place] [address] | + + + | Home Phone | | + + + | Preferred Language | Unknown | + + + | Marital Status | | + + + | Buddhism Affiliation | 1001 | + + + | Race | Unknown | + + + | Ethnic Group | Unknown | + + + Author + + + | Author | [facility] | | | and [place] | + + + | Organization | [facility] | | [...] Team Providers + +------+ + | Care Lockstitch Topstitcher Name | Role | Phone | + [...] | | | [place], [place] | [address] | | | | | [address] | [phone] | | | | | [phone] | | | +--------+ + + + [...]
--- OUTSIDE RECORDS SUMMARY | ~2019-10-31 | XMS | Encounter Summary ---
Demographics + + + | Address | [address] | | | [place] [address] | + + + | Home Phone [...] Team Providers + +------+ + | Care Hand Roller Engraver Name | Role | Phone | + [...] [address] | | | | | | [place] | | | | | | [address] | | | | | | [phone] | | | +--------+ + + + [...] Performed At | + + + | [id number] | | | Page 1 RADIOLOGY | | | / | | | O/P [facility] | | | NAME: [place] [address] | | | | | | | | | DATE OF : 1950 ORDER NUMBER: [id number] | | | EXAM DATE/TIME: 02/16/2009 04:10 P ORDERING PHYSICIAN: MAKI | | | ELLIOTT ALVAREZ DETAIL: 580 / / MAHNAZ EXAM DESCRIPTION: JOE DIGITAL | | | BILAT SCREENING/CAD FDA# [id number] | | | | | | BILATERAL [...] - 02/24/2019 2:47 AM PDT | | [id number] Page 1 | | RADIOLOGY / | | O/P | | [facility] NAME: JESSICA LEE | | [place] [address] | | | | DATE OF : 1950 | | | | ORDER NUMBER: [id number] | | EXAM DATE/TIME: 02/16/2009 04:10 P | | ORDERING PHYSICIAN: ELLIOTT GAMBINO | | ORDER DETAIL: 580 / / MAHNAZ | | EXAM DESCRIPTION: JOE DIGITAL BILAT SCREENING/CAD FDA# [id number] | | | | BILATERAL SCREENING MAMMOGRAPHY [...]
--- OUTSIDE RECORDS SUMMARY | ~2019-10-31 | XMS | Encounter Summary ---
Demographics + + + | Address | [address] | | | [place] [address] | + + + | Home Phone | | + + + | Preferred Language | Unknown | + + + | Marital Status | | + + + | Rastafarian Affiliation | 1001 | + + + | Race | Unknown | + + + | Ethnic Group | Unknown | + + + Author + + + | Author | [facility] | | | and [place] | + + + | Organization | [facility] | | | [...] Team Providers + +------+ + | Care Ice Cream Chef Name | Role | Phone | + +------+ + PCP | Unavailable | + +------+ + Encounter Details +--------+ + + + + | Date | Type | Department | Care Team | Description | +--------+ + + + + | 11/29/ | Hospital | [facility] | Donald Pederson MD | Lump or Mass in | | 2006 - | Encounter | CONVERSION DEP [address] | [address] | Breast | | | | [address] | [address] [place], | | | 12/09/ | | [place], [place] | [place] [address] | | | 2006 | | [address] | [phone] | | | | | [phone] | | | +--------+ + + + [...]
--- OUTSIDE RECORDS SUMMARY | ~2019-10-31 | XMS | Encounter Summary ---
Demographics + + + | Address | [address] | | | [place] [address] | + + + | Home Phone | | + + + | Preferred Language | Unknown | + + + | Marital Status | | + + + | Zoroastrianism Affiliation | 1001 | + + + | Race | Unknown | + + + | Ethnic Group | Unknown | + + + Author + + + | Author | [facility] | | | and [place] | + + + | Organization | [facility] | | [...] Team Providers + +------+ + | Care Shake Cutter Name | Role | Phone | [...] | +--------+ + + + + | 09/24/ | Telephone | [place] [facility] | Kimmie, | Results | | 2017 | | [facility]OSPITAL ENT [address] | Lissette Mendes RN | | | | | [address] | | | | | | [place], [place] | | | | | | [address] | | | | | | [phone] | | | +--------+ + + + [...]
--- OUTSIDE RECORDS SUMMARY | ~2019-10-31 | XMS | Encounter Summary ---
Demographics + + + | Address | [address] | | | [place] [address] | + + + | Home Phone | | + + + | Preferred Language | Unknown | + + + | Marital Status | | + + + | Advent Affiliation | 1001 | + + + [...] Team Providers + +------+ + | Care Product Manager Name | Role | Phone | + +------+ + PCP | Unavailable | + +------+ + Encounter Details +--------+ + + + + | Date | Type | Department | Care Team | Description | +--------+ + + + + | 04/14/ | [facility] | [facility] | Conversion | Visit for screening | | 2014 | Encounter | IMAGING SERVICES | Transaction, | mammogram | | | | [address] | Provider Unknown | | | | | [address] [place], [place] | [phone] | | | | | [address] | | | | | | [phone] | | | +--------+ + + + [...] + + documented in this encounter Results JEO Tomosynthesis Screening Bilateral (04/14/2015 2:32 PM PDT) [...] | + + + | JESSICA Cedeno [employer] MAMMO SCREEN COMBO HD BILATERAL 04/14/2015 2:32 [...] Rad Conversion - 02/14/2019 5:46 AM PDT [employer] SCREEN NiniteO HD | | IFFERIPNT69/14/2015 2:32 PM HISTORY: 64 years. Female. Asymptomatic [...]
--- OUTSIDE RECORDS SUMMARY | ~2019-10-31 | XMS | Encounter Summary ---
Demographics + + + | Address | [address] | | | [place] [address] | + + + | Home Phone [...] Team Providers + +------+ + | Care Human Resources Hr Representative Name | Role | Phone | + +------+ + | Oscar Apodaca MD | PCP | | + +------+ + Encounter Details +--------+ + + + + | Date | Type | Department | Care Team | Description | +--------+ + + + + | 07/21/ | Hospital | [facility] | Naga Enriquez MD | History of papillary | | 2020 | Encounter | CENTER OPIC | [address] | adenocarcinoma of | | | | ULTRASOUND [address] | [place] | thyroid | | | | [address] | [address] | | | | | [place], [place] | [phone] | | | | | [address] | | | | | | [phone] | | | +--------+ + + + [...] US HEAD NECK SOFT | Routin | 07/21/2019 | History of | Results for this | | TISSUE | e | 12:32 PM | papillary | procedure are in the | | | | PST | adenocarcinoma of | results section. | | | | | thyroid | | + +--------+ + + + documented in this encounter Results US Head Neck Soft Tissue (07/21/2019 12:32 PM PST) + + | Specimen | + + | | + + + + + | Impressions | Performed At | + + + | 1. Normal ultrasound evaluation of the neck. 2. No evidence of | [facility] | | recurrent mass in the thyroid bed or enlarged cervical lymph nodes. | | | Signed by: Gianna Jo Edward Sign Date/Time: | | | 07/22/2019 7:41 AM | | + + + + + + | Narrative | Performed At | + + + | ULTRASOUND, SOFT TISSUE NECK (OTHER THAN THYROID) CLINICAL | [facility] | | INFORMATION: History of thyroid cancer and thyroidectomy. | | | COMPARISON: MRA NECK W WO CONTRAST (10/06/2018); MRA HEAD WO CONTRAST | | | (10/06/2018); US SOFT TISSUE NECK AND HEAD (06/03/2018); PROCEDURE: | | | Evaluation of the clinical area of concern in the neck. FINDINGS: | | | The thyroid bed appears normal. No residual thyroid tissue is | | | seen. The parotid glands appear normal bilaterally. No discrete | | | mass is seen in the neck. No enlarged cervical lymph nodes are | | | identified. | | + + + + + | Procedure Note | + + | Rober, Rad Results In - 07/22/2019 7:45 AM PST | | ULTRASOUND, SOFT TISSUE NECK (OTHER THAN THYROID) | | | | CLINICAL INFORMATION: | | History of thyroid cancer and thyroidectomy. | | | | COMPARISON: | | MRA NECK W WO CONTRAST (10/06/2018); MRA HEAD WO CONTRAST (10/06/2018); US | | SOFT TISSUE NECK AND HEAD (06/03/2018); | | | | PROCEDURE: | | Evaluation of the clinical area of concern in the neck. | | | | FINDINGS: | | The thyroid bed appears normal. No residual thyroid tissue is seen. | | The parotid glands appear normal bilaterally. No discrete mass is seen | | in the neck. No enlarged cervical lymph nodes are identified. | | | | IMPRESSION: | | 1. Normal ultrasound evaluation of the neck. | | 2. No evidence of recurrent mass in the thyroid bed or enlarged | | cervical lymph nodes. | | | | | | | | | | Signed by: Gianna Jo Edward | | Sign Date/Time: 07/22/2019 7:41 AM | + + + +---------+ + + | Performing | Address | City/State/Zipcode | Phone Number | | Organization | | | | + +---------+ + + | [facility] | | | | + +---------+ + + documented in this encounter Visit Diagnoses + + | Diagnosis | + + | History of papillary adenocarcinoma of thyroid Personal history of malignant neoplasm | | of thyroid | + + documented in this encounter"
--- OUTSIDE RECORDS SUMMARY | ~2019-10-31 | XMS | Encounter Summary ---
Demographics + + + | Address | [address] | | | [place] [address] | + + + | Home Phone | | + + + | Preferred Language | Unknown | + + + | Marital Status | | + + + | Mosque Affiliation | 1001 | + + + | Race | Unknown | + + + | Ethnic Group | Unknown | + + + Author + + + | Author | [facility] | | | and [place] | + + + | Organization | [facility] | | [...] Team Providers + +------+ + | Care Pit Supervisor Name | Role | Phone | + +------+ + PCP | Unavailable | + +------+ + Encounter Details +--------+ + + + + | Date | Type | Department | Care Team | Description | +--------+ + + + + | 05/23/ | Hospital | [facility] | Conversion | Encounter for | | 2015 | Encounter | IMAGING SERVICES | Transaction, | screening mammogram | | | | [address] | Provider Unknown | for high-risk | | | | [address] [place], [place] | [phone] | patient | | | | [address] | | | | | | [phone] | | | +--------+ + + + [...] | + + + | JESSICA Cedeno [employer] MAMMO SCREEN COMBO HD BILATERAL 05/23/2016 | [...] - 02/13/2019 12:42 PM PDT JESSICA A [employer] SCREEN COMBO HD | | USUVYMBCN83/22/2016 12:35 PM HISTORY: 65 years. Female. Asymptomatic [...]
--- OUTSIDE RECORDS SUMMARY | ~2019-10-31 | XMS | Encounter Summary ---
Demographics + + + | Address | [address] | | | [place] [address] | + + + | Home Phone [...] Team Providers + +------+ + | Care Independent Driver Name | Role | Phone | [...] | | | [place], [place] | [address] | Dx); Hx of | | | | [address] | [phone] | thyroidectomy | | | | [phone] | | | +--------+---------+ + + + [...] Clinic Note For: Jessica Lee 68 y.o. [id number] On 08/12/2019, Jessica Lee was seen by [...]
--- OUTSIDE RECORDS SUMMARY | ~2019-10-31 | XMS | Encounter Summary ---
Demographics + + + | Address | [address] | | | [place] [address] | + + + | Home Phone [...] Team Providers + +------+ + | Care President Ceo & Founder Name | Role | Phone | + [...] | | | [place] | [address] | | | | | [address] | [phone] | | | | | [phone] | | | +--------+ + + + [...]
--- OUTSIDE RECORDS SUMMARY | ~2019-10-31 | XMS | Encounter Summary ---
Demographics + + + | Address | [address] | | | [place] [address] | + + + | Home Phone | | + + + | Preferred Language | Unknown | + + + | Marital Status | | + + + | Lutheran Affiliation | 1001 | + + + [...] Team Providers + +------+ + | Care Bus Escort Name | Role | Phone | + [...] | | | [place] | [address] | | | | | [address] | [phone] | | | | | [phone] | | | +--------+ + + + [...]
--- OUTSIDE RECORDS SUMMARY | ~2019-10-31 | XMS | Encounter Summary ---
Demographics + + + | Address | [address] | | | [place] [address] | + + + | Home Phone | | + + + | Preferred Language | Unknown | + + + | Marital Status | | + + + | Taoist Affiliation | 1001 | + + + [...] Team Providers + +------+ + | Care Roofer Name | Role | Phone | + +------+ + | Oscar Apodaca MD | PCP | | + +------+ + Encounter Details +--------+ + + + + | Date | Type | Department | Care Team | Description | +--------+ + + + + | 10/20/ | Orders Only | [facility] | Oscar Apodaca | | | 2016 | | CARDIOLOGY [place] | MD [address] | | | | | [address] | | | | | [address] | [place] [address] | | | | | [place], [place] | [phone] | | | | | [address] | | | | | | [phone] | | | +--------+ + + + [...] Performed At | + + + | [facility] CARDIOLOGY Treadmill Stress Test TEST DATE: | [...] | BP: 207 / 94 . RPP: 68071. METS: 10.10. Symptoms: none The test was [...] Rober, Rad Conversion - 02/21/2019 9:[address] [facility] | | Stress Test TEST DATE: 10/21/2015 [...] Max BP: 207 / 94 . RPP: 01773. METS: 10.10. Symptoms: none The | | [...]
--- OUTSIDE RECORDS SUMMARY | ~2019-10-31 | XMS | Encounter Summary ---
Demographics + + + | Address | [address] | | | [place] [address] | + + + | Home Phone [...] Team Providers + +------+ + | Care Sonographer Name | Role | Phone | + [...] | | | [place] | [address] | | | | | [address] | [phone] | | | | | [phone] | | | +--------+ + + + [...]
--- OUTSIDE RECORDS SUMMARY | ~2019-10-31 | XMS | Clinical Summary ---
Demographics + + + | Address | [address] | | | [place] [address] | + + + | Home Phone [...] Team Providers + +------+ + | Care Scrap Sawyer Name | Role | Phone | + [...] [email or web address].questdi | | | | | | [email or web address] | | | | | | (This link is being | | | | | | provided for | | | | | | informational/educationa | | | | | | l purposes only.) @ | | | | | | Test Performed By: | | | | | | [facility] | | | | | | [facility] | | | | | | Solange Gurrola M.D., | | | | | | Ph.D., Laboratory | | | | | | Director [id number] | | | | | | [facility] | | | | | | [place] [address] | | | | | | CLIA #[id number] | | | | + + + + + + + + | Specimen | + + | Blood | + + + + + + + | Performing | Address | City/State/Zipcode | Phone Number | | Organization | | | | + + + + + | REFERENCE LAB | [address] | [place], [place] | | | [facility] - | | [address] | | | [place] | | [...] + | [place] | [address] | [place] | [phone] | | H[facility]ORY | | [address] | | + + + + + [...] +--------+ +---------+--------+ | MEDICARE | MEDICA | [id number] | 12/01/19 | [phone] | | Medica | | | RE | | 18-Pre | 5 | | re | | | PART A | | sent | | | | | | AND B | | | | | | + +--------+ +--------+ +---------+--------+ | MEDICARE | MEDICA | [id number] | 12/01/19 | [phone] | | Medica | | | RE | | 18-Pre | 5 | | re | | | PART A | | sent | | | | | | AND B | | | | | | + +--------+ +--------+ +---------+--------+ | AARP | AARP | [id number] | 07/02/19 | [phone] | | Indemn | | | MDCR | | 19-Pre | 0 | | ity | | | SUPPL | | sent | | | | + +--------+ +--------+ +---------+--------+ | AARP | AARP | [id number] | 07/02/19 | [phone] | | Indemn [...] | | al/Fam | | 1950 | [phone] | [place] | | | dena | | | 3 (Home) | [address] | | | | | | [phone] | | | | | | | 9 (Work) | | + +--------+ +--------+ + + | Jessica Lee | Person | Self | [birth year] | [address] | | | al/Fam | | 1951 | [phone] | [place], [place] | | | dena | | | 3 (Home) | [address] | + +--------+ +--------+ + + Advance Directives + + + + + | Type | Date Recorded | Patient | Explanation | | | | Acoustical Carpenter | | + + + + + | Power of | | | | | Realtime Court Reporter | | | | + + + + + | Advance | 08/12/2019 10:21 | | | | Directive | AM | | | + + + + +
--- OUTSIDE RECORDS SUMMARY | ~2019-10-31 | XMS | Encounter Summary ---
Demographics + + + | Address | [address] | | | [place] [address] | + + + | Home Phone [...] + | Author | [facility] | | | and [place] | + + + | Organization | [facility] | | | and [...] Providers + +------+ + | Care Air Brake Rigger Name | Role | Phone | + [...] | | | [place], [place] | [address] | | | | | [address] | [phone] | | | | | [phone] | | | +--------+ + + + [...]
--- OUTSIDE RECORDS SUMMARY | ~2019-10-31 | XMS | Encounter Summary ---
Demographics + + + | Address | [address] | | | [place] [address] | + + + | Home Phone | | + + + | Preferred Language | Unknown | + + + | Marital Status | | + + + | Pentecostalism Affiliation | 1001 | + + + | Race | Unknown | + + + | Ethnic Group | Unknown | + + + Author + + + | Author | [facility] | | | and [place] | + + + | Organization | [facility] | | | [...] Team Providers + +------+ + | Care Electrician Apprentice Powerhouse Name | Role | Phone | + +------+ + PCP | Unavailable | + +------+ + Encounter Details +--------+ + + + + | Date | Type | Department | Care Team | Description | +--------+ + + + + | 05/11/ | [facility] | [facility] | Conversion | Chronic low back | | 2017 | Encounter | [facility] | Transaction, | pain, unspecified | | | | [address] | Provider Unknown | back pain | | | | [place] | [phone] | laterality, with | | | | [address] | | sciatica presence | | | | [phone] | Oscar Apodaca | unspecified | | | | | MD [address] | | | | | | [address] | | | | | | [place] [address] | | | | | | [phone] | | | | | | | [...] LUMBAR SPINE 2 [place] | Routin | 05/11/2017 | | Results for this | | 3 VW | e | 12:58 PM | | procedure are in the | | | | PST | | results section. | + +--------+ + + + documented in this encounter Results XR Lumbar Spine 2 or 3 Vw (05/11/2017 12:58 PM PST) + + | Specimen | + + | | + + + + + | Impressions | Performed At | + + + | 1. No acute fracture or subluxation. | | + + + + + + | Narrative | Performed At | + + + | JESSICA Cedeno JOSE 1950 66 years Female XR LUMBAR SPINE | | | LIMITED 2-3 VIEW 05/11/2017 12:58 PM INDICATION: Chronic back | | | pain COMPARISON: 02/20/2014 TECHNIQUE: Lumbar spine series, 3 | | | views FINDINGS: There are 5 nonrib-bearing lumbar vertebral type | | | bodies. There is severe generalized osteopenia. The pedicles are | | | intact. The sacral arcuate neural foramen are preserved. There are no | | | aggressive lytic or blastic lesions. Vertebral body heights are | | | preserved. There is moderate disc space narrowing at L5-S1. | | + + + + + | Procedure Note | + + | Mook Richter Conversion - 02/13/2019 1:02 AM PDT JESSICA LEE89 years | | FemaleXR LUMBAR SPINE LIMITED 2-3 VIEW05/11/2017 12:58 PM INDICATION: Chronic back pain | | COMPARISON: 02/20/2014 TECHNIQUE: Lumbar spine series, 3 views FINDINGS: There are 5 | | nonrib-bearing lumbar vertebral type bodies. There is severe generalized osteopenia. The | | pedicles are intact. The sacral arcuate neural foramen are preserved. There are no | | aggressive lytic or blastic lesions. Vertebral body heights are preserved. There is | | moderate disc space narrowing at L5-S1. IMPRESSION: 1. No acute fracture or | | subluxation. | |COMPARISON: 02/20/2014 | | | |TECHNIQUE: Lumbar spine series, 3 views | | | |FINDINGS: There are 5 nonrib-bearing lumbar vertebral type bodies. There is severe generali zed osteopenia. The pedicles are intact. The sacral arcuate neural foramen are preserved. Th ere are no aggressive lytic or | |blastic lesions. Vertebral body heights | |are preserved. There is moderate disc space narrowing at L5-S1. | | | |IMPRESSION: | |1. No acute fracture or subluxation. | | | | | + + documented in this encounter Visit Diagnoses + + | Diagnosis | + + | Chronic low back pain, unspecified back pain laterality, with sciatica presence | | unspecified | + + documented in this encounter"
--- OUTSIDE RECORDS SUMMARY | ~2019-10-31 | XMS | Encounter Summary ---
Demographics + + + | Address | [address] | | | [place] [address] | + + + | Home Phone [...] Team Providers + +------+ + | Care Hookman Name | Role | Phone | + +------+ + | Oscar Apodaca MD | PCP | | + +------+ + Encounter Details +--------+ + + + + | Date | Type | Department | Care Team | Description | +--------+ + + + + | 10/06/ | Hospital | [facility] | Conversion | Dizziness and | | 2019 | Encounter | [facility] | Transaction, | giddiness | | | | [address] | Provider Unknown | | | | | [place] | [phone] | | | | | [address] | | | | | | [phone] | | | +--------+ + + + [...] | | posterior inferior cerebellar artery on fhof-lv-crgnhr imaging. | | | Both vessels appear [...] MRA Brain: Axial 3D | | | pqtx-is-zoipbi MRA with MIP reformations. MRA Neck: Axial 2D | | | dcre-ly-mbmshh MRA and coronal bolus MRA with multiplanar [...] HEAD | | (10/14/2015);PROCEDURE:MRA Brain: Axial 3D kjot-wr-ddaxpu MRA with MIP reformations.MRA | | Neck: Axial 2D xgxh-yq-yinayv MRA and coronal bolus MRA withmultiplanar reformations.8.5 [...] bilateral posteriorinferior cerebellar artery on | | orex-np-dvudnz imaging. Both vesselsappear to be widely patent [...] bilateral posterior | |inferior cerebellar artery on lqon-so-hhymwb imaging. Both vessels | |appear to be [...]
--- OUTSIDE RECORDS SUMMARY | ~2019-10-31 | XMS | Encounter Summary ---
Demographics + + + | Address | [address] | | | [place] [address] | + + + | Home Phone | | + + + | Preferred Language | Unknown | + + + | Marital Status | | + + + | Temple Affiliation | 1001 | + + + | Race | Unknown | + + + | Ethnic Group | Unknown | + + + Author + + + | Author | [facility] | | | and [place] | + + + | Organization | [facility] | | | [...] Team Providers + +------+ + | Care Security Public Safety Officer Name | Role | Phone | + +------+ + PCP | Unavailable | + +------+ + Encounter Details +--------+ + + + + | Date | Type | Department | Care Team | Description | +--------+ + + + + | 02/20/ | Hospital | [facility] | Conversion | Osteoporosis; | | 2013 | Encounter | [facility] | Transaction, | Lumbago | | | | [address] | Provider Unknown | | | | | [address] [place], [place] | [phone] | | | | | [address] | | | | | | [phone] | | | +--------+ + + + [...]
--- OUTSIDE RECORDS SUMMARY | ~2019-10-31 | XMS | Encounter Summary ---
Demographics + + + | Address | [address] | | | [place] [address] | + + + | Home Phone | | + + + | Preferred Language | Unknown | + + + | Marital Status | | + + + | Uatsdin Affiliation | 1001 | + + + | Race | Unknown | + + + | Ethnic Group | Unknown | + + + Author + + + | Author | [facility] | | | and [place] | + + + | Organization | [facility] | | | and [...] Team Providers + +------+ + | Care Lobby Concierge Name | Role | Phone | + +------+ + PCP | Unavailable | + +------+ + Encounter Details +--------+ + + + + | Date | Type | Department | Care Team | Description | +--------+ + + + + | 05/11/ | [facility] | [facility] | Conversion | Chronic low back | | 2017 | Encounter | [facility] | Transaction, | pain, unspecified | | | | [address] | Provider Unknown | back pain | | | | [place] | [phone] | laterality, with | | | | [address] | | sciatica presence | | | | [phone] | Oscar Apodaca | unspecified | | | | | MD [address] | | | | | | [address] | | | | | | [place] [address] | | | | | | [phone] | | | | | | | [...]
--- OUTSIDE RECORDS SUMMARY | ~2019-10-31 | XMS | Encounter Summary ---
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
--- OUTSIDE RECORDS SUMMARY | ~2019-10-31 | XMS | Encounter Summary ---
Demographics + + + | Address | [address] [place] [address] RD | | | [place] [address] | + + + | Home Phone | | + + + | Preferred Language | Unknown | + + + | Marital Status | | + + + | Voodoo Affiliation | Unknown | + + + [...] Team Providers + +------+ + | Care Earth Science Laboratory Technician Name | Role | Phone | [...] | Transcriptions | + + | Interface, Materials Engineering Technician In - 02/03/2006 3:06 AM PDT | | [place] [address] | | [place], [place] [address] | | [facility] RECORDMed Rec No.: | | [id number] Date: 05/20/2002Name: Jessica Lee SURGEON: | | Karthik Arevalo M.D.RN MEDICARE: Neftali Trimble, | | JeffreyPREOPERATIVE DIAGNOSES:1) Left [...] Webb | | Andres Arevalo.SS:x63D: 05/20/2002T: 05/21/2002 [id number] | |induced without difficulty and the table [...] |SS:x63 | | | | | | [id number] | + + documented in this encounter Visit Diagnoses Not on filedocumented in this encounter"
--- OUTSIDE RECORDS SUMMARY | ~2019-10-31 | XMS | Encounter Summary ---
Demographics + + + | Address | [address] | | | [place] [address] | + + + | Home Phone | | + + + | Preferred Language | Unknown | + + + | Marital Status | | + + + | Mormonism Affiliation | Unknown | + + + | Race | White | + + + | Ethnic Group | Not or | + + + Author + + + | Author | [facility] | + + + | Organization | [facility] | + + + | Address | Unknown | + + + | Phone | Unavailable | + + + Support + + +---------+ + | Name | Relationship | Address | Phone | + + +---------+ + | [place] Lee | ECON | Unknown | | + + +---------+ + Care Team Providers + +------+ + | Care Parking Enforcement Officer Name | Role | Phone | [...] as of this encounter Progress Notes Interface, Data Analyst Report Writer In - 01/30/2006 1:07 AM PDTCLINIC DATE: 06/18/2002 RADIATION ONCOLOGY CONSULTATION REQUESTED BY: Dr. Leonides Don, Neurosurgery, [facility] CHIEF COMPLAINT: Diminished hearing and [...] of radiation therapy. 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 She has two children [...] Currently, the patient is considering treatment at [facility], [place], or [place]. We briefly discussed proton therapy with her [...] [facility], [facility] [place]. Merissa Ac M.D. Clam Bed Worker Radiation Oncology [place] [place] [id number] cc: Dr. Leonides Don, [id number] signed by Interface, Data Analyst Report Writer In at 07/2005 1:07 AM PDTdocumented in this encounter Plan of Treatment Not on filedocumented as of this encounter Visit Diagnoses Not on filedocumented in this encounter"
--- OUTSIDE RECORDS SUMMARY | ~2019-10-31 | XMS | Encounter Summary ---
Demographics + + + | Address | [address] | | | [place] [address] | + + + | Home Phone [...] Team Providers + +------+ + | Care Drum Tender Name | Role | Phone | [...] [place] | | | | | | [address] | | | | | | [phone] | | | +--------+ + + + [...]
--- OUTSIDE RECORDS SUMMARY | ~2019-10-31 | XMS | Encounter Summary ---
Demographics + + + | Address | [address] | | | [place] [address] | + + + | Home Phone | | + + + | Preferred Language | Unknown | + + + | Marital Status | | + + + | Confucianist Affiliation | 1001 | + + + [...] Team Providers + +------+ + | Care Medical Oncologist Name | Role | Phone | + +------+ + | Oscar Apodaca MD | PCP | | + +------+ + Encounter Details +--------+ + + + + | Date | Type | Department | Care Team | Description | +--------+ + + + + | 07/21/ | Hospital | [facility] | Naga Enriquez MD | History of papillary | | 2020 | Encounter | [facility] | [address] | adenocarcinoma of | | | | ULTRASOUND [address] | [place] | thyroid | | | | [address] | [address] | | | | | [place], [place] | [phone] | | | | | [address] | | | | | | [phone] | | | +--------+ + + + [...]
[2019-10-31] MEDS ORDERED: LIPITOR40 MG PO (13:35)
[2019-10-31] MEDS ORDERED: LEVOTHYROXINE100 MCG PO (13:35)
[2019-10-31] MEDS ORDERED: TOPROL XL25 MG PO (13:36)
[2019-10-31] MEDS ORDERED: MULTIVITAMINS1 EAC7 PO (13:37)
[2019-10-31] MEDS ORDERED: ASPIRIN325 MG PO (13:38)
[2019-10-31] MEDS ORDERED: CALCIUM 500-VI1 EAC1 PO (13:38)
[2019-10-31] MEDS ORDERED: VITAMIN D3 COM1 EACH PO (13:38)
[2019-10-31] MEDS ORDERED: CO Q-10300 MG PO (13:39)
[2019-10-31] MEDS ORDERED: ALENDRONATE SOD70 MG PO (13:46)
[2019-10-31] MEDS ORDERED: PLAVIX75 MG PO (14:31)
--- NOTE | 2019-10-31 17:46 | EKG ---
[facility] [address] [facility] [place], [place] [address] Signed Normal sinus rhythm Normal ECG No previous ECGs available Confirmed by PHILIP PELAEZ DO ([id number]) on 10/31/2019 5:46:30 PM Electronically Signed By: PHILIP PLEAEZ DO 10/31/19 1746 PATIENT NAME: GONSALO GARCIA MICHAEL Electrocardiogram DATE OF : 54 PHYSICIAN: PHIILP PELAEZ DO REPORT #: [id number] REPORT IS CONFIDENTIAL AND NOT TO BE RELEASED WITHOUT AUTHORIZATION
== END 2019-10-31 15:44 | disposition home or self-care (01) ==
LOC: ED 12:18
DX: G45.9 Transient cerebral ischemic attack, unspecified (principal); Z88.0 Allergy status to penicillin; Z79.899 Other long term (current) drug therapy
CPT/HCPCS: 0297T; 0298T; 70450; 70496; 70498; 71045; 80053; 84484; 85025; 85610; 85730; 93005; 93010; 99285-25; Q9967

== ENCOUNTER 2022-01-21 07:58 | Inpatient (IN) | payer MEDICARE, BC ==
[~2022-01-21] VITALS: Ht 172.7 cm; Wt 80.9 kg
[~2022-01-21 07:58] MED LIST: ALENDRONATE SOD70 MG PO; ASPIRIN325 MG PO; CALCIUM PO; CO Q-10300 MG PO; LEVOTHYROXINE100 MCG PO; LIPITOR40 MG PO; MULTIVITAMINS1 EAC8 PO; PLAVIX75 MG PO; TOPROL XL25 MG PO; VITAMIN D3 COM1 EACH PO; [UNRECOGNIZED DRUG - OTHER] PO
[2022-01-21] MEDS ORDERED: ATORVASTATIN CA80 MG PO (11:09)
[2022-01-21] MEDS ORDERED: CLOPIDOGREL75 MG PO (11:09)
--- NOTE | 2022-01-21 11:23 | NUR ---
REPORT RECEIVED FROM LISA GOVEA. AWAITING PTS ARRIVAL TO MED/SURG.
--- NOTE | 2022-01-21 11:35 | NUR ---
PT ARRIVED FROM ER. PT TRANSFERS SELF TO BED WITH STAND BY ASSIST. PT MILDY UNSTEADY ON FEET WITH STAND BY ASSIST. PT DECLINES WALKER USE. PT DENIES PAIN AND NAUSEA. PT ALERT AND OREINTED TO ALL. NIH SCORE OF 2 FOR MILD RIGHT SIDED FACIAL DROOP AND MILD LEFT SIDED ATAXIA. PT REPORTS OCCATIONAL LEFT SIDED WEAKNESS AND "OFF BALANCE" SINCE TIA AND BRAIN SURGERY. PT ALSO REPORTS LEFT EAR HEARING LOSS IN LEFT HEAR SINCE BRAIN SURGERY. P ABLE TO PUSH ARMS AND LEGS AGAINST RESISTANCE, STRONG. HEAR TONES REGULAR. LUNG SOUNDS CLEAR. SWALLOW EVALUATION COMPLETED. PTS SWALLOWS SPOONS, SPIS AND CONSEICUATIVE DRINKING OF THIN WATER WITH NO S/S OF CHOAKING OR THROAT CLEARING.SKIN INTACT. CALL LIGHT REVIEWED WITH PT. PT DENIES ADDITIONAL REQUESTS OR COMPLAINTS. CALL LIGHT WITHIN REACH. BED RAILS UP. FAMILY AT BEDSIDE.
--- NOTE | 2022-01-21 12:12 | NUR ---
HELPED PATIENT TO BED IN ROOM. PUT ON TELE, AND DID VITALS FOR NURSE. NURSE WAS IN THE ROOM DOING ASSESSMENT WHEN TEXTILE CONVERTER LEFT. CALL LIGHT IN REACH.
--- NOTE | 2022-01-21 12:32 | NUR ---
THIS RN TO ROOM TO CHECK ON PT. STAND BY ASSIST UP TO RESTROOM. PT DECLINES WALKER USE. PT VOIDS WITHOUT ISSUE AND PERFORMS SELF ELY CARE. STAND BY ASSIST UP TO CHAIR FOR LUNCH. PT CONTINUES TO DENY PAIN AND NAUSEA. NO ADDITIONAL REQUESTS OR COMPLAINTS. CALL LIGHT WITHIN REACH. AT BEDSIDE.
--- NOTE | 2022-01-21 13:06 | NUR ---
FAMILY TO NURSES STATION REQUESTING ADDITIONAL WATER. ICE WATER REFILLED FOR PT. IV PUMP ALARMING. IV DOES NOT FLUSH WELL. IV SALINE LOCKED AT THIS TIME PHYSICAL THERAPIST HAS ARRIVED TO WORK WITH PT. NEW IV SITE ATTEMPTED X2, UNSUCESSFUL. CHARGE NURSE UPDATED AND WILL LOOK FOR IV SITE AFTER PHYSICAL THERAPY. NO ADDITIONAL REQUESTS OR COMPLAINTS. CALL LIGHT WITHIN REACH.
--- NOTE | 2022-01-21 14:08 | NUR ---
PATIENT IN CHAIR VISITING WITH FAMILY AFTER USING RESTROOM. VITALS AND I'S/O'S ARE COMPLETED. WARM BLANKETS PUT ON ARMS. CALL LIGHT WITHIN REACH.
--- NOTE | 2022-01-21 14:28 | NUR ---
THIS RN TO ROOM TO CHECK ON PT. IV START PER FORMED BY LISA GANNON. LEFT AC IV DC'D PER PROTOCOL. BRISK BLOOD RETURN NOTED WITH NEW IV START. IV FLUIDS RESTARTED. PT DENIES PAIN AND NAUSEA. NO ADDITIONAL REQUESTS OR COMPLAINTS. PT REPORTS PHYSICAL THERAPY "WENT REALLY WELL" WITH NO ADDITONAL FEELINGS OF WEAKNESS. PT DENIES ADDITIONAL REQUESTS OR COMPLAINTS. CALL LIGHT WITHIN REACH. AT BEDSIDE.
--- NOTE | 2022-01-21 16:02 | NUR ---
AFTERNOON ASSESSMENT DUE. PT REMAINS UP TO CHAIR VISITING WITH HER . PT DENIES PAIN AND NAUSEA. PT REPORTS SHE FEELS "ABOUT THE SAME" COMPARED TO WHEN SHE CAME IN. PT REPORTS HER LEFT SIDED WEAKNESS CONTINUES. 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 WEAKER CONDITIONER TUMBLER OPERATOR STRENTH AND RESISTANCE NOTED ON LEFT SIDE ALTHOUGH PT IS ABLE TO AMBUALTE INDPENDANTLY, PUSH AGAINST RESISTANCE, AND HOLD UP ARMS AND LEGS FOR >10 SECONDS. LUNGS SOUNDS REMAIN CLEAR. HEART TONES REGULAR WITH NORMAL SINUS RYTHEM NOTED ON TELEMETRY MONITORING. HEART RATE IN THE 60'S. PT DENEIS ANY TROUBLE SWALLOWING. ICE WATER REFILLED PT VOIDING QUANTITY SUFFICIENT. NO ADDTIIONAL REQUESTS OR COMPLAINTS. CALL LIGHT WITHIN REACH. AT BEDSIDE.
--- NOTE | 2022-01-21 16:35 | NUR ---
PT ARRIVED FROM ER THIS SHIFT FOR CVA VS TIA. PT UP WITH STAND BY ASSIST IN ROOM TO RESTROOM AND IN HALLWAY WITH PHYSICAL THERAPY. PT TOLERATING 2 GRAM SODIUM DIET WITH GOOD APPITITE. PT REMAINS ON TELEMETRY MONITORING WITH NORMAL SINUS RYTHEM NOTED THROUGHOUT SIFT. PT ALERT AND OREINTED. NIH SCORES 2 THROUGHOUT SHIFT FOR RIGHT SIDED FACIAL DROOP AND LEFT SIDED ATAXIAL. MINIMAL WEAKNESS NOTED TO LEFT SIDE. PT DENIES PAIN AND NAUSEA THROUGHOUT SHIFT. PT VOIDING QUANTITY SUFFICIENT. PT USES CALL LIGHT AND MAKES NEEDS KNOWN. PTS AT BEDSIDE THROUGHOUT SHIFT.
--- NOTE | 2022-01-21 17:22 | NUR ---
MEDICATION DUE. PT FINISHED WITH DINNER. PT UP TO RESTROOM WITH WOUND CARE TECHNICIAN WITH STAND BY ASSIST. PT VOIDS WITHOUT ISSUE AND PERFORMS SELF ELY CARE. STAND BY ASSIST BACK TO CHAIR. MEDICATION GIVEN. PT DENEIS PAIN AND NAUSEA. NO ADDITIONAL REQUESTS OR COMPLAINTS. CALL LIGHT WITHIN REACH.
--- NOTE | 2022-01-21 17:41 | EKG ---
[facility] [address] [facility] [place] [address] Signed Normal sinus rhythm Normal ECG When compared with ECG of 31-OCT-2019 12:27, Nonspecific T wave abnormality now evident in Anterior leads Confirmed by MAG COSME MD ([id number]) on 01/21/2022 5:41:23 PM Electronically Signed By: MAG COSME MD 01/21/22 174 PATIENT NAME: JAMIEKYLAH FLORESIA MICHAEL Electrocardiogram DATE OF : 54 PHYSICIAN: MAG COSME MD REPORT #: [id number] REPORT IS CONFIDENTIAL AND NOT TO BE RELEASED WITHOUT AUTHORIZATION
--- NOTE | 2022-01-21 17:55 | NUR ---
PATIENT IN CHAIR AFTER USING RESTROOM. VITALS AND I'S/O'S COMPLETED. NO OTHER NEEDS AT THIS TIME. CALL LIGHT IN REACH.
--- NOTE | 2022-01-21 18:30 | NUR ---
THIS RN TO ROOM TO CHECK ON PT. PT REMAINS UP TO CHAIR, ALERT AND ORIENTED, VISITING WITH . PT TELLS STORIES CONGRUENLY WITHOUT NEED TO SEARCH FOR WORDS OR STOP TO THINK. PT DENIES PAIN AND NAUSEA. NO REQUESTS OR COMPLAINTS AT THIS TIME. ICE WATER REFILLED. CALL LIGHT WITHIN REACH.
--- NOTE | 2022-01-21 19:00 | NUR ---
BEDSIDE REPORT FROM VICKI RN, PT ALERT AND ORIENTED SITTING UP IN RECLINER, NO DISTRESS NOTED, PT VERBALIZED NO NEEDS AT THIS TIME.
--- NOTE | 2022-01-21 19:38 | NUR ---
PT IV ALARMING, TUBING KINKED, NOW INFUSING. PT DENIES NEEDS. UP IN RECLINER CHAIR.
--- NOTE | 2022-01-21 20:37 | NUR ---
PT SITTING UP IN RECLINER SHE REPORTS SHE IS MOST COMFORTABLE IN THE RECLINER. ASSESSMENT COMPLETE NO NEW DEFICITS NOTED FROM REPORT OR START OF SHIFT. PT HAS SLIGHTLY WEAKER STRENGTH NOTED AT LEFT UPPER AND LOWER EXTREMETIES VS THE RIGHT. V/S STABLE, IVF INFUSING, VOIDING WELL.
--- NOTE | 2022-01-21 22:27 | NUR ---
PT SITTING UP IN HER RECLINER EYES CLOSED RR REGULAR AT 16 BPM, NO DISTRESS NOTED AT THIS TIME
--- NOTE | 2022-01-21 23:44 | NUR ---
PT RESTING IN RECLINER EYES CLOSED. PT OPENED HER EYES TO RN AT CHAIRSIDE, THEN CLOSED HER EYES AGAIN. NO DISTRESS NOTED, NO NEW CONCERNS OR REQUESTS AT THIS TIME. NEW IVF STARTED
--- NOTE | 2022-01-22 02:16 | NUR ---
IV ALARMING. TUBING BEHIND PT, READJUSTED, NOW INFUSING. NO OTHER NEEDS AT THIS TIME.
--- NOTE | 2022-01-22 02:30 | NUR ---
ROUNDING ON PT FOR ASSESSMENT AND V/S, PT THEN UP TO BATHROOM TO VOID. PT TOLERATED ACTIVITY WELL WITH STANDBY ASSIST. SHE INITIALLY UNSTEADY WHEN STANDING. NO NEW DEFICITS NOTED ON ASSESSMENT AT THIS TIME
--- NOTE | 2022-01-22 04:59 | NUR ---
PT HAS SLEPT SECOND HALF OF SHIFT WELL, SHE HAS PREFERED THE RECLINER OVER SLEEPING IN BED. SHE HAS NOT REPORTED ANY PAIN OR NAUSEA OVER SHIFT, NO NEW DEFICITS NOTED OVER SHIFT. PT HAS BEEN UP MULTIPLE TIMES TO AMBUALTE TO BATHROOM, SHE HAS TOLERATED ACTIVITY WELL WITH STANDBY ASSIST. PT VERBALIZED THAT SHE WOULD LIKE TO GO HOME TODAY IF POSSIBLE AND HAVE MRI AND ECHO DONE OUT PATIENT.
--- NOTE | 2022-01-22 07:06 | NUR ---
REPORT RECEIVED FROM LISA GARCIA. PT UP TO CHAIR, WATCHING TV. PT DENIES PAIN AND NAUSEA. NO REQUESTS OR COMPLAINTS AT THIS TIME. CALL LIGHT WIHTIN REACH. CALL LIGHT WITHIN REACH.
--- NOTE | 2022-01-22 07:30 | NUR ---
PATIENT UP IN CHAIR. AM CARE COMPLETED, NO OTHER NEEDS AT THIS TIME. CALL LIGHT IN REACH.
--- NOTE | 2022-01-22 09:20 | NUR ---
PATIENT IN CHAIR VISITING WITH . VITALS AND I/O'S COMPLETE, NO OTHER NEEDS AT THIS TIME. CALL LIGHT WITHIN REACH.
--- NOTE | 2022-01-22 09:28 | NUR ---
MORNING ASSESSMENT AND MEDICATION DUE. PT REMAINS UP TO CHAIR. AT BEDSIDE. PT DENIES PAIN AND NAUSEA. 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 PT STRONG AND ABLE TO HOLD LEGS AND ARMS UP FOR 10 SECONDS EACH. PT ABLE TO PUSH AGINST RESISTANCE IN ALL EXREMITIES. LEFT SIDE SLIGHTLY WEAKER AGAINST RESISTANCE THAN RIGHT IN BOTH ARM AND LEG. 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 LUNG SOUNDS CLEAR. HEART TONES REGULAR WITH NORMAL SINUS RYTHEM NOTED ON TELEMETRY MONITORING, HEART RATE 60'S. PT VOIDING LARGE AMOUNTS OF CLEAR YELLOW URINE. MEDICATION GIVEN. SWALLOWS PILLS WITH NO DIFFICULTY, THROAT CLEARING OR COUGHING. PT DENIES ADDITIONAL REQUESTS OR COMPLAINTS. CALL LIGHT WITHIN REACH. PTS AT BEDSIDE.
--- NOTE | 2022-01-22 10:22 | NUR ---
THIS RN TO ROOM TO CHECK ON PT. PT UP WITH PHYSCIAL THERAPY. DENIES PAIN AND NAUSEA. NO REQUESTS OR COMPLAINTS. DR. COSME UPDATED ON PT STAUTS AND ASSESSMENT. NO NEW ORDERS.
--- NOTE | 2022-01-22 10:40 | NUR ---
PT FINISHED WITH PHYSICAL THERAPY AND BACK TO ROOM, UP TO CHAIR. PT CONTINUES TO DENY PAIN AND NAUSEA. PT UPDATED ON PLAN OF CARE. PT STATES SHE WANTS TO GO HOME TODAY. EDUCATION DONE WITH PT AND PT ENCOURAGED TO DISCUSS PLAN OF CARE WITH MD. PT REPORTS SHE FELT STEADY ON FEET WHILE WORKING WITH PHYSICAL THERAPY. PT DENIES ADDITIONAL REQUESTS OR COMPLAINTS. CALL LIGHT WITHIN REACH.
--- NOTE | 2022-01-22 11:07 | NUR ---
NEW ORDERS PLACED. IV FLUID RATE DECREASED TO 50ML/HR. PT STATES SHE MET WITH DR COSME AND HER QUESTIONS HAVE BEEN ANSWERED. TELEMETRY MONITORING DC'D PER MD ORDER. PT CONTINUES TO DENY PAIN AND NAUSEA. NO ADDITIONAL REQUESTS OR COMPLAINTS. CALL LIGHT SINDY REACH. AT BEDSIDE.
--- NOTE | 2022-01-22 12:16 | NUR ---
THIS RN TO ROOM TO CHECK ON PT. PT UP TO RESTROOM WITH STAND BY ASSISTANCE FROM . PT DENIES PAIN AND NAUSEA. PT REQUESTS ADHESIVE REMOVER TO REMOVE TELEMETRY STICKER RESIDUAL, PROVIDED. PT REQUESTS A SHOWER AFTER LUNCH. DRAG DOWN UPDATED. PT DENIES ADDITIONAL REQUESTS OR COMPLAINTS. LUNCH DELIVERED. CALL LIGHT WITHIN REACH.
--- NOTE | 2022-01-22 13:05 | NUR ---
PT IN CHAIR VISITING FAMILY.VITALS AND I/O'S COMPLETED. NO OTHER NEEDS AT THIS TIME. CALL LIGHT IN REACH.
--- NOTE | 2022-01-22 14:22 | NUR ---
AFTERNOON ASSESSMENT DUE. PT UP TO CHAIR, WATCHING TV. PTS WENT HOME TO GATHER PTS HOME SHOWER SUPPLIES. PT REMAINS ALERT AND ORIENTED TO ALL. PT DENEIS PAIN AND NAUSEA. NIH SCORE UNCHANGED FOR RIGHT FACIAL CHEEK FLATNESS AND LEFT HAND ATAXIA. PT REPORTS HER STRENGTH IS IMPROVING AND SHE IS WORKING ON HER PHYSICAL THERAPY EXERCIES. PT ABLE TO HOLD LEGS AND ARMS UP AND PUSH AGAINST RESISTANCE. LANGUAGE CLEAR. LEFT ARM/LEG NOTED TO BE MILDLY WEAKER AGAINST RESISTANCE. PT ABLE TO TOUCH LEFT THUMB TO ALL FINGERS WITHOUT ISSUE. PT DENIES ANY LACK OF SENSATION, CMS INTACT. HEART TONES REGULAR. LUNG SOUNDS CLEAR. MRI SCREENING FORM COMPLETED WITH PT, REMAINS AT BEDSIDE FOR PTS TO REVIEW. PT DENIES ADDITIONAL REQUESTS OR COMPLAINTS. CALL LIGHT SINDY SARMIENTO.
--- NOTE | 2022-01-22 15:20 | NUR ---
THIS RN TO ROOM TO CHECK ON PT. PT REMAINS UP TO CHAIR. DENIES PAIN NAUSEA OR OTHER COMPLAINTS. PT REPORTS SHE CONTINUES TO WAIT FOR HER TO ARRIVE WITH HER SHOWER SUPPLIES. PT ADVISED TO CALL NURSING STAFF ANYTIME. ICE WATER REFILLED. PT DENIES ADDITIONAL REQUESTS OR COMPLAINTS. CALL LIGHT WITHIN REACH.
--- NOTE | 2022-01-22 16:15 | NUR ---
PTS ARRIVED. IV SALINE LOCKED AND COVERED FOR SHOWER. PT UP TO SHOWER CHAIR WITH HELPING HER IN SHOWER. NO ADDITIONAL NEEDS AT THIS TIME. PT DEMONSTRATES USE OF CALL LIGHT. CALL LIGHT SINDY SARMIENTO.
--- NOTE | 2022-01-22 16:57 | NUR ---
PT FINISHED WITH SHOWER, SITTING ON CHAIR IN RESTROOM AND PUTTING ON MAKE-UP. PT REPORTS SHOWERING FELT "REALLY GOOD." STAND BY ASSIST UP TO SIT ON EDGE OF BED. IV FLUIDS RESUMED. MRI FORM REVEIWED WITH , SIGNED AND ON CHART. DINNER DELIVERED. PT DENEIS ADDITIONAL REQUESTS OR COMPLAINTS. CALL LIGHT WITHIN REACH.
--- NOTE | 2022-01-22 17:13 | NUR ---
PT HERE FOR SROKE VS TIA. PT UP WITH STAND BY ASSIST TO RESTROOM, CHAIR, SHOWER AND FOR PHYSICAL THERPY THIS SHIFT. PT TOLERATING 2GM SOIDUM DIET WITH GOOD APPITITE. TELEMETRY MONITORING CONTINUED IN NORMAL SINUS RYTHEM AND WAS DC'D THIS SHIFT. NIH SCORE CONTINUED AT 2. NO CHANGES NOTED IN NEURO ASSESSMENTS. MINMAL LEFT SIDED WEAKNESS NOTED WHEN PT PUSHES AGINST RESISTANCE. MRI SCREENING FORM COMPLETED AND ON CHART. PT VOIDING QUANTITY SUFFICIENT, IV FLUIDS CONTINUE IN ANTICIPATION OF IV CONTRAST TOMORROW. PT USES CALL LIGHT AND MAKES NEEDS KNOWN. PTS AT BEDSIDE FOR MUCH OF SHIFT.
--- NOTE | 2022-01-22 17:45 | NUR ---
PATIENT IN BED VISITING WITH SPOUSE. I/O'S COMPLETED, BLOOD PRESSURE HIGH, NURSE NOTIFIED. NO OTHER NEEDS AT THIS TIME. CALL LIGHT WITHIN REACH.
--- NOTE | 2022-01-22 18:18 | NUR ---
MEDICATION DUE. THIS RN TO ROOM. PT RESTING IN BED. FINISHED WITH DINNER. MEDICATION GIVEN. PT SWALLOWS MEDICATION WITHOUT COUGHING OR THROAT CLEARING. PT DENIES ADDITIONAL REQUESTS OR COMPLAINTS. PT ENCORUAGED TO CONTINUE USING PHYSICAL THERAPY TOOLS/TOYS TO EXERCISE LEFT HAND. PT AGREES. CALL LIGHT WITHIN REACH. BED RAILS UP.
--- NOTE | 2022-01-22 19:00 | NUR ---
BEDSIDE REPORT FROM VICKI GONZALEZ, PT RESTING IN BED HER SPOUSE KJ IS AT BEDSIDE. SHE IS ALERT AND ORIENTED. NO REQUESTS AT THIS TIME. PER REPORT PT HAS NO NEW DEFICITS OVER DAYSHIFT.
--- NOTE | 2022-01-22 21:10 | NUR ---
SBA. CHAIR TO BATHROOM AND BACK TO CHAIR. PATIENT PREFERS TO BE UP IN HTE CHAIR. V/S AND I&O'S COMPLETED. ICE WATER REFILLED. CALL LIGHT AND SIDE TABLE WITHIN REACH.
--- NOTE | 2022-01-22 22:52 | NUR ---
PT SITTING UP IN RECLINER, SHE IS ALERT AND ORIENTED, ASSESSMENT COMPLETE NO NEW DEFICITS NOTED AT THIS TIME. PT HAS NO REQUESTS OR CONCERNS AT THIS TIME. SHE VERBALIZED THAT SHE IS DISAPPOINTED TO HAVE TO STAY ANOTHER NIGHT TO HAVE MRI AND ECHO COMPLETED TOMORROW, THIS IS NOT AVAILABLE ON THE WEEKENDS AT THIS HOSPITAL.
--- NOTE | 2022-01-23 03:53 | NUR ---
PT RESTING IN RECLINER EYES CLOSED RR REGULAR AT 16 BPM. NO DISTRESS NOTED.
--- NOTE | 2022-01-23 05:54 | NUR ---
PT HAS SLEPT WELL UP IN RECLINER OVER SHIFT UP INTERMITTENLY TO USE BATHROOM. SHE HAS NOT REPORTED ANY PAIN OR NAUSEA, NO NEW NEURO DEFICITS NOTED ON ASSESSMENTS. SHE IS ONE PERSON TO AMBULATE, IF SHE HAS BEEN SITTING OR SLEEPING, SHE IS SLIGHTLY UNSTEADY ON STANDING, SHE REPORTS THIS IS COMMON FOR HER. PHYSICAL THERAPY REPORTS YESTURDAY THAT SHE IS AT HER LAST KNOWN BASELINE PER THEIR ASSESSMENT, PT WAS WORKING WITH PHYSICAL THERAPY AFTER HER LAST CVA.
--- NOTE | 2022-01-23 05:57 | NUR ---
SBA. WENT TO THE BATHROOM. PATIENT DID NOT LIKE USING THE WALKER. PATIENT JUST USE THE IV POLE. PATIENT IS BACK UP IN THE CHAIR. NO FURTHER NEEDS OR COMPLAINTS AT THIS TIME. CALL LIGHT WITHIN REACH.
--- NOTE | 2022-01-23 07:33 | NUR ---
Report received from Shirlene GONZALEZ. Pt sitting up in chair, on RA, IVF infusing WNL. Pt denies needs at this time. Echo to be performed shortly. Will continue plan of care.
--- NOTE | 2022-01-23 09:23 | NUR ---
Scheduled medications and assessments complete. Pt sitting up to chair, questions about upcoming procedure answered. IVF infusing WNL. Pt has no noticeable neuro defecits- states baseline intermittent confusion and weakness has been chronic. Assessment WNL. No needs at this time, call light in reach.
--- NOTE | 2022-01-23 09:30 | NUR ---
Pt discussed in [address] Espinoza pt would like to resume OP. request she go through her PCP for this. I will contact the PCP office.
--- NOTE | 2022-01-23 10:10 | NUR ---
Pt taken to MRI.
--- NOTE | 2022-01-23 11:31 | NUR ---
Dr Garcia in to see patient, PO K replacement provided, POC reviewed and pt and are agreeable.
--- NOTE | 2022-01-24 07:35 | NUR ---
Called and spoke with Fatmata at Dr Apodaca's office. Requested they order OP therapy for Jessica. Pt wanting to resume PT. Fatmata will notify Dr. Apodaca.
== END 2022-01-23 12:15 | disposition home or self-care (01) | DRG 65 ==
LOC: ED 07:58 → MS 11:03
PROVIDERS: ADMIT Internal Medicine; ATTEND Internal Medicine
DX: I63.81 Other cerebral infarction due to occlusion or stenosis of small artery (principal); G81.94 Hemiplegia, unspecified affecting left nondominant side; E03.9 Hypothyroidism, unspecified; Z20.822 Contact with and (suspected) exposure to COVID-19; R27.8 Other lack of coordination; Z86.011 Personal history of benign neoplasm of the brain; Z98.890 Other specified postprocedural states; Z88.0 Allergy status to penicillin; Z79.02 Long term (current) use of antithrombotics/antiplatelets; Z79.82 Long term (current) use of aspirin; Z79.899 Other long term (current) drug therapy
CPT/HCPCS: 36415; 70450; 70496; 70498; 70553; 71045; 80048; 80053; 80061; 81001; 83690; 85025; 87502; 93005; 93010; 93306; 97110; 97161; 99285-25; A9270; A9577; C9803; J7030; Q3014; Q9967; U0003